=== PATIENT | female | born 1940 | race Caucasian/White ===

== ENCOUNTER 2017-09-20 13:31 | Emergency (ER) | payer MEDICAID, MEDICARE, OTHER ==
--- NOTE | 2017-09-20 13:51 | ED Physician Chart ---
ED Chief Complaint/HPI - Patient Information Date Seen:: 09/20/17 Time Seen:: 13:45 Chief Complaint:: Increased dyspnea for at least 2 weeks. History of Present Illness:: Brought in by private auto because of increasing dyspnea for at least 2 weeks. Pt is Mohawk speaking. Interpretation is provided by her grandson Atif and my nurse Mr. Jun Hatch. Pt has h/o COPD. Pt has had constant L upper chest pain since last evening, that is characterized as constant, localized and sharp, aggravated with exertion. Chest pain is associated with occasional palpitation. No diaphoresis. Pt has GREGORIO, orthopnea, PND and ankle edema. ? occasional dry cough. No fever. Pt had HHN treatment at home without significant improvement with her respiratory condition. Allergies:: NKA Vitals:: see Nurse Note. Historian:: Patient Family MD/PCP:: Dr. Borrego LMP:: Postmenopausal Review:: Nurse's Note Reviewed ED Review of Systems - Review of Systems General/Constitutional: No fever, No weight loss, No weakness, Edema (in ankles) Skin: No rash, No bruising Head: No headache, No light-headedness Eyes: No loss of vision, No pain, No diplopia ENT: No earache, No nasal drainage, No sore throat Neck: No neck pain, No swelling, No thyromegaly, No stiffness, No mass noted Cardio Vascular: Chest pain, Palpitations, PND, orthopnea, No edema Pulmonary: SOB, Cough (occasional dry), No wheezing GI: No nausea, No vomiting, No pain G/U: No dysuria, No frequency, No hematuria Endocrine: No polyuria, No polydipsia Psychiatric: No prior psych history Hematopoietic: No bruising, No lymphadenopathy Neurological: No syncope, No focal symptoms, No weakness, No paresthesia, No headache, No confusion ED Past Medical History - Past Medical History Past Medical History: HTN, DM, Asthma/COPD, Dyslipidemia, Other (Chronic anemia. ) Social History: Non Smoker, No Alcohol, No Drug Use, , Other (lives with her son) Employment:: Retired. Surgical History: Cholecystectomy (about 8 y/a.), (x 3, with last one about 38 y/a) Psychiatricy History: None Medication: Reviewed Family Medical History - Family Member Mother History Unknown: Yes Living Status: ED Physical Exam - Physical Examination General/Constitutional: Awake, Well-developed, well-nourished, Alert, Non-toxic appearing Other Gen/Cons comments:: Speaks clearly and interacts normally. Pt has mild respiratory distress. Head: Atraumatic Eyes: Lids, conjuctiva normal, PERRL, EOMI Skin: No rash, No ecchymosis, Well hydrated, No lymphadenopathy ENMT: External ears, nose nl, Nasal exam nl, Oropharynx nl Neck: Nontender, No nuchal rigidity, No mass, No stridor Other Neck comments:: Neck exam is limited due to obesity. ?JVD Respiratory: Nl effort/Exclusion Other Respiratory comments:: Few scattered crackles and bibailar rales noticed. No wheeze. Cardio Vascular: RRR, No murmur, gallop, rubs GI: No tenderness/rebounding/guarding, No organomegaly, No hernia, Normal BS's, Nondistended, No mass/bruits Other GI comments:: obese but soft. Other Extremities comments:: Mild bilateral ankle edema noticed. Neuro/Psych: Alert/oriented (x3 ), Judgement/insight normal, Mood normal, Normal gait, No focal deficits ED Labs/Radiology/EKG Results - Lab Results Results: Laboratory Tests 09/20/17 09/20/17 09/20/17 14:25 14:25 14:25 PT 10.9 INR 1.05 PTT (Actin FS) 23.7 L Sodium 133 L Potassium 4.8 Chloride 99 Carbon Dioxide 27.5 Anion Gap 11.3 BUN 22 Creatinine 0.8 Est GFR ( Amer) TNP Est GFR (Non-Af Amer) TNP BUN/Creatinine Ratio 27.5 Glucose 271 H POC Glucose Calcium 8.6 Total Bilirubin 0.3 AST 13 ALT 6 L Alkaline Phosphatase 80 Creatine Kinase 42 Troponin I 0.12 H* B-Natriuretic Peptide Total Protein 7.2 Albumin 3.5 L Globulin 3.7 Albumin/Globulin Ratio 1.0 09/20/17 09/20/17 14:25 14:37 PT INR PTT (Actin FS) Sodium Potassium Chloride Carbon Dioxide Anion Gap BUN Creatinine Est GFR ( Amer) Est GFR (Non-Af Amer) BUN/Creatinine Ratio Glucose POC Glucose 252 H Calcium Total Bilirubin AST ALT Alkaline Phosphatase Creatine Kinase Troponin I B-Natriuretic Peptide 340.0 H Total Protein Albumin Globulin Albumin/Globulin Ratio Laboratory Last Values WBC 12.8 Th/cmm (4.8-10.8) H 09/20/17 14:25 RBC 3.10 Mil/cmm (3.80-5.20) L 09/20/17 14:25 Hgb 6.9 gm/dL (12-16) L* 09/20/17 14:25 Hct 22.1 % (41.0-60) L 09/20/17 14:25 MCV 71.4 fl (81-100) L 09/20/17 14:25 MCH 22.3 pg (27.0-31.0) L 09/20/17 14:25 MCHC Differential 31.2 pg (28.0-36.0) 09/20/17 14:25 RDW 16.4 % (11.5-20.0) 09/20/17 14:25 Plt Count 512 Th/cmm (150-400) H 09/20/17 14:25 MPV 7.3 fl 09/20/17 14:25 Neutrophils % 71.4 % (40.0-80.0) 09/20/17 14:25 Lymphocytes % 18.1 % (20.0-50.0) L 09/20/17 14:25 Monocytes % 7.3 % (2.0-10.0) 09/20/17 14:25 Eosinophils % 2.7 % (0.0-5.0) 09/20/17 14:25 Basophils % 0.5 % (0.0-2.0) 09/20/17 14:25 PT 10.9 SECONDS (9.5-11.5) 09/20/17 14:25 INR 1.05 (0.5-1.4) 09/20/17 14:25 PTT (Actin FS) 23.7 SECONDS (26.0-38.0) L 09/20/17 14:25 Sodium 133 mEq/L (136-145) L 09/20/17 14:25 Potassium 4.8 mEq/L (3.5-5.1) 09/20/17 14:25 Chloride 99 mEq/L (98-107) 09/20/17 14:25 Carbon Dioxide 27.5 mEq/L (21.0-31.0) 09/20/17 14:25 Anion Gap 11.3 (7.0-16.0) 09/20/17 14:25 BUN 22 mg/dL (7-25) 09/20/17 14:25 Creatinine 0.8 mg/dL (0.6-1.2) 09/20/17 14:25 Est GFR ( Amer) TNP 09/20/17 14:25 Est GFR (Non-Af Amer) TNP 09/20/17 14:25 BUN/Creatinine Ratio 27.5 09/20/17 14:25 Glucose 271 mg/dL (70-105) H 09/20/17 14:25 POC Glucose 252 MG/DL (70 - 105) H 09/20/17 14:37 Calcium 8.6 mg/dL (8.6-10.3) 09/20/17 14:25 Total Bilirubin 0.3 mg/dL (0.3-1.0) 09/20/17 14:25 AST 13 U/L (13-39) 09/20/17 14:25 ALT 6 U/L (7-52) L 09/20/17 14:25 Alkaline Phosphatase 80 U/L (34-104) 09/20/17 14:25 Creatine Kinase 42 U/L (30-223) 09/20/17 14:25 Troponin I 0.12 ng/mL (0.01-0.05) H* 09/20/17 14:25 B-Natriuretic Peptide 340.0 pg/mL (5.0-100.0) H 09/20/17 14:25 Total Protein 7.2 gm/dL (6.0-8.3) 09/20/17 14:25 Albumin 3.5 gm/dL (3.7-5.3) L 09/20/17 14:25 Globulin 3.7 gm/dL 09/20/17 14:25 Albumin/Globulin Ratio 1.0 (1.0-1.8) 09/20/17 14:25 Laboratory Last Values WBC 15.1 Th/cmm (4.8-10.8) H 09/20/17 19:45 RBC 3.21 Mil/cmm (3.80-5.20) L 09/20/17 19:45 Hgb 7.1 gm/dL (12-16) L* 09/20/17 19:45 Hct 23.0 % (41.0-60) L 09/20/17 19:45 MCV 71.6 fl (81-100) L 09/20/17 19:45 MCH 22.0 pg (27.0-31.0) L 09/20/17 19:45 MCHC Differential 30.7 pg (28.0-36.0) 09/20/17 19:45 RDW 16.4 % (11.5-20.0) 09/20/17 19:45 Plt Count 547 Th/cmm (150-400) H 09/20/17 19:45 MPV 7.1 fl 09/20/17 19:45 Neutrophils % 65.6 % (40.0-80.0) 09/20/17 19:45 Lymphocytes % 22.3 % (20.0-50.0) 09/20/17 19:45 Monocytes % 9.0 % (2.0-10.0) 09/20/17 19:45 Eosinophils % 2.7 % (0.0-5.0) 09/20/17 19:45 Basophils % 0.4 % (0.0-2.0) 09/20/17 19:45 PT 10.9 SECONDS (9.5-11.5) 09/20/17 14:25 INR 1.05 (0.5-1.4) 09/20/17 14:25 PTT (Actin FS) 23.7 SECONDS (26.0-38.0) L 09/20/17 14:25 Sodium 133 mEq/L (136-145) L 09/20/17 14:25 Potassium 4.8 mEq/L (3.5-5.1) 09/20/17 14:25 Chloride 99 mEq/L (98-107) 09/20/17 14:25 Carbon Dioxide 27.5 mEq/L (21.0-31.0) 09/20/17 14:25 Anion Gap 11.3 (7.0-16.0) 09/20/17 14:25 BUN 22 mg/dL (7-25) 09/20/17 14:25 Creatinine 0.8 mg/dL (0.6-1.2) 09/20/17 14:25 Est GFR ( Amer) TNP 09/20/17 14:25 Est GFR (Non-Af Amer) TNP 09/20/17 14:25 BUN/Creatinine Ratio 27.5 09/20/17 14:25 Glucose 271 mg/dL (70-105) H 09/20/17 14:25 POC Glucose 61 MG/DL (70 - 105) L 09/20/17 20:47 Whole Bld Lactic Acid 1.56 mmol/L (0.60-1.99) 09/20/17 17:01 Calcium 8.6 mg/dL (8.6-10.3) 09/20/17 14:25 Total Bilirubin 0.3 mg/dL (0.3-1.0) 09/20/17 14:25 AST 13 U/L (13-39) 09/20/17 14:25 ALT 6 U/L (7-52) L 09/20/17 14:25 Alkaline Phosphatase 80 U/L (34-104) 09/20/17 14:25 Creatine Kinase 42 U/L (30-223) 09/20/17 14:25 Troponin I 0.13 ng/mL (0.01-0.05) H* 09/20/17 18:59 B-Natriuretic Peptide 340.0 pg/mL (5.0-100.0) H 09/20/17 14:25 Total Protein 7.2 gm/dL (6.0-8.3) 09/20/17 14:25 Albumin 3.5 gm/dL (3.7-5.3) L 09/20/17 14:25 Globulin 3.7 gm/dL 09/20/17 14:25 Albumin/Globulin Ratio 1.0 (1.0-1.8) 09/20/17 14:25 Blood Type O POSITIVE 09/20/17 17:01 Antibody Screen NEGATIVE 09/20/17 17:01 Laboratory Last Values WBC 15.1 Th/cmm (4.8-10.8) H 09/20/17 19:45 RBC 3.21 Mil/cmm (3.80-5.20) L 09/20/17 19:45 Hgb 7.1 gm/dL (12-16) L* 09/20/17 19:45 Hct 23.0 % (41.0-60) L 09/20/17 19:45 MCV 71.6 fl (81-100) L 09/20/17 19:45 MCH 22.0 pg (27.0-31.0) L 09/20/17 19:45 MCHC Differential 30.7 pg (28.0-36.0) 09/20/17 19:45 RDW 16.4 % (11.5-20.0) 09/20/17 19:45 Plt Count 547 Th/cmm (150-400) H 09/20/17 19:45 MPV 7.1 fl 09/20/17 19:45 Neutrophils % 65.6 % (40.0-80.0) 09/20/17 19:45 Lymphocytes % 22.3 % (20.0-50.0) 09/20/17 19:45 Monocytes % 9.0 % (2.0-10.0) 09/20/17 19:45 Eosinophils % 2.7 % (0.0-5.0) 09/20/17 19:45 Basophils % 0.4 % (0.0-2.0) 09/20/17 19:45 PT 10.9 SECONDS (9.5-11.5) 09/20/17 14:25 INR 1.05 (0.5-1.4) 09/20/17 14:25 PTT (Actin FS) 23.7 SECONDS (26.0-38.0) L 09/20/17 14:25 Sodium 133 mEq/L (136-145) L 09/20/17 14:25 Potassium 4.8 mEq/L (3.5-5.1) 09/20/17 14:25 Chloride 99 mEq/L (98-107) 09/20/17 14:25 Carbon Dioxide 27.5 mEq/L (21.0-31.0) 09/20/17 14:25 Anion Gap 11.3 (7.0-16.0) 09/20/17 14:25 BUN 22 mg/dL (7-25) 09/20/17 14:25 Creatinine 0.8 mg/dL (0.6-1.2) 09/20/17 14:25 Est GFR ( Amer) TNP 09/20/17 14:25 Est GFR (Non-Af Amer) TNP 09/20/17 14:25 BUN/Creatinine Ratio 27.5 09/20/17 14:25 Glucose 271 mg/dL (70-105) H 09/20/17 14:25 POC Glucose 61 MG/DL (70 - 105) L 09/20/17 20:47 Whole Bld Lactic Acid 1.56 mmol/L (0.60-1.99) 09/20/17 17:01 Calcium 8.6 mg/dL (8.6-10.3) 09/20/17 14:25 Total Bilirubin 0.3 mg/dL (0.3-1.0) 09/20/17 14:25 AST 13 U/L (13-39) 09/20/17 14:25 ALT 6 U/L (7-52) L 09/20/17 14:25 Alkaline Phosphatase 80 U/L (34-104) 09/20/17 14:25 Creatine Kinase 42 U/L (30-223) 09/20/17 14:25 Troponin I 0.13 ng/mL (0.01-0.05) H* 09/20/17 18:59 B-Natriuretic Peptide 340.0 pg/mL (5.0-100.0) H 09/20/17 14:25 Total Protein 7.2 gm/dL (6.0-8.3) 09/20/17 14:25 Albumin 3.5 gm/dL (3.7-5.3) L 09/20/17 14:25 Globulin 3.7 gm/dL 09/20/17 14:25 Albumin/Globulin Ratio 1.0 (1.0-1.8) 09/20/17 14:25 Blood Type O POSITIVE 09/20/17 17:01 Antibody Screen NEGATIVE 09/20/17 17:01 - Radiology Results Results: PCXR: Based on my interpretation: Cardiiomegaly with bilateral pleural effusion and cephalization c/w CHF. Official report is pending. - EKG Interpretations EKG Time:: 13:56 Rate & Rhythm: NSR with VR 82 Comments:: Mild ST depression in lead V5-6. Consider lateral ischemia. lunchroom monitor: NSR with VR 80. No ectopy. Repeat EKG at 1835: NSR with VR 72. No definite acute ischemic changes at lateral leads. ED Septic Shock - . Is Septic Shock (SBP<90, OR Lactate>4 mmol\L) present?: No ED Reassessment (Disposition) - Reassessment Reassessment:: 1420 Pt feels better. Chest pain resolved after one sublingual nitroglycerin. Pt is hemodynamically stable. 1540 Pt breathes comfortably and does not feel that she needs HHN treatment. Remaining lab results are still pending. 1625 Pt remains stable. Remaining lab results just became available. EKG, CXR, and lab findings have been reviewed with pt. Management plan has been discussed. Admitting physician is to be contacted. 1705 Case was discussed with DR. Mccracken (? sp) ([facility]ly [facility]) at about 1705. She authorized pt to be admitted in this hospital. 1750 Pt remains chest pain free and overall stable. Case was discussed with Dr. Son. He recommended pt to be transferred to a hospital where there is cardiac catheterization capacity. 1845 Pt has had urine output about 350 ml after IV Lasix was given. Pt now breathes comfortably and essentially back to her baseline respiratory status. Reexam: COR RRR Lungs mild basilar rales. No wheeze. 0 Pt remains stable and chest pain free. Pt breathes comfortably. Remaining lab results have been reviewed. Awaiting transfer to [facility]. 2205 Dr. Menard at [facility] initially accepted pt for transfer. I spoke with Dr. Grace (?sp) at about 2200, who will be the hospitalist there to provide care for this patient this evening upon her arrival at [facility]. He was updated about pt's clinical status, as well as pertinent H & P, CXR, EKG, lab findings, including repeat EKG , CBC, and lactic acid level. He confirmed acceptance of pt's transfer. Management plan has been discussed with pt also. Pt remains comfortable and stable. No chest pain, dyspnea, or lightheadedness. Reassessment Condition:: Improved - Diagnosis Diagnosis:: Chest pain c/w ischemic heart disease (mild elevated troponin I level) with CHF. Stable and currently asymptomatic. h/o COPD. Stable. Diabetes mellitus. Stable HTN. Stable. Anemia. Stable. Hb is expected to improve after diuresis. Leukocytosis. - Patient Disposition Discharge/Transfer:: Acute Care (other hosp) ([facility] ( with cardiac catheterization capacity), higher level of care. Accepting physician Dr. Grace.) Transport Method:: ACLS Time:: 22:10 Condition at Disposition:: Stable, Improved ED Discharge Plan - Patient Disposition Admit/Discharge/Transfer: TRANSFER TO ACUTE HOSP Condition at Disposition: Stable
[2017-09-20] MEDS ORDERED: NITROGLYCERIN OINT 2% 1 INCH PACKET TP STA (14:23)
[2017-09-20] MEDS ORDERED: NITROGLYCERIN OINT 2% 1 INCH PACKET TP ONE (14:27)
[2017-09-20 14:48] LABS: INR 1.05 (0.5-1.4); PROTHROMBIN TIME (TEST) 10.9 SECONDS (9.5-11.5)
[2017-09-20 14:55] LABS: ALBUMIN 3.5 gm/dL (3.7-5.3); ALKALINE PHOSPHATASE 80 U/L (34-104); ANION GAP 11.3 (7.0-16.0); BILIRUBIN,TOTAL 0.3 mg/dL (0.3-1.0); BUN - UREA NITROGEN 22 mg/dL (7-25); CALCIUM SERUM 8.6 mg/dL (8.6-10.3); CARBON DIOXIDE 27.5 mEq/L (21.0-31.0); CHLORIDE 99 mEq/L (98-107); CREATININE - SERUM 0.8 mg/dL (0.6-1.2); CREATININE KINASE 42 U/L (30-223); GLUCOSE 271 mg/dL (70-105); POTASSIUM SERUM 4.8 mEq/L (3.5-5.1); SGOT 13 U/L (13-39); SGPT/ALT 6 U/L (7-52); SODIUM SERUM 133 mEq/L (136-145); TOTAL PROTEIN,SERUM 7.2 gm/dL (6.0-8.3)
[2017-09-20 15:18] LABS: % MONOCYTES 7.3 % (2.0-10.0); EOSINOPHILE ABSOLUTE 0.3 Th/cmm (0.1-0.4); LYMPHOCYTE ABSOLUTE 2.3 Th/cmm (1.5-3.0); MEAN PLATELET VOLUME 7.3 fl; MONOCYTE ABSOLUTE 0.9 Th/cmm (0.3-1.0)
[2017-09-20 15:31] LABS: % BASOPHILS 0.5 % (0.0-2.0); % EOSINOPHILS 2.7 % (0.0-5.0); % LYMPHOCYTES 18.1 % (20.0-50.0); % NEUTROPHILS 71.4 % (40.0-80.0); BASOPHILE ABSOLUTE 0.1 Th/cumm (0-0.2); HEMATOCRIT 22.1 % (41.0-60); MEAN CELL VOLUME 71.4 fl (81-100); MEAN CORPUSCULAR HEMOGLOBIN 22.3 pg (27.0-31.0); MEAN CORPUSCULAR HGB CONC 31.2 pg (28.0-36.0); NEUTROPHILE ABSOLUTE 9.2 Th/cmm (1.8-8.0); PLATELET COUNT 512 Th/cmm (150-400); RED CELL DISTRIBUTION WIDTH 16.4 % (11.5-20.0)
[2017-09-20 15:53] LABS: HEMOGLOBIN 6.9 gm/dL (12-16); WHITE BLOOD COUNT 12.8 Th/cmm (4.8-10.8)
[2017-09-20] MEDS ORDERED: cefTRIAXone 1 GM in Sodium Chloride 0.9% 50 ML IV ONE (16:50)
[2017-09-20 20:19] LABS: % BASOPHILS 0.4 % (0.0-2.0); % EOSINOPHILS 2.7 % (0.0-5.0); % LYMPHOCYTES 22.3 % (20.0-50.0); % NEUTROPHILS 65.6 % (40.0-80.0); BASOPHILE ABSOLUTE 0.1 Th/cumm (0-0.2); EOSINOPHILE ABSOLUTE 0.4 Th/cmm (0.1-0.4); LYMPHOCYTE ABSOLUTE 3.4 Th/cmm (1.5-3.0); MEAN CELL VOLUME 71.6 fl (81-100); MEAN CORPUSCULAR HGB CONC 30.7 pg (28.0-36.0); MEAN PLATELET VOLUME 7.1 fl; MONOCYTE ABSOLUTE 1.4 Th/cmm (0.3-1.0); NEUTROPHILE ABSOLUTE 9.8 Th/cmm (1.8-8.0); PLATELET COUNT 547 Th/cmm (150-400); RED BLOOD COUNT 3.21 Mil/cmm (3.80-5.20); RED CELL DISTRIBUTION WIDTH 16.4 % (11.5-20.0)
[2017-09-20 20:48] LABS: WHITE BLOOD COUNT 15.1 Th/cmm (4.8-10.8)
[2017-09-20 20:49] LABS: HEMOGLOBIN 7.1 gm/dL (12-16)
--- NOTE | 2017-09-21 08:58 | Diagnostic Imaging Report ---
Exam: Chest x-ray portable Diagnosis: Dyspnea. Findings: Portable upright examination of chest at 1436 hours reviewed no prior studies available comparison. The study demonstrates cardiomegaly superimposed congestive heart failure changes. There is evidence of basilar infiltrates with superimposed bilateral effusions. The visualized bony thorax remarkable for degenerative osteopenia. The aortic arch calcified. IMPRESSION: 1. Cardiomegaly congestive heart failure 2. Bilateral pneumonia superimposed effusions. Follow-up examination is recommended.
[2017-09-21 13:28] LABS: A1C % 8.2 % (4.0-6.0)
== END 2017-09-20 22:20 | disposition short-term general hospital (02) ==
LOC: ER 13:31
DX: I11.0 Hypertensive heart disease with heart failure (principal); I50.9 Heart failure, unspecified; I25.9 Chronic ischemic heart disease, unspecified; E11.9 Type 2 diabetes mellitus without complications; D64.9 Anemia, unspecified; D72.829 Elevated white blood cell count, unspecified; E78.5 Hyperlipidemia, unspecified; Z90.49 Acquired absence of other specified parts of digestive tract
CPT/HCPCS: 99285; 96365; 96375; 93005 ×2; 71010; 84484 ×2; 83880; 86900; 86850; 36415; 36416 ×3; 86901; 82948 ×3; 83605 ×2; 85025 ×2; 85610; 82550; 83036; 80053; 87040; J2060; J0696; J1940; Z7610

== ENCOUNTER 2018-06-05 22:50 | Inpatient (IN) | payer OTHER ==
[2018-06-05] MEDS ORDERED: Albuterol/Ipratropium Neb 3 ML AERS HHN ONE ×2 (22:54→22:58)
--- NOTE | 2018-06-05 23:40 | ED Physician Chart ---
ED Chief Complaint/HPI - Patient Information Date Seen:: 06/05/18 Time Seen:: 22:55 Chief Complaint:: shortness of breath History of Present Illness:: this is an 78 yr old female who has been short of breath for a month but got more short of breath this eveing. she is diabetic and hypertensive but denies fever and sore throat. Allergies:: Allergies Allergy/AdvReac Type Severity Reaction Status Date / Time No Known Allergies Allergy Verified 09/20/17 14:06 Vitals:: Vital Signs - 8 hr 06/05/18 06/05/18 22:50 23:02 Temp 98.4 F HR 90 84 RR 22 20 BP 131/48 O2 Sat % 96 99 Historian:: Patient Review:: Nurse's Note Reviewed ED Review of Systems - Review of Systems General/Constitutional: No fever, No chills, No weight loss, No weakness, No diaphoresis, Edema, No loss of appetite Skin: No skin lesions, No rash, No bruising Head: No headache, No light-headedness Eyes: No loss of vision, No pain, No diplopia ENT: No earache, No nasal drainage, No sore throat, No tinnitus Neck: No neck pain, No swelling, No thyromegaly, No stiffness, No mass noted Cardio Vascular: No chest pain, No palpitations, PND, orthopnea, No edema Pulmonary: SOB, No cough, No sputum, Wheezing GI: No nausea, No vomiting, No diarrhea, No pain, No melena, No hematochezia, No constipation, No hematemesis G/U: No dysuria, No frequency, No hematuria Musculoskeletal: No bone or joint pain, No back pain, No muscle pain Endocrine: No polyuria, No polydipsia Psychiatric: No prior psych history, No depression, No anxiety, No suicidal ideation Hematopoietic: No bruising, No lymphadenopathy Allergic/Immuno: No urticaria, No angioedema Neurological: No syncope, No focal symptoms, No weakness, No paresthesia, No headache, No seizure, No dizziness, No confusion, No vertigo ED Past Medical History - Past Medical History Obtainable: Yes Past Medical History: HTN, DM, Asthma/COPD, Arthritis Family History: None Social History: Non Smoker, No Alcohol, No Drug Use Surgical History: Cholecystectomy, Hysterectomy, Psychiatricy History: None Medication: Reviewed Family Medical History - Family Member Mother History Unknown: Yes Living Status: ED Physical Exam - Physical Examination General/Constitutional: Awake, Well-developed, well-nourished, Alert, No distress, GCS 15, Non-toxic appearing, Ambulatory Other Gen/Cons comments:: obese Head: Atraumatic Eyes: Lids, conjuctiva normal, PERRL, EOMI Skin: Nl inspection, No rash, No skin lesions, No ecchymosis, Well hydrated, No lymphadenopathy ENMT: External ears, nose nl, Nasal exam nl, Lips, teeth, gums nl Neck: Nontender, Full ROM w/o pain, No JVD, No nuchal rigidity, No bruit, No mass, No stridor Respiratory: Clear to Auscultation, No Wheeze/Rhonchi/Rales Other Respiratory comments:: she has rhonchi and wheezes of both lungs. Cardio Vascular: RRR, No murmur, gallop, rubs, NL S1 S2 GI: No tenderness/rebounding/guarding, No organomegaly, No hernia, Normal BS's, Nondistended, No mass/bruits, No McBurney tenderness : No CVA tenderness Extremities: No tenderness or effusion, Full ROM, normal strength in all extremities, No edema (there is bilateral edema with 4+ on the right lower leg and 2+ on the left lower leg.), Normal digits & nails Neuro/Psych: Alert/oriented, DTR's symmetric, Normal sensory exam, Normal motor strength, Judgement/insight normal, Mood normal, Normal gait, No focal deficits Misc: Normal back, No paraspinal tenderness ED Labs/Radiology/EKG Results - Lab Results Results: Abnormal Lab Results 06/05/18 06/05/18 06/05/18 23:10 23:10 23:10 WBC 13.3 H RBC 3.38 L Hgb 8.0 L Hct 25.2 L MCV 74.5 L MCH 23.6 L MCHC Differential 31.6 RDW 16.1 Plt Count 447 H MPV 7.1 Neutrophils % 56.2 Lymphocytes % 28.2 Monocytes % 10.1 H Eosinophils % 5.0 Basophils % 0.5 PT 9.9 INR 0.95 PTT (Actin FS) 22.0 L Sodium 132 L Potassium 4.4 Chloride 97 L Carbon Dioxide 27.4 Anion Gap 12.0 BUN 23 Creatinine 0.9 Est GFR ( Amer) TNP Est GFR (Non-Af Amer) TNP BUN/Creatinine Ratio 25.6 Glucose 157 H Calcium 9.3 Total Bilirubin 0.4 AST 19 ALT 7 Alkaline Phosphatase 74 Troponin I B-Natriuretic Peptide Total Protein 7.5 Albumin 3.7 Globulin 3.8 Albumin/Globulin Ratio 1.0 TSH 06/05/18 06/05/18 06/06/18 23:10 23:10 00:00 WBC RBC Hgb Hct MCV MCH MCHC Differential RDW Plt Count MPV Neutrophils % Lymphocytes % Monocytes % Eosinophils % Basophils % PT INR PTT (Actin FS) Sodium Potassium Chloride Carbon Dioxide Anion Gap BUN Creatinine Est GFR ( Amer) Est GFR (Non-Af Amer) BUN/Creatinine Ratio Glucose Calcium Total Bilirubin AST ALT Alkaline Phosphatase Troponin I 0.02 B-Natriuretic Peptide 238.0 H Total Protein Albumin Globulin Albumin/Globulin Ratio TSH 3.06 - Radiology Results Results: chest x-ray = cardiomegaly - EKG Interpretations EKG Time:: 22:57 Rate & Rhythm: 85, sinus [place]: right axis ED Assessment - Assessment General Assessment: bronchitis congestive heart failure diabetes mellitus anemia ED Septic Shock - . Is Septic Shock (SBP<90, OR Lactate>4 mmol\L) present?: No - <6hrs of presentation: Vital Signs: Vital Signs - 8 hr 06/05/18 06/05/18 22:50 23:02 Temp 98.4 F HR 90 84 RR 22 20 BP 131/48 O2 Sat % 96 99 ED Reassessment (Disposition) - Reassessment Reassessment Condition:: Improved - Diagnosis Diagnosis:: bronchitis anemia congestive heart failure diabetes mellitus - Patient Disposition Discharge/Transfer:: Acute Care w/in this hosp Admitted to:: Telemetry Admitting Medical Physician:: Byron Jennings Condition at Disposition:: Improved
[2018-06-06 00:10] LABS: % BASOPHILS 0.5 % (0.0-2.0); % LYMPHOCYTES 28.2 % (20.0-50.0); % MONOCYTES 10.1 % (2.0-10.0); % NEUTROPHILS 56.2 % (40.0-80.0); BASOPHILE ABSOLUTE 0.1 Th/cumm (0-0.2); EOSINOPHILE ABSOLUTE 0.7 Th/cmm (0.1-0.4); HEMATOCRIT 25.2 % (41.0-60); LYMPHOCYTE ABSOLUTE 3.8 Th/cmm (1.5-3.0); MEAN CELL VOLUME 74.5 fl (81-100); MEAN CORPUSCULAR HEMOGLOBIN 23.6 pg (27.0-31.0); MEAN CORPUSCULAR HGB CONC 31.6 pg (28.0-36.0); MEAN PLATELET VOLUME 7.1 fl; MONOCYTE ABSOLUTE 1.3 Th/cmm (0.3-1.0); NEUTROPHILE ABSOLUTE 7.4 Th/cmm (1.8-8.0); PLATELET COUNT 447 Th/cmm (150-400); RED BLOOD COUNT 3.38 Mil/cmm (3.80-5.20); RED CELL DISTRIBUTION WIDTH 16.1 % (11.5-20.0); WHITE BLOOD COUNT 13.3 Th/cmm (4.8-10.8)
[2018-06-06 00:19] LABS: INR 0.95 (0.5-1.4); PROTHROMBIN TIME (TEST) 9.9 SECONDS (9.5-11.5)
[2018-06-06 00:21] LABS: ALBUMIN 3.7 gm/dL (3.7-5.3); ALKALINE PHOSPHATASE 74 U/L (34-104); BILIRUBIN,TOTAL 0.4 mg/dL (0.3-1.0); BUN - UREA NITROGEN 23 mg/dL (7-25); CALCIUM SERUM 9.3 mg/dL (8.6-10.3); CARBON DIOXIDE 27.4 mEq/L (21.0-31.0); CHLORIDE 97 mEq/L (98-107); CREATININE - SERUM 0.9 mg/dL (0.6-1.2); GLUCOSE 157 mg/dL (70-105); POTASSIUM SERUM 4.4 mEq/L (3.5-5.1); SGOT 19 U/L (13-39); SGPT/ALT 7 U/L (7-52); SODIUM SERUM 132 mEq/L (136-145); TOTAL PROTEIN,SERUM 7.5 gm/dL (6.0-8.3)
[2018-06-06] MEDS: Albuterol/Ipratropium Neb 3 ML AERS HHN PRN ×2 (04:08→14:45)
[2018-06-06 04:16] LABS: URINE SOURCE RANDOM
[2018-06-06 04:36] LABS: URINE BILIRUBIN NEGATIVE (NEGATIVE); URINE BLOOD NEGATIVE (NEGATIVE); URINE GLUCOSE (UA) NEGATIVE (NEGATIVE); URINE KETONE NEGATIVE (NEGATIVE); URINE LEUKOCYTE ESTERASE NEGATIVE (NEGATIVE); URINE MICROSCOPIC INDICATED? YES; URINE NITRATE POSITIVE (NEGATIVE); URINE PROTEIN NEGATIVE (NEGATIVE); URINE UROBILINOGEN 0.2 E.U./dL (0.2 - 1.0)
[2018-06-06 04:37] LABS: URINE CLARITY HAZY (CLEAR); URINE COLOR YELLOW
[2018-06-06 04:38] LABS: URINE BACTERIA MODERATE /hpf (NONE SEEN); URINE EPITHELIAL CELLS FEW /lpf (FEW); URINE RBC 0-2 /hpf (0-5); URINE WBC 0-2 /hpf (0-5)
[2018-06-06] MEDS ORDERED: Non-Formulary Item 1 EA (Albuterol Sulfate [Proair Hfa] 2 PUFF) IH PRN (07:05)
[2018-06-06] MEDS ORDERED: INSULIN REGULAR SQ SCH (07:30)
[2018-06-06] MEDS ORDERED: [UNRECOGNIZED DRUG - OTHER] SQ SCH (07:30)
[2018-06-06] MEDS ORDERED: INSULIN NPH SQ SCH (07:30)
[2018-06-06] MEDS ORDERED: Albuterol/Ipratropium Neb 3 ML AERS HHN ONE (07:32)
[2018-06-06] MEDS ORDERED: Piperacillin Sodium/Tazobact 3.375 gm Vial IV ONE ×2 (07:39→08:55)
[2018-06-06] MEDS ORDERED: Albuterol/Ipratropium Neb 3 ML AERS HHN PRN (07:45)
--- NOTE | 2018-06-06 08:22 | History and Physical ---
History of Present Illness - HPI Chief Complaint: SOB HPI: 78 y/o female who presents to [facility] ER for SOB for the past month and has been steadily getting worse. Patient has a history of diabetes and hypertension and sorethroat. Pt has a history of HTN, DM, Asthma/ COPD and arthritis. Patient had initial labwork which revealed the following CBC 13.3 H/H 8.0/25.2 platelets 447K Na 132 K 4.4 BUN/Cr 23/0.9 glu 157 BNP 238 Patient was subsequently admitted for further evaluation and treatment. Vital Signs: Last Vital Signs Temp 97.5 F 06/06/18 03:42 Pulse 85 06/06/18 07:34 Resp 17 06/06/18 07:34 BP 131/59 06/06/18 07:34 Pulse Ox 99 06/06/18 07:34 Past Medical History Cardiovascular: Report: CHF, HTN Pulmonary: Report: Asthma, Bronchitis [employer]: Report: No Pertinent Hx GI: Report: No Pertinent Hx Psych: Report: No Pertinent Hx Musculoskeletal: Report: No Pertinent Hx Infectious Disease: Report: No Pertinent Hx Renal/: Report: No Pertinent Hx Endocrine: Report: Diabetes Dermatology: Report: No Pertinent Hx - Past Surgical History Past Surgical History: No pertinent Hx Family Medical History - Family Member Mother History Unknown: Yes Living Status: Social History Smoke: No Alcohol: None Drugs: None Lives: Alone - Medications Home Medications: Home Medication Medication Instructions Recorded Type Aspirin 81 mg PO DAILY 09/20/17 History Insulin NPH Hum/Reg Insulin Hm 40 unit SQ QDAC 09/20/17 History [Humulin 70/30 Kwikpen] Lisinopril [Zestril] 40 mg PO DAILY 09/20/17 History Metformin HCl [Glucophage] 1,000 mg PO BID 09/20/17 History Metoprolol Tartrate 25 mg PO 06/06/18 History Pravastatin Sodium 40 mg PO 06/06/18 History - Allergies Allergies/Adverse Reactions: Allergies Allergy/AdvReac Type Severity Reaction Status Date / Time No Known Allergies Allergy Verified 09/20/17 14:06 Review of Systems - Review of Systems Constitutional: Report: No Significant Eyes: Report: No Significant ENT: Report: No Significant Respiratory: Report: Shortness of Breath Cardiovascular: Report: No Significant Gastrointestinal: Report: No Significant Genitourinary: Report: No Significant Musculoskeletal: Report: No Significant Skin: Report: No Significant Neurological: Report: No Significant Physical Exam - Physical Exam HEENT: Report: Ears Nose Throat within normal limits, Pharnyx within normal limits Neck: Report: Within normal limits Cardiovascular Systems: Report: +s1/s2 noted, Regular, Rate and Rhythm Respiratory: Report: Breath Sounds are within normal limits, Clear to Auscultation of lung paulson Abdomen: Report: Non-tender to palpation Back: Report: Inspection of back is within normal limits. Extremities: Report: Non-tender to palpation. Neuro/Psych: Report: Mood affect is within normal limits - Lab Results All Lab Results last 24 hours: Laboratory Results - last 24 hr 06/05/18 06/05/18 06/05/18 23:10 23:10 23:10 WBC 13.3 H RBC 3.38 L Hgb 8.0 L Hct 25.2 L MCV 74.5 L MCH 23.6 L MCHC Differential 31.6 RDW 16.1 Plt Count 447 H MPV 7.1 Neutrophils % 56.2 Lymphocytes % 28.2 Monocytes % 10.1 H Eosinophils % 5.0 Basophils % 0.5 PT 9.9 INR 0.95 PTT (Actin FS) 22.0 L Sodium 132 L Potassium 4.4 Chloride 97 L Carbon Dioxide 27.4 Anion Gap 12.0 BUN 23 Creatinine 0.9 Est GFR ( Amer) TNP Est GFR (Non-Af Amer) TNP BUN/Creatinine Ratio 25.6 Glucose 157 H Calcium 9.3 Total Bilirubin 0.4 AST 19 ALT 7 Alkaline Phosphatase 74 Troponin I B-Natriuretic Peptide Total Protein 7.5 Albumin 3.7 Globulin 3.8 Albumin/Globulin Ratio 1.0 TSH Urine Source Urine Color Urine Clarity Urine pH Ur Specific Erhard Urine Protein Urine Glucose (UA) Urine Ketones Urine Blood Urine Nitrate Urine Bilirubin Urine Urobilinogen Ur Leukocyte Esterase Urine RBC Urine WBC Ur Epithelial Cells Urine Bacteria 06/05/18 06/05/18 06/06/18 23:10 23:10 00:00 WBC RBC Hgb Hct MCV MCH MCHC Differential RDW Plt Count MPV Neutrophils % Lymphocytes % Monocytes % Eosinophils % Basophils % PT INR PTT (Actin FS) Sodium Potassium Chloride Carbon Dioxide Anion Gap BUN Creatinine Est GFR ( Amer) Est GFR (Non-Af Amer) BUN/Creatinine Ratio Glucose Calcium Total Bilirubin AST ALT Alkaline Phosphatase Troponin I 0.02 B-Natriuretic Peptide 238.0 H Total Protein Albumin Globulin Albumin/Globulin Ratio TSH 3.06 Urine Source Urine Color Urine Clarity Urine pH Ur Specific Erhard Urine Protein Urine Glucose (UA) Urine Ketones Urine Blood Urine Nitrate Urine Bilirubin Urine Urobilinogen Ur Leukocyte Esterase Urine RBC Urine WBC Ur Epithelial Cells Urine Bacteria 06/06/18 03:45 WBC RBC Hgb Hct MCV MCH MCHC Differential RDW Plt Count MPV Neutrophils % Lymphocytes % Monocytes % Eosinophils % Basophils % PT INR PTT (Actin FS) Sodium Potassium Chloride Carbon Dioxide Anion Gap BUN Creatinine Est GFR ( Amer) Est GFR (Non-Af Amer) BUN/Creatinine Ratio Glucose Calcium Total Bilirubin AST ALT Alkaline Phosphatase Troponin I B-Natriuretic Peptide Total Protein Albumin Globulin Albumin/Globulin Ratio TSH Urine Source RANDOM Urine Color YELLOW Urine Clarity HAZY Urine pH 6.0 Ur Specific Erhard 1.010 Urine Protein NEGATIVE Urine Glucose (UA) NEGATIVE Urine Ketones NEGATIVE Urine Blood NEGATIVE Urine Nitrate POSITIVE H Urine Bilirubin NEGATIVE Urine Urobilinogen 0.2 Ur Leukocyte Esterase NEGATIVE Urine RBC 0-2 Urine WBC 0-2 Ur Epithelial Cells FEW Urine Bacteria MODERATE H - Assessment Assessment: Acute Bronchitis Anemia CHF Diabetes mellitus Leukocytosis Hyponatremia Elevated BNP UTI - Plan Plan: will restart home meds GI consult for possible GIB occult x 2 cardiology consult accucheck ac hs low dose sliding scale cbc,cmp tomorrow am rocephin 1gm IV daily protonix 40mg IV daily
[2018-06-06 08:54] LABS: HEMATOCRIT 26.3 % (41.0-60); HEMOGLOBIN 8.3 gm/dL (12-16); LYMPHOCYTE ABSOLUTE 0.9 Th/cmm (1.5-3.0); MEAN CORPUSCULAR HEMOGLOBIN 23.2 pg (27.0-31.0); MEAN CORPUSCULAR HGB CONC 31.4 pg (28.0-36.0); MEAN PLATELET VOLUME 7.3 fl; MONOCYTE ABSOLUTE 0.1 Th/cmm (0.3-1.0); NEUTROPHILE ABSOLUTE 10.8 Th/cmm (1.8-8.0); PLATELET COUNT 449 Th/cmm (150-400); RED BLOOD COUNT 3.56 Mil/cmm (3.80-5.20); RED CELL DISTRIBUTION WIDTH 16.1 % (11.5-20.0); WHITE BLOOD COUNT 11.8 Th/cmm (4.8-10.8)
[2018-06-06 09:07] LABS: CHOLESTEROL 155 mg/dL (<200); HDL -HIGH DENSITY LIPOPROTEIN 58 mg/dL (23-92); TRIGLYCERIDES 66 mg/dL (<150)
[2018-06-06 09:17] LABS: LYMPHOCYTE 7 % (20-50); MONOCYTE 1 % (2-10); NEUTROPHILS 92 % (40-80); PLATELET ESTIMATE INCREASED PLATELETS (NORMAL)
--- NOTE | 2018-06-06 09:39 | Diagnostic Imaging Report ---
Portable chest x-ray HISTORY: Shortness of breath The heart is enlarged. Atherosclerotic calcination seen in the aorta. There is a degree of pulmonary vascular redistribution. Marginal congestive heart failure without svetlana pulmonary edema cannot be excluded. No other focal pulmonary processes. IMPRESSION: 1. Cardiomegaly with atherosclerotic vascular changes and findings suggesting a marginal degree of congestive heart failure without svetlana pulmonary edema. Clinical correlation is needed.
[2018-06-06 09:46] LABS: ANION GAP 16.7 (7.0-16.0); BUN - UREA NITROGEN 27 mg/dL (7-25); CALCIUM SERUM 9.6 mg/dL (8.6-10.3); CARBON DIOXIDE 22.8 mEq/L (21.0-31.0); CHLORIDE 94 mEq/L (98-107); CREATININE - SERUM 1.1 mg/dL (0.6-1.2); POTASSIUM SERUM 4.5 mEq/L (3.5-5.1); SODIUM SERUM 129 mEq/L (136-145)
[2018-06-06 09:58] LABS: GLUCOSE 484 mg/dL (70-105)
[2018-06-06] MEDS ORDERED: cefTRIAXone 1 GM in Sodium Chloride 0.9% 50 ML IV SCH (10:00)
[2018-06-06] MEDS: Aspirin 81mg Chewable Tab PO SCH (11:00)
[2018-06-06] MEDS: INSULIN 70/30 100 UNITS/ML SUBQ SCH (11:01)
[2018-06-06] MEDS: INSULIN ASPART SLIDING SCALE 100 UNITS/ML UNIT SUBQ SCH ×3 (11:02→17:06)
[2018-06-06] MEDS ORDERED: Pneumococcal Vaccine 0.5 mL Vial IM ONE (11:43)
[2018-06-06 11:44] VITALS: BP 118/80
[2018-06-06 13:48] LABS: pH 7.39 (7.35-7.45)
[2018-06-06 13:49] LABS: ALLEN TEST PASS
--- NOTE | 2018-06-06 14:25 | Consultation ---
DATE OF CONSULTATION: 06/06/2018 GASTROINTESTINAL CONSULTATION ATTENDING PHYSICIAN: Dr. Jennings. CONSULTING PHYSICIAN: Shad Berrios MD REASON FOR CONSULTATION: Hypochromic microcytic anemia. HISTORY OF PRESENT ILLNESS: This is an 78-year-old female, who is seen through the courtesy of Dr. Jennings. This patient was admitted via the Emergency Room as this patient has been having some shortness of breath. The patient has a history of COPD and history of diabetes mellitus, history of hypertension and the patient was found to have hemoglobin 8 and hypochromic microcytic indices. The patient denies having any endoscopy or colonoscopy in last 10 years. The patient denies having any GI procedures she knows off and denies also any rectal bleeding. Some time, the patient will have diarrhea, otherwise no constipation and no difficulty in swallowing. PAST MEDICAL HISTORY AND SOCIAL HISTORY: The patient does not smoke, does not drink. Past medical history is remarkable for history of diabetes mellitus, history of hypertension, history of anemia, shortness of breath and history of COPD. PAST SURGICAL HISTORY: No significant surgeries. REVIEW OF SYSTEMS: Remarkable for generalized weakness. FAMILY HISTORY: Unremarkable. ALLERGIES: The patient is not allergic to any medication. PHYSICAL EXAMINATION: GENERAL: The patient is slightly obese female, who is in no acute distress. VITAL SIGNS: Temperature is 98, respiratory rate is 18, blood pressure is 140/80 and pulse is 82. HEENT: Head is normocephalic. Pupils are reactive to light. Conjunctivae are pink. No scleral icterus. Throat is clear. NECK: Supple. No JV distention, no mass. ABDOMEN: Soft, no organomegaly, no tenderness. Intestinal sounds are present. RECTAL: Not performed. EXTREMITIES: No peripheral edema, cyanosis or jaundice. LABORATORY DATA: Hemoglobin is 8, hypochromic microcytic indices. IMPRESSION: 1. Anemia with hypochromic microcytic indices, most likely iron deficiency anemia, rule out slow gastrointestinal bleeding, rule out gastrointestinal tumors. 2. Shortness of breath, could be due to chronic obstructive pulmonary disease or acute bronchitis. 3. Diabetes mellitus. 4. Hypertension. RECOMMENDATION: Once the patient is stabilized from respiratory point of view, then the patient will need EGD and colonoscopy and we will follow the H and H and further recommendation pending the result of endoscopies. Thank you for the consult Dr. Jennings. We will follow this patient with you. PSYCHIATRIC# [id number]
[2018-06-06] MEDS ORDERED: methylPREDNISolone SS 40 mg Vial IV ONE (17:00)
[2018-06-06] MEDS ORDERED: Pantoprazole 40 mg/Packet PO SCH (17:00)
[2018-06-06] MEDS: Albuterol/Ipratropium Neb 3 ML AERS HHN SCH (19:11)
[2018-06-06] MEDS: Budesonide 0.5 Mg/2 mL Ud HHN SCH (19:22)
--- NOTE | 2018-06-06 20:47 | Consultation ---
DATE OF CONSULTATION: 06/06/2018 PULMONARY AND CRITICAL CARE CONSULTATION REASON FOR CONSULTATION: Help the patient with shortness of breath. CONSULT NOTE: This is an 78-year-old female who has had history of shortness of breath on and off for last 1 month, has some more swelling over the legs, vague chest pain, occasional palpitation, no sputum production, has some dyspeptic symptoms, no ____ sinus dribbling, has gained some weight, but could not quantify it, does not recall of any fever or chills, any headache, etc. cannot lay down back because of shortness of breath and also significant palpitations at the time of going to sleep. Weight has increased, but not able to quantify. PAST MEDICAL HISTORY: The patient also has questionable bronchial asthma, hypertension, diabetes mellitus, history of previous cholecystectomy 11 years ago. SMOKING HISTORY: Nil. ALLERGIC HISTORY: The patient is not allergic to any medications. PAST SURGICAL HISTORY: many years back. PHYSICAL FINDINGS: GENERAL: This is an elderly looking female, awake, alert, not in acute distress. VITAL SIGNS: Temperature is 97.4, blood pressure 120/50, saturation 100% on 2 L per minute. HEENT: Examination of the head is essentially unremarkable. Pupils appear to be equal and reacting to light. Conjunctivae are pink. Oral cavity shows small oropharyngeal opening. No nodes in the neck could be palpated. CHEST: Shows occasional rhonchi and wheezing high-pitched with diminished air entry. HEART: Regular, distant. ABDOMEN: Protuberant. EXTREMITIES: Shows 2+ peripheral edema. LABORATORY DATA: The patient's pertinent laboratory studies; white count is 11,000, hemoglobin 8.3. ABG - pO2 is 118, pCO2 of 41 and the patient's sodium is 129, BUN is 27, the patient's sugar is 467. The patient's chest x-ray; poor quality, some haziness at the bases, borderline cardiomegaly. IMPRESSION: The patient with: 1. Shortness of breath, multifactorial. 2. Possibly mild acute exacerbation of bronchial asthma. 3. Strongly suspect sleep apnea syndrome. 4. Possibly right-sided failure. 5. History of hypertension, diabetic mellitus as well as dyslipoproteinemia and also contributory cause of his morbid obesity with obesity hypoventilation with poorly-controlled hyperglycemia. PLANS AND SUGGESTIONS: 1. We will go ahead and get an aggressive inhalation treatment with DuoNeb and Pulmicort to current treatment. 2. We will empirically get a BiPAP at nighttime. 3. We will give low dose of Lasix, etc. 4. We will try to get a high-resolution CT of the chest and see what it shows and go from there. JOB# [id number]
[2018-06-06] MEDS ORDERED: cefTRIAXone 1 GM in 0.9% NS 50 ML IV SCH (22:00)
[2018-06-07] MEDS: INSULIN ASPART SLIDING SCALE 100 UNITS/ML UNIT SUBQ SCH ×4 (00:09→18:12)
--- NOTE | 2018-06-07 03:18 | Consultation ---
DATE OF CONSULTATION: 06/06/[address] Byron Jennings. HISTORY OF PRESENT ILLNESS: This is an 78-year-old female patient who had been complaining of shortness of breath. Following this, the patient was transferred to [facility]. The patient has been found to have anemia, congestive heart failure and hence can consult is requested plus diabetes mellitus type 2, uncontrolled. PAST MEDICAL HISTORY: Diabetes mellitus type 2, hypertension, COPD, osteoporosis, chronic congestive heart failure, iron-deficiency anemia, and hyponatremia. FAMILY HISTORY: Unremarkable. SOCIAL HISTORY: No history of smoking, alcohol abuse. ALLERGIES: No known allergies. PHYSICAL EXAMINATION: VITAL SIGNS: Blood pressure 115/70, pulse 70, and respirations 20. HEAD: Normocephalic. No lumps or bumps. EYES: Pupils equal, reactive to light. Fundi show AV nicking, sclerae white, conjunctivae pink. NECK: Carotid 2+. Normal upstroke. JVD 10 cm above sternal angle. Thyroid not palpable. Lymph nodes not palpable. CHEST: Shows increased AP diameter. No kyphosis, scoliosis. LUNGS: Bilateral rales. Decreased breath sounds both the bases. HEART: PMI fifth intercostal space with lateral to midclavicular line. S1, S2, S3, S4, soft systolic murmur. ABDOMEN: Soft. Liver, spleen not palpable. No organomegaly. Bowel sounds active. NEUROLOGIC: No focal neurological deficit. EXTREMITIES: Peripheral pulses 2+. No pedal edema. CLINICAL IMPRESSION: Congestive heart failure, diastolic dysfunction, chronic uncontrolled diabetes mellitus, severe anemia, hypertension, chronic obstructive pulmonary disease, osteoporosis, iron-deficiency anemia, and hyponatremia. PLAN: The patient to get echocardiogram. Lasix. GI evaluation for anemia. Monitor the patient to continue on insulin to control diabetes. JOB# [id number]
[2018-06-07 05:51] LABS: HEMOGLOBIN 8.2 gm/dL (12-16); MEAN PLATELET VOLUME 7.2 fl
[2018-06-07 05:54] LABS: HEMATOCRIT 25.1 % (41.0-60); MEAN CELL VOLUME 73.3 fl (81-100); MEAN CORPUSCULAR HEMOGLOBIN 24.1 pg (27.0-31.0); MEAN CORPUSCULAR HGB CONC 32.8 pg (28.0-36.0); PLATELET COUNT 429 Th/cmm (150-400); RED BLOOD COUNT 3.42 Mil/cmm (3.80-5.20); RED CELL DISTRIBUTION WIDTH 16.4 % (11.5-20.0)
[2018-06-07 06:02] LABS: WHITE BLOOD COUNT 26.4 Th/cmm (4.8-10.8)
[2018-06-07 06:06] LABS: ALB/GLOB RATIO 0.9 (1.0-1.8); ALBUMIN 3.7 gm/dL (3.7-5.3); ALKALINE PHOSPHATASE 59 U/L (34-104); ANION GAP 13.8 (7.0-16.0); BILIRUBIN,DIRECT 0.13 mg/dL (0.0-0.2); BILIRUBIN,TOTAL 0.3 mg/dL (0.3-1.0); BUN - UREA NITROGEN 42 mg/dL (7-25); CALCIUM SERUM 9.3 mg/dL (8.6-10.3); CARBON DIOXIDE 26.8 mEq/L (21.0-31.0); CHLORIDE 95 mEq/L (98-107); CREATININE - SERUM 1.4 mg/dL (0.6-1.2); POTASSIUM SERUM 5.6 mEq/L (3.5-5.1); SGOT 11 U/L (13-39); SGPT/ALT 6 U/L (7-52); SODIUM SERUM 130 mEq/L (136-145); TOTAL PROTEIN,SERUM 7.8 gm/dL (6.0-8.3)
[2018-06-07 06:12] LABS: GLUCOSE 265 mg/dL (70-105)
[2018-06-07] MEDS: Budesonide 0.5 Mg/2 mL Ud HHN SCH ×2 (06:42→19:15)
[2018-06-07] MEDS: Albuterol/Ipratropium Neb 3 ML AERS HHN SCH ×4 (06:45→19:15)
[2018-06-07 06:58] LABS: BAND NEUTROPHILE 2 % (0-10); BASOPHIL 0 % (0-3); EOSINOPHIL 0 % (0-5); LYMPHOCYTE 7 % (20-50); MONOCYTE 3 % (2-10); NEUTROPHILS 88 % (40-80)
[2018-06-07 06:59] LABS: HYPOCHROMIA 1+; PLATELET ESTIMATE INCREASED PLATELETS (NORMAL)
--- NOTE | 2018-06-07 08:18 | Diagnostic Imaging Report ---
Portable chest x-ray HISTORY: Shortness of breath Compared with the prior exam of June 05, 2018, the heart remains enlarged. There is increasing hazy bilateral lower lobe infiltrates. Findings may be associated with edema and a degree of congestive heart failure. Underlying pneumonia cannot be excluded. IMPRESSION: 1. Persistent cardiomegaly with increasing bilateral lower lobe infiltrates. Changes may be related to congestive heart failure and degree of pulmonary edema. Underlying pneumonia cannot be excluded. Clinical correlation is needed.
--- NOTE | 2018-06-07 08:56 | General Progress Note ---
Subjective - Review of Systems Service Date: 06/07/18 Subjective: Patient was seen and examined. Patient is awake, alert, no acute distress. WBC' s noted to be 26K today. Objective - Results Result Diagrams: 06/07/18 05:10 06/07/18 05:10 Recent Labs: Laboratory Last Values WBC 26.4 Th/cmm (4.8-10.8) H* D 06/07/18 05:10 RBC 3.42 Mil/cmm (3.80-5.20) L 06/07/18 05:10 Hgb 8.2 gm/dL (12-16) L 06/07/18 05:10 Hct 25.1 % (41.0-60) L 06/07/18 05:10 MCV 73.3 fl (81-100) L 06/07/18 05:10 MCH 24.1 pg (27.0-31.0) L 06/07/18 05:10 MCHC Differential 32.8 pg (28.0-36.0) 06/07/18 05:10 RDW 16.4 % (11.5-20.0) 06/07/18 05:10 Plt Count 429 Th/cmm (150-400) H 06/07/18 05:10 MPV 7.2 fl 06/07/18 05:10 Add Manual Diff YES 06/07/18 05:10 Neutrophils % 56.2 % (40.0-80.0) 06/05/18 23:10 Band Neutrophils % 2 % (0-10) 06/07/18 05:10 Lymphocytes % 28.2 % (20.0-50.0) 06/05/18 23:10 Monocytes % 10.1 % (2.0-10.0) H 06/05/18 23:10 Eosinophils % 5.0 % (0.0-5.0) 06/05/18 23:10 Basophils % 0.5 % (0.0-2.0) 06/05/18 23:10 Neutrophils (Manual) 88 % (40-80) H 06/07/18 05:10 Lymphocytes 7 % (20-50) L 06/07/18 05:10 Monocytes 3 % (2-10) 06/07/18 05:10 Eosinophils 0 % (0-5) 06/07/18 05:10 Basophils 0 % (0-3) 06/07/18 05:10 Hypochromia 1+ 06/07/18 05:10 Platelet Estimate INCREASED PLATELETS (NORMAL) 06/07/18 05:10 Microcytosis 3+ 06/07/18 05:10 PT 9.9 SECONDS (9.5-11.5) 06/05/18 23:10 INR 0.95 (0.5-1.4) 06/05/18 23:10 PTT (Actin FS) 22.0 SECONDS (26.0-38.0) L 06/05/18 23:10 Specimen Source Arterial 06/06/18 13:31 Sample Site Right Radial 06/06/18 13:31 pH 7.39 (7.35-7.45) 06/06/18 13:31 pCO2 41.0 mmHg (35.0-45.0) 06/06/18 13:31 pO2 118.0 mmHg (80.0-100.0) H 06/06/18 13:31 HCO3 24.8 mEq/L (20.0-26.0) 06/06/18 13:31 Base Excess -0.2 mEq/L (-3.0-3.0) 06/06/18 13:31 O2 Saturation 99.0 % (92.0-100.0) 06/06/18 13:31 Ermias Test PASS 06/06/18 13:31 Vent Rate NA 06/06/18 13:31 Inspired O2 32 06/06/18 13:31 Tidal Volume NA 06/06/18 13:31 PEEP NA 06/06/18 13:31 Pressure (ins/psv/peep) NA 06/06/18 13:31 Critical Value SH 06/06/18 13:31 Sodium 130 mEq/L (136-145) L 06/07/18 05:10 Potassium 5.6 mEq/L (3.5-5.1) H 06/07/18 05:10 Chloride 95 mEq/L (98-107) L 06/07/18 05:10 Carbon Dioxide 26.8 mEq/L (21.0-31.0) 06/07/18 05:10 Anion Gap 13.8 (7.0-16.0) 06/07/18 05:10 BUN 42 mg/dL (7-25) H 06/07/18 05:10 Creatinine 1.4 mg/dL (0.6-1.2) H 06/07/18 05:10 Est GFR ( Amer) TNP 06/07/18 05:10 Est GFR (Non-Af Amer) TNP 06/07/18 05:10 BUN/Creatinine Ratio 30.0 06/07/18 05:10 Glucose 265 mg/dL (70-105) H D 06/07/18 05:10 POC Glucose 262 MG/DL (70 - 105) H 06/07/18 06:15 Calcium 9.3 mg/dL (8.6-10.3) 06/07/18 05:10 Total Bilirubin 0.3 mg/dL (0.3-1.0) 06/07/18 05:10 Direct Bilirubin 0.13 mg/dL (0.0-0.2) 06/07/18 05:10 AST 11 U/L (13-39) L 06/07/18 05:10 ALT 6 U/L (7-52) L 06/07/18 05:10 Alkaline Phosphatase 59 U/L (34-104) 06/07/18 05:10 Ammonia 54 umol/L (16-53) H 06/07/18 05:10 Troponin I 0.02 ng/mL (0.01-0.05) 06/05/18 23:10 B-Natriuretic Peptide 569.0 pg/mL (5.0-100.0) H 06/07/18 05:10 Total Protein 7.8 gm/dL (6.0-8.3) 06/07/18 05:10 Albumin 3.7 gm/dL (3.7-5.3) 06/07/18 05:10 Globulin 4.1 gm/dL 06/07/18 05:10 Albumin/Globulin Ratio 0.9 (1.0-1.8) L 06/07/18 05:10 Triglycerides 66 mg/dL (<150) 06/06/18 08:20 Cholesterol 155 mg/dL (<200) 06/06/18 08:20 LDL Cholesterol Direct 91 mg/dL (75-193) 06/06/18 08:20 HDL Cholesterol 58 mg/dL (23-92) 06/06/18 08:20 TSH 3.06 uIU/ml (0.34-5.60) 06/05/18 23:10 Urine Source RANDOM 06/06/18 03:45 Urine Color YELLOW 06/06/18 03:45 Urine Clarity HAZY (CLEAR) 06/06/18 03:45 Urine pH 6.0 (4.6 - 8.0) 06/06/18 03:45 Ur Specific Geraldine 1.010 (1.005-1.030) 06/06/18 03:45 Urine Protein NEGATIVE mg/dL (NEGATIVE) 06/06/18 03:45 Urine Glucose (UA) NEGATIVE mg/dL (NEGATIVE) 06/06/18 03:45 Urine Ketones NEGATIVE mg/dL (NEGATIVE) 06/06/18 03:45 Urine Blood NEGATIVE (NEGATIVE) 06/06/18 03:45 Urine Nitrate POSITIVE (NEGATIVE) H 06/06/18 03:45 Urine Bilirubin NEGATIVE (NEGATIVE) 06/06/18 03:45 Urine Urobilinogen 0.2 E.U./dL (0.2 - 1.0) 06/06/18 03:45 Ur Leukocyte Esterase NEGATIVE (NEGATIVE) 06/06/18 03:45 Urine RBC 0-2 /hpf (0-5) 06/06/18 03:45 Urine WBC 0-2 /hpf (0-5) 06/06/18 03:45 Ur Epithelial Cells FEW /lpf (FEW) 06/06/18 03:45 Urine Bacteria MODERATE /hpf (NONE SEEN) H 06/06/18 03:45 - Physical Exam Vitals and I&O: Vital Signs Temp 97.0 F 06/07/18 08:01 Pulse 74 06/07/18 08:01 Resp 18 06/07/18 08:01 BP 105/44 06/07/18 08:01 Pulse Ox 99 06/07/18 08:01 Intake & Output 06/06/18 06/07/18 06/07/18 18:59 06:59 18:59 Intake Total 850 240 Output Total 500 Balance 350 240 Weight (lbs) 90.038 kg 89.358 kg Intake: Oral 850 240 Output: Urine 500 Other: # Voids 3 2 # Bowel Movements 0 0 Weight Source Bedscale Bedscale Active Medications: Current Medications Albuterol/Ipratropium (Duoneb Neb) 3 ml HHN Q4HRT PRN PRN Reason: Shortness of Breath Stop: 08/05/18 02:47 Last Admin: 06/06/18 10:50 Dose: 3 ml Albuterol/Ipratropium (Duoneb Neb) 3 ml HHN [id number] [facility] Stop: 08/05/18 18:59 Last Admin: 06/07/18 06:45 Dose: 3 ml Amlodipine Besylate (Norvasc) 5 mg PO DAILY RAVINDER Stop: 08/05/18 08:59 Last Admin: 06/06/18 10:59 Dose: 5 mg Aspirin (Aspirin Chewable) 81 mg PO DAILY RAVINDER Stop: 08/05/18 08:59 Last Admin: 06/06/18 11:00 Dose: 81 mg Budesonide (Pulmicort) 0.5 mg HHN BIDRT [facility] Stop: 08/05/18 18:59 Last Admin: 06/07/18 06:42 Dose: 0.5 mg Furosemide (Lasix) 40 mg IVP DAILY [facility] Stop: 08/06/18 08:59 Ceftriaxone Sodium 1 gm/ (Sodium Chloride) 50 mls @ 100 mls/hr IV Q24HR RAVINDER Stop: 08/05/18 21:59 Last Admin: 06/06/18 21:20 Dose: 100 mls/hr Sodium Chloride (Nacl 0.9%) 1,000 mls @ 50 mls/hr IV .Q20H [facility] Stop: 08/06/18 08:59 Ibuprofen (Motrin) 600 mg PO BID PRN PRN Reason: Pain (Mild) Stop: 08/05/18 16:01 Last Admin: 06/07/18 03:49 Dose: 600 mg Insulin Aspart (Novolog Insulin Sliding Scale) 0 units SUBQ Q6HR [facility]; Protocol Stop: 08/05/18 17:59 Last Admin: 06/07/18 06:16 Dose: 6 units Insulin Human Isoph/Insulin Regular (Novolin 70/30) 40 units SUBQ QDAC [facility] Stop: 08/05/18 07:29 Last Admin: 06/06/18 11:01 Dose: 40 units Lisinopril (Zestril) 40 mg PO DAILY [facility] Stop: 08/05/18 08:59 Last Admin: 06/06/18 11:00 Dose: 40 mg Metformin HCl (Glucophage) 1,000 mg PO BIDWM RAVINDER Stop: 08/05/18 07:59 Last Admin: 06/06/18 17:05 Dose: 1,000 mg Metoprolol Tartrate (Lopressor) 25 mg PO BID RAVINDER Stop: 08/05/18 08:59 Last Admin: 06/06/18 16:23 Dose: 25 mg Miscellaneous (Zosyn Iv Per Pharmacy) 1 ea MC PRN PRN PRN Reason: PROTOCOL Stop: 08/06/18 07:01 Pantoprazole Sodium (Protonix) 40 mg PO DAILY RAVINDER Stop: 08/06/18 08:59 Simvastatin (Zocor) 20 mg PO HS RAVINDER Stop: 08/05/18 20:59 Last Admin: 06/06/18 20:39 Dose: 20 mg General: Alert, Oriented x3, No acute distress HEENT: Atraumatic, PERRLA, EOMI Neck: Supple Cardiovascular: Regular rate, Normal S1, Normal S2 Lungs: Clear to auscultation Abdomen: Bowel sounds, Soft Extremities: no Clubbing, no Cyanosis, no Edema - Procedures Procedures: Procedures Procedure Code Date ELECTROCARDIOGRAM 89.52 01/30/00 ELECTROCARDIOGRAM COMPLETE 09776 01/30/00 LAPAROSCOPIC CHOLECYSTECTOMY 51.23 07/02/03 LAPAROSCOPIC CHOLECYSTECTOMY 84133 07/02/03 Assessment/Plan - Assessment Assessment: Acute Bronchitis Anemia CHF Diabetes mellitus Leukocytosis 26K Hyponatremia Na 130 Elevated BNP hyperkalemia ... K 5.6 UTI - Plan Plan: will restart home meds GI consult for possible GIB occult x 2 cardiology consult accucheck hs low dose sliding scale cbc,cmp tomorrow am rocephin 1gm IV daily protonix 40mg IV daily start Zosyn IV today
[2018-06-07] MEDS: Pantoprazole 40 mg/Packet PO SCH (08:57)
[2018-06-07] MEDS: Aspirin 81mg Chewable Tab PO SCH (08:57)
[2018-06-07] MEDS ORDERED: Sodium Chloride 0.9% 1,000 ML IV SCH (09:00)
[2018-06-07] MEDS: INSULIN 70/30 100 UNITS/ML SUBQ SCH (09:01)
--- NOTE | 2018-06-07 13:43 | Consultation ---
Consult Note - Consult Note Service Date: 06/07/18 Referring Physician: Byron Jennings Consult Note: PHYSICIAN Consultation Note: Date of Admission: 06/06/18 Purpose of Consultation: Chief Complaint: Patient JOSE SOL was admitted to [facility] Telemetry with SOB. History of Present Illness: 78-year-old female with a past medical history of hypertension, diabetes mellitus type 2, asthma, COPD, arthritis, brought in from nursing facility for shortness of breath for almost 1 month. Her shortness of breath got worse day before yesterday, so she was brought to the ER for further evaluation and management. On initial evaluation her temperature was 98.4F and WBC count was 13,300. Chest x-ray showed cardiomegaly with atherosclerotic vascular changes suspicious for CHF. There was no flank pulmonary edema. Antibiotic-stroud, she was started on Rocephin and Solu-Medrol. Her WBC count went up to 26,400 so ID consult was called for further antibiotic management. Meanwhile Rocephin was changed to Zosyn today. Solu-Medrol was discontinued. Repeat chest x-ray reported persistent cardiomegaly with increasing bilateral pleural infiltrates changes may be related to CHF and degree of pulmonary edema. Underlying pneumonia cannot be excluded. Past Medical History: hypertension, diabetes mellitus type 2, asthma, COPD, arthritis Allergies Allergy/AdvReac Type Severity Reaction Status Date / Time No Known Allergies Allergy Verified 09/20/17 14:06 Vital Signs Temp 98.1 F 06/07/18 11:41 Pulse 70 06/07/18 11:41 Resp 18 06/07/18 11:41 BP 112/56 06/07/18 11:41 Pulse Ox 99 06/07/18 11:41 Intake & Output 06/06/18 06/07/18 06/07/18 18:59 06:59 18:59 Intake Total 850 240 Output Total 500 Balance 350 240 Weight (lbs) 90.038 kg 89.358 kg Intake: Oral 850 240 Output: Urine 500 Other: # Voids 3 2 # Bowel Movements 0 0 Weight Source Bedscale Bedscale Laboratory Results - last 24 hr 06/06/18 06/06/18 06/07/18 13:31 16:33 00:08 WBC RBC Hgb Hct MCV MCH MCHC Differential RDW Plt Count MPV Add Manual Diff Band Neutrophils % Neutrophils (Manual) Lymphocytes Monocytes Eosinophils Basophils Hypochromia Platelet Estimate Microcytosis Specimen Source Arterial Sample Site Right Radial pH 7.39 pCO2 41.0 pO2 118.0 H HCO3 24.8 Base Excess -0.2 O2 Saturation 99.0 Ermias Test PASS Vent Rate NA Inspired O2 32 Tidal Volume NA PEEP NA Pressure (ins/psv/peep) NA Critical Value SH Sodium Potassium Chloride Carbon Dioxide Anion Gap BUN Creatinine Est GFR ( Amer) Est GFR (Non-Af Amer) BUN/Creatinine Ratio Glucose POC Glucose 372 H 304 H Calcium Total Bilirubin Direct Bilirubin AST ALT Alkaline Phosphatase Ammonia B-Natriuretic Peptide Total Protein Albumin Globulin Albumin/Globulin Ratio 06/07/18 06/07/18 06/07/18 03:55 05:10 05:10 WBC 26.4 H* D RBC 3.42 L Hgb 8.2 L Hct 25.1 L MCV 73.3 L MCH 24.1 L MCHC Differential 32.8 RDW 16.4 Plt Count 429 H MPV 7.2 Add Manual Diff YES Band Neutrophils % 2 Neutrophils (Manual) 88 H Lymphocytes 7 L Monocytes 3 Eosinophils 0 Basophils 0 Hypochromia 1+ Platelet Estimate INCREASED PLATELETS Microcytosis 3+ Specimen Source Sample Site pH pCO2 pO2 HCO3 Base Excess O2 Saturation Ermias Test Vent Rate Inspired O2 Tidal Volume PEEP Pressure (ins/psv/peep) Critical Value Sodium 130 L Potassium 5.6 H Chloride 95 L Carbon Dioxide 26.8 Anion Gap 13.8 BUN 42 H Creatinine 1.4 H Est GFR ( Amer) TNP Est GFR (Non-Af Amer) TNP BUN/Creatinine Ratio 30.0 Glucose 265 H D POC Glucose 269 H Calcium 9.3 Total Bilirubin 0.3 Direct Bilirubin 0.13 AST 11 L ALT 6 L Alkaline Phosphatase 59 Ammonia B-Natriuretic Peptide Total Protein 7.8 Albumin 3.7 Globulin 4.1 Albumin/Globulin Ratio 0.9 L 06/07/18 06/07/18 06/07/18 05:10 05:10 06:15 WBC RBC Hgb Hct MCV MCH MCHC Differential RDW Plt Count MPV Add Manual Diff Band Neutrophils % Neutrophils (Manual) Lymphocytes Monocytes Eosinophils Basophils Hypochromia Platelet Estimate Microcytosis Specimen Source Sample Site pH pCO2 pO2 HCO3 Base Excess O2 Saturation Ermias Test Vent Rate Inspired O2 Tidal Volume PEEP Pressure (ins/psv/peep) Critical Value Sodium Potassium Chloride Carbon Dioxide Anion Gap BUN Creatinine Est GFR ( Amer) Est GFR (Non-Af Amer) BUN/Creatinine Ratio Glucose POC Glucose 262 H Calcium Total Bilirubin Direct Bilirubin AST ALT Alkaline Phosphatase Ammonia 54 H B-Natriuretic Peptide 569.0 H Total Protein Albumin Globulin Albumin/Globulin Ratio 06/07/18 12:15 WBC RBC Hgb Hct MCV MCH MCHC Differential RDW Plt Count MPV Add Manual Diff Band Neutrophils % Neutrophils (Manual) Lymphocytes Monocytes Eosinophils Basophils Hypochromia Platelet Estimate Microcytosis Specimen Source Sample Site pH pCO2 pO2 HCO3 Base Excess O2 Saturation Ermias Test Vent Rate Inspired O2 Tidal Volume PEEP Pressure (ins/psv/peep) Critical Value Sodium Potassium Chloride Carbon Dioxide Anion Gap BUN Creatinine Est GFR ( Amer) Est GFR (Non-Af Amer) BUN/Creatinine Ratio Glucose POC Glucose 228 H Calcium Total Bilirubin Direct Bilirubin AST ALT Alkaline Phosphatase Ammonia B-Natriuretic Peptide Total Protein Albumin Globulin Albumin/Globulin Ratio Home Medication Medication Instructions Recorded Type Aspirin 81 mg PO DAILY 09/20/17 History Insulin NPH Hum/Reg Insulin Hm 40 unit SQ QDAC 09/20/17 History [Humulin 70/30 Kwikpen] Lisinopril [Zestril] 40 mg PO DAILY 09/20/17 History Metformin HCl [Glucophage] 1,000 mg PO BID 09/20/17 History Metoprolol Tartrate 25 mg PO DAILY 06/06/18 History Pravastatin Sodium 40 mg PO HS 06/06/18 History Current Medications Generic Name Dose Route Start Last Admin Trade Name Freq PRN Reason Stop Dose Admin Albuterol/Ipratropium 3 ml 06/06/18 07:45 06/06/18 10:50 Duoneb Neb [facility] 08/05/18 02:47 3 ml Q4HRT PRN Administration Shortness of Breath Albuterol/Ipratropium 3 ml 06/06/18 19:00 06/07/18 10:36 Duoneb Neb N 08/05/18 18:59 3 ml [id number] RAVINDER Administration Amlodipine Besylate 5 mg 06/06/18 09:00 06/07/18 08:58 Norvasc PO 08/05/18 08:59 Not Given DAILY RAVINDER Aspirin 81 mg 06/06/18 09:00 06/07/18 08:57 Aspirin Chewable PO 08/05/18 08:59 81 mg DAILY RAVINDER Administration Budesonide 0.5 mg 06/06/18 19:00 06/07/18 06:42 Pulmicort HHN 08/05/18 18:59 0.5 mg BIDRT RAVINDER Administration Furosemide 40 mg 06/07/18 09:00 06/07/18 10:53 Lasix IVP 08/06/18 08:59 40 mg DAILY RAVINDER Administration Sodium Chloride 1,000 mls @ 50 mls/hr 06/07/18 09:00 Nacl 0.9% IV 08/06/18 08:59 .Q20H RAVINDER Piperacillin Sod/Tazobactam 50 mls @ 100 mls/hr 06/07/18 15:00 Sod 3.375 gm/ Sodium Chloride IV 08/06/18 14:59 Q8H RAVINDER Ibuprofen 600 mg 06/06/18 16:02 06/07/18 03:49 Motrin PO 08/05/18 16:01 600 mg BID PRN Administration Pain (Mild) Insulin Aspart 0 units 06/06/18 18:00 06/07/18 06:16 Novolog Insulin Sliding Scale SUBQ 08/05/18 17:59 6 units Q6HR RAVINDER Administration Protocol Insulin Human Isoph/Insulin Regular 40 units 06/06/18 07:30 06/07/18 09:01 Novolin 70/30 SUBQ 08/05/18 07:29 40 units QDAC RAVINDER Administration Lisinopril 40 mg 06/06/18 09:00 06/07/18 08:58 Zestril PO 08/05/18 08:59 Not Given DAILY RAVINDER Metformin HCl 1,000 mg 06/06/18 08:00 06/07/18 08:57 Glucophage PO 08/05/18 07:59 1,000 mg BIDWM RAVINDER Administration Metoprolol Tartrate 25 mg 06/06/18 09:00 06/07/18 08:58 Lopressor PO 08/05/18 08:59 Not Given BID RAVINDER Miscellaneous 1 ea 06/07/18 07:02 Zosyn Iv Per Pharmacy 08/06/18 07:01 PRN PRN PROTOCOL Pantoprazole Sodium 40 mg 06/07/18 09:00 06/07/18 08:57 Protonix PO 08/06/18 08:59 40 mg DAILY RAVINDER Administration Simvastatin 20 mg 06/06/18 21:00 06/06/18 20:39 Zocor PO 08/05/18 20:59 20 mg HS RAVINDER Administration Review of Systems: A 12 point ROS was reviewed with the pertinent positive and negatives noted in the HPI. General/Constitutional: No fever, No chills, No weight loss, No weakness, No diaphoresis, Edema, No loss of appetite Skin: No skin lesions, No rash, No bruising Head: No headache, No light-headedness Eyes: No loss of vision, No pain, No diplopia ENT: No earache, No nasal drainage, No sore throat, No tinnitus Neck: No neck pain, No swelling, No thyromegaly, No stiffness, No mass noted Cardio Vascular: No chest pain, No palpitations, PND, orthopnea, No edema Pulmonary: SOB, No cough, No sputum, Wheezing GI: No nausea, No vomiting, No diarrhea, No pain, No melena, No hematochezia, No constipation, No hematemesis G/U: No dysuria, No frequency, No hematuria Musculoskeletal: No bone or joint pain, No back pain, No muscle pain Endocrine: No polyuria, No polydipsia Psychiatric: No prior psych history, No depression, No anxiety, No suicidal ideation Hematopoietic: No bruising, No lymphadenopathy Allergic/Immuno: No urticaria, No angioedema Neurological: No syncope, No focal symptoms, No weakness, No paresthesia, No headache, No seizure, No dizziness, No confusion, No vertigo. Social History Smoking Status Lives Family Medical History Noncontributory. Physical Exam: General: Comfortable, was not in acute distress. HEENT: Head: NC NT. Oral cavity: Moist, pink tongue. Eyes: No pallor, no icterus. Pupil PERRLA. EOMI. Neck: Supple, no JVD. No use of X his neck muscles. Cardio: S1 and S2 within normal metabolism. Respiratory: Vesicular breath sound crackles Present in lower lung [place]. Abdominal: Soft, nontender globular bowel sounds present Genital/Urinary: Deferred. Extremities: No cyanosis, no clubbing, no edema. Neurological: Alert, awake, oriented 3. Assessment: 1. Leukocytosis most likely reactive versus steroid-induced. Cannot rule out pneumonia. 2. Pneumonia. 3. CHF. 4. COPD. 5. Diabetes mellitus type 2. 6. Obesity. BMI 38.5 patient may have sleep apnea. 7. Hypertension. Plan: Continue Zosyn at this time and check the CBC in the morning. Thank you, Dr. Jennings for involving me in taking care of this patient Signed, Souleymane Mock M.D. [id number]
--- NOTE | 2018-06-07 14:50 | Progress Notes ---
DATE: 06/07/2018 PULMONARY PROGRESS NOTE PROBLEM LIST: 1. Acute asthmatic bronchitis. 2. Possibly right-sided failure. 3. Obstructive sleep apnea syndrome. 4. Diabetic mellitus with morbid obesity. SYMPTOMS: May be feeling a little better, no respiratory distress, slight better, question is to use BiPAP or not. PHYSICAL EXAMINATION: VITAL SIGNS: Temperature is 98.1, blood pressure 112/86, saturation is 99. NECK: Veins not visualized. CHEST: Shows diminished air entry without occasional rhonchi. HEART: Regular. ABDOMEN: Soft, nontender. LABORATORY DATA: White count is 26,000. ABG, electrolytes shows potassium 5.6, creatinine 1.4. IMPRESSION: The patient clinically and slightly better, elevated white count, exact reason is not clearcut. PLANS AND SUGGESTIONS: We will repeat CBC, lab, etc. Start ambulating, etc. and go from there. JOB# [id number]
--- NOTE | 2018-06-07 17:04 | Cardiology ---
06/06/[address] Byron Jennings. M-MODE ECHOCARDIOGRAM: Mitral valve, anterior leaflet of mitral valve shows normal excursion, EF velocity. Posterior leaflet of the mitral valve shows normal excursion. Left ventricular posterior wall shows increased thickness, normal excursion. Interventricular septum shows increased thickness, normal excursion, hypertrophy of the left ventricle, ejection fraction 71%. Left atrium normal. Aortic root shows normal dimension, normal excursion of aortic leaflets. CONCLUSION: Hypertrophy of the left ventricle, ejection fraction 71%. 2D ECHO: Long axis view showed normal sized left ventricle with hypertrophy of the left ventricle. Left atrium normal. Aortic root shows normal dimension, normal excursion of aortic leaflets. Mitral valve normal. Short axis view of aortic valve normal. Apical four chamber view showed normal sized left ventricle with hypertrophy of the left ventricle. Left atrium normal. Right ventricular cavity, right atrium normal, no pericardial effusion. CONCLUSION: Hypertrophy of the left ventricle, ejection fraction 71%. Doppler study shows moderate mitral regurgitation, moderate aortic regurgitation, moderate tricuspid regurgitation, right ventricular systolic pressure 63 mmHg with severe pulmonary hypertension. JOB# [id number]
--- NOTE | 2018-06-07 21:43 | GI Progress Note ---
Subjective - Review of Systems Service Date: 06/07/18 Events since last encounter: No events, refusing endoscopy Objective - Results Result Diagrams: 06/07/18 05:10 06/07/18 05:10 Recent Labs: Laboratory Last Values WBC 26.4 Th/cmm (4.8-10.8) H* D 06/07/18 05:10 RBC 3.42 Mil/cmm (3.80-5.20) L 06/07/18 05:10 Hgb 8.2 gm/dL (12-16) L 06/07/18 05:10 Hct 25.1 % (41.0-60) L 06/07/18 05:10 MCV 73.3 fl (81-100) L 06/07/18 05:10 MCH 24.1 pg (27.0-31.0) L 06/07/18 05:10 MCHC Differential 32.8 pg (28.0-36.0) 06/07/18 05:10 RDW 16.4 % (11.5-20.0) 06/07/18 05:10 Plt Count 429 Th/cmm (150-400) H 06/07/18 05:10 MPV 7.2 fl 06/07/18 05:10 Add Manual Diff YES 06/07/18 05:10 Neutrophils % 56.2 % (40.0-80.0) 06/05/18 23:10 Band Neutrophils % 2 % (0-10) 06/07/18 05:10 Lymphocytes % 28.2 % (20.0-50.0) 06/05/18 23:10 Monocytes % 10.1 % (2.0-10.0) H 06/05/18 23:10 Eosinophils % 5.0 % (0.0-5.0) 06/05/18 23:10 Basophils % 0.5 % (0.0-2.0) 06/05/18 23:10 Neutrophils (Manual) 88 % (40-80) H 06/07/18 05:10 Lymphocytes 7 % (20-50) L 06/07/18 05:10 Monocytes 3 % (2-10) 06/07/18 05:10 Eosinophils 0 % (0-5) 06/07/18 05:10 Basophils 0 % (0-3) 06/07/18 05:10 Hypochromia 1+ 06/07/18 05:10 Platelet Estimate INCREASED PLATELETS (NORMAL) 06/07/18 05:10 Microcytosis 3+ 06/07/18 05:10 PT 9.9 SECONDS (9.5-11.5) 06/05/18 23:10 INR 0.95 (0.5-1.4) 06/05/18 23:10 PTT (Actin FS) 22.0 SECONDS (26.0-38.0) L 06/05/18 23:10 Specimen Source Arterial 06/06/18 13:31 Sample Site Right Radial 06/06/18 13:31 pH 7.39 (7.35-7.45) 06/06/18 13:31 pCO2 41.0 mmHg (35.0-45.0) 06/06/18 13:31 pO2 118.0 mmHg (80.0-100.0) H 06/06/18 13:31 HCO3 24.8 mEq/L (20.0-26.0) 06/06/18 13:31 Base Excess -0.2 mEq/L (-3.0-3.0) 06/06/18 13:31 O2 Saturation 99.0 % (92.0-100.0) 06/06/18 13:31 Ermias Test PASS 06/06/18 13:31 Vent Rate NA 06/06/18 13:31 Inspired O2 32 06/06/18 13:31 Tidal Volume NA 06/06/18 13:31 PEEP NA 06/06/18 13:31 Pressure (ins/psv/peep) NA 06/06/18 13:31 Critical Value SH 06/06/18 13:31 Sodium 130 mEq/L (136-145) L 06/07/18 05:10 Potassium 5.6 mEq/L (3.5-5.1) H 06/07/18 05:10 Chloride 95 mEq/L (98-107) L 06/07/18 05:10 Carbon Dioxide 26.8 mEq/L (21.0-31.0) 06/07/18 05:10 Anion Gap 13.8 (7.0-16.0) 06/07/18 05:10 BUN 42 mg/dL (7-25) H 06/07/18 05:10 Creatinine 1.4 mg/dL (0.6-1.2) H 06/07/18 05:10 Est GFR ( Amer) TNP 06/07/18 05:10 Est GFR (Non-Af Amer) TNP 06/07/18 05:10 BUN/Creatinine Ratio 30.0 06/07/18 05:10 Glucose 265 mg/dL (70-105) H D 06/07/18 05:10 POC Glucose 211 MG/DL (70 - 105) H 06/07/18 17:43 Calcium 9.3 mg/dL (8.6-10.3) 06/07/18 05:10 Total Bilirubin 0.3 mg/dL (0.3-1.0) 06/07/18 05:10 Direct Bilirubin 0.13 mg/dL (0.0-0.2) 06/07/18 05:10 AST 11 U/L (13-39) L 06/07/18 05:10 ALT 6 U/L (7-52) L 06/07/18 05:10 Alkaline Phosphatase 59 U/L (34-104) 06/07/18 05:10 Ammonia 54 umol/L (16-53) H 06/07/18 05:10 Troponin I 0.02 ng/mL (0.01-0.05) 06/05/18 23:10 B-Natriuretic Peptide 569.0 pg/mL (5.0-100.0) H 06/07/18 05:10 Total Protein 7.8 gm/dL (6.0-8.3) 06/07/18 05:10 Albumin 3.7 gm/dL (3.7-5.3) 06/07/18 05:10 Globulin 4.1 gm/dL 06/07/18 05:10 Albumin/Globulin Ratio 0.9 (1.0-1.8) L 06/07/18 05:10 Triglycerides 66 mg/dL (<150) 06/06/18 08:20 Cholesterol 155 mg/dL (<200) 06/06/18 08:20 LDL Cholesterol Direct 91 mg/dL (75-193) 06/06/18 08:20 HDL Cholesterol 58 mg/dL (23-92) 06/06/18 08:20 TSH 3.06 uIU/ml (0.34-5.60) 06/05/18 23:10 Urine Source RANDOM 06/06/18 03:45 Urine Color YELLOW 06/06/18 03:45 Urine Clarity HAZY (CLEAR) 06/06/18 03:45 Urine pH 6.0 (4.6 - 8.0) 06/06/18 03:45 Ur Specific [place] 1.010 (1.005-1.030) 06/06/18 03:45 Urine Protein NEGATIVE mg/dL (NEGATIVE) 06/06/18 03:45 Urine Glucose (UA) NEGATIVE mg/dL (NEGATIVE) 06/06/18 03:45 Urine Ketones NEGATIVE mg/dL (NEGATIVE) 06/06/18 03:45 Urine Blood NEGATIVE (NEGATIVE) 06/06/18 03:45 Urine Nitrate POSITIVE (NEGATIVE) H 06/06/18 03:45 Urine Bilirubin NEGATIVE (NEGATIVE) 06/06/18 03:45 Urine Urobilinogen 0.2 E.U./dL (0.2 - 1.0) 06/06/18 03:45 Ur Leukocyte Esterase NEGATIVE (NEGATIVE) 06/06/18 03:45 Urine RBC 0-2 /hpf (0-5) 06/06/18 03:45 Urine WBC 0-2 /hpf (0-5) 06/06/18 03:45 Ur Epithelial Cells FEW /lpf (FEW) 06/06/18 03:45 Urine Bacteria MODERATE /hpf (NONE SEEN) H 06/06/18 03:45 - Physical Exam Vitals and I&O: Vital Signs Temp 97.6 F 06/07/18 20:00 Pulse 82 06/07/18 20:00 Resp 18 06/07/18 20:00 BP 102/55 06/07/18 20:00 Pulse Ox 99 06/07/18 20:00 Intake & Output 06/07/18 06/07/18 06/08/18 06:59 18:59 06:59 Intake Total 240 650 Balance 240 650 Weight (lbs) 89.358 kg 89.358 kg Intake: Intake, IV Amount 50 Piperacillin Sodium/ 50 Tazobact 3.375 gm In Sodium Chloride 0.9% 50 ml @ 100 mls/hr IV Q8H RAVINDER Rx#:[id number] Oral 240 600 Other: # Voids 2 3 # Bowel Movements 0 2 Weight Source Bedscale Bedscale Active Medications: Current Medications Albuterol/Ipratropium (Duoneb Neb) 3 ml HHN Q4HRT PRN PRN Reason: Shortness of Breath Stop: 08/05/18 02:47 Last Admin: 06/06/18 10:50 Dose: 3 ml Albuterol/Ipratropium (Duoneb Neb) 3 ml HHN [id number] [facility] Stop: 08/05/18 18:59 Last Admin: 06/07/18 19:15 Dose: 3 ml Amlodipine Besylate (Norvasc) 5 mg PO DAILY RAVINDER Stop: 08/05/18 08:59 Last Admin: 06/07/18 08:58 Dose: Not Given Aspirin (Aspirin Chewable) 81 mg PO DAILY RAVINDER Stop: 08/05/18 08:59 Last Admin: 06/07/18 08:57 Dose: 81 mg Budesonide (Pulmicort) 0.5 mg HHN BIDRT [facility] Stop: 08/05/18 18:59 Last Admin: 06/07/18 19:15 Dose: 0.5 mg Furosemide (Lasix) 40 mg IVP DAILY [facility] Stop: 08/06/18 08:59 Last Admin: 06/07/18 10:53 Dose: 40 mg Sodium Chloride (Nacl 0.9%) 1,000 mls @ 50 mls/hr IV .Q20H RAVINDER Stop: 08/06/18 08:59 Last Admin: 06/07/18 15:34 Dose: 50 mls/hr Piperacillin Sod/Tazobactam (Sod 3.375 gm/ Sodium Chloride) 50 mls @ 100 mls/ hr IV Q8H [facility] Stop: 08/06/18 14:59 Last Infusion: 06/07/18 17:46 Dose: Infused Ibuprofen (Motrin) 600 mg PO BID PRN PRN Reason: Pain (Mild) Stop: 08/05/18 16:01 Last Admin: 06/07/18 15:33 Dose: 600 mg Insulin Aspart (Novolog Insulin Sliding Scale) 0 units SUBQ Q6HR [facility]; Protocol Stop: 08/05/18 17:59 Last Admin: 06/07/18 18:12 Dose: 4 units Insulin Human Isoph/Insulin Regular (Novolin 70/30) 40 units SUBQ QDAC [facility] Stop: 08/05/18 07:29 Last Admin: 06/07/18 09:01 Dose: 40 units Lisinopril (Zestril) 40 mg PO DAILY [facility] Stop: 08/05/18 08:59 Last Admin: 06/07/18 08:58 Dose: Not Given Metformin HCl (Glucophage) 1,000 mg PO BIDWM [facility]INDER Stop: 08/05/18 07:59 Last Admin: 06/07/18 17:44 Dose: 1,000 mg Metoprolol Tartrate (Lopressor) 25 mg PO BID [facility]INDER Stop: 08/05/18 08:59 Last Admin: 06/07/18 17:45 Dose: Not Given Miscellaneous (Zosyn Iv Per Pharmacy) 1 ea PRN PRN PRN Reason: PROTOCOL Stop: 08/06/18 07:01 Pantoprazole Sodium (Protonix) 40 mg PO DAILY RAVINDER Stop: 08/06/18 08:59 Last Admin: 06/07/18 08:57 Dose: 40 mg Simvastatin (Zocor) 20 mg PO HS RAVINDER Stop: 08/05/18 20:59 Last Admin: 06/07/18 21:26 Dose: 20 mg General: Alert, Oriented x3, No acute distress HEENT: Atraumatic, PERRLA, EOMI Neck: Supple Cardiovascular: Regular rate, Normal S1, Normal S2 Lungs: Clear to auscultation Abdomen: Bowel sounds, Soft Extremities: no Clubbing, no Cyanosis, no Edema - Procedures Procedures: Procedures Procedure Code Date ELECTROCARDIOGRAM 89.52 01/30/00 ELECTROCARDIOGRAM COMPLETE 57929 01/30/00 LAPAROSCOPIC CHOLECYSTECTOMY 51.23 07/02/03 LAPAROSCOPIC CHOLECYSTECTOMY 16543 07/02/03 Assessment/Plan - Assessment Assessment: 78 yo F with SOB and hypochromic anemia -Suggesting EGD/Colonoscopy -today patient refused to sign consent for these procedures -She is clinically improving with supportive care -Will follow peripherally and be available for assistance
[2018-06-08] MEDS: INSULIN ASPART SLIDING SCALE 100 UNITS/ML UNIT SUBQ SCH ×4 (00:23→19:01)
[2018-06-08 05:11] LABS: HEMATOCRIT 25.2 % (41.0-60); HEMOGLOBIN 8.1 gm/dL (12-16); MEAN CELL VOLUME 73.2 fl (81-100); MEAN CORPUSCULAR HEMOGLOBIN 23.5 pg (27.0-31.0); MEAN CORPUSCULAR HGB CONC 32.1 pg (28.0-36.0); MEAN PLATELET VOLUME 7.1 fl; PLATELET COUNT 471 Th/cmm (150-400); RED BLOOD COUNT 3.45 Mil/cmm (3.80-5.20); RED CELL DISTRIBUTION WIDTH 16.2 % (11.5-20.0)
[2018-06-08 05:33] LABS: WHITE BLOOD COUNT 19.8 Th/cmm (4.8-10.8)
[2018-06-08 07:23] LABS: ALBUMIN 3.7 gm/dL (3.7-5.3); ALKALINE PHOSPHATASE 58 U/L (34-104); ANION GAP 12.3 (7.0-16.0); BILIRUBIN,TOTAL 0.3 mg/dL (0.3-1.0); BUN - UREA NITROGEN 60 mg/dL (7-25); CALCIUM SERUM 9.2 mg/dL (8.6-10.3); CARBON DIOXIDE 29.3 mEq/L (21.0-31.0); CHLORIDE 97 mEq/L (98-107); CREATININE - SERUM 1.4 mg/dL (0.6-1.2); POTASSIUM SERUM 4.6 mEq/L (3.5-5.1); SGOT 11 U/L (13-39); SGPT/ALT 6 U/L (7-52); SODIUM SERUM 134 mEq/L (136-145); TOTAL PROTEIN,SERUM 7.6 gm/dL (6.0-8.3)
[2018-06-08 07:33] LABS: GLUCOSE 145 mg/dL (70-105)
[2018-06-08] MEDS: INSULIN 70/30 100 UNITS/ML SUBQ SCH (08:07)
[2018-06-08] MEDS: Budesonide 0.5 Mg/2 mL Ud HHN SCH ×2 (08:10→19:50)
[2018-06-08] MEDS: Albuterol/Ipratropium Neb 3 ML AERS HHN SCH ×3 (08:10→19:36)
[2018-06-08] MEDS: Aspirin 81mg Chewable Tab PO SCH (08:10)
[2018-06-08] MEDS: Pantoprazole 40 mg/Packet PO SCH (08:12)
[2018-06-08 08:21] LABS: BAND NEUTROPHILE 1 % (0-10); BASOPHIL 0 % (0-3); EOSINOPHIL 2 % (0-5); LYMPHOCYTE 15 % (20-50); MONOCYTE 7 % (2-10); NEUTROPHILS 75 % (40-80)
--- NOTE | 2018-06-08 08:43 | GI Progress Note ---
Subjective - Review of Systems Service Date: 06/08/18 Subjective: Pt still refusing any endoscopy, no overnight events Objective - Results Result Diagrams: 06/08/18 05:00 06/08/18 05:00 Recent Labs: Laboratory Last Values WBC 19.8 Th/cmm (4.8-10.8) H D 06/08/18 05:00 RBC 3.45 Mil/cmm (3.80-5.20) L 06/08/18 05:00 Hgb 8.1 gm/dL (12-16) L 06/08/18 05:00 Hct 25.2 % (41.0-60) L 06/08/18 05:00 MCV 73.2 fl (81-100) L 06/08/18 05:00 MCH 23.5 pg (27.0-31.0) L 06/08/18 05:00 MCHC Differential 32.1 pg (28.0-36.0) 06/08/18 05:00 RDW 16.2 % (11.5-20.0) 06/08/18 05:00 Plt Count 471 Th/cmm (150-400) H 06/08/18 05:00 MPV 7.1 fl 06/08/18 05:00 Add Manual Diff YES 06/08/18 05:00 Neutrophils % [employer] 06/08/18 05:00 Band Neutrophils % 1 % (0-10) 06/08/18 05:00 Lymphocytes % [employer] 06/08/18 05:00 Monocytes % [employer] 06/08/18 05:00 Eosinophils % [employer] 06/08/18 05:00 Basophils % [employer] 06/08/18 05:00 Neutrophils (Manual) 75 % (40-80) 06/08/18 05:00 Lymphocytes 15 % (20-50) L 06/08/18 05:00 Monocytes 7 % (2-10) 06/08/18 05:00 Eosinophils 2 % (0-5) 06/08/18 05:00 Basophils 0 % (0-3) 06/08/18 05:00 Hypochromia 1+ 06/07/18 05:10 Platelet Estimate INCREASED PLATELETS (NORMAL) 06/07/18 05:10 Microcytosis 3+ 06/07/18 05:10 PT 9.9 SECONDS (9.5-11.5) 06/05/18 23:10 INR 0.95 (0.5-1.4) 06/05/18 23:10 PTT (Actin FS) 22.0 SECONDS (26.0-38.0) L 06/05/18 23:10 Specimen Source Arterial 06/06/18 13:31 Sample Site Right Radial 06/06/18 13:31 pH 7.39 (7.35-7.45) 06/06/18 13:31 pCO2 41.0 mmHg (35.0-45.0) 06/06/18 13:31 pO2 118.0 mmHg (80.0-100.0) H 06/06/18 13:31 HCO3 24.8 mEq/L (20.0-26.0) 06/06/18 13:31 Base Excess -0.2 mEq/L (-3.0-3.0) 06/06/18 13:31 O2 Saturation 99.0 % (92.0-100.0) 06/06/18 13:31 Ermias Test PASS 06/06/18 13:31 Vent Rate NA 06/06/18 13:31 Inspired O2 32 06/06/18 13:31 Tidal Volume NA 06/06/18 13:31 PEEP NA 06/06/18 13:31 Pressure (ins/psv/peep) NA 06/06/18 13:31 Critical Value SH 06/06/18 13:31 Sodium 134 mEq/L (136-145) L 06/08/18 05:00 Potassium 4.6 mEq/L (3.5-5.1) 06/08/18 05:00 Chloride 97 mEq/L (98-107) L 06/08/18 05:00 Carbon Dioxide 29.3 mEq/L (21.0-31.0) 06/08/18 05:00 Anion Gap 12.3 (7.0-16.0) 06/08/18 05:00 BUN 60 mg/dL (7-25) H 06/08/18 05:00 Creatinine 1.4 mg/dL (0.6-1.2) H 06/08/18 05:00 Est GFR ( Amer) TNP 06/08/18 05:00 Est GFR (Non-Af Amer) TNP 06/08/18 05:00 BUN/Creatinine Ratio 42.9 06/08/18 05:00 Glucose 145 mg/dL (70-105) H D 06/08/18 05:00 POC Glucose 143 MG/DL (70 - 105) H 06/08/18 05:57 Calcium 9.2 mg/dL (8.6-10.3) 06/08/18 05:00 Ferritin 16 ng/mL (15-150) 06/06/18 08:20 Total Bilirubin 0.3 mg/dL (0.3-1.0) 06/08/18 05:00 Direct Bilirubin 0.13 mg/dL (0.0-0.2) 06/07/18 05:10 AST 11 U/L (13-39) L 06/08/18 05:00 ALT 6 U/L (7-52) L 06/08/18 05:00 Alkaline Phosphatase 58 U/L (34-104) 06/08/18 05:00 Ammonia 54 umol/L (16-53) H 06/07/18 05:10 Troponin I 0.02 ng/mL (0.01-0.05) 06/05/18 23:10 B-Natriuretic Peptide 569.0 pg/mL (5.0-100.0) H 06/07/18 05:10 Total Protein 7.6 gm/dL (6.0-8.3) 06/08/18 05:00 Albumin 3.7 gm/dL (3.7-5.3) 06/08/18 05:00 Globulin 3.9 gm/dL 06/08/18 05:00 Albumin/Globulin Ratio 1.0 (1.0-1.8) 06/08/18 05:00 Triglycerides 66 mg/dL (<150) 06/06/18 08:20 Cholesterol 155 mg/dL (<200) 06/06/18 08:20 LDL Cholesterol Direct 91 mg/dL (75-193) 06/06/18 08:20 HDL Cholesterol 58 mg/dL (23-92) 06/06/18 08:20 TSH 3.06 uIU/ml (0.34-5.60) 06/05/18 23:10 Urine Source RANDOM 06/06/18 03:45 Urine Color YELLOW 06/06/18 03:45 Urine Clarity HAZY (CLEAR) 06/06/18 03:45 Urine pH 6.0 (4.6 - 8.0) 06/06/18 03:45 Ur Specific [place] 1.010 (1.005-1.030) 06/06/18 03:45 Urine Protein NEGATIVE mg/dL (NEGATIVE) 06/06/18 03:45 Urine Glucose (UA) NEGATIVE mg/dL (NEGATIVE) 06/06/18 03:45 Urine Ketones NEGATIVE mg/dL (NEGATIVE) 06/06/18 03:45 Urine Blood NEGATIVE (NEGATIVE) 06/06/18 03:45 Urine Nitrate POSITIVE (NEGATIVE) H 06/06/18 03:45 Urine Bilirubin NEGATIVE (NEGATIVE) 06/06/18 03:45 Urine Urobilinogen 0.2 E.U./dL (0.2 - 1.0) 06/06/18 03:45 Ur Leukocyte Esterase NEGATIVE (NEGATIVE) 06/06/18 03:45 Urine RBC 0-2 /hpf (0-5) 06/06/18 03:45 Urine WBC 0-2 /hpf (0-5) 06/06/18 03:45 Ur Epithelial Cells FEW /lpf (FEW) 06/06/18 03:45 Urine Bacteria MODERATE /hpf (NONE SEEN) H 06/06/18 03:45 - Physical Exam Vitals and I&O: Vital Signs Temp 97.1 F 06/08/18 07:58 Pulse 79 06/08/18 08:11 Resp 18 06/08/18 07:58 BP 115/52 06/08/18 08:11 Pulse Ox 100 06/08/18 07:58 Intake & Output 06/07/18 06/08/18 06/08/18 18:59 06:59 18:59 Intake Total 650 50 Balance 650 50 Weight (lbs) 89.358 kg 77.111 kg Intake: Intake, IV Amount 50 50 Piperacillin Sodium/ 50 50 Tazobact 3.375 gm In Sodium Chloride 0.9% 50 ml @ 100 mls/hr IV Q8H [facility] Rx#:[id number] Oral 600 Other: # Voids 3 3 # Bowel Movements 2 Weight Source Bedscale Estimated Active Medications: Current Medications Albuterol/Ipratropium (Duoneb Neb) 3 ml HHN Q4HRT PRN PRN Reason: Shortness of Breath Stop: 08/05/18 02:47 Last Admin: 06/06/18 10:50 Dose: 3 ml Albuterol/Ipratropium (Duoneb Neb) 3 ml HHN [id number] [facility] Stop: 08/05/18 18:59 Last Admin: 06/08/18 08:10 Dose: 3 ml Amlodipine Besylate (Norvasc) 5 mg PO DAILY [facility] Stop: 08/05/18 08:59 Last Admin: 06/08/18 08:09 Dose: 5 mg Aspirin (Aspirin Chewable) 81 mg PO DAILY [facility] Stop: 08/05/18 08:59 Last Admin: 06/08/18 08:10 Dose: 81 mg Budesonide (Pulmicort) 0.5 mg HHN BIDRT [facility] Stop: 08/05/18 18:59 Last Admin: 06/08/18 08:10 Dose: 0.5 mg Furosemide (Lasix) 40 mg IVP DAILY [facility] Stop: 08/06/18 08:59 Last Admin: 06/08/18 08:08 Dose: 40 mg Sodium Chloride (Nacl 0.9%) 1,000 mls @ 50 mls/hr IV .Q20H [facility] Stop: 08/06/18 08:59 Last Admin: 06/07/18 15:34 Dose: 50 mls/hr Piperacillin Sod/Tazobactam (Sod 3.375 gm/ Sodium Chloride) 50 mls @ 100 mls/ hr IV Q8H [facility] Stop: 08/06/18 14:59 Last Admin: 06/08/18 06:03 Dose: 100 mls/hr Ibuprofen (Motrin) 600 mg PO BID PRN PRN Reason: Pain (Mild) Stop: 08/05/18 16:01 Last Admin: 06/07/18 15:33 Dose: 600 mg Insulin Aspart (Novolog Insulin Sliding Scale) 0 units SUBQ Q6HR [facility]; Protocol Stop: 08/05/18 17:59 Last Admin: 06/08/18 06:06 Dose: Not Given Insulin Human Isoph/Insulin Regular (Novolin 70/30) 40 units SUBQ QDAC [facility] Stop: 08/05/18 07:29 Last Admin: 06/08/18 08:07 Dose: 40 units Lisinopril (Zestril) 40 mg PO DAILY [facility] Stop: 08/05/18 08:59 Last Admin: 06/08/18 08:11 Dose: Not Given Metformin HCl (Glucophage) 1,000 mg PO BIDWM [facility] Stop: 08/05/18 07:59 Last Admin: 06/08/18 08:10 Dose: 1,000 mg Metoprolol Tartrate (Lopressor) 25 mg PO BID [facility] Stop: 08/05/18 08:59 Last Admin: 06/08/18 08:11 Dose: Not Given Miscellaneous (Zosyn Iv Per Pharmacy) 1 ea MC PRN PRN PRN Reason: PROTOCOL Stop: 08/06/18 07:01 Pantoprazole Sodium (Protonix) 40 mg PO DAILY [facility] Stop: 08/06/18 08:59 Last Admin: 06/08/18 08:12 Dose: 40 mg Simvastatin (Zocor) 20 mg PO HS [facility] Stop: 08/05/18 20:59 Last Admin: 06/07/18 21:26 Dose: 20 mg General: Alert, Oriented x3, No acute distress HEENT: Atraumatic, PERRLA, EOMI Neck: Supple Cardiovascular: Regular rate Abdomen: Bowel sounds, Soft, no Tender, no Hepatomegaly, no Rebound, no Mass Extremities: no Clubbing, no Cyanosis, no Edema - Procedures Procedures: Procedures Procedure Code Date ELECTROCARDIOGRAM 89.52 01/30/00 ELECTROCARDIOGRAM COMPLETE 50492 01/30/00 LAPAROSCOPIC CHOLECYSTECTOMY 51.23 07/02/03 LAPAROSCOPIC CHOLECYSTECTOMY 48466 07/02/03 Assessment/Plan - Assessment Assessment: 78 yo F with SOB and hypochromic anemia -Suggesting EGD/Colonoscopy -Pt refusing any endoscopic workup at this time, as well as barium enema -She is clinically improving with supportive care -Will follow peripherally and be available for assistance. Pt can also consider outpt workup if she changes her stance on this. She understands the risk of missing potential pathology and any available treatments by foregoing endoscopy Please call with any questions
--- NOTE | 2018-06-08 09:38 | General Progress Note ---
Subjective - Review of Systems Service Date: 06/08/18 Subjective: Patient was seen and examined. Patient is awake, alert, no acute distress. WBC' s noted to be 26K today. Objective - Results Result Diagrams: 06/08/18 05:00 06/08/18 05:00 Recent Labs: Laboratory Last Values WBC 19.8 Th/cmm (4.8-10.8) H D 06/08/18 05:00 RBC 3.45 Mil/cmm (3.80-5.20) L 06/08/18 05:00 Hgb 8.1 gm/dL (12-16) L 06/08/18 05:00 Hct 25.2 % (41.0-60) L 06/08/18 05:00 MCV 73.2 fl (81-100) L 06/08/18 05:00 MCH 23.5 pg (27.0-31.0) L 06/08/18 05:00 MCHC Differential 32.1 pg (28.0-36.0) 06/08/18 05:00 RDW 16.2 % (11.5-20.0) 06/08/18 05:00 Plt Count 471 Th/cmm (150-400) H 06/08/18 05:00 MPV 7.1 fl 06/08/18 05:00 Add Manual Diff YES 06/08/18 05:00 Neutrophils % [employer] 06/08/18 05:00 Band Neutrophils % 1 % (0-10) 06/08/18 05:00 Lymphocytes % [employer] 06/08/18 05:00 Monocytes % [employer] 06/08/18 05:00 Eosinophils % [employer] 06/08/18 05:00 Basophils % [employer] 06/08/18 05:00 Neutrophils (Manual) 75 % (40-80) 06/08/18 05:00 Lymphocytes 15 % (20-50) L 06/08/18 05:00 Monocytes 7 % (2-10) 06/08/18 05:00 Eosinophils 2 % (0-5) 06/08/18 05:00 Basophils 0 % (0-3) 06/08/18 05:00 Hypochromia 1+ 06/07/18 05:10 Platelet Estimate INCREASED PLATELETS (NORMAL) 06/07/18 05:10 Microcytosis 3+ 06/07/18 05:10 PT 9.9 SECONDS (9.5-11.5) 06/05/18 23:10 INR 0.95 (0.5-1.4) 06/05/18 23:10 PTT (Actin FS) 22.0 SECONDS (26.0-38.0) L 06/05/18 23:10 Specimen Source Arterial 06/06/18 13:31 Sample Site Right Radial 06/06/18 13:31 pH 7.39 (7.35-7.45) 06/06/18 13:31 pCO2 41.0 mmHg (35.0-45.0) 06/06/18 13:31 pO2 118.0 mmHg (80.0-100.0) H 06/06/18 13:31 HCO3 24.8 mEq/L (20.0-26.0) 06/06/18 13:31 Base Excess -0.2 mEq/L (-3.0-3.0) 06/06/18 13:31 O2 Saturation 99.0 % (92.0-100.0) 06/06/18 13:31 Ermias Test PASS 06/06/18 13:31 Vent Rate NA 06/06/18 13:31 Inspired O2 32 06/06/18 13:31 Tidal Volume NA 06/06/18 13:31 PEEP NA 06/06/18 13:31 Pressure (ins/psv/peep) NA 06/06/18 13:31 Critical Value SH 06/06/18 13:31 Sodium 134 mEq/L (136-145) L 06/08/18 05:00 Potassium 4.6 mEq/L (3.5-5.1) 06/08/18 05:00 Chloride 97 mEq/L (98-107) L 06/08/18 05:00 Carbon Dioxide 29.3 mEq/L (21.0-31.0) 06/08/18 05:00 Anion Gap 12.3 (7.0-16.0) 06/08/18 05:00 BUN 60 mg/dL (7-25) H 06/08/18 05:00 Creatinine 1.4 mg/dL (0.6-1.2) H 06/08/18 05:00 Est GFR ( Amer) TNP 06/08/18 05:00 Est GFR (Non-Af Amer) TNP 06/08/18 05:00 BUN/Creatinine Ratio 42.9 06/08/18 05:00 Glucose 145 mg/dL (70-105) H D 06/08/18 05:00 POC Glucose 143 MG/DL (70 - 105) H 06/08/18 05:57 Calcium 9.2 mg/dL (8.6-10.3) 06/08/18 05:00 Ferritin 16 ng/mL (15-150) 06/06/18 08:20 Total Bilirubin 0.3 mg/dL (0.3-1.0) 06/08/18 05:00 Direct Bilirubin 0.13 mg/dL (0.0-0.2) 06/07/18 05:10 AST 11 U/L (13-39) L 06/08/18 05:00 ALT 6 U/L (7-52) L 06/08/18 05:00 Alkaline Phosphatase 58 U/L (34-104) 06/08/18 05:00 Ammonia 54 umol/L (16-53) H 06/07/18 05:10 Troponin I 0.02 ng/mL (0.01-0.05) 06/05/18 23:10 B-Natriuretic Peptide 569.0 pg/mL (5.0-100.0) H 06/07/18 05:10 Total Protein 7.6 gm/dL (6.0-8.3) 06/08/18 05:00 Albumin 3.7 gm/dL (3.7-5.3) 06/08/18 05:00 Globulin 3.9 gm/dL 06/08/18 05:00 Albumin/Globulin Ratio 1.0 (1.0-1.8) 06/08/18 05:00 Triglycerides 66 mg/dL (<150) 06/06/18 08:20 Cholesterol 155 mg/dL (<200) 06/06/18 08:20 LDL Cholesterol Direct 91 mg/dL (75-193) 06/06/18 08:20 HDL Cholesterol 58 mg/dL (23-92) 06/06/18 08:20 TSH 3.06 uIU/ml (0.34-5.60) 06/05/18 23:10 Urine Source RANDOM 06/06/18 03:45 Urine Color YELLOW 06/06/18 03:45 Urine Clarity HAZY (CLEAR) 06/06/18 03:45 Urine pH 6.0 (4.6 - 8.0) 06/06/18 03:45 Ur Specific [place] 1.010 (1.005-1.030) 06/06/18 03:45 Urine Protein NEGATIVE mg/dL (NEGATIVE) 06/06/18 03:45 Urine Glucose (UA) NEGATIVE mg/dL (NEGATIVE) 06/06/18 03:45 Urine Ketones NEGATIVE mg/dL (NEGATIVE) 06/06/18 03:45 Urine Blood NEGATIVE (NEGATIVE) 06/06/18 03:45 Urine Nitrate POSITIVE (NEGATIVE) H 06/06/18 03:45 Urine Bilirubin NEGATIVE (NEGATIVE) 06/06/18 03:45 Urine Urobilinogen 0.2 E.U./dL (0.2 - 1.0) 06/06/18 03:45 Ur Leukocyte Esterase NEGATIVE (NEGATIVE) 06/06/18 03:45 Urine RBC 0-2 /hpf (0-5) 06/06/18 03:45 Urine WBC 0-2 /hpf (0-5) 06/06/18 03:45 Ur Epithelial Cells FEW /lpf (FEW) 06/06/18 03:45 Urine Bacteria MODERATE /hpf (NONE SEEN) H 06/06/18 03:45 - Physical Exam Vitals and I&O: Vital Signs Temp 97.1 F 06/08/18 07:58 Pulse 79 06/08/18 08:11 Resp 18 06/08/18 07:58 BP 115/52 06/08/18 08:11 Pulse Ox 100 06/08/18 07:58 Intake & Output 06/07/18 06/08/18 06/08/18 18:59 06:59 18:59 Intake Total 650 50 Balance 650 50 Weight (lbs) 89.358 kg 77.111 kg Intake: Intake, IV Amount 50 50 Piperacillin Sodium/ 50 50 Tazobact 3.375 gm In Sodium Chloride 0.9% 50 ml @ 100 mls/hr IV Q8H [facility] Rx#:[id number] Oral 600 Other: # Voids 3 3 # Bowel Movements 2 Weight Source Bedscale Estimated Active Medications: Current Medications Albuterol/Ipratropium (Duoneb Neb) 3 ml HHN Q4HRT PRN PRN Reason: Shortness of Breath Stop: 08/05/18 02:47 Last Admin: 06/06/18 10:50 Dose: 3 ml Albuterol/Ipratropium (Duoneb Neb) 3 ml HHN [id number] [facility] Stop: 08/05/18 18:59 Last Admin: 06/08/18 08:10 Dose: 3 ml Amlodipine Besylate (Norvasc) 5 mg PO DAILY [facility] Stop: 08/05/18 08:59 Last Admin: 06/08/18 08:09 Dose: 5 mg Aspirin (Aspirin Chewable) 81 mg PO DAILY [facility] Stop: 08/05/18 08:59 Last Admin: 06/08/18 08:10 Dose: 81 mg Budesonide (Pulmicort) 0.5 mg HHN BIDRT [facility] Stop: 08/05/18 18:59 Last Admin: 06/08/18 08:10 Dose: 0.5 mg Furosemide (Lasix) 40 mg IVP DAILY [facility] Stop: 08/06/18 08:59 Last Admin: 06/08/18 08:08 Dose: 40 mg Sodium Chloride (Nacl 0.9%) 1,000 mls @ 50 mls/hr IV .Q20H [facility] Stop: 08/06/18 08:59 Last Admin: 06/07/18 15:34 Dose: 50 mls/hr Piperacillin Sod/Tazobactam (Sod 3.375 gm/ Sodium Chloride) 50 mls @ 100 mls/ hr IV Q8H [facility] Stop: 08/06/18 14:59 Last Admin: 06/08/18 06:03 Dose: 100 mls/hr Ibuprofen (Motrin) 600 mg PO BID PRN PRN Reason: Pain (Mild) Stop: 08/05/18 16:01 Last Admin: 06/07/18 15:33 Dose: 600 mg Insulin Aspart (Novolog Insulin Sliding Scale) 0 units SUBQ Q6HR [facility]; Protocol Stop: 08/05/18 17:59 Last Admin: 06/08/18 06:06 Dose: Not Given Insulin Human Isoph/Insulin Regular (Novolin 70/30) 40 units SUBQ QDAC [facility] Stop: 08/05/18 07:29 Last Admin: 06/08/18 08:07 Dose: 40 units Lisinopril (Zestril) 40 mg PO DAILY [facility] Stop: 08/05/18 08:59 Last Admin: 09/18/18 08:11 Dose: Not Given Metformin HCl (Glucophage) 1,000 mg PO BIDWM [facility] Stop: 08/05/18 07:59 Last Admin: 06/08/18 08:10 Dose: 1,000 mg Metoprolol Tartrate (Lopressor) 25 mg PO BID [facility] Stop: 08/05/18 08:59 Last Admin: 06/08/18 08:11 Dose: Not Given Miscellaneous (Zosyn Iv Per Pharmacy) 1 ea MC PRN PRN PRN Reason: PROTOCOL Stop: 08/06/18 07:01 Pantoprazole Sodium (Protonix) 40 mg PO DAILY [facility] Stop: 08/06/18 08:59 Last Admin: 06/08/18 08:12 Dose: 40 mg Simvastatin (Zocor) 20 mg PO HS [facility] Stop: 08/05/18 20:59 Last Admin: 06/07/18 21:26 Dose: 20 mg General: Alert, Oriented x3, No acute distress HEENT: Atraumatic, PERRLA, EOMI Neck: Supple Cardiovascular: Regular rate, Normal S1, Normal S2 Lungs: Clear to auscultation Abdomen: Bowel sounds, Soft Extremities: no Clubbing, no Cyanosis, no Edema - Procedures Procedures: Procedures Procedure Code Date ELECTROCARDIOGRAM 89.52 01/30/00 ELECTROCARDIOGRAM COMPLETE 34393 01/30/00 LAPAROSCOPIC CHOLECYSTECTOMY 51.23 07/02/03 LAPAROSCOPIC CHOLECYSTECTOMY 32952 07/02/03 Assessment/Plan - Assessment Assessment: Acute Bronchitis/COPD/PNA ... continue Zosyn IV Anemia stable .... patient refused endoscopy at this time. may consider outpatient procedure CHF ... stable Diabetes mellitus type 2 ... improved. Leukocytosis 26K most likely reactive versus steroid induced. Hyponatremia Na 130 improved Elevated BNP ... ECHO pending.. hyperkalemia ... K 5.6 better now 4.6 UTI ... continue Zosyn IV - Plan Plan: will restart home meds GI consult for possible GIB occult x 2 cardiology consult accucheck ac hs low dose sliding scale cbc,cmp tomorrow am rocephin 1gm IV daily protonix 40mg IV daily start Zosyn IV today Nutritional Asmnt/Malnutr-PDOC - Dietary Evaluation Malnutrition Findings (Please click <Entered> for more info): Nutritional Asmnt/Malnutrition Start: 06/07/18 18: 26 Text: Status: Complete Freq: Protocol: Document 06/07/18 18:30 LCHENG (Rec: 06/07/18 18:46 [email or web address] [id number]) Nutritional Asmnt/Malnutrition Patient General Information Nutritional Screening High Risk Pertinent Medical Hx/Surgical Hx HTN, DM, asthma/COPD, arthritis, cholecystectomy, hysterectomy, Subjective Information consult received for blood sugar 484. per nurse note, pt refused EGD for tommorrow, on Bipap PRN. Per EMR, Pt consumed 100% of breakfast today. Current Diet Order/ Nutrition Support cardiac Pertinent Medications lasix, novolog, novolin, glucophage, protonix, piperacillin, nacl 0.9% Pertinent Labs 06/07 Na 130, K 5.6, cl 95, BUN 42, Cr 1.4, glucose 265, POC 211-262 Nutritional Hx/Data Height 1.52 m Height (Calculated Centimeters) 152.4 Current Weight (lbs) 89.358 kg Weight (Calculated Kilograms) 89.4 Weight (Calculated Grams) 78944.7 [place] Body Weight 100 Body Mass Index (BMI) 38.5 Weight Status Obese GI Symptoms GI Symptoms None Last BM 06/07 Difficult in: None Skin Integrity/Comment: intact Current %PO Good (75-100%) Estimated Nutritional Goals BEE in Kcals: Adj wt of IBW Calories/Kcals/Kg 25-30 Kcals Calculated 3267-3212 Protein: Adj wt of IBW Protein g/k-1.2 Protein Calculated 56-67 Fluid: ml 1400-1680ml (1ml/kcal) Nutritional Problem 1. Problem Problem altered nutrition related labs Etiology electrolytes imbalance, hyperglycemia, possible renal dysfunction Signs/Symptoms: Na 130, K 5.6, cl 95, BUN 42, Cr 1.4, glucose 265, POC 211- 262 Malnutrition Alert Is there a minimum of two criteria No selected? Query Text:Check all the applicable criteria. A minimum of two criteria are recommended for diagnosis of either severe or non-severe malnutrition. Malnutrition Related to Morbid Obesity Malnutrition related to morbid obesity No Intervention/Recommendation Comments 1. Recommend adding CCHO 60gm diet d/t elevated blood sugar and hx of DM. 2. Monitor PO intake, wt, labs and skin integrity 3. F/U as high risk in 2-3 days, 06/09-06/10 Expected Outcomes/Goals Expected Outcomes/Goals 1. PO intake to meet at least 75% of nutritional needs. 2. Wt stability, skin to remain intact, labs to approach WNL.
[2018-06-08 13:58] LABS: ALLEN TEST Positive; pH 7.45 (7.35-7.45)
--- NOTE | 2018-06-08 14:08 | Progress Notes ---
DATE: 06/08/2018 PULMONARY PROGRESS NOTE PROBLEM LIST: 1. Acute exacerbation of bronchial asthma. 2. Suspect obstructive sleep apnea syndrome, morbid obesity with elevated white count, exact etiology is not clear. SYMPTOMS: The patient is feeling good. Breathing is much better. Denies any specific new symptoms, possibly endoscopic exam tomorrow. PHYSICAL EXAMINATION: VITAL SIGNS: Temperature is 97.8, blood pressure is 96/42, saturation 100% on 1 liter per minute. NECK: Veins not visualized. CHEST: Shows diminished air entry with occasional rhonchi. HEART: Regular. ABDOMEN: Soft, nontender. EXTREMITIES: Shows slight trace of peripheral edema. LABORATORY DATA: White count is 19.8, hemoglobin 8.1. BUN is 60, creatinine is 1.4. RECOMMENDATIONS: The patient clinically seemingly better, improving. PLANS AND SUGGESTIONS: We will go ahead and continue current treatment. We will repeat the patient's chest x-ray again, so how it is and go from there. JOB# [id number]
[2018-06-08] MEDS: Sodium Ferric Gluconate 125 MG in Sodium Chloride 0.9% 100 ML IV SCH (16:42)
--- NOTE | 2018-06-08 17:50 | History & Physical ---
ADMIT DATE: 06/08/2018 HEMATOLOGY ONCOLOGY CONSULTATION REFERRED BY: Dr. Jennings. REASON FOR CONSULTATION: Anemia. HISTORY OF PRESENT ILLNESS: The patient is an 78-year-old female, who was admitted because of progressive weakness and she was found to have severe anemia and multiple electrolyte abnormalities, uncontrolled diabetes, and congestive heart failure. I was asked to evaluate because of the worsening anemia. The patient had hemoglobin of 8 grams from admission and remains at that low level. She had a hemoglobin as low as 6.9 grams from the old records in 08/2017. The patient denied any history of bleeding. She is followed by the diamond wheel molder during the hospital stay and she also has stool occult blood that is still pending. Her white count has been elevated since admission as well, which is mostly neutrophils 75% and 15% lymphocytes. PAST MEDICAL HISTORY: Diabetes, hypertension, obesity, chronic anemia, COPD. PAST SURGICAL HISTORY: sections. MEDICATIONS: Reviewed. FAMILY HISTORY: Irrelevant. PHYSICAL EXAMINATION: GENERAL: The patient is awake, not in respiratory distress, and nasal cannula oxygen. VITAL SIGNS: Stable. HEENT: Atraumatic, pale complexion. NECK: Supple. CHEST: Basilar rales. ABDOMEN: Obese, soft, scar in lower abdomen from previous section. LABORATORY DATA: White count 19.8, hemoglobin 8.1, MCV 73, platelets 471. Coagulation: INR and PTT are normal. Creatinine 1.4. Ferritin 16. Bilirubin normal. Albumin 3.7. TSH 3. Blood gas: CO2 of 43, pO2 of 76 with saturation of 96%. ASSESSMENT: Microcytic anemia with low ferritin most suggestive of iron deficiency anemia. I will start the patient on IV iron supplementation and folate supplementation because of iron deficiency, diabetes mellitus, and chronic kidney disease. I will follow the stool occult blood and obtain total iron binding capacity, B12 and folate level to complement the anemia workup. Thank you, Dr. Jennings for the opportunity to participate in the care of this interesting case. JOB# [id number]
[2018-06-09] MEDS: INSULIN ASPART SLIDING SCALE 100 UNITS/ML UNIT SUBQ SCH ×4 (00:19→17:14)
[2018-06-09] MEDS: Albuterol/Ipratropium Neb 3 ML AERS HHN SCH ×4 (05:59→18:43)
[2018-06-09] MEDS: Budesonide 0.5 Mg/2 mL Ud HHN SCH ×2 (06:44→18:43)
[2018-06-09 06:49] LABS: HEMATOCRIT 23.8 % (41.0-60); MEAN CELL VOLUME 73.3 fl (81-100); MEAN CORPUSCULAR HEMOGLOBIN 23.8 pg (27.0-31.0); MEAN CORPUSCULAR HGB CONC 32.4 pg (28.0-36.0); MEAN PLATELET VOLUME 7.1 fl; PLATELET COUNT 408 Th/cmm (150-400); RED BLOOD COUNT 3.25 Mil/cmm (3.80-5.20); RED CELL DISTRIBUTION WIDTH 16.3 % (11.5-20.0); WHITE BLOOD COUNT 12.4 Th/cmm (4.8-10.8)
[2018-06-09 07:01] LABS: ALBUMIN 3.4 gm/dL (3.7-5.3); ALKALINE PHOSPHATASE 51 U/L (34-104); ANION GAP 9.9 (7.0-16.0); BILIRUBIN,TOTAL 0.3 mg/dL (0.3-1.0); BUN - UREA NITROGEN 48 mg/dL (7-25); CALCIUM SERUM 8.7 mg/dL (8.6-10.3); CARBON DIOXIDE 30.4 mEq/L (21.0-31.0); CHLORIDE 100 mEq/L (98-107); CREATININE - SERUM 1.1 mg/dL (0.6-1.2); GLUCOSE 128 mg/dL (70-105); POTASSIUM SERUM 4.3 mEq/L (3.5-5.1); SGOT 12 U/L (13-39); SGPT/ALT 6 U/L (7-52); SODIUM SERUM 136 mEq/L (136-145); TOTAL PROTEIN,SERUM 6.9 gm/dL (6.0-8.3)
[2018-06-09 07:11] LABS: IRON LC 20 ug/dL (27-139); TIBC (LC) 373 ug/dL (250-450); UIBC 353 ug/dL (118-369)
[2018-06-09 07:17] LABS: HEMOGLOBIN 7.7 gm/dL (12-16)
[2018-06-09 07:45] LABS: BAND NEUTROPHILE 0 % (0-10); BASOPHIL 0 % (0-3); EOSINOPHIL 2 % (0-5); LYMPHOCYTE 25 % (20-50); MONOCYTE 10 % (2-10); NEUTROPHILS 63 % (40-80); PLATELET ESTIMATE INCREASED PLATELETS (NORMAL)
[2018-06-09] MEDS: INSULIN 70/30 100 UNITS/ML SUBQ SCH (08:05)
[2018-06-09] MEDS: Pantoprazole 40 mg/Packet PO SCH (08:07)
[2018-06-09] MEDS: Aspirin 81mg Chewable Tab PO SCH (08:07)
--- NOTE | 2018-06-09 08:17 | General Progress Note ---
Subjective - Review of Systems Service Date: 06/09/18 Subjective: Patient was seen and examined. Patient is awake, alert, no acute distress. Patient to be scheduled for EGD today. Patient was seen by hematology for anemia. no evidence of acute bleeding. vitals stable. Objective - Results Result Diagrams: 06/09/18 06:10 06/09/18 06:10 Recent Labs: Laboratory Last Values WBC 12.4 Th/cmm (4.8-10.8) H 06/09/18 06:10 RBC 3.25 Mil/cmm (3.80-5.20) L 06/09/18 06:10 Hgb 7.7 gm/dL (12-16) L* 06/09/18 06:10 Hct 23.8 % (41.0-60) L 06/09/18 06:10 MCV 73.3 fl (81-100) L 06/09/18 06:10 MCH 23.8 pg (27.0-31.0) L 06/09/18 06:10 MCHC Differential 32.4 pg (28.0-36.0) 06/09/18 06:10 RDW 16.3 % (11.5-20.0) 06/09/18 06:10 Plt Count 408 Th/cmm (150-400) H 06/09/18 06:10 MPV 7.1 fl 06/09/18 06:10 Add Manual Diff YES 06/09/18 06:10 Neutrophils % [employer] 06/08/18 05:00 Band Neutrophils % 0 % (0-10) 06/09/18 06:10 Lymphocytes % [employer] 06/08/18 05:00 Monocytes % [employer] 06/08/18 05:00 Eosinophils % [employer] 06/08/18 05:00 Basophils % [employer] 06/08/18 05:00 Neutrophils (Manual) 63 % (40-80) 06/09/18 06:10 Lymphocytes 25 % (20-50) 06/09/18 06:10 Monocytes 10 % (2-10) 06/09/18 06:10 Eosinophils 2 % (0-5) 06/09/18 06:10 Basophils 0 % (0-3) 06/09/18 06:10 Hypochromia 1+ 06/07/18 05:10 Platelet Estimate INCREASED PLATELETS (NORMAL) 06/09/18 06:10 Microcytosis 3+ 06/09/18 06:10 PT 9.9 SECONDS (9.5-11.5) 06/05/18 23:10 INR 0.95 (0.5-1.4) 06/05/18 23:10 PTT (Actin FS) 22.0 SECONDS (26.0-38.0) L 06/05/18 23:10 Specimen Source Arterial 06/08/18 13:45 Sample Site Left Radial 06/08/18 13:45 pH 7.45 (7.35-7.45) 06/08/18 13:45 pCO2 43.0 mmHg (35.0-45.0) 06/08/18 13:45 pO2 76.0 mmHg (80.0-100.0) L 06/08/18 13:45 HCO3 29.0 mEq/L (20.0-26.0) H 06/08/18 13:45 Base Excess 5.3 mEq/L (-3.0-3.0) H 06/08/18 13:45 O2 Saturation 96.0 % (92.0-100.0) 06/08/18 13:45 Ermias Test Positive 06/08/18 13:45 Vent Rate NA 06/08/18 13:45 Inspired O2 21 06/08/18 13:45 Tidal Volume NA 06/08/18 13:45 PEEP NA 06/08/18 13:45 Pressure (ins/psv/peep) NA 06/08/18 13:45 Critical Value LZHANG 06/08/18 13:45 Sodium 136 mEq/L (136-145) 06/09/18 06:10 Potassium 4.3 mEq/L (3.5-5.1) 06/09/18 06:10 Chloride 100 mEq/L (98-107) 06/09/18 06:10 Carbon Dioxide 30.4 mEq/L (21.0-31.0) 06/09/18 06:10 Anion Gap 9.9 (7.0-16.0) 06/09/18 06:10 BUN 48 mg/dL (7-25) H 06/09/18 06:10 Creatinine 1.1 mg/dL (0.6-1.2) 06/09/18 06:10 Est GFR ( Amer) TNP 06/09/18 06:10 Est GFR (Non-Af Amer) TNP 06/09/18 06:10 BUN/Creatinine Ratio 43.6 06/09/18 06:10 Glucose 128 mg/dL (70-105) H 06/09/18 06:10 POC Glucose 125 MG/DL (70 - 105) H 06/09/18 05:57 Calcium 8.7 mg/dL (8.6-10.3) 06/09/18 06:10 Iron 20 ug/dL (27-139) L 06/08/18 05:00 TIBC 373 ug/dL (250-450) 06/08/18 05:00 Iron Saturation 5 % (15-55) L 06/08/18 05:00 Unsaturated IBC 353 ug/dL (118-369) 06/08/18 05:00 Ferritin 16 ng/mL (15-150) 06/06/18 08:20 Total Bilirubin 0.3 mg/dL (0.3-1.0) 06/09/18 06:10 Direct Bilirubin 0.13 mg/dL (0.0-0.2) 06/07/18 05:10 AST 12 U/L (13-39) L 06/09/18 06:10 ALT 6 U/L (7-52) L 06/09/18 06:10 Alkaline Phosphatase 51 U/L (34-104) 06/09/18 06:10 Ammonia 54 umol/L (16-53) H 06/07/18 05:10 Troponin I 0.02 ng/mL (0.01-0.05) 06/05/18 23:10 B-Natriuretic Peptide 569.0 pg/mL (5.0-100.0) H 06/07/18 05:10 Total Protein 6.9 gm/dL (6.0-8.3) 06/09/18 06:10 Albumin 3.4 gm/dL (3.7-5.3) L 06/09/18 06:10 Globulin 3.5 gm/dL 06/09/18 06:10 Albumin/Globulin Ratio 1.0 (1.0-1.8) 06/09/18 06:10 Triglycerides 66 mg/dL (<150) 06/06/18 08:20 Cholesterol 155 mg/dL (<200) 06/06/18 08:20 LDL Cholesterol Direct 91 mg/dL (75-193) 06/06/18 08:20 HDL Cholesterol 58 mg/dL (23-92) 06/06/18 08:20 TSH 3.06 uIU/ml (0.34-5.60) 06/05/18 23:10 Urine Source RANDOM 06/06/18 03:45 Urine Color YELLOW 06/06/18 03:45 Urine Clarity HAZY (CLEAR) 06/06/18 03:45 Urine pH 6.0 (4.6 - 8.0) 06/06/18 03:45 Ur Specific [place] 1.010 (1.005-1.030) 06/06/18 03:45 Urine Protein NEGATIVE mg/dL (NEGATIVE) 06/06/18 03:45 Urine Glucose (UA) NEGATIVE mg/dL (NEGATIVE) 06/06/18 03:45 Urine Ketones NEGATIVE mg/dL (NEGATIVE) 06/06/18 03:45 Urine Blood NEGATIVE (NEGATIVE) 06/06/18 03:45 Urine Nitrate POSITIVE (NEGATIVE) H 06/06/18 03:45 Urine Bilirubin NEGATIVE (NEGATIVE) 06/06/18 03:45 Urine Urobilinogen 0.2 E.U./dL (0.2 - 1.0) 06/06/18 03:45 Ur Leukocyte Esterase NEGATIVE (NEGATIVE) 06/06/18 03:45 Urine RBC 0-2 /hpf (0-5) 06/06/18 03:45 Urine WBC 0-2 /hpf (0-5) 06/06/18 03:45 Ur Epithelial Cells FEW /lpf (FEW) 06/06/18 03:45 Urine Bacteria MODERATE /hpf (NONE SEEN) H 06/06/18 03:45 Stool Occult Blood NEGATIVE (NEGATIVE) 06/08/18 19:00 - Physical Exam Vitals and I&O: Vital Signs Temp 98.8 F 06/09/18 07:56 Pulse 87 06/09/18 07:56 Resp 18 06/09/18 07:56 BP 134/57 06/09/18 07:56 Pulse Ox 100 06/09/18 07:56 Intake & Output 06/08/18 06/09/18 06/09/18 18:59 06:59 18:59 Intake Total 650 3450 Balance 650 3450 Weight (lbs) 77.111 kg 94.801 kg Intake: Intake, IV Amount 50 50 Piperacillin Sodium/ 50 50 Tazobact 3.375 gm In Sodium Chloride 0.9% 50 ml @ 100 mls/hr IV Q8H [facility] Rx#:[id number] Oral 600 3400 Other: # Voids 3 7 # Bowel Movements 1 7 Stool Characteristics Liquid Brown Weight Source Estimated Bedscale Active Medications: Current Medications Albuterol/Ipratropium (Duoneb Neb) 3 ml HHN Q4HRT PRN PRN Reason: Shortness of Breath Stop: 08/05/18 02:47 Last Admin: 06/06/18 10:50 Dose: 3 ml Albuterol/Ipratropium (Duoneb Neb) 3 ml HHN [id number] [facility] Stop: 08/05/18 18:59 Last Admin: 06/09/18 05:59 Dose: 3 ml Amlodipine Besylate (Norvasc) 5 mg PO DAILY [facility] Stop: 08/05/18 08:59 Last Admin: 06/09/18 08:07 Dose: Not Given Aspirin (Aspirin Chewable) 81 mg PO DAILY [facility] Stop: 08/05/18 08:59 Last Admin: 06/09/18 08:07 Dose: Not Given Budesonide (Pulmicort) 0.5 mg HHN BIDRT [facility] Stop: 08/05/18 18:59 Last Admin: 06/09/18 06:44 Dose: 0.5 mg Folic Acid (Folate) 1 mg PO DAILY [facility] Stop: 08/08/18 08:59 Last Admin: 06/09/18 08:07 Dose: Not Given Furosemide (Lasix) 40 mg IVP DAILY [facility] Stop: 08/06/18 08:59 Last Admin: 06/08/18 08:08 Dose: 40 mg Sodium Chloride (Nacl 0.9%) 1,000 mls @ 50 mls/hr IV .Q20H [facility] Stop: 08/06/18 08:59 Last Admin: 06/07/18 15:34 Dose: 50 mls/hr Piperacillin Sod/Tazobactam (Sod 3.375 gm/ Sodium Chloride) 50 mls @ 100 mls/ hr IV Q8H [facility] Stop: 08/06/18 14:59 Last Admin: 06/09/18 06:42 Dose: 100 mls/hr Ferric Sodium Gluconate Complex 125 mg/ Sodium Chloride 110 mls @ 100 mls/hr IV Q24HR [facility] Stop: 06/16/18 15:59 Last Admin: 06/08/18 16:42 Dose: 100 mls/hr Ibuprofen (Motrin) 600 mg PO BID PRN PRN Reason: Pain (Mild) Stop: 08/05/18 16:01 Last Admin: 06/07/18 15:33 Dose: 600 mg Insulin Aspart (Novolog Insulin Sliding Scale) 0 units SUBQ Q6HR [facility]; Protocol Stop: 08/05/18 17:59 Last Admin: 06/09/18 06:40 Dose: Not Given Insulin Human Isoph/Insulin Regular (Novolin 70/30) 40 units SUBQ QDAC [facility] Stop: 08/05/18 07:29 Last Admin: 06/09/18 08:05 Dose: Not Given Lisinopril (Zestril) 40 mg PO DAILY [facility] Stop: 08/05/18 08:59 Last Admin: 06/09/18 08:07 Dose: Not Given Metformin HCl (Glucophage) 1,000 mg PO BIDWM [facility] Stop: 08/05/18 07:59 Last Admin: 06/09/18 08:06 Dose: Not Given Metoprolol Tartrate (Lopressor) 25 mg PO BID [facility] Stop: 08/05/18 08:59 Last Admin: 06/09/18 08:07 Dose: Not Given Miscellaneous (Zosyn Iv Per Pharmacy) 1 ea MC PRN PRN PRN Reason: PROTOCOL Stop: 08/06/18 07:01 Pantoprazole Sodium (Protonix) 40 mg PO DAILY [facility] Stop: 08/06/18 08:59 Last Admin: 06/09/18 08:07 Dose: Not Given Simvastatin (Zocor) 20 mg PO HS [facility] Stop: 08/05/18 20:59 Last Admin: 06/08/18 21:27 Dose: 20 mg General: Alert, Oriented x3, No acute distress HEENT: Atraumatic, PERRLA, EOMI Neck: Supple Cardiovascular: Regular rate, Normal S1, Normal S2 Lungs: Clear to auscultation Abdomen: Bowel sounds, Soft Extremities: no Clubbing, no Cyanosis, no Edema - Procedures Procedures: Procedures Procedure Code Date ELECTROCARDIOGRAM 89.52 01/30/00 ELECTROCARDIOGRAM COMPLETE 05745 01/30/00 LAPAROSCOPIC CHOLECYSTECTOMY 51.23 07/02/03 LAPAROSCOPIC CHOLECYSTECTOMY 72195 07/02/03 Assessment/Plan - Assessment Assessment: Acute Bronchitis/COPD/PNA ... continue Zosyn IV, on oral steroids Anemia stable .... patient consented for endoscopy. to be scheduled today. hem/ onc consult. started on IV ferrous sulfate CHF ... stable Diabetes mellitus type 2 ... improved. Leukocytosis 26K most likely reactive versus steroid induced. Now 12K Hyponatremia Na 130 improved Elevated BNP ... ECHO pending.. hyperkalemia ... K 5.6 better now 4.6 UTI ... continue Zosyn IV - Plan Plan: will restart home meds GI consult for possible GIB occult x 2 cardiology consult accucheck ac hs low dose sliding scale cbc,cmp tomorrow am rocephin 1gm IV daily protonix 40mg IV daily start Zosyn IV today Nutritional Asmnt/Malnutr-PDOC - Dietary Evaluation Malnutrition Findings (Please click <Entered> for more info): Nutritional Asmnt/Malnutrition Start: 06/07/18 18: 26 Text: Status: Complete Freq: Protocol: Document 06/07/18 18:30 LCHENG (Rec: 06/07/18 18:46 [email or web address]) Nutritional Asmnt/Malnutrition Patient General Information Nutritional Screening High Risk Pertinent Medical Hx/Surgical Hx HTN, DM, asthma/COPD, arthritis, cholecystectomy, hysterectomy, Subjective Information consult received for blood sugar 484. per nurse note, pt refused EGD for tommorrow, on Bipap PRN. Per EMR, Pt consumed 100% of breakfast today. Current Diet Order/ Nutrition Support cardiac Pertinent Medications lasix, novolog, novolin, glucophage, protonix, piperacillin, nacl 0.9% Pertinent Labs 06/07 Na 130, K 5.6, cl 95, BUN 42, Cr 1.4, glucose 265, POC 211-262 Nutritional Hx/Data Height 1.52 m Height (Calculated Centimeters) 152.4 Current Weight (lbs) 89.358 kg Weight (Calculated Kilograms) 89.4 Weight (Calculated Grams) 36890.7 [place] Body Weight 100 Body Mass Index (BMI) 38.5 Weight Status Obese GI Symptoms GI Symptoms None Last BM 06/07 Difficult in: None Skin Integrity/Comment: intact Current %PO Good (75-100%) Estimated Nutritional Goals BEE in Kcals: Adj wt of IBW Calories/Kcals/Kg 25-30 Kcals Calculated 5675-7056 Protein: Adj wt of IBW Protein g/k-1.2 Protein Calculated 56-67 Fluid: ml 1400-1680ml (1ml/kcal) Nutritional Problem 1. Problem Problem altered nutrition related labs Etiology electrolytes imbalance, hyperglycemia, possible renal dysfunction Signs/Symptoms: Na 130, K 5.6, cl 95, BUN 42, Cr 1.4, glucose 265, POC 211- 262 Malnutrition Alert Is there a minimum of two criteria No selected? Query Text:Check all the applicable criteria. A minimum of two criteria are recommended for diagnosis of either severe or non-severe malnutrition. Malnutrition Related to Morbid Obesity Malnutrition related to morbid obesity No Intervention/Recommendation Comments 1. Recommend adding CCHO 60gm diet d/t elevated blood sugar and hx of DM. 2. Monitor PO intake, wt, labs and skin integrity 3. F/U as high risk in 2-3 days, 06/09-06/10 Expected Outcomes/Goals Expected Outcomes/Goals 1. PO intake to meet at least 75% of nutritional needs. 2. Wt stability, skin to remain intact, labs to approach WNL.
[2018-06-09] MEDS ORDERED: Lidocaine 2% Gel 5 mL TP ONE (08:45)
[2018-06-09] MEDS ORDERED: Propofol 10 mg/mL 20mL Vial **SURGERY USE ONLY IV ONE (08:45)
--- NOTE | 2018-06-09 10:31 | General Progress Note ---
Subjective - Review of Systems Service Date: 06/09/18 Objective - Results Result Diagrams: 06/09/18 06:10 06/09/18 06:10 Recent Labs: Laboratory Last Values WBC 12.4 Th/cmm (4.8-10.8) H 06/09/18 06:10 RBC 3.25 Mil/cmm (3.80-5.20) L 06/09/18 06:10 Hgb 7.7 gm/dL (12-16) L* 06/09/18 06:10 Hct 23.8 % (41.0-60) L 06/09/18 06:10 MCV 73.3 fl (81-100) L 06/09/18 06:10 MCH 23.8 pg (27.0-31.0) L 06/09/18 06:10 MCHC Differential 32.4 pg (28.0-36.0) 06/09/18 06:10 RDW 16.3 % (11.5-20.0) 06/09/18 06:10 Plt Count 408 Th/cmm (150-400) H 06/09/18 06:10 MPV 7.1 fl 06/09/18 06:10 Add Manual Diff YES 06/09/18 06:10 Neutrophils % SCREED PERSON 06/08/18 05:00 Band Neutrophils % 0 % (0-10) 06/09/18 06:10 Lymphocytes % SCREED PERSON 06/08/18 05:00 Monocytes % SCREED PERSON 06/08/18 05:00 Eosinophils % SCREED PERSON 06/08/18 05:00 Basophils % SCREED PERSON 06/08/18 05:00 Neutrophils (Manual) 63 % (40-80) 06/09/18 06:10 Lymphocytes 25 % (20-50) 06/09/18 06:10 Monocytes 10 % (2-10) 06/09/18 06:10 Eosinophils 2 % (0-5) 06/09/18 06:10 Basophils 0 % (0-3) 06/09/18 06:10 Hypochromia 1+ 06/07/18 05:10 Platelet Estimate INCREASED PLATELETS (NORMAL) 06/09/18 06:10 Microcytosis 3+ 06/09/18 06:10 PT 9.9 SECONDS (9.5-11.5) 06/05/18 23:10 INR 0.95 (0.5-1.4) 06/05/18 23:10 PTT (Actin FS) 22.0 SECONDS (26.0-38.0) L 06/05/18 23:10 Specimen Source Arterial 06/08/18 13:45 Sample Site Left Radial 06/08/18 13:45 pH 7.45 (7.35-7.45) 06/08/18 13:45 pCO2 43.0 mmHg (35.0-45.0) 06/08/18 13:45 pO2 76.0 mmHg (80.0-100.0) L 06/08/18 13:45 HCO3 29.0 mEq/L (20.0-26.0) H 06/08/18 13:45 Base Excess 5.3 mEq/L (-3.0-3.0) H 06/08/18 13:45 O2 Saturation 96.0 % (92.0-100.0) 06/08/18 13:45 Ermias Test Positive 06/08/18 13:45 Vent Rate NA 06/08/18 13:45 Inspired O2 21 06/08/18 13:45 Tidal Volume NA 06/08/18 13:45 PEEP NA 06/08/18 13:45 Pressure (ins/psv/peep) NA 06/08/18 13:45 Critical Value LZHANG 06/08/18 13:45 Sodium 136 mEq/L (136-145) 06/09/18 06:10 Potassium 4.3 mEq/L (3.5-5.1) 06/09/18 06:10 Chloride 100 mEq/L (98-107) 06/09/18 06:10 Carbon Dioxide 30.4 mEq/L (21.0-31.0) 06/09/18 06:10 Anion Gap 9.9 (7.0-16.0) 06/09/18 06:10 BUN 48 mg/dL (7-25) H 06/09/18 06:10 Creatinine 1.1 mg/dL (0.6-1.2) 06/09/18 06:10 Est GFR ( Amer) TNP 06/09/18 06:10 Est GFR (Non-Af Amer) TNP 06/09/18 06:10 BUN/Creatinine Ratio 43.6 06/09/18 06:10 Glucose 128 mg/dL (70-105) H 06/09/18 06:10 POC Glucose 125 MG/DL (70 - 105) H 06/09/18 05:57 Calcium 8.7 mg/dL (8.6-10.3) 06/09/18 06:10 Iron 20 ug/dL (27-139) L 06/08/18 05:00 TIBC 373 ug/dL (250-450) 06/08/18 05:00 Iron Saturation 5 % (15-55) L 06/08/18 05:00 Unsaturated IBC 353 ug/dL (118-369) 06/08/18 05:00 Ferritin 16 ng/mL (15-150) 06/06/18 08:20 Total Bilirubin 0.3 mg/dL (0.3-1.0) 06/09/18 06:10 Direct Bilirubin 0.13 mg/dL (0.0-0.2) 06/07/18 05:10 AST 12 U/L (13-39) L 06/09/18 06:10 ALT 6 U/L (7-52) L 06/09/18 06:10 Alkaline Phosphatase 51 U/L (34-104) 06/09/18 06:10 Ammonia 54 umol/L (16-53) H 06/07/18 05:10 Troponin I 0.02 ng/mL (0.01-0.05) 06/05/18 23:10 B-Natriuretic Peptide 569.0 pg/mL (5.0-100.0) H 06/07/18 05:10 Total Protein 6.9 gm/dL (6.0-8.3) 06/09/18 06:10 Albumin 3.4 gm/dL (3.7-5.3) L 06/09/18 06:10 Globulin 3.5 gm/dL 06/09/18 06:10 Albumin/Globulin Ratio 1.0 (1.0-1.8) 06/09/18 06:10 Triglycerides 66 mg/dL (<150) 06/06/18 08:20 Cholesterol 155 mg/dL (<200) 06/06/18 08:20 LDL Cholesterol Direct 91 mg/dL (75-193) 06/06/18 08:20 HDL Cholesterol 58 mg/dL (23-92) 06/06/18 08:20 TSH 3.06 uIU/ml (0.34-5.60) 06/05/18 23:10 Urine Source RANDOM 06/06/18 03:45 Urine Color YELLOW 06/06/18 03:45 Urine Clarity HAZY (CLEAR) 06/06/18 03:45 Urine pH 6.0 (4.6 - 8.0) 06/06/18 03:45 Ur Specific [place] 1.010 (1.005-1.030) 06/06/18 03:45 Urine Protein NEGATIVE mg/dL (NEGATIVE) 06/06/18 03:45 Urine Glucose (UA) NEGATIVE mg/dL (NEGATIVE) 06/06/18 03:45 Urine Ketones NEGATIVE mg/dL (NEGATIVE) 06/06/18 03:45 Urine Blood NEGATIVE (NEGATIVE) 06/06/18 03:45 Urine Nitrate POSITIVE (NEGATIVE) H 06/06/18 03:45 Urine Bilirubin NEGATIVE (NEGATIVE) 06/06/18 03:45 Urine Urobilinogen 0.2 E.U./dL (0.2 - 1.0) 06/06/18 03:45 Ur Leukocyte Esterase NEGATIVE (NEGATIVE) 06/06/18 03:45 Urine RBC 0-2 /hpf (0-5) 06/06/18 03:45 Urine WBC 0-2 /hpf (0-5) 06/06/18 03:45 Ur Epithelial Cells FEW /lpf (FEW) 06/06/18 03:45 Urine Bacteria MODERATE /hpf (NONE SEEN) H 06/06/18 03:45 Stool Occult Blood NEGATIVE (NEGATIVE) 06/08/18 19:00 - Physical Exam Vitals and I&O: Vital Signs Temp 98.8 F 06/09/18 07:56 Pulse 87 06/09/18 07:56 Resp 18 06/09/18 07:56 BP 134/57 06/09/18 07:56 Pulse Ox 100 06/09/18 07:56 Intake & Output 06/08/18 06/09/18 06/09/18 18:59 06:59 18:59 Intake Total 650 3450 Balance 650 3450 Weight (lbs) 77.111 kg 94.801 kg Intake: Intake, IV Amount 50 50 Piperacillin Sodium/ 50 50 Tazobact 3.375 gm In Sodium Chloride 0.9% 50 ml @ 100 mls/hr IV Q8H [facility] Rx#:[id number] Oral 600 3400 Other: # Voids 3 7 # Bowel Movements 1 7 Stool Characteristics Liquid Brown Weight Source Estimated Bedscale Active Medications: Current Medications Albuterol/Ipratropium (Duoneb Neb) 3 ml HHN Q4HRT PRN PRN Reason: Shortness of Breath Stop: 08/05/18 02:47 Last Admin: 06/06/18 10:50 Dose: 3 ml Albuterol/Ipratropium (Duoneb Neb) 3 ml HHN [id number] REPLACED BY [facility] Stop: 08/05/18 18:59 Last Admin: 06/09/18 05:59 Dose: 3 ml Amlodipine Besylate (Norvasc) 5 mg PO DAILY [facility] Stop: 08/05/18 08:59 Last Admin: 06/09/18 08:07 Dose: Not Given Aspirin (Aspirin Chewable) 81 mg PO DAILY [facility] Stop: 08/05/18 08:59 Last Admin: 06/09/18 08:07 Dose: Not Given Budesonide (Pulmicort) 0.5 mg HHN BIDRT [facility]PL[facility] BY [facility] Stop: 08/05/18 18:59 Last Admin: 06/09/18 06:44 Dose: 0.5 mg Folic Acid (Folate) 1 mg PO DAILY [facility] Stop: 08/08/18 08:59 Last Admin: 06/09/18 08:07 Dose: Not Given Furosemide (Lasix) 40 mg IVP DAILY [facility] Stop: 08/06/18 08:59 Last Admin: 06/08/18 08:08 Dose: 40 mg Sodium Chloride (Nacl 0.9%) 1,000 mls @ 50 mls/hr IV .Q20H [facility] Stop: 08/06/18 08:59 Last Admin: 06/07/18 15:34 Dose: 50 mls/hr Piperacillin Sod/Tazobactam (Sod 3.375 gm/ Sodium Chloride) 50 mls @ 100 mls/ hr IV Q8H [facility] Stop: 08/06/18 14:59 Last Admin: 06/09/18 06:42 Dose: 100 mls/hr Ferric Sodium Gluconate Complex 125 mg/ Sodium Chloride 110 mls @ 100 mls/hr IV Q24HR [facility] Stop: 06/16/18 15:59 Last Admin: 06/08/18 16:42 Dose: 100 mls/hr Insulin Aspart (Novolog Insulin Sliding Scale) 0 units SUBQ Q6HR [facility]; Protocol Stop: 08/05/18 17:59 Last Admin: 06/09/18 06:40 Dose: Not Given Insulin Human Isoph/Insulin Regular (Novolin 70/30) 40 units SUBQ QDAC [facility]PL[facility] Stop: 08/05/18 07:29 Last Admin: 06/09/18 08:05 Dose: Not Given Lisinopril (Zestril) 40 mg PO DAILY [facility] Stop: 08/05/18 08:59 Last Admin: 06/09/18 08:07 Dose: Not Given Metformin HCl (Glucophage) 1,000 mg PO BIDWM REPLACED BY [facility] Stop: 08/05/18 07:59 Last Admin: 06/09/18 08:06 Dose: Not Given Metoprolol Tartrate (Lopressor) 25 mg PO BID [facility] Stop: 08/05/18 08:59 Last Admin: 06/09/18 08:07 Dose: Not Given Miscellaneous (Zosyn Iv Per Pharmacy) 1 ea [facility] PRN PRN PRN Reason: PROTOCOL Stop: 08/06/18 07:01 Pantoprazole Sodium (Protonix) 40 mg PO DAILY [facility] Stop: 08/06/18 08:59 Last Admin: 06/09/18 08:07 Dose: Not Given Simvastatin (Zocor) 20 mg PO HS [facility] Stop: 08/05/18 20:59 Last Admin: 06/08/18 21:27 Dose: 20 mg General: Alert, Oriented x3, No acute distress HEENT: Atraumatic, PERRLA, EOMI Neck: Supple Cardiovascular: Regular rate, Normal S1, Normal S2 Lungs: Clear to auscultation Abdomen: Bowel sounds, Soft Extremities: no Clubbing, no Cyanosis, no Edema - Procedures Procedures: Procedures Procedure Code Date ELECTROCARDIOGRAM 89.52 01/30/00 ELECTROCARDIOGRAM COMPLETE 12915 01/30/00 LAPAROSCOPIC CHOLECYSTECTOMY 51.23 07/02/03 LAPAROSCOPIC CHOLECYSTECTOMY 69620 07/02/03 Assessment/Plan - Assessment Assessment: * Iron deficiency anemia * Gastric ulcer, gastritis, hemorrhoids * DM, CKD Continue iv iron, d/c ibuprofen, transfuse PRBC for likely bleeding from ulcer Nutritional Asmnt/Malnutr-PDOC - Dietary Evaluation Malnutrition Findings (Please click <Entered> for more info): Nutritional Asmnt/Malnutrition Start: 06/07/18 18: 26 Text: Status: Complete Freq: Protocol: Document 06/07/18 18:30 LCHENG (Rec: 06/07/18 18:46 [email or web address]) Nutritional Asmnt/Malnutrition Patient General Information Nutritional Screening High Risk Pertinent Medical Hx/Surgical Hx HTN, DM, asthma/COPD, arthritis, cholecystectomy, hysterectomy, Subjective Information consult received for blood sugar 484. per nurse note, pt refused EGD for tommorrow, on Bipap PRN. Per EMR, Pt consumed 100% of breakfast today. Current Diet Order/ Nutrition Support cardiac Pertinent Medications lasix, novolog, novolin, glucophage, protonix, piperacillin, nacl 0.9% Pertinent Labs 06/07 Na 130, K 5.6, cl 95, BUN 42, Cr 1.4, glucose 265, POC 211-262 Nutritional Hx/Data Height 1.52 m Height (Calculated Centimeters) 152.4 Current Weight (lbs) 89.358 kg Weight (Calculated Kilograms) 89.4 Weight (Calculated Grams) 01731.7 [place] Body Weight 100 Body Mass Index (BMI) 38.5 Weight Status Obese GI Symptoms GI Symptoms None Last BM 06/07 Difficult in: None Skin Integrity/Comment: intact Current %PO Good (75-100%) Estimated Nutritional Goals BEE in Kcals: Adj wt of IBW Calories/Kcals/Kg 25-30 Kcals Calculated 3765-3348 Protein: Adj wt of IBW Protein g/k-1.2 Protein Calculated 56-67 Fluid: ml 1400-1680ml (1ml/kcal) Nutritional Problem 1. Problem Problem altered nutrition related labs Etiology electrolytes imbalance, hyperglycemia, possible renal dysfunction Signs/Symptoms: Na 130, K 5.6, cl 95, BUN 42, Cr 1.4, glucose 265, POC 211- 262 Malnutrition Alert Is there a minimum of two criteria No selected? Query Text:Check all the applicable criteria. A minimum of two criteria are recommended for diagnosis of either severe or non-severe malnutrition. Malnutrition Related to Morbid Obesity Malnutrition related to morbid obesity No Intervention/Recommendation Comments 1. Recommend adding CCHO 60gm diet d/t elevated blood sugar and hx of DM. 2. Monitor PO intake, wt, labs and skin integrity 3. F/U as high risk in 2-3 days, 06/09-06/10 Expected Outcomes/Goals Expected Outcomes/Goals 1. PO intake to meet at least 75% of nutritional needs. 2. Wt stability, skin to remain intact, labs to approach WNL.
[2018-06-09 11:10] LABS: FOLIC ACID 9.7 ng/mL (>3.0)
--- NOTE | 2018-06-09 12:42 | Operative Report ---
DATE OF SURGERY: 06/09/2018 INPATIENT EGD AND COLONOSCOPY REPORT PROCEDURE PERFORMED: EGD with biopsy and colonoscopy. ENDOSCOPIST: Jaiden Miller MD PREOPERATIVE DIAGNOSIS: Anemia. POSTOPERATIVE DIAGNOSES: Gastritis, healing gastric ulcers and poor bowel preparation and internal and external hemorrhoids. INDICATION: The patient is an 78-year-old female who was admitted to the hospital with weakness, shortness of breath, found to be anemic. She has never before had endoscopic examination and thus an EGD and colonoscopy was planned to further evaluate her anemia. CONSENT: Informed consent was obtained from this patient. The risks and benefits of the procedure were discussed include but not limited to infection, bleeding, perforation, need for surgery, cardiopulmonary complications, missed pathology and . The patient indicated her understanding of these risks and wished to go forward with the procedure and signed the consent form. ANESTHESIA: The procedure was performed in the operating room under the care of an anesthesiologist using propofol and a facemask. PROCEDURE IN DETAIL: The patient was hooked up to the appropriate monitoring devices and general anesthesia was administered using a propofol under the care of anesthesiologist. At this point, the patient was then kept in the supine position. Mouthpiece inserted and secured. Gastroscope was introduced into the mouth and guided under direct visualization into the esophagus, stomach and then duodenum. The scope was then slowly and carefully withdrawn making sure to examine the entire mucosa in a careful and systematic fashion. Retroflexion was performed in the stomach prior to scope straightening and withdrawal from the body. There was no obvious sign of complication at the end of procedure. Next, the patient was repositioned into the colonoscopy position. Rectal exam performed. Next, the scope was introduced into the anus and guided under direct visualization to the level of the cecum, which was confirmed by the presence of the appendiceal orifice and IC valve, which were photographed. The scope was then slowly and carefully withdrawn making sure to examine the entire mucosa in a careful and systematic fashion. There was no evidence of any complication during the procedure. Retroflexion was performed in the rectum prior to scope straightening and withdrawal from the body. FINDINGS: EGD PORTION: Esophagus: GE junction was located at 35 cm from the incisors. There was no esophagitis, esophageal lesion or evidence of Moses esophagus. Stomach portion: The cardia and gastric body and gastric fundus all appeared endoscopically normal. Within the antrum, there was gastritis as well as a few areas that looked to be consistent with a healing gastric ulcers, although there was no visible vessel and no active bleeding at this time. Several biopsies were taken from the antrum as the CLOtest was also performed. There was no discrete mass lesion. Duodenum: The duodenal bulb and second portion appeared endoscopically normal and a biopsy was taken from the second portion. COLONOSCOPY PORTION: The [place] bowel prep score was 1 in the right colon, 1 in the mid colon, and 2 in the left colon. The quality of this bowel preparation was rather poor. This was especially salient in the areas of the cecum, which was only about 60% visualized as well as the hepatic flexure and certain areas of the transverse colon where there was solid stool that could not be suctioned through the scope. In the examined portions of the colon, there was no big or obvious mass lesion and there were no obvious polyps; however, this preparation made the cecal polyps less than 2 cm in size in these areas. In the rectum on retroflexed view, there were large internal hemorrhoids as well as external hemorrhoids on the rectal exam. There was no diverticulosis seen. IMPRESSION: 1. Gastritis. 2. Healing gastric ulcer in the antrum, status post biopsies. 3. Poor bowel preparation. 4. Internal and external hemorrhoids. RECOMMENDATIONS: 1. We will follow up the biopsies from the stomach as well as the duodenum. If there is H. pylori present, the patient will need treatment for this with antibiotic therapy. 2. I recommend that the patient maintain daily PPI therapy given the presence of healing gastric ulcer. 3. Avoid NSAIDs. 4. I recommend the patient have a repeat colonoscopy within 1 year with a 2-day bowel preparation to ensure that there are no polyps that were missed under the areas of stool that could not be suctioned through the scope today. 5. The patient can restart her diet and be advanced as tolerated. 6. Continue to trend her hemoglobin level. Thank you for allowing me to participate in her care. Please call with any further questions. JOB# [id number] SANDRO
--- NOTE | 2018-06-09 14:21 | Infectious Disease Prog Note ---
Infectious Disease Subjective - Review of Systems Service Date: 06/09/18 Events since last encounter: panendoscopy was performed and decompression of colon was also performed. Subjective: No new change, no fever,. Infectious Disease Objective - Results Result Diagrams: 06/09/18 06:10 06/09/18 06:10 Recent Labs: Laboratory Last Values WBC 12.4 Th/cmm (4.8-10.8) H 06/09/18 06:10 RBC 3.25 Mil/cmm (3.80-5.20) L 06/09/18 06:10 Hgb 7.7 gm/dL (12-16) L* 06/09/18 06:10 Hct 23.8 % (41.0-60) L 06/09/18 06:10 MCV 73.3 fl (81-100) L 06/09/18 06:10 MCH 23.8 pg (27.0-31.0) L 06/09/18 06:10 MCHC Differential 32.4 pg (28.0-36.0) 06/09/18 06:10 RDW 16.3 % (11.5-20.0) 06/09/18 06:10 Plt Count 408 Th/cmm (150-400) H 06/09/18 06:10 MPV 7.1 fl 06/09/18 06:10 Add Manual Diff YES 06/09/18 06:10 Neutrophils % MICROSCOPIST 06/08/18 05:00 Band Neutrophils % 0 % (0-10) 06/09/18 06:10 Lymphocytes % MICROSCOPIST 06/08/18 05:00 Monocytes % MICROSCOPIST 06/08/18 05:00 Eosinophils % MICROSCOPIST 06/08/18 05:00 Basophils % MICROSCOPIST 06/08/18 05:00 Neutrophils (Manual) 63 % (40-80) 06/09/18 06:10 Lymphocytes 25 % (20-50) 06/09/18 06:10 Monocytes 10 % (2-10) 06/09/18 06:10 Eosinophils 2 % (0-5) 06/09/18 06:10 Basophils 0 % (0-3) 06/09/18 06:10 Hypochromia 1+ 06/07/18 05:10 Platelet Estimate INCREASED PLATELETS (NORMAL) 06/09/18 06:10 Microcytosis 3+ 06/09/18 06:10 PT 9.9 SECONDS (9.5-11.5) 06/05/18 23:10 INR 0.95 (0.5-1.4) 06/05/18 23:10 PTT (Actin FS) 22.0 SECONDS (26.0-38.0) L 06/05/18 23:10 Specimen Source Arterial 06/08/18 13:45 Sample Site Left Radial 06/08/18 13:45 pH 7.45 (7.35-7.45) 06/08/18 13:45 pCO2 43.0 mmHg (35.0-45.0) 06/08/18 13:45 pO2 76.0 mmHg (80.0-100.0) L 06/08/18 13:45 HCO3 29.0 mEq/L (20.0-26.0) H 06/08/18 13:45 Base Excess 5.3 mEq/L (-3.0-3.0) H 06/08/18 13:45 O2 Saturation 96.0 % (92.0-100.0) 06/08/18 13:45 Ermias Test Positive 06/08/18 13:45 Vent Rate NA 06/08/18 13:45 Inspired O2 21 06/08/18 13:45 Tidal Volume NA 06/08/18 13:45 PEEP NA 06/08/18 13:45 Pressure (ins/psv/peep) NA 06/08/18 13:45 Critical Value LZHANG 06/08/18 13:45 Sodium 136 mEq/L (136-145) 06/09/18 06:10 Potassium 4.3 mEq/L (3.5-5.1) 06/09/18 06:10 Chloride 100 mEq/L (98-107) 06/09/18 06:10 Carbon Dioxide 30.4 mEq/L (21.0-31.0) 06/09/18 06:10 Anion Gap 9.9 (7.0-16.0) 06/09/18 06:10 BUN 48 mg/dL (7-25) H 06/09/18 06:10 Creatinine 1.1 mg/dL (0.6-1.2) 06/09/18 06:10 Est GFR ( Amer) TNP 06/09/18 06:10 Est GFR (Non-Af Amer) TNP 06/09/18 06:10 BUN/Creatinine Ratio 43.6 06/09/18 06:10 Glucose 128 mg/dL (70-105) H 06/09/18 06:10 POC Glucose 122 MG/DL (70 - 105) H 06/09/18 11:17 Calcium 8.7 mg/dL (8.6-10.3) 06/09/18 06:10 Iron 20 ug/dL (27-139) L 06/08/18 05:00 TIBC 373 ug/dL (250-450) 06/08/18 05:00 Iron Saturation 5 % (15-55) L 06/08/18 05:00 Unsaturated IBC 353 ug/dL (118-369) 06/08/18 05:00 Ferritin 16 ng/mL (15-150) 06/06/18 08:20 Total Bilirubin 0.3 mg/dL (0.3-1.0) 06/09/18 06:10 Direct Bilirubin 0.13 mg/dL (0.0-0.2) 06/07/18 05:10 AST 12 U/L (13-39) L 06/09/18 06:10 ALT 6 U/L (7-52) L 06/09/18 06:10 Alkaline Phosphatase 51 U/L (34-104) 06/09/18 06:10 Ammonia 54 umol/L (16-53) H 06/07/18 05:10 Troponin I 0.02 ng/mL (0.01-0.05) 06/05/18 23:10 B-Natriuretic Peptide 569.0 pg/mL (5.0-100.0) H 06/07/18 05:10 Total Protein 6.9 gm/dL (6.0-8.3) 06/09/18 06:10 Albumin 3.4 gm/dL (3.7-5.3) L 06/09/18 06:10 Globulin 3.5 gm/dL 06/09/18 06:10 Albumin/Globulin Ratio 1.0 (1.0-1.8) 06/09/18 06:10 Triglycerides 66 mg/dL (<150) 06/06/18 08:20 Cholesterol 155 mg/dL (<200) 06/06/18 08:20 LDL Cholesterol Direct 91 mg/dL (75-193) 06/06/18 08:20 HDL Cholesterol 58 mg/dL (23-92) 06/06/18 08:20 Vitamin B12 372 pg/mL (232-1245) 06/08/18 05:00 Folic Acid 9.7 ng/mL (>3.0) 06/08/18 05:00 TSH 3.06 uIU/ml (0.34-5.60) 06/05/18 23:10 Urine Source RANDOM 06/06/18 03:45 Urine Color YELLOW 06/06/18 03:45 Urine Clarity HAZY (CLEAR) 06/06/18 03:45 Urine pH 6.0 (4.6 - 8.0) 06/06/18 03:45 Ur Specific [place] 1.010 (1.005-1.030) 06/06/18 03:45 Urine Protein NEGATIVE mg/dL (NEGATIVE) 06/06/18 03:45 Urine Glucose (UA) NEGATIVE mg/dL (NEGATIVE) 06/06/18 03:45 Urine Ketones NEGATIVE mg/dL (NEGATIVE) 06/06/18 03:45 Urine Blood NEGATIVE (NEGATIVE) 06/06/18 03:45 Urine Nitrate POSITIVE (NEGATIVE) H 06/06/18 03:45 Urine Bilirubin NEGATIVE (NEGATIVE) 06/06/18 03:45 Urine Urobilinogen 0.2 E.U./dL (0.2 - 1.0) 06/06/18 03:45 Ur Leukocyte Esterase NEGATIVE (NEGATIVE) 06/06/18 03:45 Urine RBC 0-2 /hpf (0-5) 06/06/18 03:45 Urine WBC 0-2 /hpf (0-5) 06/06/18 03:45 Ur Epithelial Cells FEW /lpf (FEW) 06/06/18 03:45 Urine Bacteria MODERATE /hpf (NONE SEEN) H 06/06/18 03:45 Stool Occult Blood NEGATIVE (NEGATIVE) 06/08/18 19:00 Blood Type O POSITIVE 06/09/18 11:04 Antibody Screen NEGATIVE 06/09/18 11:04 Crossmatch See Detail 06/09/18 11:04 - Physical Exam Vitals and I&O: Vital Signs Temp 98.7 F 06/09/18 11:52 Pulse 80 06/09/18 14:04 Resp 20 06/09/18 14:04 BP 116/74 06/09/18 11:52 Pulse Ox 98 06/09/18 14:04 Intake & Output 06/08/18 06/09/18 06/09/18 18:59 06:59 18:59 Intake Total 650 3450 Balance 650 3450 Weight (lbs) 77.111 kg 94.801 kg Intake: Intake, IV Amount 50 50 Piperacillin Sodium/ 50 50 Tazobact 3.375 gm In Sodium Chloride 0.9% 50 ml @ 100 mls/hr IV Q8H [facility] Rx#:[id number] Oral 600 3400 Other: # Voids 3 7 # Bowel Movements 1 7 Stool Characteristics Liquid Liquid Brown Brown Weight Source Estimated Bedscale Active Medications: Current Medications Albuterol/Ipratropium (Duoneb Neb) 3 ml HHN Q4HRT PRN PRN Reason: Shortness of Breath Stop: 08/05/18 02:47 Last Admin: 06/06/18 10:50 Dose: 3 ml Albuterol/Ipratropium (Duoneb Neb) 3 ml HHN [id number] RAVINDER Stop: 08/05/18 18:59 Last Admin: 06/09/18 14:04 Dose: 3 ml Amlodipine Besylate (Norvasc) 5 mg PO DAILY RAVINDER Stop: 08/05/18 08:59 Last Admin: 06/09/18 08:07 Dose: Not Given Aspirin (Aspirin Chewable) 81 mg PO DAILY RAVINDER Stop: 08/05/18 08:59 Last Admin: 06/09/18 08:07 Dose: Not Given Budesonide (Pulmicort) 0.5 mg HHN BIDRT RAVINDER Stop: 08/05/18 18:59 Last Admin: 06/09/18 06:44 Dose: 0.5 mg Folic Acid (Folate) 1 mg PO DAILY RAVINDER Stop: 08/08/18 08:59 Last Admin: 06/09/18 08:07 Dose: Not Given Furosemide (Lasix) 40 mg IVP DAILY RAVINDER Stop: 08/06/18 08:59 Last Admin: 06/09/18 11:11 Dose: 40 mg Sodium Chloride (Nacl 0.9%) 1,000 mls @ 50 mls/hr IV .Q20H RAVINDER Stop: 08/06/18 08:59 Last Admin: 06/07/18 15:34 Dose: 50 mls/hr Piperacillin Sod/Tazobactam (Sod 3.375 gm/ Sodium Chloride) 50 mls @ 100 mls/ hr IV Q8H [facility] Stop: 08/06/18 14:59 Last Admin: 06/09/18 06:42 Dose: 100 mls/hr Ferric Sodium Gluconate Complex 125 mg/ Sodium Chloride 110 mls @ 100 mls/hr IV Q24HR RAVINDER Stop: 06/16/18 15:59 Last Admin: 06/08/18 16:42 Dose: 100 mls/hr Insulin Aspart (Novolog Insulin Sliding Scale) 0 units SUBQ Q6HR [facility]; Protocol Stop: 08/05/18 17:59 Last Admin: 06/09/18 11:20 Dose: Not Given Insulin Human Isoph/Insulin Regular (Novolin 70/30) 40 units SUBQ QDAC [facility] Stop: 08/05/18 07:29 Last Admin: 06/09/18 08:05 Dose: Not Given Lisinopril (Zestril) 40 mg PO DAILY RAVINDER Stop: 08/05/18 08:59 Last Admin: 06/09/18 08:07 Dose: Not Given Metformin HCl (Glucophage) 1,000 mg PO BIDWM RAVINDER Stop: 08/05/18 07:59 Last Admin: 06/09/18 08:06 Dose: Not Given Metoprolol Tartrate (Lopressor) 25 mg PO BID [facility] Stop: 08/05/18 08:59 Last Admin: 06/09/18 08:07 Dose: Not Given Miscellaneous (Zosyn Iv Per Pharmacy) 1 ea MC PRN PRN PRN Reason: PROTOCOL Stop: 08/06/18 07:01 Pantoprazole Sodium (Protonix) 40 mg PO DAILY RAVINDER Stop: 08/06/18 08:59 Last Admin: 06/09/18 08:07 Dose: Not Given Simvastatin (Zocor) 20 mg PO HS [facility] Stop: 08/05/18 20:59 Last Admin: 06/08/18 21:27 Dose: 20 mg General: no acute distress, well developed, well nourished HEENT: atraumatic, normocephalic, PERRLA, EOMI, moist mucous membrane Neck: supple, no thyromegaly, no lymphadenopathy Cardiovascular: S1S2, regular Lungs: clear to auscultation bilaterally, clear to percussion Abdomen: soft, no tender, no distended, no mass Extremities: edema, no cyanosis, no clubbing Neurological: awake, alert, oriented Skin: intact - Procedures Procedures: Procedures Procedure Code Date ELECTROCARDIOGRAM 89.52 01/30/00 ELECTROCARDIOGRAM COMPLETE 66690 01/30/00 LAPAROSCOPIC CHOLECYSTECTOMY 51.23 07/02/03 LAPAROSCOPIC CHOLECYSTECTOMY 97932 07/02/03 Infectious Disease Assmt/Plan - Assessment Assessment: 1. Leukocytosis most likely reactive versus steroid-induced. Cannot rule out pneumonia. 2. Pneumonia. 3. CHF. 4. COPD. 5. Diabetes mellitus type 2. 6. Obesity. BMI 38.5 patient may have sleep apnea. 7. Hypertension. - Plan Plan: Continue zosyn. D3/10. Nutritional Asmnt/Malnutr-PDOC - Dietary Evaluation Malnutrition Findings (Please click <Entered> for more info): Nutritional Asmnt/Malnutrition Start: 06/07/18 18: 26 Text: Status: Complete Freq: Protocol: Document 06/07/18 18:30 LCHENG (Rec: 06/07/18 18:46 [email or web address]) Nutritional Asmnt/Malnutrition Patient General Information Nutritional Screening High Risk Pertinent Medical Hx/Surgical Hx HTN, DM, asthma/COPD, arthritis, cholecystectomy, hysterectomy, Subjective Information consult received for blood sugar 484. per nurse note, pt refused EGD for tommorrow, on Bipap PRN. Per EMR, Pt consumed 100% of breakfast today. Current Diet Order/ Nutrition Support cardiac Pertinent Medications lasix, novolog, novolin, glucophage, protonix, piperacillin, nacl 0.9% Pertinent Labs 06/07 Na 130, K 5.6, cl 95, BUN 42, Cr 1.4, glucose 265, POC 211-262 Nutritional Hx/Data Height 1.52 m Height (Calculated Centimeters) 152.4 Current Weight (lbs) 89.358 kg Weight (Calculated Kilograms) 89.4 Weight (Calculated Grams) 86648.7 [place] Body Weight 100 Body Mass Index (BMI) 38.5 Weight Status Obese GI Symptoms GI Symptoms None Last BM 06/07 Difficult in: None Skin Integrity/Comment: intact Current %PO Good (75-100%) Estimated Nutritional Goals BEE in Kcals: Adj wt of IBW Calories/Kcals/Kg 25-30 Kcals Calculated 1993-7445 Protein: Adj wt of IBW Protein g/k-1.2 Protein Calculated 56-67 Fluid: ml 1400-1680ml (1ml/kcal) Nutritional Problem 1. Problem Problem altered nutrition related labs Etiology electrolytes imbalance, hyperglycemia, possible renal dysfunction Signs/Symptoms: Na 130, K 5.6, cl 95, BUN 42, Cr 1.4, glucose 265, POC 211- 262 Malnutrition Alert Is there a minimum of two criteria No selected? Query Text:Check all the applicable criteria. A minimum of two criteria are recommended for diagnosis of either severe or non-severe malnutrition. Malnutrition Related to Morbid Obesity Malnutrition related to morbid obesity No Intervention/Recommendation Comments 1. Recommend adding CCHO 60gm diet d/t elevated blood sugar and hx of DM. 2. Monitor PO intake, wt, labs and skin integrity 3. F/U as high risk in 2-3 days, 06/09-06/10 Expected Outcomes/Goals Expected Outcomes/Goals 1. PO intake to meet at least 75% of nutritional needs. 2. Wt stability, skin to remain intact, labs to approach WNL.
[2018-06-09] MEDS: Sodium Ferric Gluconate 125 MG in Sodium Chloride 0.9% 100 ML IV SCH (16:29)
[2018-06-10] MEDS: INSULIN ASPART SLIDING SCALE 100 UNITS/ML UNIT SUBQ SCH ×5 (02:28→20:24)
[2018-06-10 05:27] LABS: % BASOPHILS 0.7 % (0.0-2.0); % EOSINOPHILS 6.5 % (0.0-5.0); % LYMPHOCYTES 26.3 % (20.0-50.0); % MONOCYTES 12.1 % (2.0-10.0); % NEUTROPHILS 54.4 % (40.0-80.0); BASOPHILE ABSOLUTE 0.1 Th/cumm (0-0.2); EOSINOPHILE ABSOLUTE 0.8 Th/cmm (0.1-0.4); HEMATOCRIT 26.7 % (41.0-60); HEMOGLOBIN 8.7 gm/dL (12-16); LYMPHOCYTE ABSOLUTE 3.1 Th/cmm (1.5-3.0); MEAN CELL VOLUME 75.5 fl (81-100); MEAN CORPUSCULAR HEMOGLOBIN 24.6 pg (27.0-31.0); MEAN CORPUSCULAR HGB CONC 32.5 pg (28.0-36.0); MONOCYTE ABSOLUTE 1.4 Th/cmm (0.3-1.0); NEUTROPHILE ABSOLUTE 6.4 Th/cmm (1.8-8.0); PLATELET COUNT 381 Th/cmm (150-400); RED BLOOD COUNT 3.54 Mil/cmm (3.80-5.20); RED CELL DISTRIBUTION WIDTH 16.4 % (11.5-20.0); WHITE BLOOD COUNT 11.8 Th/cmm (4.8-10.8)
[2018-06-10] MEDS: Albuterol/Ipratropium Neb 3 ML AERS HHN SCH ×4 (07:13→19:27)
[2018-06-10] MEDS: Budesonide 0.5 Mg/2 mL Ud HHN SCH ×2 (07:15→19:27)
[2018-06-10] MEDS: INSULIN 70/30 100 UNITS/ML SUBQ SCH (07:48)
--- NOTE | 2018-06-10 08:42 | General Progress Note ---
Subjective - Review of Systems Service Date: 06/10/18 Subjective: Patient was seen and examined. Patient is awake, alert, no acute distress. Patient had endoscopy yesterday, please see attached consult. hemoglobin improved. Objective - Results Result Diagrams: 06/10/18 05:05 06/09/18 06:10 Recent Labs: Laboratory Last Values WBC 11.8 Th/cmm (4.8-10.8) H 06/10/18 05:05 RBC 3.54 Mil/cmm (3.80-5.20) L 06/10/18 05:05 Hgb 8.7 gm/dL (12-16) L 06/10/18 05:05 Hct 26.7 % (41.0-60) L 06/10/18 05:05 MCV 75.5 fl (81-100) L 06/10/18 05:05 MCH 24.6 pg (27.0-31.0) L 06/10/18 05:05 MCHC Differential 32.5 pg (28.0-36.0) 06/10/18 05:05 RDW 16.4 % (11.5-20.0) 06/10/18 05:05 Plt Count 381 Th/cmm (150-400) 06/10/18 05:05 MPV 7.0 fl 06/10/18 05:05 Add Manual Diff YES 06/09/18 06:10 Neutrophils % 54.4 % (40.0-80.0) 06/10/18 05:05 Band Neutrophils % 0 % (0-10) 06/09/18 06:10 Lymphocytes % 26.3 % (20.0-50.0) 06/10/18 05:05 Monocytes % 12.1 % (2.0-10.0) H 06/10/18 05:05 Eosinophils % 6.5 % (0.0-5.0) H 06/10/18 05:05 Basophils % 0.7 % (0.0-2.0) 06/10/18 05:05 Neutrophils (Manual) 63 % (40-80) 06/09/18 06:10 Lymphocytes 25 % (20-50) 06/09/18 06:10 Monocytes 10 % (2-10) 06/09/18 06:10 Eosinophils 2 % (0-5) 06/09/18 06:10 Basophils 0 % (0-3) 06/09/18 06:10 Hypochromia 1+ 06/07/18 05:10 Platelet Estimate INCREASED PLATELETS (NORMAL) 06/09/18 06:10 Microcytosis 3+ 06/09/18 06:10 PT 9.9 SECONDS (9.5-11.5) 06/05/18 23:10 INR 0.95 (0.5-1.4) 06/05/18 23:10 PTT (Actin FS) 22.0 SECONDS (26.0-38.0) L 06/05/18 23:10 Specimen Source Arterial 06/08/18 13:45 Sample Site Left Radial 06/08/18 13:45 pH 7.45 (7.35-7.45) 06/08/18 13:45 pCO2 43.0 mmHg (35.0-45.0) 06/08/18 13:45 pO2 76.0 mmHg (80.0-100.0) L 06/08/18 13:45 HCO3 29.0 mEq/L (20.0-26.0) H 06/08/18 13:45 Base Excess 5.3 mEq/L (-3.0-3.0) H 06/08/18 13:45 O2 Saturation 96.0 % (92.0-100.0) 06/08/18 13:45 Ermias Test Positive 06/08/18 13:45 Vent Rate NA 06/08/18 13:45 Inspired O2 21 06/08/18 13:45 Tidal Volume NA 06/08/18 13:45 PEEP NA 06/08/18 13:45 Pressure (ins/psv/peep) NA 06/08/18 13:45 Critical Value LZHANG 06/08/18 13:45 Sodium 136 mEq/L (136-145) 06/09/18 06:10 Potassium 4.3 mEq/L (3.5-5.1) 06/09/18 06:10 Chloride 100 mEq/L (98-107) 06/09/18 06:10 Carbon Dioxide 30.4 mEq/L (21.0-31.0) 06/09/18 06:10 Anion Gap 9.9 (7.0-16.0) 06/09/18 06:10 BUN 48 mg/dL (7-25) H 06/09/18 06:10 Creatinine 1.1 mg/dL (0.6-1.2) 06/09/18 06:10 Est GFR ( Amer) TNP 06/09/18 06:10 Est GFR (Non-Af Amer) TNP 06/09/18 06:10 BUN/Creatinine Ratio 43.6 06/09/18 06:10 Glucose 128 mg/dL (70-105) H 06/09/18 06:10 POC Glucose 218 MG/DL (70 - 105) H 06/10/18 05:25 Calcium 8.7 mg/dL (8.6-10.3) 06/09/18 06:10 Iron 20 ug/dL (27-139) L 06/08/18 05:00 TIBC 373 ug/dL (250-450) 06/08/18 05:00 Iron Saturation 5 % (15-55) L 06/08/18 05:00 Unsaturated IBC 353 ug/dL (118-369) 06/08/18 05:00 Ferritin 16 ng/mL (15-150) 06/06/18 08:20 Total Bilirubin 0.3 mg/dL (0.3-1.0) 06/09/18 06:10 Direct Bilirubin 0.13 mg/dL (0.0-0.2) 06/07/18 05:10 AST 12 U/L (13-39) L 06/09/18 06:10 ALT 6 U/L (7-52) L 06/09/18 06:10 Alkaline Phosphatase 51 U/L (34-104) 06/09/18 06:10 Ammonia 54 umol/L (16-53) H 06/07/18 05:10 Troponin I 0.02 ng/mL (0.01-0.05) 06/05/18 23:10 B-Natriuretic Peptide 569.0 pg/mL (5.0-100.0) H 06/07/18 05:10 Total Protein 6.9 gm/dL (6.0-8.3) 06/09/18 06:10 Albumin 3.4 gm/dL (3.7-5.3) L 06/09/18 06:10 Globulin 3.5 gm/dL 06/09/18 06:10 Albumin/Globulin Ratio 1.0 (1.0-1.8) 06/09/18 06:10 Triglycerides 66 mg/dL (<150) 06/06/18 08:20 Cholesterol 155 mg/dL (<200) 06/06/18 08:20 LDL Cholesterol Direct 91 mg/dL (75-193) 06/06/18 08:20 HDL Cholesterol 58 mg/dL (23-92) 06/06/18 08:20 Vitamin B12 372 pg/mL (232-1245) 06/08/18 05:00 Folic Acid 9.7 ng/mL (>3.0) 06/08/18 05:00 TSH 3.06 uIU/ml (0.34-5.60) 06/05/18 23:10 Urine Source RANDOM 06/06/18 03:45 Urine Color YELLOW 06/06/18 03:45 Urine Clarity HAZY (CLEAR) 06/06/18 03:45 Urine pH 6.0 (4.6 - 8.0) 06/06/18 03:45 Ur Specific [place] 1.010 (1.005-1.030) 06/06/18 03:45 Urine Protein NEGATIVE mg/dL (NEGATIVE) 06/06/18 03:45 Urine Glucose (UA) NEGATIVE mg/dL (NEGATIVE) 06/06/18 03:45 Urine Ketones NEGATIVE mg/dL (NEGATIVE) 06/06/18 03:45 Urine Blood NEGATIVE (NEGATIVE) 06/06/18 03:45 Urine Nitrate POSITIVE (NEGATIVE) H 06/06/18 03:45 Urine Bilirubin NEGATIVE (NEGATIVE) 06/06/18 03:45 Urine Urobilinogen 0.2 E.U./dL (0.2 - 1.0) 06/06/18 03:45 Ur Leukocyte Esterase NEGATIVE (NEGATIVE) 06/06/18 03:45 Urine RBC 0-2 /hpf (0-5) 06/06/18 03:45 Urine WBC 0-2 /hpf (0-5) 06/06/18 03:45 Ur Epithelial Cells FEW /lpf (FEW) 06/06/18 03:45 Urine Bacteria MODERATE /hpf (NONE SEEN) H 06/06/18 03:45 Stool Occult Blood NEGATIVE (NEGATIVE) 06/08/18 19:00 Blood Type O POSITIVE 06/09/18 11:04 Antibody Screen NEGATIVE 06/09/18 11:04 Crossmatch See Detail 06/09/18 11:04 - Physical Exam Vitals and I&O: Vital Signs Temp 98.1 F 06/10/18 07:58 Pulse 73 06/10/18 07:58 Resp 18 06/10/18 07:58 BP 108/45 06/10/18 07:58 Pulse Ox 99 06/10/18 07:58 Intake & Output 06/09/18 06/10/18 06/10/18 18:59 06:59 18:59 Intake Total 50 1750 Balance 50 1750 Weight (lbs) 92.079 kg Intake: Intake, IV Amount 50 100 Piperacillin Sodium/ 50 100 Tazobact 3.375 gm In Sodium Chloride 0.9% 50 ml @ 100 mls/hr IV Q8H [facility] Rx#:[id number] Oral 1400 Blood Product 250 Other: # Voids 1 # Bowel Movements 0 Stool Characteristics Liquid Brown Weight Source Bedscale Active Medications: Current Medications Albuterol/Ipratropium (Duoneb Neb) 3 ml HHN Q4HRT PRN PRN Reason: Shortness of Breath Stop: 08/05/18 02:47 Last Admin: 06/06/18 10:50 Dose: 3 ml Albuterol/Ipratropium (Duoneb Neb) 3 ml HHN [id number] [facility] Stop: 08/05/18 18:59 Last Admin: 06/10/18 07:13 Dose: 3 ml Amlodipine Besylate (Norvasc) 5 mg PO DAILY [facility] Stop: 08/05/18 08:59 Last Admin: 06/09/18 08:07 Dose: Not Given Aspirin (Aspirin Chewable) 81 mg PO DAILY [facility] Stop: 08/05/18 08:59 Last Admin: 06/09/18 08:07 Dose: Not Given Budesonide (Pulmicort) 0.5 mg HHN BIDRT [facility] Stop: 08/05/18 18:59 Last Admin: 06/10/18 07:15 Dose: 0.5 mg Folic Acid (Folate) 1 mg PO DAILY [facility] Stop: 08/08/18 08:59 Last Admin: 06/09/18 08:07 Dose: Not Given Furosemide (Lasix) 40 mg IVP DAILY [facility] Stop: 08/06/18 08:59 Last Admin: 06/09/18 11:11 Dose: 40 mg Piperacillin Sod/Tazobactam (Sod 3.375 gm/ Sodium Chloride) 50 mls @ 100 mls/ hr IV Q8H [facility] Stop: 08/06/18 14:59 Last Admin: 06/10/18 07:50 Dose: 100 mls/hr Ferric Sodium Gluconate Complex 125 mg/ Sodium Chloride 110 mls @ 100 mls/hr IV Q24HR [facility] Stop: 06/16/18 15:59 Last Admin: 06/09/18 16:29 Dose: 100 mls/hr Insulin Aspart (Novolog Insulin Sliding Scale) 0 units SUBQ ACHS [facility]; Protocol Stop: 08/09/18 07:29 Last Admin: 06/10/18 07:49 Dose: 4 units Insulin Human Isoph/Insulin Regular (Novolin 70/30) 40 units SUBQ QDAC [facility] Stop: 08/05/18 07:29 Last Admin: 06/10/18 07:48 Dose: 40 units Lisinopril (Zestril) 40 mg PO DAILY [facility] Stop: 08/05/18 08:59 Last Admin: 06/09/18 08:07 Dose: Not Given Metformin HCl (Glucophage) 1,000 mg PO BIDWM [facility] Stop: 08/05/18 07:59 Last Admin: 06/10/18 07:50 Dose: 1,000 mg Metoprolol Tartrate (Lopressor) 25 mg PO BID [facility] Stop: 08/05/18 08:59 Last Admin: 06/09/18 16:28 Dose: 25 mg Miscellaneous (Zosyn Iv Per Pharmacy) 1 ea MC PRN PRN PRN Reason: PROTOCOL Stop: 08/06/18 07:01 Pantoprazole Sodium (Protonix) 40 mg PO DAILY [facility] Stop: 08/06/18 08:59 Last Admin: 06/09/18 08:07 Dose: Not Given Simvastatin (Zocor) 20 mg PO HS [facility] Stop: 08/05/18 20:59 Last Admin: 06/09/18 22:00 Dose: 20 mg General: Alert, Oriented x3, No acute distress HEENT: Atraumatic, PERRLA, EOMI Neck: Supple Cardiovascular: Regular rate, Normal S1, Normal S2 Lungs: Clear to auscultation Abdomen: Bowel sounds, Soft Extremities: no Clubbing, no Cyanosis, no Edema - Procedures Procedures: Procedures Procedure Code Date ELECTROCARDIOGRAM 89.52 01/30/00 ELECTROCARDIOGRAM COMPLETE 47675 01/30/00 LAPAROSCOPIC CHOLECYSTECTOMY 51.23 07/02/03 LAPAROSCOPIC CHOLECYSTECTOMY 35493 07/02/03 Assessment/Plan - Assessment Assessment: Acute Bronchitis/COPD/PNA ... will dc Zosyn, and start Amoxicillin, on oral steroids Anemia stable .... now 8.7 Leukocytosis 26K most likely reactive versus steroid induced. Now 12--> 11K Hyponatremia Na 130 improved Elevated BNP ... ECHO pending.. hyperkalemia ... K 5.6 better now 4.6 UTI ... on Amoxicillin - Plan Plan: patient to be dc today. follow up with PMD in 3-5 days Nutritional Asmnt/Malnutr-PDOC - Dietary Evaluation Malnutrition Findings (Please click <Entered> for more info): Nutritional Asmnt/Malnutrition Start: 06/07/18 18: 26 Text: Status: Complete Freq: Protocol: Document 06/07/18 18:30 LCHENG (Rec: 06/07/18 18:46 [email or web address] [email or web address]) Nutritional Asmnt/Malnutrition Patient General Information Nutritional Screening High Risk Pertinent Medical Hx/Surgical Hx HTN, DM, asthma/COPD, arthritis, cholecystectomy, hysterectomy, Subjective Information consult received for blood sugar 484. per nurse note, pt refused EGD for tommorrow, on Bipap PRN. Per EMR, Pt consumed 100% of breakfast today. Current Diet Order/ Nutrition Support cardiac Pertinent Medications lasix, novolog, novolin, glucophage, protonix, piperacillin, nacl 0.9% Pertinent Labs 06/07 Na 130, K 5.6, cl 95, BUN 42, Cr 1.4, glucose 265, POC 211-262 Nutritional Hx/Data Height 1.52 m Height (Calculated Centimeters) 152.4 Current Weight (lbs) 89.358 kg Weight (Calculated Kilograms) 89.4 Weight (Calculated Grams) 99873.7 [place] Body Weight 100 Body Mass Index (BMI) 38.5 Weight Status Obese GI Symptoms GI Symptoms None Last BM 06/07 Difficult in: None Skin Integrity/Comment: intact Current %PO Good (75-100%) Estimated Nutritional Goals BEE in Kcals: Adj wt of IBW Calories/Kcals/Kg 25-30 Kcals Calculated 3686-2207 Protein: Adj wt of IBW Protein g/k-1.2 Protein Calculated 56-67 Fluid: ml 1400-1680ml (1ml/kcal) Nutritional Problem 1. Problem Problem altered nutrition related labs Etiology electrolytes imbalance, hyperglycemia, possible renal dysfunction Signs/Symptoms: Na 130, K 5.6, cl 95, BUN 42, Cr 1.4, glucose 265, POC 211- 262 Malnutrition Alert Is there a minimum of two criteria No selected? Query Text:Check all the applicable criteria. A minimum of two criteria are recommended for diagnosis of either severe or non-severe malnutrition. Malnutrition Related to Morbid Obesity Malnutrition related to morbid obesity No Intervention/Recommendation Comments 1. Recommend adding CCHO 60gm diet d/t elevated blood sugar and hx of DM. 2. Monitor PO intake, wt, labs and skin integrity 3. F/U as high risk in 2-3 days, 06/09-06/10 Expected Outcomes/Goals Expected Outcomes/Goals 1. PO intake to meet at least 75% of nutritional needs. 2. Wt stability, skin to remain intact, labs to approach WNL.
[2018-06-10] MEDS: Pantoprazole 40 mg/Packet PO SCH (09:07)
[2018-06-10] MEDS: Aspirin 81mg Chewable Tab PO SCH (09:09)
--- NOTE | 2018-06-10 11:23 | General Progress Note ---
Subjective - Review of Systems Service Date: 06/10/18 Subjective: no abd pain feels less short of breath Objective - Results Result Diagrams: 06/10/18 05:05 06/09/18 06:10 Recent Labs: Laboratory Last Values WBC 11.8 Th/cmm (4.8-10.8) H 06/10/18 05:05 RBC 3.54 Mil/cmm (3.80-5.20) L 06/10/18 05:05 Hgb 8.7 gm/dL (12-16) L 06/10/18 05:05 Hct 26.7 % (41.0-60) L 06/10/18 05:05 MCV 75.5 fl (81-100) L 06/10/18 05:05 MCH 24.6 pg (27.0-31.0) L 06/10/18 05:05 MCHC Differential 32.5 pg (28.0-36.0) 06/10/18 05:05 RDW 16.4 % (11.5-20.0) 06/10/18 05:05 Plt Count 381 Th/cmm (150-400) 06/10/18 05:05 MPV 7.0 fl 06/10/18 05:05 Add Manual Diff YES 06/09/18 06:10 Neutrophils % 54.4 % (40.0-80.0) 06/10/18 05:05 Band Neutrophils % 0 % (0-10) 06/09/18 06:10 Lymphocytes % 26.3 % (20.0-50.0) 06/10/18 05:05 Monocytes % 12.1 % (2.0-10.0) H 06/10/18 05:05 Eosinophils % 6.5 % (0.0-5.0) H 06/10/18 05:05 Basophils % 0.7 % (0.0-2.0) 06/10/18 05:05 Neutrophils (Manual) 63 % (40-80) 06/09/18 06:10 Lymphocytes 25 % (20-50) 06/09/18 06:10 Monocytes 10 % (2-10) 06/09/18 06:10 Eosinophils 2 % (0-5) 06/09/18 06:10 Basophils 0 % (0-3) 06/09/18 06:10 Hypochromia 1+ 06/07/18 05:10 Platelet Estimate INCREASED PLATELETS (NORMAL) 06/09/18 06:10 Microcytosis 3+ 06/09/18 06:10 PT 9.9 SECONDS (9.5-11.5) 06/05/18 23:10 INR 0.95 (0.5-1.4) 06/05/18 23:10 PTT (Actin FS) 22.0 SECONDS (26.0-38.0) L 06/05/18 23:10 Specimen Source Arterial 06/08/18 13:45 Sample Site Left Radial 06/08/18 13:45 pH 7.45 (7.35-7.45) 06/08/18 13:45 pCO2 43.0 mmHg (35.0-45.0) 06/08/18 13:45 pO2 76.0 mmHg (80.0-100.0) L 06/08/18 13:45 HCO3 29.0 mEq/L (20.0-26.0) H 06/08/18 13:45 Base Excess 5.3 mEq/L (-3.0-3.0) H 06/08/18 13:45 O2 Saturation 96.0 % (92.0-100.0) 06/08/18 13:45 Ermias Test Positive 06/08/18 13:45 Vent Rate NA 06/08/18 13:45 Inspired O2 21 06/08/18 13:45 Tidal Volume NA 06/08/18 13:45 PEEP NA 06/08/18 13:45 Pressure (ins/psv/peep) NA 06/08/18 13:45 Critical Value LZHANG 06/08/18 13:45 Sodium 136 mEq/L (136-145) 06/09/18 06:10 Potassium 4.3 mEq/L (3.5-5.1) 06/09/18 06:10 Chloride 100 mEq/L (98-107) 06/09/18 06:10 Carbon Dioxide 30.4 mEq/L (21.0-31.0) 06/09/18 06:10 Anion Gap 9.9 (7.0-16.0) 06/09/18 06:10 BUN 48 mg/dL (7-25) H 06/09/18 06:10 Creatinine 1.1 mg/dL (0.6-1.2) 06/09/18 06:10 Est GFR ( Amer) TNP 06/09/18 06:10 Est GFR (Non-Af Amer) TNP 06/09/18 06:10 BUN/Creatinine Ratio 43.6 06/09/18 06:10 Glucose 128 mg/dL (70-105) H 06/09/18 06:10 POC Glucose 218 MG/DL (70 - 105) H 06/10/18 05:25 Calcium 8.7 mg/dL (8.6-10.3) 06/09/18 06:10 Iron 20 ug/dL (27-139) L 06/08/18 05:00 TIBC 373 ug/dL (250-450) 06/08/18 05:00 Iron Saturation 5 % (15-55) L 06/08/18 05:00 Unsaturated IBC 353 ug/dL (118-369) 06/08/18 05:00 Ferritin 16 ng/mL (15-150) 06/06/18 08:20 Total Bilirubin 0.3 mg/dL (0.3-1.0) 06/09/18 06:10 Direct Bilirubin 0.13 mg/dL (0.0-0.2) 06/07/18 05:10 AST 12 U/L (13-39) L 06/09/18 06:10 ALT 6 U/L (7-52) L 06/09/18 06:10 Alkaline Phosphatase 51 U/L (34-104) 06/09/18 06:10 Ammonia 54 umol/L (16-53) H 06/07/18 05:10 Troponin I 0.02 ng/mL (0.01-0.05) 06/05/18 23:10 B-Natriuretic Peptide 569.0 pg/mL (5.0-100.0) H 06/07/18 05:10 Total Protein 6.9 gm/dL (6.0-8.3) 06/09/18 06:10 Albumin 3.4 gm/dL (3.7-5.3) L 06/09/18 06:10 Globulin 3.5 gm/dL 06/09/18 06:10 Albumin/Globulin Ratio 1.0 (1.0-1.8) 06/09/18 06:10 Triglycerides 66 mg/dL (<150) 06/06/18 08:20 Cholesterol 155 mg/dL (<200) 06/06/18 08:20 LDL Cholesterol Direct 91 mg/dL (75-193) 06/06/18 08:20 HDL Cholesterol 58 mg/dL (23-92) 06/06/18 08:20 Vitamin B12 372 pg/mL (232-1245) 06/08/18 05:00 Folic Acid 9.7 ng/mL (>3.0) 06/08/18 05:00 TSH 3.06 uIU/ml (0.34-5.60) 06/05/18 23:10 Urine Source RANDOM 06/06/18 03:45 Urine Color YELLOW 06/06/18 03:45 Urine Clarity HAZY (CLEAR) 06/06/18 03:45 Urine pH 6.0 (4.6 - 8.0) 06/06/18 03:45 Ur Specific [place] 1.010 (1.005-1.030) 06/06/18 03:45 Urine Protein NEGATIVE mg/dL (NEGATIVE) 06/06/18 03:45 Urine Glucose (UA) NEGATIVE mg/dL (NEGATIVE) 06/06/18 03:45 Urine Ketones NEGATIVE mg/dL (NEGATIVE) 06/06/18 03:45 Urine Blood NEGATIVE (NEGATIVE) 06/06/18 03:45 Urine Nitrate POSITIVE (NEGATIVE) H 06/06/18 03:45 Urine Bilirubin NEGATIVE (NEGATIVE) 06/06/18 03:45 Urine Urobilinogen 0.2 E.U./dL (0.2 - 1.0) 06/06/18 03:45 Ur Leukocyte Esterase NEGATIVE (NEGATIVE) 06/06/18 03:45 Urine RBC 0-2 /hpf (0-5) 06/06/18 03:45 Urine WBC 0-2 /hpf (0-5) 06/06/18 03:45 Ur Epithelial Cells FEW /lpf (FEW) 06/06/18 03:45 Urine Bacteria MODERATE /hpf (NONE SEEN) H 06/06/18 03:45 Stool Occult Blood NEGATIVE (NEGATIVE) 06/08/18 19:00 Helicobacter pylori Ab NEGATIVE (NEGATIVE) 06/09/18 09:18 Blood Type O POSITIVE 06/09/18 11:04 Antibody Screen NEGATIVE 06/09/18 11:04 Crossmatch See Detail 06/09/18 11:04 - Physical Exam Vitals and I&O: Vital Signs Temp 98.1 F 06/10/18 07:58 Pulse 75 06/10/18 10:36 Resp 20 06/10/18 10:36 BP 118/53 06/10/18 09:08 Pulse Ox 99 06/10/18 10:36 Intake & Output 06/09/18 06/10/18 06/10/18 18:59 06:59 18:59 Intake Total 50 1750 Balance 50 1750 Weight (lbs) 92.079 kg 92.034 kg Intake: Intake, IV Amount 50 100 Piperacillin Sodium/ 50 100 Tazobact 3.375 gm In Sodium Chloride 0.9% 50 ml @ 100 mls/hr IV Q8H [facility] Rx#:[id number] Oral 1400 Blood Product 250 Other: # Voids 1 1 # Bowel Movements 0 0 Stool Characteristics Liquid Brown Weight Source Bedscale Bedscale Active Medications: Current Medications Albuterol/Ipratropium (Duoneb Neb) 3 ml HHN Q4HRT PRN PRN Reason: Shortness of Breath Stop: 08/05/18 02:47 Last Admin: 06/06/18 10:50 Dose: 3 ml Albuterol/Ipratropium (Duoneb Neb) 3 ml HHN [id number] [facility] Stop: 08/05/18 18:59 Last Admin: 06/10/18 10:33 Dose: 3 ml Amlodipine Besylate (Norvasc) 5 mg PO DAILY [facility] Stop: 08/05/18 08:59 Last Admin: 06/10/18 09:08 Dose: 5 mg Aspirin (Aspirin Chewable) 81 mg PO DAILY [facility] Stop: 08/05/18 08:59 Last Admin: 06/10/18 09:09 Dose: 81 mg Budesonide (Pulmicort) 0.5 mg HHN BIDRT [facility] Stop: 08/05/18 18:59 Last Admin: 06/10/18 07:15 Dose: 0.5 mg Folic Acid (Folate) 1 mg PO DAILY [facility] Stop: 08/08/18 08:59 Last Admin: 06/10/18 09:06 Dose: 1 mg Furosemide (Lasix) 40 mg IVP DAILY [facility] Stop: 08/06/18 08:59 Last Admin: 06/10/18 09:05 Dose: 40 mg Piperacillin Sod/Tazobactam (Sod 3.375 gm/ Sodium Chloride) 50 mls @ 100 mls/ hr IV Q8H [facility] Stop: 08/06/18 14:59 Last Admin: 06/10/18 07:50 Dose: 100 mls/hr Ferric Sodium Gluconate Complex 125 mg/ Sodium Chloride 110 mls @ 100 mls/hr IV Q24HR [facility] Stop: 06/16/18 15:59 Last Admin: 06/09/18 16:29 Dose: 100 mls/hr Insulin Aspart (Novolog Insulin Sliding Scale) 0 units SUBQ ACHS [facility]; Protocol Stop: 08/09/18 07:29 Last Admin: 06/10/18 07:49 Dose: 4 units Insulin Human Isoph/Insulin Regular (Novolin 70/30) 40 units SUBQ QDAC [facility] Stop: 08/05/18 07:29 Last Admin: 06/10/18 07:48 Dose: 40 units Lisinopril (Zestril) 40 mg PO DAILY [facility] Stop: 08/05/18 08:59 Last Admin: 06/10/18 09:06 Dose: 40 mg Metformin HCl (Glucophage) 1,000 mg PO BIDWM [facility] Stop: 08/05/18 07:59 Last Admin: 06/10/18 07:50 Dose: 1,000 mg Metoprolol Tartrate (Lopressor) 25 mg PO BID [facility] Stop: 08/05/18 08:59 Last Admin: 06/10/18 09:05 Dose: 25 mg Miscellaneous (Zosyn Iv Per Pharmacy) 1 ea [facility] PRN PRN PRN Reason: PROTOCOL Stop: 08/06/18 07:01 Pantoprazole Sodium (Protonix) 40 mg PO DAILY [facility] Stop: 08/06/18 08:59 Last Admin: 06/10/18 09:07 Dose: 40 mg Simvastatin (Zocor) 20 mg PO HS [facility] Stop: 08/05/18 20:59 Last Admin: 06/09/18 22:00 Dose: 20 mg General: Alert, Oriented x3, No acute distress HEENT: Atraumatic, PERRLA, EOMI Neck: Supple Cardiovascular: Regular rate Lungs: Clear to auscultation Abdomen: Bowel sounds, Soft Extremities: no Clubbing, no Cyanosis, no Edema - Procedures Procedures: Procedures Procedure Code Date ELECTROCARDIOGRAM 89.52 01/30/00 ELECTROCARDIOGRAM COMPLETE 60708 01/30/00 LAPAROSCOPIC CHOLECYSTECTOMY 51.23 10/12/03 LAPAROSCOPIC CHOLECYSTECTOMY 82060 07/02/03 Assessment/Plan - Assessment Assessment: Microcytic anemia with low ferritin most suggestive of iron deficiency anemia. I will start the patient on IV iron supplementation and folate supplementation because of iron deficiency, diabetes mellitus, and chronic kidney disease. I will follow the stool occult blood and obtain total iron binding capacity, B12 and folate level to complement the anemia workup. * Iron deficiency anemia * Gastric ulcer, gastritis, hemorrhoids * DM, CKD Continue iv iron, d/c ibuprofen, transfuse PRBC for likely bleeding from ulcer 06/10/19: lab noted. hgb better post transfusion. Nutritional Asmnt/Malnutr-PDOC - Dietary Evaluation Malnutrition Findings (Please click <Entered> for more info): Nutritional Asmnt/Malnutrition Start: 06/07/18 18: 26 Text: Status: Complete Freq: Protocol: Document 06/07/18 18:30 LCHENG (Rec: 06/07/18 18:46 LCHENG [email or web address]) Nutritional Asmnt/Malnutrition Patient General Information Nutritional Screening High Risk Pertinent Medical Hx/Surgical Hx HTN, DM, asthma/COPD, arthritis, cholecystectomy, hysterectomy, Subjective Information consult received for blood sugar 484. per nurse note, pt refused EGD for tommorrow, on Bipap PRN. Per EMR, Pt consumed 100% of breakfast today. Current Diet Order/ Nutrition Support cardiac Pertinent Medications lasix, novolog, novolin, glucophage, protonix, piperacillin, nacl 0.9% Pertinent Labs 06/07 Na 130, K 5.6, cl 95, BUN 42, Cr 1.4, glucose 265, POC 211-262 Nutritional Hx/Data Height 1.52 m Height (Calculated Centimeters) 152.4 Current Weight (lbs) 89.358 kg Weight (Calculated Kilograms) 89.4 Weight (Calculated Grams) 81306.7 [place] Body Weight 100 Body Mass Index (BMI) 38.5 Weight Status Obese GI Symptoms GI Symptoms None Last BM 06/07 Difficult in: None Skin Integrity/Comment: intact Current %PO Good (75-100%) Estimated Nutritional Goals BEE in Kcals: Adj wt of IBW Calories/Kcals/Kg 25-30 Kcals Calculated 6093-7540 Protein: Adj wt of IBW Protein g/k-1.2 Protein Calculated 56-67 Fluid: ml 1400-1680ml (1ml/kcal) Nutritional Problem 1. Problem Problem altered nutrition related labs Etiology electrolytes imbalance, hyperglycemia, possible renal dysfunction Signs/Symptoms: Na 130, K 5.6, cl 95, BUN 42, Cr 1.4, glucose 265, POC 211- 262 Malnutrition Alert Is there a minimum of two criteria No selected? Query Text:Check all the applicable criteria. A minimum of two criteria are recommended for diagnosis of either severe or non-severe malnutrition. Malnutrition Related to Morbid Obesity Malnutrition related to morbid obesity No Intervention/Recommendation Comments 1. Recommend adding CCHO 60gm diet d/t elevated blood sugar and hx of DM. 2. Monitor PO intake, wt, labs and skin integrity 3. F/U as high risk in 2-3 days, 06/09-06/10 Expected Outcomes/Goals Expected Outcomes/Goals 1. PO intake to meet at least 75% of nutritional needs. 2. Wt stability, skin to remain intact, labs to approach WNL.
[2018-06-10 12:17] LABS: ALLEN TEST YES
--- NOTE | 2018-06-10 14:14 | Pathology Report ---
[id number] Collection date: 06/09/2018 Surgeon: Dr. Solitario Enriquez Specimen Description: 1. Duodenum biopsy 2. Antrum biopsy Gross Description: Part I: Received in formalin are two ewbster soft tissue fragments each measuring 0.1 cm in greatest dimension. Totally submitted in one cassette labeled A. Gross Description: Part II: Received in formalin are two webster soft tissue fragments ranging from 0.1 to 0.2 cm in greatest dimension. Totally submitted in one cassette labeled B. Microscopic Description: Part I: The histologic sections show duodenal mucosa with intact intestinal villi, showing no evidence for villous abnormality. Diagnosis: Part I: No evidence for celiac disease/sprue (duodenal biopsy). Microscopic Description: Part II: The histologic sections show gastric mucosa with chronic inflammation present consisting of lymphocytes and plasma cells, with a focal area of acute inflammation also appreciated showing small numbers of neutrophils. An small area of granulation tissue reaction are also appreciated. The Giemsa stain shows no evidence for Helicobacter pylori. Diagnosis: Part II: 1. Chronic gastritis with a focal area of acute inflammation, antrum biopsy. 2. There is also focal granulation tissue reaction consistent with healing ulcer. 3. The Giemsa stain is negative for Helicobacter pylori. [facility]# [id number] [facility]
[2018-06-10] MEDS: Sodium Ferric Gluconate 125 MG in Sodium Chloride 0.9% 100 ML IV SCH (16:23)
[2018-06-10] MEDS: Theophylline 100 mg ER Tab PO SCH (16:35)
--- NOTE | 2018-06-10 23:43 | Infectious Disease Prog Note ---
Infectious Disease Subjective - Review of Systems Service Date: 06/10/18 Subjective: No new change, no fever,. Infectious Disease Objective - Results Result Diagrams: 06/11/18 06:00 06/09/18 06:10 Recent Labs: Laboratory Last Values WBC 11.8 Th/cmm (4.8-10.8) H 06/10/18 05:05 RBC 3.54 Mil/cmm (3.80-5.20) L 06/10/18 05:05 Hgb 8.7 gm/dL (12-16) L 06/10/18 05:05 Hct 26.7 % (41.0-60) L 06/10/18 05:05 MCV 75.5 fl (81-100) L 06/10/18 05:05 MCH 24.6 pg (27.0-31.0) L 06/10/18 05:05 MCHC Differential 32.5 pg (28.0-36.0) 06/10/18 05:05 RDW 16.4 % (11.5-20.0) 06/10/18 05:05 Plt Count 381 Th/cmm (150-400) 06/10/18 05:05 MPV 7.0 fl 06/10/18 05:05 Add Manual Diff YES 06/09/18 06:10 Neutrophils % 54.4 % (40.0-80.0) 06/10/18 05:05 Band Neutrophils % 0 % (0-10) 06/09/18 06:10 Lymphocytes % 26.3 % (20.0-50.0) 06/10/18 05:05 Monocytes % 12.1 % (2.0-10.0) H 06/10/18 05:05 Eosinophils % 6.5 % (0.0-5.0) H 06/10/18 05:05 Basophils % 0.7 % (0.0-2.0) 06/10/18 05:05 Neutrophils (Manual) 63 % (40-80) 06/09/18 06:10 Lymphocytes 25 % (20-50) 06/09/18 06:10 Monocytes 10 % (2-10) 06/09/18 06:10 Eosinophils 2 % (0-5) 06/09/18 06:10 Basophils 0 % (0-3) 06/09/18 06:10 Hypochromia 1+ 09/17/18 05:10 Platelet Estimate INCREASED PLATELETS (NORMAL) 06/09/18 06:10 Microcytosis 3+ 06/09/18 06:10 PT 9.9 SECONDS (9.5-11.5) 06/05/18 23:10 INR 0.95 (0.5-1.4) 06/05/18 23:10 PTT (Actin FS) 22.0 SECONDS (26.0-38.0) L 06/05/18 23:10 Specimen Source Arterial 06/10/18 12:08 Sample Site Left Radial 06/10/18 12:08 pH 7.50 (7.35-7.45) H 06/10/18 12:08 pCO2 43.0 mmHg (35.0-45.0) 06/10/18 12:08 pO2 78.0 mmHg (80.0-100.0) L 06/10/18 12:08 HCO3 32.2 mEq/L (20.0-26.0) H 06/10/18 12:08 Base Excess 9.3 mEq/L (-3.0-3.0) H 06/10/18 12:08 O2 Saturation 96.0 % (92.0-100.0) 06/10/18 12:08 Ermias Test YES 06/10/18 12:08 Vent Rate NA 06/10/18 12:08 Inspired O2 21 06/10/18 12:08 Tidal Volume NA 06/10/18 12:08 PEEP NA 06/10/18 12:08 Pressure (ins/psv/peep) NA 06/10/18 12:08 Critical Value E.GALLOWAY 06/10/18 12:08 Sodium 136 mEq/L (136-145) 06/09/18 06:10 Potassium 4.3 mEq/L (3.5-5.1) 06/09/18 06:10 Chloride 100 mEq/L (98-107) 06/09/18 06:10 Carbon Dioxide 30.4 mEq/L (21.0-31.0) 06/09/18 06:10 Anion Gap 9.9 (7.0-16.0) 06/09/18 06:10 BUN 48 mg/dL (7-25) H 06/09/18 06:10 Creatinine 1.1 mg/dL (0.6-1.2) 06/09/18 06:10 Est GFR ( Amer) TNP 06/09/18 06:10 Est GFR (Non-Af Amer) TNP 06/09/18 06:10 BUN/Creatinine Ratio 43.6 06/09/18 06:10 Glucose 128 mg/dL (70-105) H 06/09/18 06:10 POC Glucose 142 MG/DL (70 - 105) H 06/10/18 20:21 Calcium 8.7 mg/dL (8.6-10.3) 06/09/18 06:10 Iron 20 ug/dL (27-139) L 06/08/18 05:00 TIBC 373 ug/dL (250-450) 06/08/18 05:00 Iron Saturation 5 % (15-55) L 06/08/18 05:00 Unsaturated IBC 353 ug/dL (118-369) 06/08/18 05:00 Ferritin 16 ng/mL (15-150) 06/06/18 08:20 Total Bilirubin 0.3 mg/dL (0.3-1.0) 06/09/18 06:10 Direct Bilirubin 0.13 mg/dL (0.0-0.2) 06/07/18 05:10 AST 12 U/L (13-39) L 06/09/18 06:10 ALT 6 U/L (7-52) L 06/09/18 06:10 Alkaline Phosphatase 51 U/L (34-104) 06/09/18 06:10 Ammonia 54 umol/L (16-53) H 06/07/18 05:10 Troponin I 0.02 ng/mL (0.01-0.05) 06/05/18 23:10 B-Natriuretic Peptide 569.0 pg/mL (5.0-100.0) H 06/07/18 05:10 Total Protein 6.9 gm/dL (6.0-8.3) 06/09/18 06:10 Albumin 3.4 gm/dL (3.7-5.3) L 06/09/18 06:10 Globulin 3.5 gm/dL 06/09/18 06:10 Albumin/Globulin Ratio 1.0 (1.0-1.8) 06/09/18 06:10 Triglycerides 66 mg/dL (<150) 06/06/18 08:20 Cholesterol 155 mg/dL (<200) 06/06/18 08:20 LDL Cholesterol Direct 91 mg/dL (75-193) 06/06/18 08:20 HDL Cholesterol 58 mg/dL (23-92) 06/06/18 08:20 Vitamin B12 372 pg/mL (232-1245) 06/08/18 05:00 Folic Acid 9.7 ng/mL (>3.0) 06/08/18 05:00 TSH 3.06 uIU/ml (0.34-5.60) 06/05/18 23:10 Urine Source RANDOM 06/06/18 03:45 Urine Color YELLOW 06/06/18 03:45 Urine Clarity HAZY (CLEAR) 06/06/18 03:45 Urine pH 6.0 (4.6 - 8.0) 06/06/18 03:45 Ur Specific [place] 1.010 (1.005-1.030) 06/06/18 03:45 Urine Protein NEGATIVE mg/dL (NEGATIVE) 06/06/18 03:45 Urine Glucose (UA) NEGATIVE mg/dL (NEGATIVE) 06/06/18 03:45 Urine Ketones NEGATIVE mg/dL (NEGATIVE) 06/06/18 03:45 Urine Blood NEGATIVE (NEGATIVE) 06/06/18 03:45 Urine Nitrate POSITIVE (NEGATIVE) H 06/06/18 03:45 Urine Bilirubin NEGATIVE (NEGATIVE) 06/06/18 03:45 Urine Urobilinogen 0.2 E.U./dL (0.2 - 1.0) 06/06/18 03:45 Ur Leukocyte Esterase NEGATIVE (NEGATIVE) 06/06/18 03:45 Urine RBC 0-2 /hpf (0-5) 06/06/18 03:45 Urine WBC 0-2 /hpf (0-5) 06/06/18 03:45 Ur Epithelial Cells FEW /lpf (FEW) 06/06/18 03:45 Urine Bacteria MODERATE /hpf (NONE SEEN) H 06/06/18 03:45 Stool Occult Blood NEGATIVE (NEGATIVE) 06/08/18 19:00 Helicobacter pylori Ab NEGATIVE (NEGATIVE) 06/09/18 09:18 Blood Type O POSITIVE 06/09/18 11:04 Antibody Screen NEGATIVE 06/09/18 11:04 Crossmatch See Detail 06/09/18 11:04 - Physical Exam Vitals and I&O: Vital Signs Temp 97.5 F 06/10/18 15:26 Pulse 72 06/10/18 19:27 Resp 18 06/10/18 22:00 BP 99/52 06/10/18 15:26 Pulse Ox 99 06/10/18 19:27 Intake & Output 06/10/18 06/10/18 06/11/18 06:59 18:59 06:59 Intake Total 1750 50 Balance 1750 50 Weight (lbs) 92.079 kg 92.034 kg Intake: Intake, IV Amount 100 50 Piperacillin Sodium/ 100 50 Tazobact 3.375 gm In Sodium Chloride 0.9% 50 ml @ 100 mls/hr IV Q8H [facility] Rx#:[id number] Oral 1400 Blood Product 250 Other: # Voids 1 1 # Bowel Movements 0 0 Weight Source Bedscale Bedscale Active Medications: Current Medications Albuterol/Ipratropium (Duoneb Neb) 3 ml HHN Q4HRT PRN PRN Reason: Shortness of Breath Stop: 08/05/18 02:47 Last Admin: 06/06/18 10:50 Dose: 3 ml Albuterol/Ipratropium (Duoneb Neb) 3 ml HHN [id number] [facility] Stop: 08/05/18 18:59 Last Admin: 06/10/18 19:27 Dose: 3 ml Amlodipine Besylate (Norvasc) 5 mg PO DAILY [facility] Stop: 08/05/18 08:59 Last Admin: 06/10/18 09:08 Dose: 5 mg Aspirin (Aspirin Chewable) 81 mg PO DAILY [facility] Stop: 08/05/18 08:59 Last Admin: 06/10/18 09:09 Dose: 81 mg Budesonide (Pulmicort) 0.5 mg HHN BIDRT [facility] Stop: 08/05/18 18:59 Last Admin: 06/10/18 19:27 Dose: 0.5 mg Folic Acid (Folate) 1 mg PO DAILY [facility] Stop: 08/08/18 08:59 Last Admin: 06/10/18 09:06 Dose: 1 mg Furosemide (Lasix) 40 mg IVP DAILY [facility] Stop: 08/06/18 08:59 Last Admin: 06/10/18 09:05 Dose: 40 mg Piperacillin Sod/Tazobactam (Sod 3.375 gm/ Sodium Chloride) 50 mls @ 100 mls/ hr IV Q8H [facility] Stop: 08/06/18 14:59 Last Admin: 06/10/18 14:46 Dose: 100 mls/hr Ferric Sodium Gluconate Complex 125 mg/ Sodium Chloride 110 mls @ 100 mls/hr IV Q24HR [facility] Stop: 06/16/18 15:59 Last Admin: 06/10/18 16:23 Dose: 100 mls/hr Insulin Aspart (Novolog Insulin Sliding Scale) 0 units SUBQ ACHS [facility]; Protocol Stop: 08/09/18 07:29 Last Admin: 06/10/18 20:24 Dose: Not Given Insulin Human Isoph/Insulin Regular (Novolin 70/30) 40 units SUBQ QDAC [facility] Stop: 08/05/18 07:29 Last Admin: 06/10/18 07:48 Dose: 40 units Levothyroxine Sodium (Synthroid) 0.2 mg PO QDAC [facility] Stop: 08/10/18 07:29 Lisinopril (Zestril) 40 mg PO DAILY [facility] Stop: 08/05/18 08:59 Last Admin: 06/10/18 09:06 Dose: 40 mg Metformin HCl (Glucophage) 1,000 mg PO BIDWM [facility] Stop: 08/05/18 07:59 Last Admin: 06/10/18 17:27 Dose: 1,000 mg Miscellaneous (Zosyn Iv Per Pharmacy) 1 MC PRN PRN PRN Reason: PROTOCOL Stop: 08/06/18 07:01 Pantoprazole Sodium (Protonix) 40 mg PO DAILY [facility] Stop: 08/06/18 08:59 Last Admin: 06/10/18 09:07 Dose: 40 mg Simvastatin (Zocor) 20 mg PO HS [facility] Stop: 08/05/18 20:59 Last Admin: 06/10/18 20:19 Dose: 20 mg Theophylline (Marc-Dur) 200 mg PO BID [facility] Stop: 08/09/18 16:59 Last Admin: 06/10/18 16:35 Dose: 200 mg General: no acute distress, well developed, well nourished HEENT: atraumatic, normocephalic, PERRLA Neck: supple, no thyromegaly, no lymphadenopathy Cardiovascular: S1S2, regular Lungs: clear to auscultation bilaterally, clear to percussion Abdomen: soft, no tender, no distended Extremities: no cyanosis, no clubbing, no edema Neurological: awake, alert, oriented Skin: intact - Procedures Procedures: Procedures Procedure Code Date ELECTROCARDIOGRAM 89.52 01/30/00 ELECTROCARDIOGRAM COMPLETE 75583 01/30/00 EXCISION OF STOMACH, ENDO, DIAGN [id number] 06/06/18 INSPECTION OF LOWER INTESTINAL TRACT, ENDO [id number] 06/06/18 LAPAROSCOPIC CHOLECYSTECTOMY 51.23 07/02/03 LAPAROSCOPIC CHOLECYSTECTOMY 94472 07/02/03 Infectious Disease Assmt/Plan - Assessment Assessment: 1. Leukocytosis most likely reactive versus steroid-induced. Cannot rule out pneumonia. 2. Pneumonia. 3. CHF. 4. COPD. 5. Diabetes mellitus type 2. 6. Obesity. BMI 38.5 patient may have sleep apnea. 7. Hypertension. - Plan Plan: Continue zosyn. D5/10. Nutritional Asmnt/Malnutr-PDOC - Dietary Evaluation Malnutrition Findings (Please click <Entered> for more info): Nutritional Asmnt/Malnutrition Start: 06/07/18 18: 26 Text: Status: Complete Freq: Protocol: Document 06/07/18 18:30 LCHENG (Rec: 06/07/18 18:46 [email or web address] [email or web address]) Nutritional Asmnt/Malnutrition Patient General Information Nutritional Screening High Risk Pertinent Medical Hx/Surgical Hx HTN, DM, asthma/COPD, arthritis, cholecystectomy, hysterectomy, Subjective Information consult received for blood sugar 484. per nurse note, pt refused EGD for tommorrow, on Bipap PRN. Per EMR, Pt consumed 100% of breakfast today. Current Diet Order/ Nutrition Support cardiac Pertinent Medications lasix, novolog, novolin, glucophage, protonix, piperacillin, nacl 0.9% Pertinent Labs 06/07 Na 130, K 5.6, cl 95, BUN 42, Cr 1.4, glucose 265, POC 211-262 Nutritional Hx/Data Height 1.52 m Height (Calculated Centimeters) 152.4 Current Weight (lbs) 89.358 kg Weight (Calculated Kilograms) 89.4 Weight (Calculated Grams) 89671.7 [place] Body Weight 100 Body Mass Index (BMI) 38.5 Weight Status Obese GI Symptoms GI Symptoms None Last BM 06/07 Difficult in: None Skin Integrity/Comment: intact Current %PO Good (75-100%) Estimated Nutritional Goals BEE in Kcals: Adj wt of IBW Calories/Kcals/Kg 25-30 Kcals Calculated 3686-1877 Protein: Adj wt of IBW Protein g/k-1.2 Protein Calculated 56-67 Fluid: ml 1400-1680ml (1ml/kcal) Nutritional Problem 1. Problem Problem altered nutrition related labs Etiology electrolytes imbalance, hyperglycemia, possible renal dysfunction Signs/Symptoms: Na 130, K 5.6, cl 95, BUN 42, Cr 1.4, glucose 265, POC 211- 262 Malnutrition Alert Is there a minimum of two criteria No selected? Query Text:Check all the applicable criteria. A minimum of two criteria are recommended for diagnosis of either severe or non-severe malnutrition. Malnutrition Related to Morbid Obesity Malnutrition related to morbid obesity No Intervention/Recommendation Comments 1. Recommend adding CCHO 60gm diet d/t elevated blood sugar and hx of DM. 2. Monitor PO intake, wt, labs and skin integrity 3. F/U as high risk in 2-3 days, 06/09-06/10 Expected Outcomes/Goals Expected Outcomes/Goals 1. PO intake to meet at least 75% of nutritional needs. 2. Wt stability, skin to remain intact, labs to approach WNL.
--- NOTE | 2018-06-11 05:23 | General Progress Note ---
Subjective - Review of Systems Service Date: 06/11/18 Subjective: Patient resting comfortable in bed. Patient needs home 02 and home health to follow. Patient is awake, alert, no acute distress. Patient had upper and lower endoscopy few days ago. hemoglobin stable. s/p blood transfusion. Objective - Results Result Diagrams: 06/10/18 05:05 06/09/18 06:10 Recent Labs: Laboratory Last Values WBC 11.8 Th/cmm (4.8-10.8) H 06/10/18 05:05 RBC 3.54 Mil/cmm (3.80-5.20) L 06/10/18 05:05 Hgb 8.7 gm/dL (12-16) L 06/10/18 05:05 Hct 26.7 % (41.0-60) L 06/10/18 05:05 MCV 75.5 fl (81-100) L 06/10/18 05:05 MCH 24.6 pg (27.0-31.0) L 06/10/18 05:05 MCHC Differential 32.5 pg (28.0-36.0) 06/10/18 05:05 RDW 16.4 % (11.5-20.0) 06/10/18 05:05 Plt Count 381 Th/cmm (150-400) 06/10/18 05:05 MPV 7.0 fl 06/10/18 05:05 Add Manual Diff YES 06/09/18 06:10 Neutrophils % 54.4 % (40.0-80.0) 06/10/18 05:05 Band Neutrophils % 0 % (0-10) 06/09/18 06:10 Lymphocytes % 26.3 % (20.0-50.0) 06/10/18 05:05 Monocytes % 12.1 % (2.0-10.0) H 06/10/18 05:05 Eosinophils % 6.5 % (0.0-5.0) H 06/10/18 05:05 Basophils % 0.7 % (0.0-2.0) 06/10/18 05:05 Neutrophils (Manual) 63 % (40-80) 06/09/18 06:10 Lymphocytes 25 % (20-50) 06/09/18 06:10 Monocytes 10 % (2-10) 06/09/18 06:10 Eosinophils 2 % (0-5) 06/09/18 06:10 Basophils 0 % (0-3) 06/09/18 06:10 Hypochromia 1+ 06/07/18 05:10 Platelet Estimate INCREASED PLATELETS (NORMAL) 06/09/18 06:10 Microcytosis 3+ 06/09/18 06:10 PT 9.9 SECONDS (9.5-11.5) 06/05/18 23:10 INR 0.95 (0.5-1.4) 06/05/18 23:10 PTT (Actin FS) 22.0 SECONDS (26.0-38.0) L 06/05/18 23:10 Specimen Source Arterial 06/10/18 12:08 Sample Site Left Radial 06/10/18 12:08 pH 7.50 (7.35-7.45) H 06/10/18 12:08 pCO2 43.0 mmHg (35.0-45.0) 06/10/18 12:08 pO2 78.0 mmHg (80.0-100.0) L 06/10/18 12:08 HCO3 32.2 mEq/L (20.0-26.0) H 06/10/18 12:08 Base Excess 9.3 mEq/L (-3.0-3.0) H 06/10/18 12:08 O2 Saturation 96.0 % (92.0-100.0) 06/10/18 12:08 Ermias Test YES 06/10/18 12:08 Vent Rate NA 06/10/18 12:08 Inspired O2 21 06/10/18 12:08 Tidal Volume NA 06/10/18 12:08 PEEP NA 06/10/18 12:08 Pressure (ins/psv/peep) NA 06/10/18 12:08 Critical Value E.GALLOWAY 06/10/18 12:08 Sodium 136 mEq/L (136-145) 06/09/18 06:10 Potassium 4.3 mEq/L (3.5-5.1) 06/09/18 06:10 Chloride 100 mEq/L (98-107) 06/09/18 06:10 Carbon Dioxide 30.4 mEq/L (21.0-31.0) 06/09/18 06:10 Anion Gap 9.9 (7.0-16.0) 06/09/18 06:10 BUN 48 mg/dL (7-25) H 06/09/18 06:10 Creatinine 1.1 mg/dL (0.6-1.2) 06/09/18 06:10 Est GFR ( Amer) TNP 06/09/18 06:10 Est GFR (Non-Af Amer) TNP 06/09/18 06:10 BUN/Creatinine Ratio 43.6 06/09/18 06:10 Glucose 128 mg/dL (70-105) H 06/09/18 06:10 POC Glucose 142 MG/DL (70 - 105) H 06/10/18 20:21 Calcium 8.7 mg/dL (8.6-10.3) 06/09/18 06:10 Iron 20 ug/dL (27-139) L 06/08/18 05:00 TIBC 373 ug/dL (250-450) 06/08/18 05:00 Iron Saturation 5 % (15-55) L 06/08/18 05:00 Unsaturated IBC 353 ug/dL (118-369) 06/08/18 05:00 Ferritin 16 ng/mL (15-150) 06/06/18 08:20 Total Bilirubin 0.3 mg/dL (0.3-1.0) 06/09/18 06:10 Direct Bilirubin 0.13 mg/dL (0.0-0.2) 06/07/18 05:10 AST 12 U/L (13-39) L 06/09/18 06:10 ALT 6 U/L (7-52) L 06/09/18 06:10 Alkaline Phosphatase 51 U/L (34-104) 06/09/18 06:10 Ammonia 54 umol/L (16-53) H 06/07/18 05:10 Troponin I 0.02 ng/mL (0.01-0.05) 06/05/18 23:10 B-Natriuretic Peptide 569.0 pg/mL (5.0-100.0) H 06/07/18 05:10 Total Protein 6.9 gm/dL (6.0-8.3) 06/09/18 06:10 Albumin 3.4 gm/dL (3.7-5.3) L 06/09/18 06:10 Globulin 3.5 gm/dL 06/09/18 06:10 Albumin/Globulin Ratio 1.0 (1.0-1.8) 06/09/18 06:10 Triglycerides 66 mg/dL (<150) 06/06/18 08:20 Cholesterol 155 mg/dL (<200) 06/06/18 08:20 LDL Cholesterol Direct 91 mg/dL (75-193) 06/06/18 08:20 HDL Cholesterol 58 mg/dL (23-92) 06/06/18 08:20 Vitamin B12 372 pg/mL (232-1245) 06/08/18 05:00 Folic Acid 9.7 ng/mL (>3.0) 06/08/18 05:00 TSH 3.06 uIU/ml (0.34-5.60) 06/05/18 23:10 Urine Source RANDOM 06/06/18 03:45 Urine Color YELLOW 06/06/18 03:45 Urine Clarity HAZY (CLEAR) 06/06/18 03:45 Urine pH 6.0 (4.6 - 8.0) 06/06/18 03:45 Ur Specific [place] 1.010 (1.005-1.030) 06/06/18 03:45 Urine Protein NEGATIVE mg/dL (NEGATIVE) 06/06/18 03:45 Urine Glucose (UA) NEGATIVE mg/dL (NEGATIVE) 06/06/18 03:45 Urine Ketones NEGATIVE mg/dL (NEGATIVE) 06/06/18 03:45 Urine Blood NEGATIVE (NEGATIVE) 06/06/18 03:45 Urine Nitrate POSITIVE (NEGATIVE) H 06/06/18 03:45 Urine Bilirubin NEGATIVE (NEGATIVE) 06/06/18 03:45 Urine Urobilinogen 0.2 E.U./dL (0.2 - 1.0) 06/06/18 03:45 Ur Leukocyte Esterase NEGATIVE (NEGATIVE) 06/06/18 03:45 Urine RBC 0-2 /hpf (0-5) 06/06/18 03:45 Urine WBC 0-2 /hpf (0-5) 06/06/18 03:45 Ur Epithelial Cells FEW /lpf (FEW) 06/06/18 03:45 Urine Bacteria MODERATE /hpf (NONE SEEN) H 06/06/18 03:45 Stool Occult Blood NEGATIVE (NEGATIVE) 06/08/18 19:00 Helicobacter pylori Ab NEGATIVE (NEGATIVE) 06/09/18 09:18 Blood Type O POSITIVE 06/09/18 11:04 Antibody Screen NEGATIVE 06/09/18 11:04 Crossmatch See Detail 06/09/18 11:04 - Physical Exam Vitals and I&O: Vital Signs Temp 97.5 F 06/10/18 15:26 Pulse 74 06/10/18 19:37 Resp 18 06/11/18 02:00 BP 99/52 06/10/18 15:26 Pulse Ox 99 06/10/18 19:37 Intake & Output 06/10/18 06/10/18 06/11/18 06:59 18:59 06:59 Intake Total 1750 100 Balance 1750 100 Weight (lbs) 92.079 kg 92.034 kg Intake: Intake, IV Amount 100 100 Piperacillin Sodium/ 100 100 Tazobact 3.375 gm In Sodium Chloride 0.9% 50 ml @ 100 mls/hr IV Q8H [facility] Rx#:[id number] Oral 1400 Blood Product 250 Other: # Voids 1 1 # Bowel Movements 0 0 Weight Source Bedscale Bedscale Active Medications: Current Medications Albuterol/Ipratropium (Duoneb Neb) 3 ml HHN Q4HRT PRN PRN Reason: Shortness of Breath Stop: 08/05/18 02:47 Last Admin: 06/06/18 10:50 Dose: 3 ml Albuterol/Ipratropium (Duoneb Neb) 3 ml HHN [id number] [facility] Stop: 08/05/18 18:59 Last Admin: 06/10/18 19:27 Dose: 3 ml Amlodipine Besylate (Norvasc) 5 mg PO DAILY [facility] Stop: 08/05/18 08:59 Last Admin: 06/10/18 09:08 Dose: 5 mg Aspirin (Aspirin Chewable) 81 mg PO DAILY [facility] Stop: 08/05/18 08:59 Last Admin: 06/10/18 09:09 Dose: 81 mg Budesonide (Pulmicort) 0.5 mg HHN BIDRT [facility] Stop: 08/05/18 18:59 Last Admin: 06/10/18 19:27 Dose: 0.5 mg Folic Acid (Folate) 1 mg PO DAILY [facility] Stop: 08/08/18 08:59 Last Admin: 06/10/18 09:06 Dose: 1 mg Furosemide (Lasix) 40 mg IVP DAILY [facility] Stop: 08/06/18 08:59 Last Admin: 06/10/18 09:05 Dose: 40 mg Piperacillin Sod/Tazobactam (Sod 3.375 gm/ Sodium Chloride) 50 mls @ 100 mls/ hr IV Q8H [facility] Stop: 08/06/18 14:59 Last Admin: 06/10/18 23:55 Dose: 100 mls/hr Ferric Sodium Gluconate Complex 125 mg/ Sodium Chloride 110 mls @ 100 mls/hr IV Q24HR [facility] Stop: 06/16/18 15:59 Last Admin: 06/10/18 16:23 Dose: 100 mls/hr Insulin Aspart (Novolog Insulin Sliding Scale) 0 units SUBQ ACHS [facility]; Protocol Stop: 08/09/18 07:29 Last Admin: 06/10/18 20:24 Dose: Not Given Insulin Human Isoph/Insulin Regular (Novolin 70/30) 40 units SUBQ QDAC [facility] Stop: 08/05/18 07:29 Last Admin: 06/10/18 07:48 Dose: 40 units Levothyroxine Sodium (Synthroid) 0.2 mg PO QDAC [facility] Stop: 08/10/18 07:29 Lisinopril (Zestril) 40 mg PO DAILY [facility] Stop: 08/05/18 08:59 Last Admin: 06/10/18 09:06 Dose: 40 mg Metformin HCl (Glucophage) 1,000 mg PO BIDWM [facility] Stop: 08/05/18 07:59 Last Admin: 06/10/18 17:27 Dose: 1,000 mg Miscellaneous (Zosyn Iv Per Pharmacy) 1 ea [facility] PRN PRN PRN Reason: PROTOCOL Stop: 08/06/18 07:01 Pantoprazole Sodium (Protonix) 40 mg PO DAILY [facility] Stop: 08/06/18 08:59 Last Admin: 06/10/18 09:07 Dose: 40 mg Simvastatin (Zocor) 20 mg PO HS [facility] Stop: 08/05/18 20:59 Last Admin: 06/10/18 20:19 Dose: 20 mg Theophylline (Marc-Dur) 200 mg PO BID [facility] Stop: 08/09/18 16:59 Last Admin: 06/10/18 16:35 Dose: 200 mg General: Alert, Oriented x3, No acute distress HEENT: Atraumatic, PERRLA, EOMI Neck: Supple Cardiovascular: Regular rate Lungs: Clear to auscultation Abdomen: Bowel sounds, Soft Extremities: no Clubbing, no Cyanosis, no Edema - Procedures Procedures: Procedures Procedure Code Date ELECTROCARDIOGRAM 89.52 01/30/00 ELECTROCARDIOGRAM COMPLETE 97979 01/30/00 EXCISION OF STOMACH, ENDO, DIAGN [id number] 06/06/18 INSPECTION OF LOWER INTESTINAL TRACT, ENDO [id number] 06/06/18 LAPAROSCOPIC CHOLECYSTECTOMY 51.23 07/02/03 LAPAROSCOPIC CHOLECYSTECTOMY 01507 07/02/03 Assessment/Plan - Assessment Assessment: Acute Bronchitis/COPD ... will dc Zosyn, and start Amoxicillin, on oral steroids s/p blood transfusion HTN DM type II Iron deficiency anemia stable .... now 8.7. on IV ferrlecit GERD w/ ulcers hemorrhoids Leukocytosis 26K most likely reactive versus steroid induced. Now 12--> 11K Hyponatremia Na 130 improved CHF with diastolic dysfunction hyperkalemia ... K 5.6 better now 4.6 UTI ... on Amoxicillin - Plan Plan: arrange for home health home o2 maybe discharge home follow up with PMD in 3-5 days Nutritional Asmnt/Malnutr-PDOC - Dietary Evaluation Malnutrition Findings (Please click <Entered> for more info): Nutritional Asmnt/Malnutrition Start: 06/07/18 18: 26 Text: Status: Complete Freq: Protocol: Document 06/07/18 18:30 LCHENG (Rec: 06/07/18 18:46 [email or web address] [email or web address]) Nutritional Asmnt/Malnutrition Patient General Information Nutritional Screening High Risk Pertinent Medical Hx/Surgical Hx HTN, DM, asthma/COPD, arthritis, cholecystectomy, hysterectomy, Subjective Information consult received for blood sugar 484. per nurse note, pt refused EGD for tommorrow, on Bipap PRN. Per EMR, Pt consumed 100% of breakfast today. Current Diet Order/ Nutrition Support cardiac Pertinent Medications lasix, novolog, novolin, glucophage, protonix, piperacillin, nacl 0.9% Pertinent Labs 06/07 Na 130, K 5.6, cl 95, BUN 42, Cr 1.4, glucose 265, POC 211-262 Nutritional Hx/Data Height 1.52 m Height (Calculated Centimeters) 152.4 Current Weight (lbs) 89.358 kg Weight (Calculated Kilograms) 89.4 Weight (Calculated Grams) 24438.7 [place] Body Weight 100 Body Mass Index (BMI) 38.5 Weight Status Obese GI Symptoms GI Symptoms None Last BM 06/07 Difficult in: None Skin Integrity/Comment: intact Current %PO Good (75-100%) Estimated Nutritional Goals BEE in Kcals: Adj wt of IBW Calories/Kcals/Kg 25-30 Kcals Calculated 3683-5618 Protein: Adj wt of IBW Protein g/k-1.2 Protein Calculated 56-67 Fluid: ml 1400-1680ml (1ml/kcal) Nutritional Problem 1. Problem Problem altered nutrition related labs Etiology electrolytes imbalance, hyperglycemia, possible renal dysfunction Signs/Symptoms: Na 130, K 5.6, cl 95, BUN 42, Cr 1.4, glucose 265, POC 211- 262 Malnutrition Alert Is there a minimum of two criteria No selected? Query Text:Check all the applicable criteria. A minimum of two criteria are recommended for diagnosis of either severe or non-severe malnutrition. Malnutrition Related to Morbid Obesity Malnutrition related to morbid obesity No Intervention/Recommendation Comments 1. Recommend adding CCHO 60gm diet d/t elevated blood sugar and hx of DM. 2. Monitor PO intake, wt, labs and skin integrity 3. F/U as high risk in 2-3 days, 06/09-06/10 Expected Outcomes/Goals Expected Outcomes/Goals 1. PO intake to meet at least 75% of nutritional needs. 2. Wt stability, skin to remain intact, labs to approach WNL.
[2018-06-11 06:10] LABS: % BASOPHILS 0.8 % (0.0-2.0); % EOSINOPHILS 6.5 % (0.0-5.0); % LYMPHOCYTES 20.6 % (20.0-50.0); % MONOCYTES 7.6 % (2.0-10.0); % NEUTROPHILS 64.5 % (40.0-80.0); BASOPHILE ABSOLUTE 0.1 Th/cumm (0-0.2); EOSINOPHILE ABSOLUTE 0.9 Th/cmm (0.1-0.4); HEMOGLOBIN 9.3 gm/dL (12-16); MEAN CORPUSCULAR HEMOGLOBIN 24.5 pg (27.0-31.0); MEAN CORPUSCULAR HGB CONC 32.2 pg (28.0-36.0); MEAN PLATELET VOLUME 7.1 fl; MONOCYTE ABSOLUTE 1.1 Th/cmm (0.3-1.0); NEUTROPHILE ABSOLUTE 9.3 Th/cmm (1.8-8.0); PLATELET COUNT 388 Th/cmm (150-400); RED BLOOD COUNT 3.81 Mil/cmm (3.80-5.20); RED CELL DISTRIBUTION WIDTH 16.7 % (11.5-20.0); WHITE BLOOD COUNT 14.4 Th/cmm (4.8-10.8)
[2018-06-11] MEDS: Budesonide 0.5 Mg/2 mL Ud HHN SCH (07:10)
[2018-06-11] MEDS: Albuterol/Ipratropium Neb 3 ML AERS HHN SCH ×3 (07:10→14:00)
[2018-06-11] MEDS ORDERED: Levothyroxine 0.1 Mg Tab PO SCH (07:30)
[2018-06-11] MEDS: INSULIN ASPART SLIDING SCALE 100 UNITS/ML UNIT SUBQ SCH ×2 (07:48→12:14)
[2018-06-11] MEDS: Theophylline 100 mg ER Tab PO SCH (08:13)
[2018-06-11] MEDS: Pantoprazole 40 mg/Packet PO SCH (08:13)
[2018-06-11] MEDS: Aspirin 81mg Chewable Tab PO SCH (08:14)
[2018-06-11] MEDS: INSULIN 70/30 100 UNITS/ML SUBQ SCH (08:15)
--- NOTE | 2018-06-11 09:29 | GI Progress Note ---
Subjective - Review of Systems Service Date: 06/11/18 Subjective: No overnight events Objective - Results Result Diagrams: 06/11/18 06:00 06/09/18 06:10 Recent Labs: Laboratory Last Values WBC 14.4 Th/cmm (4.8-10.8) H 06/11/18 06:00 RBC 3.81 Mil/cmm (3.80-5.20) 06/11/18 06:00 Hgb 9.3 gm/dL (12-16) L 06/11/18 06:00 Hct 29.0 % (41.0-60) L 06/11/18 06:00 MCV 76.0 fl (81-100) L 06/11/18 06:00 MCH 24.5 pg (27.0-31.0) L 06/11/18 06:00 MCHC Differential 32.2 pg (28.0-36.0) 06/11/18 06:00 RDW 16.7 % (11.5-20.0) 06/11/18 06:00 Plt Count 388 Th/cmm (150-400) 06/11/18 06:00 MPV 7.1 fl 06/11/18 06:00 Add Manual Diff YES 06/09/18 06:10 Neutrophils % 64.5 % (40.0-80.0) 06/11/18 06:00 Band Neutrophils % 0 % (0-10) 06/09/18 06:10 Lymphocytes % 20.6 % (20.0-50.0) 06/11/18 06:00 Monocytes % 7.6 % (2.0-10.0) 06/11/18 06:00 Eosinophils % 6.5 % (0.0-5.0) H 06/11/18 06:00 Basophils % 0.8 % (0.0-2.0) 06/11/18 06:00 Neutrophils (Manual) 63 % (40-80) 06/09/18 06:10 Lymphocytes 25 % (20-50) 06/09/18 06:10 Monocytes 10 % (2-10) 06/09/18 06:10 Eosinophils 2 % (0-5) 06/09/18 06:10 Basophils 0 % (0-3) 06/09/18 06:10 Hypochromia 1+ 06/07/18 05:10 Platelet Estimate INCREASED PLATELETS (NORMAL) 06/09/18 06:10 Microcytosis 3+ 06/09/18 06:10 PT 9.9 SECONDS (9.5-11.5) 06/05/18 23:10 INR 0.95 (0.5-1.4) 06/05/18 23:10 PTT (Actin FS) 22.0 SECONDS (26.0-38.0) L 06/05/18 23:10 Specimen Source Arterial 06/10/18 12:08 Sample Site Left Radial 06/10/18 12:08 pH 7.50 (7.35-7.45) H 06/10/18 12:08 pCO2 43.0 mmHg (35.0-45.0) 06/10/18 12:08 pO2 78.0 mmHg (80.0-100.0) L 06/10/18 12:08 HCO3 32.2 mEq/L (20.0-26.0) H 06/10/18 12:08 Base Excess 9.3 mEq/L (-3.0-3.0) H 06/10/18 12:08 O2 Saturation 96.0 % (92.0-100.0) 06/10/18 12:08 Erimas Test YES 06/10/18 12:08 Vent Rate NA 06/10/18 12:08 Inspired O2 21 06/10/18 12:08 Tidal Volume NA 06/10/18 12:08 PEEP NA 06/10/18 12:08 Pressure (ins/psv/peep) NA 06/10/18 12:08 Critical Value E.GALLOWAY 06/10/18 12:08 Sodium 136 mEq/L (136-145) 06/09/18 06:10 Potassium 4.3 mEq/L (3.5-5.1) 06/09/18 06:10 Chloride 100 mEq/L (98-107) 06/09/18 06:10 Carbon Dioxide 30.4 mEq/L (21.0-31.0) 06/09/18 06:10 Anion Gap 9.9 (7.0-16.0) 06/09/18 06:10 BUN 48 mg/dL (7-25) H 06/09/18 06:10 Creatinine 1.1 mg/dL (0.6-1.2) 06/09/18 06:10 Est GFR ( Amer) TNP 06/09/18 06:10 Est GFR (Non-Af Amer) TNP 06/09/18 06:10 BUN/Creatinine Ratio 43.6 06/09/18 06:10 Glucose 128 mg/dL (70-105) H 06/09/18 06:10 POC Glucose 146 MG/DL (70 - 105) H 06/11/18 07:46 Calcium 8.7 mg/dL (8.6-10.3) 06/09/18 06:10 Iron 20 ug/dL (27-139) L 06/08/18 05:00 TIBC 373 ug/dL (250-450) 06/08/18 05:00 Iron Saturation 5 % (15-55) L 06/08/18 05:00 Unsaturated IBC 353 ug/dL (118-369) 06/08/18 05:00 Ferritin 16 ng/mL (15-150) 06/06/18 08:20 Total Bilirubin 0.3 mg/dL (0.3-1.0) 06/09/18 06:10 Direct Bilirubin 0.13 mg/dL (0.0-0.2) 06/07/18 05:10 AST 12 U/L (13-39) L 06/09/18 06:10 ALT 6 U/L (7-52) L 06/09/18 06:10 Alkaline Phosphatase 51 U/L (34-104) 06/09/18 06:10 Ammonia 54 umol/L (16-53) H 06/07/18 05:10 Troponin I 0.02 ng/mL (0.01-0.05) 06/05/18 23:10 B-Natriuretic Peptide 569.0 pg/mL (5.0-100.0) H 06/07/18 05:10 Total Protein 6.9 gm/dL (6.0-8.3) 06/09/18 06:10 Albumin 3.4 gm/dL (3.7-5.3) L 06/09/18 06:10 Globulin 3.5 gm/dL 06/09/18 06:10 Albumin/Globulin Ratio 1.0 (1.0-1.8) 06/09/18 06:10 Triglycerides 66 mg/dL (<150) 06/06/18 08:20 Cholesterol 155 mg/dL (<200) 06/06/18 08:20 LDL Cholesterol Direct 91 mg/dL (75-193) 06/06/18 08:20 HDL Cholesterol 58 mg/dL (23-92) 06/06/18 08:20 Vitamin B12 372 pg/mL (232-1245) 06/08/18 05:00 Folic Acid 9.7 ng/mL (>3.0) 06/08/18 05:00 TSH 3.06 uIU/ml (0.34-5.60) 06/05/18 23:10 Urine Source RANDOM 06/06/18 03:45 Urine Color YELLOW 06/06/18 03:45 Urine Clarity HAZY (CLEAR) 06/06/18 03:45 Urine pH 6.0 (4.6 - 8.0) 06/06/18 03:45 Ur Specific [place] 1.010 (1.005-1.030) 06/06/18 03:45 Urine Protein NEGATIVE mg/dL (NEGATIVE) 06/06/18 03:45 Urine Glucose (UA) NEGATIVE mg/dL (NEGATIVE) 06/06/18 03:45 Urine Ketones NEGATIVE mg/dL (NEGATIVE) 06/06/18 03:45 Urine Blood NEGATIVE (NEGATIVE) 06/06/18 03:45 Urine Nitrate POSITIVE (NEGATIVE) H 06/06/18 03:45 Urine Bilirubin NEGATIVE (NEGATIVE) 06/06/18 03:45 Urine Urobilinogen 0.2 E.U./dL (0.2 - 1.0) 06/06/18 03:45 Ur Leukocyte Esterase NEGATIVE (NEGATIVE) 06/06/18 03:45 Urine RBC 0-2 /hpf (0-5) 06/06/18 03:45 Urine WBC 0-2 /hpf (0-5) 06/06/18 03:45 Ur Epithelial Cells FEW /lpf (FEW) 06/06/18 03:45 Urine Bacteria MODERATE /hpf (NONE SEEN) H 06/06/18 03:45 Stool Occult Blood NEGATIVE (NEGATIVE) 06/08/18 19:00 Helicobacter pylori Ab NEGATIVE (NEGATIVE) 06/09/18 09:18 Blood Type O POSITIVE 06/09/18 11:04 Antibody Screen NEGATIVE 06/09/18 11:04 Crossmatch See Detail 06/09/18 11:04 - Physical Exam Vitals and I&O: Vital Signs Temp 97.3 F 06/11/18 04:00 Pulse 75 06/11/18 08:14 Resp 18 06/11/18 07:10 BP 125/59 06/11/18 08:14 Pulse Ox 99 06/11/18 07:10 Intake & Output 06/10/18 06/11/18 06/11/18 18:59 06:59 18:59 Intake Total 100 50 Balance 100 50 Weight (lbs) 92.034 kg 91.626 kg Intake: Intake, IV Amount 100 50 Piperacillin Sodium/ 100 50 Tazobact 3.375 gm In Sodium Chloride 0.9% 50 ml @ 100 mls/hr IV Q8H [facility] Rx#:[id number] Other: # Voids 1 2 # Bowel Movements 0 1 Weight Source Bedscale Bedscale Active Medications: Current Medications Albuterol/Ipratropium (Duoneb Neb) 3 ml HHN Q4HRT PRN PRN Reason: Shortness of Breath Stop: 08/05/18 02:47 Last Admin: 06/06/18 10:50 Dose: 3 ml Albuterol/Ipratropium (Duoneb Neb) 3 ml HHN [id number] [facility] Stop: 08/05/18 18:59 Last Admin: 06/11/18 07:10 Dose: Not Given Amlodipine Besylate (Norvasc) 5 mg PO DAILY [facility] Stop: 08/05/18 08:59 Last Admin: 06/11/18 08:14 Dose: 5 mg Aspirin (Aspirin Chewable) 81 mg PO DAILY [facility] Stop: 08/05/18 08:59 Last Admin: 06/11/18 08:14 Dose: 81 mg Budesonide (Pulmicort) 0.5 mg HHN BIDRT [facility] Stop: 08/05/18 18:59 Last Admin: 06/11/18 07:10 Dose: Not Given Folic Acid (Folate) 1 mg PO DAILY [facility] Stop: 08/08/18 08:59 Last Admin: 06/11/18 08:14 Dose: 1 mg Furosemide (Lasix) 40 mg IVP DAILY [facility] Stop: 08/06/18 08:59 Last Admin: 06/11/18 08:14 Dose: 40 mg Piperacillin Sod/Tazobactam (Sod 3.375 gm/ Sodium Chloride) 50 mls @ 100 mls/ hr IV Q8H [facility] Stop: 08/06/18 14:59 Last Admin: 06/11/18 06:46 Dose: 100 mls/hr Ferric Sodium Gluconate Complex 125 mg/ Sodium Chloride 110 mls @ 100 mls/hr IV Q24HR [facility] Stop: 06/16/18 15:59 Last Admin: 06/10/18 16:23 Dose: 100 mls/hr Insulin Aspart (Novolog Insulin Sliding Scale) 0 units SUBQ ACHS [facility]; Protocol Stop: 08/09/18 07:29 Last Admin: 06/11/18 07:48 Dose: Not Given Insulin Human Isoph/Insulin Regular (Novolin 70/30) 40 units SUBQ QDAC [facility] Stop: 08/05/18 07:29 Last Admin: 06/11/18 08:15 Dose: 40 units Levothyroxine Sodium (Synthroid) 0.2 mg PO QDAC [facility] Stop: 08/10/18 07:29 Last Admin: 06/11/18 08:15 Dose: 0.2 mg Lisinopril (Zestril) 40 mg PO DAILY [facility] Stop: 08/05/18 08:59 Last Admin: 06/11/18 08:14 Dose: 40 mg Metformin HCl (Glucophage) 1,000 mg PO BIDWM [facility] Stop: 08/05/18 07:59 Last Admin: 06/11/18 08:14 Dose: 1,000 mg Miscellaneous (Zosyn Iv Per Pharmacy) 1 [facility] PRN PRN PRN Reason: PROTOCOL Stop: 08/06/18 07:01 Pantoprazole Sodium (Protonix) 40 mg PO DAILY [facility] Stop: 08/06/18 08:59 Last Admin: 06/11/18 08:13 Dose: 40 mg Simvastatin (Zocor) 20 mg PO HS [facility] Stop: 08/05/18 20:59 Last Admin: 06/10/18 20:19 Dose: 20 mg Theophylline (Marc-Dur) 200 mg PO BID [facility] Stop: 08/09/18 16:59 Last Admin: 06/11/18 08:13 Dose: 200 mg General: Alert, Oriented x3, No acute distress HEENT: Atraumatic, PERRLA, EOMI Neck: Supple Cardiovascular: Regular rate Lungs: Clear to auscultation Abdomen: Bowel sounds, Soft Extremities: no Clubbing, no Cyanosis, no Edema - Procedures Procedures: Procedures Procedure Code Date ELECTROCARDIOGRAM 89.52 01/30/00 ELECTROCARDIOGRAM COMPLETE 79361 01/30/00 EXCISION OF STOMACH, ENDO, DIAGN [id number] 06/06/18 INSPECTION OF LOWER INTESTINAL TRACT, ENDO [id number] 06/06/18 LAPAROSCOPIC CHOLECYSTECTOMY 51.23 07/02/03 LAPAROSCOPIC CHOLECYSTECTOMY 84965 07/02/03 Assessment/Plan - Assessment Assessment: 78 yo F with SOB and hypochromic anemia EGD/colo 06/09 showed gastritis, healing ulcer, hemorrhoids, and poor bowel prep. Plan: - treat H pylori if this is found on pathology. pending still - recommend repeat colo within 1 year with a 2 day bowel prep to fully examine the colon (polyps less than 1cm may have been missed with poor prep) GI to see as needed, Please call with any questions
--- NOTE | 2018-06-11 14:36 | General Progress Note ---
Subjective - Review of Systems Service Date: 06/11/18 Subjective: no abd pain feels less short of breath Objective - Results Result Diagrams: 06/11/18 06:00 06/09/18 06:10 Recent Labs: Laboratory Last Values WBC 14.4 Th/cmm (4.8-10.8) H 06/11/18 06:00 RBC 3.81 Mil/cmm (3.80-5.20) 06/11/18 06:00 Hgb 9.3 gm/dL (12-16) L 06/11/18 06:00 Hct 29.0 % (41.0-60) L 06/11/18 06:00 MCV 76.0 fl (81-100) L 06/11/18 06:00 MCH 24.5 pg (27.0-31.0) L 06/11/18 06:00 MCHC Differential 32.2 pg (28.0-36.0) 06/11/18 06:00 RDW 16.7 % (11.5-20.0) 06/11/18 06:00 Plt Count 388 Th/cmm (150-400) 06/11/18 06:00 MPV 7.1 fl 06/11/18 06:00 Add Manual Diff YES 06/09/18 06:10 Neutrophils % 64.5 % (40.0-80.0) 06/11/18 06:00 Band Neutrophils % 0 % (0-10) 06/09/18 06:10 Lymphocytes % 20.6 % (20.0-50.0) 06/11/18 06:00 Monocytes % 7.6 % (2.0-10.0) 06/11/18 06:00 Eosinophils % 6.5 % (0.0-5.0) H 06/11/18 06:00 Basophils % 0.8 % (0.0-2.0) 06/11/18 06:00 Neutrophils (Manual) 63 % (40-80) 06/09/18 06:10 Lymphocytes 25 % (20-50) 06/09/18 06:10 Monocytes 10 % (2-10) 06/09/18 06:10 Eosinophils 2 % (0-5) 06/09/18 06:10 Basophils 0 % (0-3) 06/09/18 06:10 Hypochromia 1+ 06/07/18 05:10 Platelet Estimate INCREASED PLATELETS (NORMAL) 06/09/18 06:10 Microcytosis 3+ 06/09/18 06:10 PT 9.9 SECONDS (9.5-11.5) 06/05/18 23:10 INR 0.95 (0.5-1.4) 06/05/18 23:10 PTT (Actin FS) 22.0 SECONDS (26.0-38.0) L 06/05/18 23:10 Specimen Source Arterial 06/10/18 12:08 Sample Site Left Radial 06/10/18 12:08 pH 7.50 (7.35-7.45) H 06/10/18 12:08 pCO2 43.0 mmHg (35.0-45.0) 06/10/18 12:08 pO2 78.0 mmHg (80.0-100.0) L 06/10/18 12:08 HCO3 32.2 mEq/L (20.0-26.0) H 06/10/18 12:08 Base Excess 9.3 mEq/L (-3.0-3.0) H 06/10/18 12:08 O2 Saturation 96.0 % (92.0-100.0) 06/10/18 12:08 Ermias Test YES 06/10/18 12:08 Vent Rate NA 06/10/18 12:08 Inspired O2 21 06/10/18 12:08 Tidal Volume NA 06/10/18 12:08 PEEP NA 06/10/18 12:08 Pressure (ins/psv/peep) NA 06/10/18 12:08 Critical Value E.GALLOWAY 06/10/18 12:08 Sodium 136 mEq/L (136-145) 06/09/18 06:10 Potassium 4.3 mEq/L (3.5-5.1) 06/09/18 06:10 Chloride 100 mEq/L (98-107) 06/09/18 06:10 Carbon Dioxide 30.4 mEq/L (21.0-31.0) 06/09/18 06:10 Anion Gap 9.9 (7.0-16.0) 06/09/18 06:10 BUN 48 mg/dL (7-25) H 06/09/18 06:10 Creatinine 1.1 mg/dL (0.6-1.2) 06/09/18 06:10 Est GFR ( Amer) TNP 06/09/18 06:10 Est GFR (Non-Af Amer) TNP 06/09/18 06:10 BUN/Creatinine Ratio 43.6 06/09/18 06:10 Glucose 128 mg/dL (70-105) H 06/09/18 06:10 POC Glucose 165 MG/DL (70 - 105) H 06/11/18 11:36 Calcium 8.7 mg/dL (8.6-10.3) 06/09/18 06:10 Iron 20 ug/dL (27-139) L 06/08/18 05:00 TIBC 373 ug/dL (250-450) 06/08/18 05:00 Iron Saturation 5 % (15-55) L 06/08/18 05:00 Unsaturated IBC 353 ug/dL (118-369) 06/08/18 05:00 Ferritin 16 ng/mL (15-150) 06/06/18 08:20 Total Bilirubin 0.3 mg/dL (0.3-1.0) 06/09/18 06:10 Direct Bilirubin 0.13 mg/dL (0.0-0.2) 06/07/18 05:10 AST 12 U/L (13-39) L 06/09/18 06:10 ALT 6 U/L (7-52) L 06/09/18 06:10 Alkaline Phosphatase 51 U/L (34-104) 06/09/18 06:10 Ammonia 54 umol/L (16-53) H 06/07/18 05:10 Troponin I 0.02 ng/mL (0.01-0.05) 06/05/18 23:10 B-Natriuretic Peptide 569.0 pg/mL (5.0-100.0) H 06/07/18 05:10 Total Protein 6.9 gm/dL (6.0-8.3) 06/09/18 06:10 Albumin 3.4 gm/dL (3.7-5.3) L 06/09/18 06:10 Globulin 3.5 gm/dL 06/09/18 06:10 Albumin/Globulin Ratio 1.0 (1.0-1.8) 06/09/18 06:10 Triglycerides 66 mg/dL (<150) 06/06/18 08:20 Cholesterol 155 mg/dL (<200) 06/06/18 08:20 LDL Cholesterol Direct 91 mg/dL (75-193) 06/06/18 08:20 HDL Cholesterol 58 mg/dL (23-92) 06/06/18 08:20 Vitamin B12 372 pg/mL (232-1245) 06/08/18 05:00 Folic Acid 9.7 ng/mL (>3.0) 06/08/18 05:00 TSH 3.06 uIU/ml (0.34-5.60) 06/05/18 23:10 Urine Source RANDOM 06/06/18 03:45 Urine Color YELLOW 06/06/18 03:45 Urine Clarity HAZY (CLEAR) 06/06/18 03:45 Urine pH 6.0 (4.6 - 8.0) 06/06/18 03:45 Ur Specific [place] 1.010 (1.005-1.030) 06/06/18 03:45 Urine Protein NEGATIVE mg/dL (NEGATIVE) 06/06/18 03:45 Urine Glucose (UA) NEGATIVE mg/dL (NEGATIVE) 06/06/18 03:45 Urine Ketones NEGATIVE mg/dL (NEGATIVE) 06/06/18 03:45 Urine Blood NEGATIVE (NEGATIVE) 06/06/18 03:45 Urine Nitrate POSITIVE (NEGATIVE) H 06/06/18 03:45 Urine Bilirubin NEGATIVE (NEGATIVE) 06/06/18 03:45 Urine Urobilinogen 0.2 E.U./dL (0.2 - 1.0) 06/06/18 03:45 Ur Leukocyte Esterase NEGATIVE (NEGATIVE) 06/06/18 03:45 Urine RBC 0-2 /hpf (0-5) 06/06/18 03:45 Urine WBC 0-2 /hpf (0-5) 06/06/18 03:45 Ur Epithelial Cells FEW /lpf (FEW) 06/06/18 03:45 Urine Bacteria MODERATE /hpf (NONE SEEN) H 06/06/18 03:45 Stool Occult Blood NEGATIVE (NEGATIVE) 06/08/18 19:00 Helicobacter pylori Ab NEGATIVE (NEGATIVE) 06/09/18 09:18 Blood Type O POSITIVE 06/09/18 11:04 Antibody Screen NEGATIVE 06/09/18 11:04 Crossmatch See Detail 06/09/18 11:04 - Physical Exam Vitals and I&O: Vital Signs Temp 97.8 F 06/11/18 12:00 Pulse 77 06/11/18 14:00 Resp 18 06/11/18 14:00 BP 122/59 06/11/18 12:00 Pulse Ox 98 06/11/18 14:00 Intake & Output 06/10/18 06/11/18 06/11/18 18:59 06:59 18:59 Intake Total 100 50 50 Balance 100 50 50 Weight (lbs) 92.034 kg 91.626 kg Intake: Intake, IV Amount 100 50 50 Piperacillin Sodium/ 50 Tazobact 3.375 gm In Sodium Chloride 0.9% 50 ml @ 100 mls/hr IV Q6H [facility] Rx#:[id number] Piperacillin Sodium/ 100 50 Tazobact 3.375 gm In Sodium Chloride 0.9% 50 ml @ 100 mls/hr IV Q8H [facility] Rx#:[id number] Other: # Voids 1 2 # Bowel Movements 0 1 Weight Source Bedscale Bedscale Active Medications: Current Medications Albuterol/Ipratropium (Duoneb Neb) 3 ml HHN Q4HRT PRN PRN Reason: Shortness of Breath Stop: 08/05/18 02:47 Last Admin: 06/06/18 10:50 Dose: 3 ml Albuterol/Ipratropium (Duoneb Neb) 3 ml HHN [id number] [facility] Stop: 08/05/18 18:59 Last Admin: 06/11/18 14:00 Dose: 3 ml Amlodipine Besylate (Norvasc) 5 mg PO DAILY [facility] Stop: 08/05/18 08:59 Last Admin: 06/11/18 08:14 Dose: 5 mg Aspirin (Aspirin Chewable) 81 mg PO DAILY [facility] Stop: 08/05/18 08:59 Last Admin: 06/11/18 08:14 Dose: 81 mg Budesonide (Pulmicort) 0.5 mg HHN BIDRT [facility] Stop: 08/05/18 18:59 Last Admin: 06/11/18 07:10 Dose: Not Given Folic Acid (Folate) 1 mg PO DAILY [facility] Stop: 08/08/18 08:59 Last Admin: 06/11/18 08:14 Dose: 1 mg Furosemide (Lasix) 40 mg IVP DAILY [facility] Stop: 08/06/18 08:59 Last Admin: 06/11/18 08:14 Dose: 40 mg Ferric Sodium Gluconate Complex 125 mg/ Sodium Chloride 110 mls @ 100 mls/hr IV Q24HR [facility] Stop: 06/16/18 15:59 Last Admin: 06/10/18 16:23 Dose: 100 mls/hr Piperacillin Sod/Tazobactam (Sod 3.375 gm/ Sodium Chloride) 50 mls @ 100 mls/ hr IV Q6H [facility] Stop: 08/06/18 14:59 Last Infusion: 06/11/18 12:45 Dose: Infused Insulin Aspart (Novolog Insulin Sliding Scale) 0 units SUBQ ACHS [facility]; Protocol Stop: 08/09/18 07:29 Last Admin: 06/11/18 12:14 Dose: 2 units Insulin Human Isoph/Insulin Regular (Novolin 70/30) 40 units SUBQ QDAC [facility] Stop: 08/05/18 07:29 Last Admin: 06/11/18 08:15 Dose: 40 units Levothyroxine Sodium (Synthroid) 0.2 mg PO QDAC [facility] Stop: 08/10/18 07:29 Last Admin: 06/11/18 08:15 Dose: 0.2 mg Lisinopril (Zestril) 40 mg PO DAILY [facility] Stop: 08/05/18 08:59 Last Admin: 06/11/18 08:14 Dose: 40 mg Metformin HCl (Glucophage) 1,000 mg PO BIDWM [facility] Stop: 08/05/18 07:59 Last Admin: 06/11/18 08:14 Dose: 1,000 mg Miscellaneous (Zosyn Iv Per Pharmacy) 1 [facility] PRN PRN PRN Reason: PROTOCOL Stop: 08/06/18 07:01 Pantoprazole Sodium (Protonix) 40 mg PO DAILY [facility] Stop: 08/06/18 08:59 Last Admin: 06/11/18 08:13 Dose: 40 mg Simvastatin (Zocor) 20 mg PO HS [facility] Stop: 08/05/18 20:59 Last Admin: 06/10/18 20:19 Dose: 20 mg Theophylline (Marc-Dur) 200 mg PO BID [facility] Stop: 08/09/18 16:59 Last Admin: 06/11/18 08:13 Dose: 200 mg General: Alert, Oriented x3, No acute distress HEENT: Atraumatic, PERRLA, EOMI Neck: Supple Cardiovascular: Regular rate Lungs: Clear to auscultation Abdomen: Bowel sounds, Soft Extremities: no Clubbing, no Cyanosis, no Edema - Procedures Procedures: Procedures Procedure Code Date ELECTROCARDIOGRAM 89.52 01/30/00 ELECTROCARDIOGRAM COMPLETE 56090 01/30/00 EXCISION OF STOMACH, ENDO, DIAGN [id number] 06/06/18 INSPECTION OF LOWER INTESTINAL TRACT, ENDO [id number] 06/06/18 LAPAROSCOPIC CHOLECYSTECTOMY 51.23 07/02/03 LAPAROSCOPIC CHOLECYSTECTOMY 48425 07/02/03 Assessment/Plan - Assessment Assessment: Microcytic anemia with low ferritin most suggestive of iron deficiency anemia. I will start the patient on IV iron supplementation and folate supplementation because of iron deficiency, diabetes mellitus, and chronic kidney disease. I will follow the stool occult blood and obtain total iron binding capacity, B12 and folate level to complement the anemia workup. * Iron deficiency anemia * Gastric ulcer, gastritis, hemorrhoids * DM, CKD Continue iv iron, d/c ibuprofen, transfuse PRBC for likely bleeding from ulcer 06/10/19: lab noted. hgb better post transfusion. 06/11: No new sxs. hgb stable. continue ferrlecit. follow cbc Nutritional Asmnt/Malnutr-PDOC - Dietary Evaluation Malnutrition Findings (Please click <Entered> for more info): Nutritional Asmnt/Malnutrition Start: 06/07/18 18: 26 Text: Status: Complete Freq: Protocol: Document 06/07/18 18:30 LCHENG (Rec: 06/07/18 18:46 [email or web address]) Nutritional Asmnt/Malnutrition Patient General Information Nutritional Screening High Risk Pertinent Medical Hx/Surgical Hx HTN, DM, asthma/COPD, arthritis, cholecystectomy, hysterectomy, Subjective Information consult received for blood sugar 484. per nurse note, pt refused EGD for tommorrow, on Bipap PRN. Per EMR, Pt consumed 100% of breakfast today. Current Diet Order/ Nutrition Support cardiac Pertinent Medications lasix, novolog, novolin, glucophage, protonix, piperacillin, nacl 0.9% Pertinent Labs 06/07 Na 130, K 5.6, cl 95, BUN 42, Cr 1.4, glucose 265, POC 211-262 Nutritional Hx/Data Height 1.52 m Height (Calculated Centimeters) 152.4 Current Weight (lbs) 89.358 kg Weight (Calculated Kilograms) 89.4 Weight (Calculated Grams) 76675.7 [place] Body Weight 100 Body Mass Index (BMI) 38.5 Weight Status Obese GI Symptoms GI Symptoms None Last BM 06/07 Difficult in: None Skin Integrity/Comment: intact Current %PO Good (75-100%) Estimated Nutritional Goals BEE in Kcals: Adj wt of IBW Calories/Kcals/Kg 25-30 Kcals Calculated 4906-8249 Protein: Adj wt of IBW Protein g/k-1.2 Protein Calculated 56-67 Fluid: ml 1400-1680ml (1ml/kcal) Nutritional Problem 1. Problem Problem altered nutrition related labs Etiology electrolytes imbalance, hyperglycemia, possible renal dysfunction Signs/Symptoms: Na 130, K 5.6, cl 95, BUN 42, Cr 1.4, glucose 265, POC 211- 262 Malnutrition Alert Is there a minimum of two criteria No selected? Query Text:Check all the applicable criteria. A minimum of two criteria are recommended for diagnosis of either severe or non-severe malnutrition. Malnutrition Related to Morbid Obesity Malnutrition related to morbid obesity No Intervention/Recommendation Comments 1. Recommend adding CCHO 60gm diet d/t elevated blood sugar and hx of DM. 2. Monitor PO intake, wt, labs and skin integrity 3. F/U as high risk in 2-3 days, 06/09-06/10 Expected Outcomes/Goals Expected Outcomes/Goals 1. PO intake to meet at least 75% of nutritional needs. 2. Wt stability, skin to remain intact, labs to approach WNL.
--- NOTE | 2018-06-13 06:48 | Discharge Summary ---
DATE OF DISCHARGE: 06/11/2018 PRELIMINARY DIAGNOSES: 1. Acute bronchitis. 2. Anemia. 3. Congestive heart failure. 4. Diabetes mellitus. 5. Leukocytosis. 6. Hyponatremia. 7. Elevated BNP. 8. Urinary tract infection. DISCHARGE DIAGNOSES: 1. Gastric ulcers. 2. Gastritis. 3. Internal hemorrhoids. 4. Diastolic dysfunction, congestive heart failure. 5. Asthma. 6. Chronic obstructive pulmonary disease. 7. Acute bronchitis. 8. Chronic renal insufficiency. 9. Diabetes mellitus. BRIEF HISTORY OF PRESENT ILLNESS: This is an 78-year-old female who presents to [facility] ER, lives at home, was brought in by her family members after noting increased shortness of breath for the past few months, has been steadily getting worse. The patient has a history of diabetes, hypertension and also has a history of COPD, asthma and arthritis. While in the ER, she had some initial lab work that revealed white count of 13.3, hemoglobin noted to be low at 8.0, hematocrit 25.2 and platelets 447. PT/INR were normal at 9.90, 0.95. Sodium was noted to be low at 132, potassium 4.4, chloride 97, bicarbonate 27, BUN 23, creatinine 0.9, glucose 157. Liver enzymes were normal. Her BNP was noted to be elevated 238, thyroid TSH was normal at 3.0. Urine test was done, which revealed infection with positive nitrites, moderate bacteria, hazy in color and clarity. The patient was subsequently admitted to [facility] for further evaluation and treatment. HOSPITAL COURSE: The patient was seen and evaluated by GI for anemia and underwent upper and lower endoscopy, which revealed gastritis along with stomach ulcers and internal hemorrhoids. The patient during her hospital stay, her hemoglobin had dropped down to 7.7 and was given 1 unit of packed red blood cells, which brought her hemoglobin back up to 8.7 the following day and then 9.3 the day after. She has a history of chronic anemia, was seen by Hematology/Oncology, Dr. Badillo, who had ordered IV ferrous sulfate or parasite for her. The patient states that she was unable to tolerate the oral ferrous and was given IV instead. The patient was also seen by Cardiology for her history of congestive heart failure and then underwent an echocardiogram, which revealed diastolic dysfunction. She was also seen by Pulmonary and was diagnosed with asthmatic bronchitis, given IV Solu-Medrol. Her initial white count done in the ER was a little bit elevated at 3.3, but had increased to 26.4. Blood cultures were negative and leukocytosis was found to be due to steroid response. IV form Solu-Medrol was discontinued and the patient was transitioned to oral prednisone. Her white count then began to decrease to 19.8 the following day and then 12.4 and then 11.8 the day after. The patient was then subsequently discharged in stable condition, was to continue antibiotic treatment, was told to follow up with her regular primary care physician in 3-5 days. JOB# [id number]
== END 2018-06-11 16:30 | disposition home health service (06) | DRG 383 ==
LOC: ER 22:50 → TELE 06-06 03:01
PROVIDERS: ADMIT Family Medicine; ATTEND Family Medicine
PROC: 0DB68ZX Excision of Stomach, Via Natural or Artificial Opening Endoscopic, Diagnostic (ICD-10-PCS; principal; 2018-06-09)
PROC: 0DJD8ZZ Inspection of Lower Intestinal Tract, Via Natural or Artificial Opening Endoscopic (ICD-10-PCS; 2018-06-09)
PROC: 0DB98ZX Excision of Duodenum, Via Natural or Artificial Opening Endoscopic, Diagnostic (ICD-10-PCS; 2018-06-09)
PROC: 30233N1 Transfusion of Nonautologous Red Blood Cells into Peripheral Vein, Percutaneous Approach (ICD-10-PCS; 2018-06-09)
DX: K25.9 Gastric ulcer, unspecified as acute or chronic, without hemorrhage or perforation (principal); E11.00 Type 2 diabetes mellitus with hyperosmolarity without nonketotic hyperglycemic-hyperosmolar coma (NKHHC); N39.0 Urinary tract infection, site not specified; I50.32 Chronic diastolic (congestive) heart failure; E87.1 Hypo-osmolality and hyponatremia; E66.2 Morbid (severe) obesity with alveolar hypoventilation; J44.0 Chronic obstructive pulmonary disease with (acute) lower respiratory infection; I13.0 Hypertensive heart and chronic kidney disease with heart failure and stage 1 through stage 4 chronic kidney disease, or unspecified chronic kidney disease; E11.65 Type 2 diabetes mellitus with hyperglycemia; J20.9 Acute bronchitis, unspecified; M81.0 Age-related osteoporosis without current pathological fracture; K64.4 Residual hemorrhoidal skin tags; K64.8 Other hemorrhoids; M19.90 Unspecified osteoarthritis, unspecified site; D50.9 Iron deficiency anemia, unspecified; E87.5 Hyperkalemia; N18.9 Chronic kidney disease, unspecified; D12.0 Benign neoplasm of cecum; E11.22 Type 2 diabetes mellitus with diabetic chronic kidney disease; K29.70 Gastritis, unspecified, without bleeding; Z90.49 Acquired absence of other specified parts of digestive tract; Z90.710 Acquired absence of both cervix and uterus; Z68.39 Body mass index [BMI] 39.0-39.9, adult; Z79.4 Long term (current) use of insulin; Z79.82 Long term (current) use of aspirin
CPT/HCPCS: 36415-UA; 36600-90; 71045-TC; 71046-TC; 80048-TC; 80053-TC; 80061-TC; 81001-TC; 82140-TC; 82248-TC; 82270-TC; 82607-90; 82728-90; 82746-90; 82803-TC; 82948-90; 83036-90; 83540-90; 83550-90; 83880-TC; 84443-TC; 84484-TC; 85007-TC; 85025-TC; 85610-TC; 85730-TC; 86850-TC; 86900-TC; 86901-TC; 86922-TC; 87086-90; 87338-TC; 93005; 94640; 94760; 96374; 96375; C9113; J0696; J1815; J1940; J2543; J2704; J2916; J2920; J2930; P9016; Z7610

== ENCOUNTER 2018-06-20 11:47 | Inpatient (IN) | payer OTHER ==
[2018-06-20 12:21] LABS: % BASOPHILS 1.5 % (0.0-2.0); % EOSINOPHILS 2.3 % (0.0-5.0); % LYMPHOCYTES 14.3 % (20.0-50.0); % MONOCYTES 4.9 % (2.0-10.0); BASOPHILE ABSOLUTE 0.2 Th/cumm (0-0.2); EOSINOPHILE ABSOLUTE 0.4 Th/cmm (0.1-0.4); HEMATOCRIT 31.5 % (41.0-60); HEMOGLOBIN 9.9 gm/dL (12-16); LYMPHOCYTE ABSOLUTE 2.3 Th/cmm (1.5-3.0); MEAN CELL VOLUME 76.7 fl (81-100); MEAN CORPUSCULAR HEMOGLOBIN 24.2 pg (27.0-31.0); MEAN CORPUSCULAR HGB CONC 31.5 pg (28.0-36.0); MONOCYTE ABSOLUTE 0.8 Th/cmm (0.3-1.0); NEUTROPHILE ABSOLUTE 12.3 Th/cmm (1.8-8.0); PLATELET COUNT 456 Th/cmm (150-400); RED BLOOD COUNT 4.11 Mil/cmm (3.80-5.20); RED CELL DISTRIBUTION WIDTH 18.3 % (11.5-20.0)
[2018-06-20 12:22] LABS: INR 0.95 (0.5-1.4); PROTHROMBIN TIME (TEST) 9.9 SECONDS (9.5-11.5)
[2018-06-20 12:28] LABS: ALB/GLOB RATIO 1.1 (1.0-1.8); ALBUMIN 4.2 gm/dL (3.7-5.3); ALKALINE PHOSPHATASE 92 U/L (34-104); ANION GAP 15.2 (7.0-16.0); BILIRUBIN,TOTAL 0.4 mg/dL (0.3-1.0); BUN - UREA NITROGEN 14 mg/dL (7-25); CALCIUM SERUM 9.6 mg/dL (8.6-10.3); CARBON DIOXIDE 24.8 mEq/L (21.0-31.0); CHLORIDE 98 mEq/L (98-107); CREATININE - SERUM 0.8 mg/dL (0.6-1.2); GLUCOSE 273 mg/dL (70-105); SGOT 18 U/L (13-39); SGPT/ALT 11 U/L (7-52); SODIUM SERUM 134 mEq/L (136-145); TOTAL PROTEIN,SERUM 8.1 gm/dL (6.0-8.3)
[2018-06-20 12:28] LABS: PHOSPHOROUS 4.2 mg/dL (2.5-5.0)
[2018-06-20] MEDS ORDERED: cefTRIAXone 1 GM in Sodium Chloride 0.9% 50 ML IV ONE (12:30)
[2018-06-20] MEDS ORDERED: IOHEXOL 350mgI/mL 100mL Bottle IVP ONE (13:28)
[2018-06-20] MEDS ORDERED: Heparin 25,000 Units In D5W 25,000 UNITS/250 ML BAG IV ONE (14:43)
[2018-06-20 14:47] LABS: URINE SOURCE CLEAN C
[2018-06-20] MEDS ORDERED: Pantoprazole 80 MG in Sodium Chloride 0.9% 100 ML IV ONE (14:48)
[2018-06-20 14:49] LABS: URINE BILIRUBIN NEGATIVE (NEGATIVE); URINE BLOOD MODERATE (NEGATIVE); URINE GLUCOSE (UA) 500 mg/dL (NEGATIVE); URINE KETONE NEGATIVE (NEGATIVE); URINE LEUKOCYTE ESTERASE NEGATIVE (NEGATIVE); URINE MICROSCOPIC INDICATED? YES; URINE NITRATE NEGATIVE (NEGATIVE); URINE PROTEIN 100 mg/dL (NEGATIVE); URINE UROBILINOGEN 0.2 E.U./dL (0.2 - 1.0)
--- NOTE | 2018-06-20 15:00 | ED Physician Chart ---
ED Chief Complaint/HPI - Patient Information Date Seen:: 06/20/18 Time Seen:: 11:54 Chief Complaint:: sob History of Present Illness:: sob. has been more difficult to lie flat and breathe. recent admission and discharge on 06/11/2018 with bronchitis diagnosis. Had a BNP of 238 last admission. Was not discharged on Lasix. no fever. no sputum. Allergies:: Allergies Allergy/AdvReac Type Severity Reaction Status Date / Time No Known Allergies Allergy Verified 09/20/17 14:06 Vitals:: Vital Signs - 8 hr 06/20/18 06/20/18 06/20/18 11:54 12:04 12:05 Temp 97.9 F 97.9 F HR 113 113 100 RR 22 22 BP 171/68 171/68 168/82 O2 Sat % 98 06/20/18 06/20/18 06/20/18 12:20 12:23 13:12 Temp HR 97 91 RR 30 36 BP 128/68 128/68 137/70 O2 Sat % 98 99 06/20/18 06/20/18 13:39 14:31 Temp HR 87 88 RR 23 25 BP 126/67 141/85 O2 Sat % 98 Historian:: Patient, Family Member Review:: Nurse's Note Reviewed ED Review of Systems - Review of Systems General/Constitutional: No fever, No chills, No weight loss, No weakness, No diaphoresis, No edema, No loss of appetite Skin: No skin lesions, No rash, No bruising Head: No headache, No light-headedness Eyes: No loss of vision, No pain, No diplopia ENT: No earache, No nasal drainage, No sore throat, No tinnitus Neck: No neck pain, No swelling, No thyromegaly, No stiffness, No mass noted Cardio Vascular: Chest pain, No palpitations, No PND, No orthopnea, No edema Pulmonary: SOB GI: No nausea, No vomiting, No diarrhea, No pain, No melena, No hematochezia, No constipation, No hematemesis G/U: No dysuria, No frequency, No hematuria Musculoskeletal: No bone or joint pain, No back pain, No muscle pain Endocrine: No polyuria, No polydipsia Psychiatric: No prior psych history, No depression, No anxiety, No suicidal ideation Hematopoietic: No bruising, No lymphadenopathy Allergic/Immuno: No urticaria, No angioedema Neurological: No syncope, No focal symptoms, No weakness, No paresthesia, No headache, No seizure, No dizziness, No confusion, No vertigo ED Past Medical History - Past Medical History Past Medical History: HTN, Asthma/COPD, Other (gastritis and "healing ulcers" as well as internal and external hemorrhoids) Family Medical History - Family Member Mother History Unknown: Yes Living Status: ED Physical Exam - Physical Examination General/Constitutional: Awake, GCS 15 Other Gen/Cons comments:: in moderate to severe respiratory distress Head: Atraumatic Eyes: Lids, conjuctiva normal, PERRL Skin: Nl inspection ENMT: External ears, nose nl Neck: Nontender Respiratory: Nl effort/Exclusion Other Respiratory comments:: tachypnea. pursed lip breathing. decreased breath sounds at bases. not able to hear rales due to thick soft tissue at back. Cardio Vascular: RRR GI: No tenderness/rebounding/guarding, No organomegaly, No hernia, Normal BS's, Nondistended, No mass/bruits, No McBurney tenderness Other GI comments:: obese. : No CVA tenderness Extremities: Full ROM, normal strength in all extremities Other Extremities comments:: 4 + pitting edema. Neuro/Psych: Alert/oriented, Normal sensory exam, Normal motor strength Other Neuro/Psych comments:: complains of leg cramps during the end of ER stay. positive calf tenderness. Negative Rosalio's sign. Misc: Normal back, No paraspinal tenderness ED Labs/Radiology/EKG Results - Lab Results Results: Laboratory Tests 06/20/18 06/20/18 06/20/18 12:04 12:04 12:04 WBC 16.0 H RBC 4.11 Hgb 9.9 L Hct 31.5 L MCV 76.7 L MCH 24.2 L MCHC Differential 31.5 RDW 18.3 Plt Count 456 H MPV 7.0 Neutrophils % 77.0 Lymphocytes % 14.3 L Monocytes % 4.9 Eosinophils % 2.3 Basophils % 1.5 PT INR PTT (Actin FS) D-Dimer Sodium Potassium Chloride Carbon Dioxide Anion Gap BUN Creatinine Est GFR ( Amer) Est GFR (Non-Af Amer) BUN/Creatinine Ratio Glucose Whole Bld Lactic Acid Calcium Phosphorus Magnesium Total Bilirubin AST ALT Alkaline Phosphatase Troponin I 0.02 B-Natriuretic Peptide 431.0 H Total Protein Albumin Globulin Albumin/Globulin Ratio 06/20/18 06/20/18 06/20/18 12:04 12:04 12:04 WBC RBC Hgb Hct MCV MCH MCHC Differential RDW Plt Count MPV Neutrophils % Lymphocytes % Monocytes % Eosinophils % Basophils % PT 9.9 INR 0.95 PTT (Actin FS) 22.4 L D-Dimer 3540 H Sodium 134 L Potassium 4.0 Chloride 98 Carbon Dioxide 24.8 Anion Gap 15.2 BUN 14 Creatinine 0.8 Est GFR ( Amer) TNP Est GFR (Non-Af Amer) TNP BUN/Creatinine Ratio 17.5 Glucose 273 H Whole Bld Lactic Acid Calcium 9.6 Phosphorus Magnesium 2.0 Total Bilirubin 0.4 AST 18 ALT 11 Alkaline Phosphatase 92 Troponin I B-Natriuretic Peptide Total Protein 8.1 Albumin 4.2 Globulin 3.9 Albumin/Globulin Ratio 1.1 06/20/18 06/20/18 12:04 12:12 WBC RBC Hgb Hct MCV MCH MCHC Differential RDW Plt Count MPV Neutrophils % Lymphocytes % Monocytes % Eosinophils % Basophils % PT INR PTT (Actin FS) D-Dimer Sodium Potassium Chloride Carbon Dioxide Anion Gap BUN Creatinine Est GFR ( Amer) Est GFR (Non-Af Amer) BUN/Creatinine Ratio Glucose Whole Bld Lactic Acid 2.22 H* Calcium Phosphorus 4.2 Magnesium 2.0 Total Bilirubin AST ALT Alkaline Phosphatase Troponin I B-Natriuretic Peptide Total Protein Albumin Globulin Albumin/Globulin Ratio ED Assessment - Assessment General Assessment: EKG from 06/20/18 at 12:00:15 p.m. reveals normal sinus rhythm with flipped t wave in AVR and AVL. CXR per my reading: CHF, cardiomegaly, infiltrates Assessment/Comments:: called and presented case to Dr. Jiménez. Patient denied coughing up blood, passing blood in urine or stool. Recent EGD showed gastritis and healing gastric ulcers. Informed Dr. Jiménez. Will heparinize patient for PE and place her on a Protonix drip after a bolus. ED Septic Shock - . Is Septic Shock (SBP<90, OR Lactate>4 mmol\\L) present?: No - <6hrs of presentation: Vital Signs: Vital Signs - 8 hr 06/20/18 06/20/18 06/20/18 11:54 12:04 12:05 Temp 97.9 F 97.9 F HR 113 113 100 RR 22 22 BP 171/68 171/68 168/82 O2 Sat % 98 06/20/18 06/20/18 06/20/18 12:20 12:23 13:12 Temp HR 97 91 RR 30 36 BP 128/68 128/68 137/70 O2 Sat % 98 99 06/20/18 06/20/18 13:39 14:31 Temp HR 87 88 RR 23 25 BP 126/67 141/85 O2 Sat % 98 ED Reassessment (Disposition) - Reassessment Reassessment Condition:: Improved - Diagnosis Diagnosis:: Dyspnea Oxygen dependence Congestive Heart Failure Bilateral infiltrates Right upper lobe pulmonary embolus Obesity - Patient Disposition Discharge/Transfer:: Acute Care w/in this hosp Accepting Physician:: Dr. Jiménez Time Called:: 14:30 Time Responded:: 14:30 Discussion with Medical Provider:: doctor agrees with admitting this patient to the ICU. Admitted to:: ICU Condition at Disposition:: Stable, Improved
[2018-06-20 15:14] LABS: URINE COLOR YELLOW
[2018-06-20 15:17] LABS: URINE CLARITY HAZY (CLEAR)
[2018-06-20 15:23] LABS: URINE WBC 0-2 /hpf (0-5)
[2018-06-20 15:24] LABS: URINE BACTERIA 1+ /hpf (NONE SEEN); URINE EPITHELIAL CELLS FEW /lpf (FEW); URINE FINE GRANULAR CAST 0-2 /lpf (NONE SEEN)
[2018-06-20] MEDS: Pantoprazole 80 MG in Sodium Chloride 0.9% 100 ML IV SCH (16:00)
[2018-06-20] MEDS ORDERED: Sodium Chloride 0.9% 1,000 ML IV SCH (16:16)
[2018-06-20] MEDS ORDERED: HYDROmorphone 1 mg/mL 1mL Syr ONE (17:57)
[2018-06-20] MEDS: HYDROmorphone 1 mg/mL 1mL Syr IVP PRN (18:10)
[2018-06-20] MEDS: Heparin 25,000 Units In D5W 25,000 UNITS/250 ML BAG IV PRN (18:54)
[2018-06-20 21:24] VITALS: BP 132/49
[2018-06-21] MEDS: HYDROmorphone 1 mg/mL 1mL Syr IVP PRN ×3 (01:52→21:39)
[2018-06-21 03:37] LABS: % BASOPHILS 0.4 % (0.0-2.0); % EOSINOPHILS 2.8 % (0.0-5.0); % LYMPHOCYTES 16.5 % (20.0-50.0); % MONOCYTES 9.4 % (2.0-10.0); % NEUTROPHILS 70.9 % (40.0-80.0); BASOPHILE ABSOLUTE 0.1 Th/cumm (0-0.2); EOSINOPHILE ABSOLUTE 0.4 Th/cmm (0.1-0.4); HEMATOCRIT 28.9 % (41.0-60); HEMOGLOBIN 9.1 gm/dL (12-16); LYMPHOCYTE ABSOLUTE 2.6 Th/cmm (1.5-3.0); MEAN CELL VOLUME 78.8 fl (81-100); MEAN CORPUSCULAR HEMOGLOBIN 24.8 pg (27.0-31.0); MEAN CORPUSCULAR HGB CONC 31.5 pg (28.0-36.0); MEAN PLATELET VOLUME 6.8 fl; MONOCYTE ABSOLUTE 1.5 Th/cmm (0.3-1.0); NEUTROPHILE ABSOLUTE 10.9 Th/cmm (1.8-8.0); PLATELET COUNT 395 Th/cmm (150-400); RED BLOOD COUNT 3.66 Mil/cmm (3.80-5.20); RED CELL DISTRIBUTION WIDTH 19.3 % (11.5-20.0)
[2018-06-21] MEDS: Pantoprazole 80 MG in Sodium Chloride 0.9% 100 ML IV SCH ×3 (05:14→20:39)
[2018-06-21 05:15] LABS: WHITE BLOOD COUNT 15.5 Th/cmm (4.8-10.8)
[2018-06-21 05:38] LABS: ALB/GLOB RATIO 1.1 (1.0-1.8); ALBUMIN 3.8 gm/dL (3.7-5.3); ALKALINE PHOSPHATASE 78 U/L (34-104); ANION GAP 10.8 (7.0-16.0); BILIRUBIN,TOTAL 0.4 mg/dL (0.3-1.0); BUN - UREA NITROGEN 17 mg/dL (7-25); CALCIUM SERUM 9.5 mg/dL (8.6-10.3); CARBON DIOXIDE 33.3 mEq/L (21.0-31.0); CHLORIDE 98 mEq/L (98-107); CREATININE - SERUM 1.3 mg/dL (0.6-1.2); POTASSIUM SERUM 4.1 mEq/L (3.5-5.1); SGOT 21 U/L (13-39); SGPT/ALT 12 U/L (7-52); SODIUM SERUM 138 mEq/L (136-145); TOTAL PROTEIN,SERUM 7.4 gm/dL (6.0-8.3)
[2018-06-21 06:45] LABS: DDIMER QUANT 2610 ng/mL (100-400)
--- NOTE | 2018-06-21 07:56 | Diagnostic Imaging Report ---
CHEST X-RAY: AP view INDICATION: Shortness of breath COMPARISON: 06/07/2018 FINDINGS: Congestive changes are seen with small right effusion. Cardiomegaly is noted with atherosclerosis. Degenerative changes of the spine and shoulders are noted. IMPRESSION: Congestive changes and small right effusion. Interstitial infiltrates of the lung bases cannot be excluded Cardiomegaly and atherosclerotic vascular disease.
--- NOTE | 2018-06-21 07:56 | Diagnostic Imaging Report ---
Bilateral lower extremity DVT study HISTORY: Lower extremity swelling and positive PE study COMPARISON: None Technique: Longitudinal and transverse sonographic images of the bilateral lower extremity veins were obtained with doppler analysis. FINDINGS: Exam is nondiagnostic due to technical factors and body habitus. Repeat examination is recommended. IMPRESSION: Nondiagnostic exam for DVT. Repeat exam is recommended when clinically feasible.
[2018-06-21 08:08] LABS: GLUCOSE 65 mg/dL (70-105)
--- NOTE | 2018-06-21 08:32 | Diagnostic Imaging Report ---
CT Chest without IV contrast Indication: Shortness of breath Comparison: Chest x-ray the same day, Technique: Axial images were obtained from the base of the neck to the upper abdomen, following administration of IV contrast, PE protocol. Multiplanar reconstructions were made. total DLP: 414 , CTDI11.4 FINDINGS: No evidence of mediastinal lymphadenopathy. Diffuse atherosclerotic vascular disease is seen including mitral and aortic valve calcifications. Heart size is mildly prominent. No evidence of pericardial effusion. Assessment of the pulmonary arterial vasculature demonstrates focal nonocclusive pulmonary embolus involving the segmental branch supplying the right upper lobe (image 45 through 47, series 2). Evaluation of the lung paulson demonstrate hypoventilatory and atelectatic lung changes with minimal groundglass opacities noted. Small bilateral effusions are seen with bibasal minimal passive atelectatic and consolidative changes. Small bilateral pleural effusions are noted. The upper abdomen demonstrates evidence of prior cholecystectomy. Atherosclerosis of the origin of the celiac and superior mesenteric arteries are noted. Degenerative changes seen throughout the spine. IMPRESSION: Focal nonocclusive pulmonary embolus involving the subsegmental branch supplying the right upper lobe. Hypoventilatory and atelectatic changes with mild groundglass opacities and small bilateral effusions and bibasilar passive atelectatic and consolidative changes. A mildly degree of pulmonary vascular congestion should be considered. Note pneumonia of the lung bases cannot be excluded. Cardiomegaly with atherosclerotic vascular disease including aortic and mitral valve calcifications. Evidence of prior cholecystectomy.
--- NOTE | 2018-06-21 08:43 | History and Physical ---
History of Present Illness - HPI Chief Complaint: SOB HPI: Patient discharge recently, (06/11/18), and treated for Bronchitis, Now she return with increasing SOB. During ER eval was found Elevated WBC, D-dimers and BNP. 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 Pertinent Hx GI: Report: GI Bleed Psych: Report: No Pertinent Hx Musculoskeletal: Report: Weakness Rheumatologic: Report: No pertinent Hx Infectious Disease: Report: No Pertinent Hx Renal/: Report: No Pertinent Hx Endocrine: Report: Diabetes Dermatology: Report: No Pertinent Hx - Past Surgical History Past Surgical History: No pertinent Hx Family Medical History - Family Member Mother History Unknown: Yes Living Status: Social History Smoke: No Alcohol: None Drugs: None Lives: With Family Domestic Violence: Negative - Medications Home Medications: Home Medication Medication Instructions Recorded Type Aspirin 81 mg PO DAILY 09/20/17 History Insulin NPH Hum/Reg Insulin Hm 40 unit SQ QDAC 09/20/17 History [Humulin 70/30 Kwikpen] Lisinopril [Zestril] 40 mg PO DAILY 09/20/17 History Metformin HCl [Glucophage] 1,000 mg PO BID 09/20/17 History Metoprolol Tartrate 25 mg PO DAILY 06/06/18 History Pravastatin Sodium 40 mg PO HS 06/06/18 History Citalopram Hydrobromide 10 mg PO DAILY 06/21/18 History [Citalopram HBr] - Allergies Allergies/Adverse Reactions: Allergies Allergy/AdvReac Type Severity Reaction Status Date / Time No Known Allergies Allergy Verified 09/20/17 14:06 Review of Systems - Review of Systems Constitutional: Report: Weakness Eyes: Report: No Significant ENT: Report: No Significant Respiratory: Report: Shortness of Breath Cardiovascular: Report: Palpitations Genitourinary: Report: No Significant Musculoskeletal: Report: Leg Pain Skin: Report: No Significant Neurological: Report: Weakness Physical Exam - Physical Exam HEENT: Report: Ears Nose Throat within normal limits Neck: Report: Within normal limits Cardiovascular Systems: Report: Tachycardia Respiratory: Report: Rhonchi, Other (Bilateral decreased air entry) Abdomen: Report: Non-tender to palpation Back: Report: Inspection of back is within normal limits. Extremities: Report: Pedal edema was noted on inspection, Calf tenderness was noted. Skin: Report: Color of skin is within normal limits, Warm Neuro/Psych: Report: Mood affect is within normal limits - Lab Results All Lab Results last 24 hours: Laboratory Results - last 24 hr 06/20/18 06/20/18 06/20/18 12:04 12:04 12:04 WBC 16.0 H RBC 4.11 Hgb 9.9 L Hct 31.5 L MCV 76.7 L MCH 24.2 L MCHC Differential 31.5 RDW 18.3 Plt Count 456 H MPV 7.0 Neutrophils % 77.0 Lymphocytes % 14.3 L Monocytes % 4.9 Eosinophils % 2.3 Basophils % 1.5 PT INR PTT (Actin FS) D-Dimer Sodium Potassium Chloride Carbon Dioxide Anion Gap BUN Creatinine Est GFR ( Amer) Est GFR (Non-Af Amer) BUN/Creatinine Ratio Glucose POC Glucose Whole Bld Lactic Acid Calcium Phosphorus Magnesium Total Bilirubin AST ALT Alkaline Phosphatase Troponin I 0.02 B-Natriuretic Peptide 431.0 H Total Protein Albumin Globulin Albumin/Globulin Ratio TSH Urine Source Urine Color Urine Clarity Urine pH Ur Specific [place] Urine Protein Urine Glucose (UA) Urine Ketones Urine Blood Urine Nitrate Urine Bilirubin Urine Urobilinogen Ur Leukocyte Esterase Urine RBC Urine WBC Ur Epithelial Cells Urine Bacteria Fine Granular Casts 06/20/18 06/20/18 06/20/18 12:04 12:04 12:04 WBC RBC Hgb Hct MCV MCH MCHC Differential RDW Plt Count MPV Neutrophils % Lymphocytes % Monocytes % Eosinophils % Basophils % PT 9.9 INR 0.95 PTT (Actin FS) 22.4 L D-Dimer 3540 H Sodium 134 L Potassium 4.0 Chloride 98 Carbon Dioxide 24.8 Anion Gap 15.2 BUN 14 Creatinine 0.8 Est GFR ( Amer) TNP Est GFR (Non-Af Amer) TNP BUN/Creatinine Ratio 17.5 Glucose 273 H POC Glucose Whole Bld Lactic Acid Calcium 9.6 Phosphorus Magnesium 2.0 Total Bilirubin 0.4 AST 18 ALT 11 Alkaline Phosphatase 92 Troponin I B-Natriuretic Peptide Total Protein 8.1 Albumin 4.2 Globulin 3.9 Albumin/Globulin Ratio 1.1 TSH Urine Source Urine Color Urine Clarity Urine pH Ur Specific [place] Urine Protein Urine Glucose (UA) Urine Ketones Urine Blood Urine Nitrate Urine Bilirubin Urine Urobilinogen Ur Leukocyte Esterase Urine RBC Urine WBC Ur Epithelial Cells Urine Bacteria Fine Granular Casts 06/20/18 06/20/18 06/20/18 12:04 12:12 14:05 WBC RBC Hgb Hct MCV MCH MCHC Differential RDW Plt Count MPV Neutrophils % Lymphocytes % Monocytes % Eosinophils % Basophils % PT INR PTT (Actin FS) D-Dimer Sodium Potassium Chloride Carbon Dioxide Anion Gap BUN Creatinine Est GFR ( Amer) Est GFR (Non-Af Amer) BUN/Creatinine Ratio Glucose POC Glucose Whole Bld Lactic Acid 2.22 H* 1.44 Calcium Phosphorus 4.2 Magnesium 2.0 Total Bilirubin AST ALT Alkaline Phosphatase Troponin I B-Natriuretic Peptide Total Protein Albumin Globulin Albumin/Globulin Ratio TSH Urine Source Urine Color Urine Clarity Urine pH Ur Specific [place] Urine Protein Urine Glucose (UA) Urine Ketones Urine Blood Urine Nitrate Urine Bilirubin Urine Urobilinogen Ur Leukocyte Esterase Urine RBC Urine WBC Ur Epithelial Cells Urine Bacteria Fine Granular Casts 06/20/18 06/20/18 06/21/18 14:20 21:00 03:25 WBC RBC Hgb Hct MCV MCH MCHC Differential RDW Plt Count MPV Neutrophils % Lymphocytes % Monocytes % Eosinophils % Basophils % PT INR PTT (Actin FS) 61.7 H D-Dimer Sodium Potassium Chloride Carbon Dioxide Anion Gap BUN Creatinine Est GFR ( Amer) Est GFR (Non-Af Amer) BUN/Creatinine Ratio Glucose POC Glucose Whole Bld Lactic Acid 0.77 Calcium Phosphorus Magnesium Total Bilirubin AST ALT Alkaline Phosphatase Troponin I B-Natriuretic Peptide Total Protein Albumin Globulin Albumin/Globulin Ratio TSH Urine Source CLEAN C Urine Color YELLOW Urine Clarity HAZY Urine pH 6.0 Ur Specific [place] 1.025 Urine Protein 100 H Urine Glucose (UA) 500 H Urine Ketones NEGATIVE Urine Blood MODERATE H Urine Nitrate NEGATIVE Urine Bilirubin NEGATIVE Urine Urobilinogen 0.2 Ur Leukocyte Esterase NEGATIVE Urine RBC 5-10 H Urine WBC 0-2 Ur Epithelial Cells FEW Urine Bacteria 1+ H Fine Granular Casts 0-2 H 06/21/18 06/21/18 06/21/18 03:25 03:25 03:25 WBC 15.5 H RBC 3.66 L Hgb 9.1 L Hct 28.9 L MCV 78.8 L MCH 24.8 L MCHC Differential 31.5 RDW 19.3 Plt Count 395 MPV 6.8 Neutrophils % 70.9 Lymphocytes % 16.5 L Monocytes % 9.4 Eosinophils % 2.8 Basophils % 0.4 PT INR PTT (Actin FS) D-Dimer 2610 H Sodium 138 Potassium 4.1 Chloride 98 Carbon Dioxide 33.3 H Anion Gap 10.8 BUN 17 Creatinine 1.3 H Est GFR ( Amer) TNP Est GFR (Non-Af Amer) TNP BUN/Creatinine Ratio 13.1 Glucose 65 L D POC Glucose Whole Bld Lactic Acid Calcium 9.5 Phosphorus Magnesium Total Bilirubin 0.4 AST 21 ALT 12 Alkaline Phosphatase 78 Troponin I B-Natriuretic Peptide Total Protein 7.4 Albumin 3.8 Globulin 3.6 Albumin/Globulin Ratio 1.1 TSH 2.74 Urine Source Urine Color Urine Clarity Urine pH Ur Specific [place] Urine Protein Urine Glucose (UA) Urine Ketones Urine Blood Urine Nitrate Urine Bilirubin Urine Urobilinogen Ur Leukocyte Esterase Urine RBC Urine WBC Ur Epithelial Cells Urine Bacteria Fine Granular Casts 06/21/18 06/21/18 06/21/18 03:25 03:25 06:10 WBC RBC Hgb Hct MCV MCH MCHC Differential RDW Plt Count MPV Neutrophils % Lymphocytes % Monocytes % Eosinophils % Basophils % PT INR PTT (Actin FS) 53.7 H D-Dimer Sodium Potassium Chloride Carbon Dioxide Anion Gap BUN Creatinine Est GFR ( Amer) Est GFR (Non-Af Amer) BUN/Creatinine Ratio Glucose POC Glucose 80 Whole Bld Lactic Acid Calcium Phosphorus Magnesium Total Bilirubin AST ALT Alkaline Phosphatase Troponin I B-Natriuretic Peptide 576.0 H Total Protein Albumin Globulin Albumin/Globulin Ratio TSH Urine Source Urine Color Urine Clarity Urine pH Ur Specific [place] Urine Protein Urine Glucose (UA) Urine Ketones Urine Blood Urine Nitrate Urine Bilirubin Urine Urobilinogen Ur Leukocyte Esterase Urine RBC Urine WBC Ur Epithelial Cells Urine Bacteria Fine Granular Casts - Assessment Assessment: Patient is awake, alert, with SOB and nasal O2. Dx: Sepsis secondary to PNA, Non occlusive PE, CHF, Chronic anemia, DM, HTN, COPD, Gastric ulcers. - Plan Plan: Patient in Heparin, Ceftriaxone, Lasix, Insulin, and Pain management. Follow by Pulmonology and Cardio. Will continue to monitor.
[2018-06-21] MEDS: INSULIN ASPART SLIDING SCALE 100 UNITS/ML UNIT SUBQ SCH ×3 (09:11→18:26)
--- NOTE | 2018-06-21 16:23 | Consultation ---
DATE OF CONSULTATION: 06/21/[address] Jiménez. HISTORY OF PRESENT ILLNESS: This is an 78-year-old female patient recently discharged from [facility]. The patient came back complaining of shortness of breath with elevated D-dimer level. The patient had a CT angio, which was consistent with pulmonary emboli, hence the patient is admitted on a heparin drip. Cardiology consult was requested. PAST MEDICAL HISTORY: Acute respiratory failure, pulmonary emboli, severe pulmonary hypertension, COPD, congestive heart failure, diastolic dysfunction, hypertension, diabetes mellitus type 2 insulin-dependent, iron deficiency anemia. FAMILY HISTORY: Unremarkable. SOCIAL HISTORY: No history of smoking, alcohol abuse. ALLERGIES: No known allergies. PHYSICAL EXAMINATION: VITAL SIGNS: Blood pressure 110/70, pulse 88, and respirations 28. HEAD: Normocephalic. No lumps or bumps. EYES: Pupils equal, reactive to light. Fundi show AV nicking, sclerae white, conjunctivae pink. NECK: Carotid 2+. Normal upstroke. JVD flat. Thyroid not palpable. Lymph nodes not palpable. CHEST: Shows increased AP diameter. No kyphosis, scoliosis. LUNGS: Bilateral bronchovesicular breath sounds. Occasional wheeze. No rales. HEART: PMI fifth intercostal space with lateral to midclavicular line. S1, S2, S3, S4. ABDOMEN: Soft. Liver, spleen not palpable. No organomegaly. Bowel sounds active. NEUROLOGIC: Unremarkable. EXTREMITIES: Peripheral pulses 2+. No pedal edema. CLINICAL IMPRESSION: Acute respiratory failure, pulmonary emboli, congestive heart failure, diastolic dysfunction [id number], hypertension, chronic obstructive pulmonary disease, iron deficiency anemia, and insulin-dependent diabetes mellitus. The patient's echocardiogram showed ejection fraction 72%. Mitral valve shows moderate mitral regurgitation, moderate tricuspid regurgitation, moderate aortic regurgitation. Right ventricular systolic pressure 69 mmHg. Left ventricular hypertrophy. PLAN: At the present time, we will continue present care, heparin drip. Monitor the patient closely in view of pulmonary emboli and congestive heart failure . JOB# [id number]
[2018-06-21] MEDS: Heparin 25,000 Units In D5W 25,000 UNITS/250 ML BAG IV PRN (16:35)
[2018-06-21] MEDS: cefTRIAXone 1 GM in Sodium Chloride 0.9% 50 ML IV SCH (16:41)
[2018-06-22] MEDS: INSULIN ASPART SLIDING SCALE 100 UNITS/ML UNIT SUBQ SCH ×4 (00:36→18:08)
[2018-06-22 04:47] LABS: % BASOPHILS 0.6 % (0.0-2.0); % EOSINOPHILS 2.3 % (0.0-5.0); % MONOCYTES 11.4 % (2.0-10.0); % NEUTROPHILS 73.7 % (40.0-80.0); BASOPHILE ABSOLUTE 0.1 Th/cumm (0-0.2); EOSINOPHILE ABSOLUTE 0.4 Th/cmm (0.1-0.4); HEMATOCRIT 27.6 % (41.0-60); LYMPHOCYTE ABSOLUTE 1.9 Th/cmm (1.5-3.0); MEAN CELL VOLUME 77.7 fl (81-100); MEAN CORPUSCULAR HEMOGLOBIN 25.2 pg (27.0-31.0); MEAN CORPUSCULAR HGB CONC 32.5 pg (28.0-36.0); MEAN PLATELET VOLUME 6.9 fl; MONOCYTE ABSOLUTE 1.8 Th/cmm (0.3-1.0); PLATELET COUNT 387 Th/cmm (150-400); RED BLOOD COUNT 3.56 Mil/cmm (3.80-5.20); RED CELL DISTRIBUTION WIDTH 19.4 % (11.5-20.0)
[2018-06-22 04:53] LABS: WHITE BLOOD COUNT 16.2 Th/cmm (4.8-10.8)
[2018-06-22] MEDS: HYDROmorphone 1 mg/mL 1mL Syr IVP PRN ×2 (04:55→20:30)
[2018-06-22 05:29] LABS: ALBUMIN 3.6 gm/dL (3.7-5.3); ALKALINE PHOSPHATASE 78 U/L (34-104); ANION GAP 10.8 (7.0-16.0); BILIRUBIN,TOTAL 0.6 mg/dL (0.3-1.0); BUN - UREA NITROGEN 23 mg/dL (7-25); CALCIUM SERUM 9.2 mg/dL (8.6-10.3); CARBON DIOXIDE 30.6 mEq/L (21.0-31.0); CHLORIDE 96 mEq/L (98-107); CREATININE - SERUM 1.3 mg/dL (0.6-1.2); GLUCOSE 228 mg/dL (70-105); POTASSIUM SERUM 4.4 mEq/L (3.5-5.1); SGOT 18 U/L (13-39); SGPT/ALT 9 U/L (7-52); SODIUM SERUM 133 mEq/L (136-145); TOTAL PROTEIN,SERUM 7.2 gm/dL (6.0-8.3)
[2018-06-22] MEDS: Pantoprazole 80 MG in Sodium Chloride 0.9% 100 ML IV SCH ×2 (05:35→16:08)
[2018-06-22] MEDS: Heparin 25,000 Units In D5W 25,000 UNITS/250 ML BAG IV PRN ×2 (05:47→22:32)
[2018-06-22] MEDS: Albuterol/Ipratropium Neb 3 ML AERS HHN SCH ×3 (06:57→19:21)
--- NOTE | 2018-06-22 08:35 | Diagnostic Imaging Report ---
CHEST X-RAY: AP view INDICATION: Shortness of breath COMPARISON: 06/20/2018 FINDINGS: Persistent congestive changes are seen with small right effusion. Cardiomegaly is noted with atherosclerosis. IMPRESSION: Persisting congestive changes and small right effusion. Pneumonia of the lung bases cannot be excluded Cardiomegaly and atherosclerotic vascular disease.
--- NOTE | 2018-06-22 08:59 | General Progress Note ---
Subjective - Review of Systems Service Date: 06/22/18 Subjective: Patient in BPAP Objective - Results Result Diagrams: 06/22/18 04:20 06/22/18 04:20 Recent Labs: Laboratory Last Values WBC 16.2 Th/cmm (4.8-10.8) H 06/22/18 04:20 RBC 3.56 Mil/cmm (3.80-5.20) L 06/22/18 04:20 Hgb 9.0 gm/dL (12-16) L 06/22/18 04:20 Hct 27.6 % (41.0-60) L 06/22/18 04:20 MCV 77.7 fl (81-100) L 06/22/18 04:20 MCH 25.2 pg (27.0-31.0) L 06/22/18 04:20 MCHC Differential 32.5 pg (28.0-36.0) 06/22/18 04:20 RDW 19.4 % (11.5-20.0) 06/22/18 04:20 Plt Count 387 Th/cmm (150-400) 06/22/18 04:20 MPV 6.9 fl 06/22/18 04:20 Neutrophils % 73.7 % (40.0-80.0) 06/22/18 04:20 Lymphocytes % 12.0 % (20.0-50.0) L 06/22/18 04:20 Monocytes % 11.4 % (2.0-10.0) H 06/22/18 04:20 Eosinophils % 2.3 % (0.0-5.0) 06/22/18 04:20 Basophils % 0.6 % (0.0-2.0) 06/22/18 04:20 PT 9.9 SECONDS (9.5-11.5) 06/20/18 12:04 INR 0.95 (0.5-1.4) 06/20/18 12:04 PTT (Actin FS) 59.9 SECONDS (26.0-38.0) H 06/22/18 04:20 D-Dimer 2610 ng/mL (100-400) H 06/21/18 03:25 Sodium 133 mEq/L (136-145) L 06/22/18 04:20 Potassium 4.4 mEq/L (3.5-5.1) 06/22/18 04:20 Chloride 96 mEq/L (98-107) L 06/22/18 04:20 Carbon Dioxide 30.6 mEq/L (21.0-31.0) 06/22/18 04:20 Anion Gap 10.8 (7.0-16.0) 06/22/18 04:20 BUN 23 mg/dL (7-25) 06/22/18 04:20 Creatinine 1.3 mg/dL (0.6-1.2) H 06/22/18 04:20 Est GFR ( Amer) TNP 06/22/18 04:20 Est GFR (Non-Af Amer) TNP 06/22/18 04:20 BUN/Creatinine Ratio 17.7 06/22/18 04:20 Glucose 228 mg/dL (70-105) H 06/22/18 04:20 POC Glucose 241 MG/DL (70 - 105) H 06/22/18 05:34 Whole Bld Lactic Acid 0.71 mmol/L (0.60-1.99) 06/22/18 04:20 Calcium 9.2 mg/dL (8.6-10.3) 06/22/18 04:20 Phosphorus 4.2 mg/dL (2.5-5.0) 06/20/18 12:12 Magnesium 2.0 mg/dL (1.9-2.7) 06/20/18 12:12 Total Bilirubin 0.6 mg/dL (0.3-1.0) 06/22/18 04:20 AST 18 U/L (13-39) 06/22/18 04:20 ALT 9 U/L (7-52) 06/22/18 04:20 Alkaline Phosphatase 78 U/L (34-104) 06/22/18 04:20 Troponin I 0.02 ng/mL (0.01-0.05) 06/20/18 12:04 B-Natriuretic Peptide 425.0 pg/mL (5.0-100.0) H 06/21/18 10:25 Total Protein 7.2 gm/dL (6.0-8.3) 06/22/18 04:20 Albumin 3.6 gm/dL (3.7-5.3) L 06/22/18 04:20 Globulin 3.6 gm/dL 06/22/18 04:20 Albumin/Globulin Ratio 1.0 (1.0-1.8) 06/22/18 04:20 TSH 2.74 uIU/ml (0.34-5.60) 06/21/18 03:25 Urine Source CLEAN C 06/20/18 14:20 Urine Color YELLOW 06/20/18 14:20 Urine Clarity HAZY (CLEAR) 06/20/18 14:20 Urine pH 6.0 (4.6 - 8.0) 06/20/18 14:20 Ur Specific [place] 1.025 (1.005-1.030) 06/20/18 14:20 Urine Protein 100 mg/dL (NEGATIVE) H 06/20/18 14:20 Urine Glucose (UA) 500 mg/dL (NEGATIVE) H 06/20/18 14:20 Urine Ketones NEGATIVE mg/dL (NEGATIVE) 06/20/18 14:20 Urine Blood MODERATE (NEGATIVE) H 06/20/18 14:20 Urine Nitrate NEGATIVE (NEGATIVE) 06/20/18 14:20 Urine Bilirubin NEGATIVE (NEGATIVE) 06/20/18 14:20 Urine Urobilinogen 0.2 E.U./dL (0.2 - 1.0) 06/20/18 14:20 Ur Leukocyte Esterase NEGATIVE (NEGATIVE) 06/20/18 14:20 Urine RBC 5-10 /hpf (0-5) H 06/20/18 14:20 Urine WBC 0-2 /hpf (0-5) 06/20/18 14:20 Ur Epithelial Cells FEW /lpf (FEW) 06/20/18 14:20 Urine Bacteria 1+ /hpf (NONE SEEN) H 06/20/18 14:20 Fine Granular Casts 0-2 /lpf (NONE SEEN) H 06/20/18 14:20 - Physical Exam Vitals and I&O: Vital Signs Temp 99 F 06/22/18 04:00 Pulse 80 06/22/18 08:37 Resp 15 06/22/18 07:00 BP 111/49 06/22/18 08:37 Pulse Ox 97 06/22/18 07:00 Intake & Output 06/21/18 06/22/18 06/22/18 18:59 06:59 18:59 Intake Total 341.817 401.300 Output Total 300 Balance 341.817 101.300 Weight (lbs) 90.764 kg Intake: Intake, IV Amount 341.817 351.300 Heparin 25,000 Units In 224.150 175.467 D5W 25,000 units In 250 ml @ 0 UNITS/HR IV TITR PRN Rx#:[id number] Pantoprazole 80 mg In 67.667 175.833 Sodium Chloride 0.9% 100 ml @ 10 mls/hr IV Q10H RAVINDER Rx#:[id number] cefTRIAXone 1 gm In 50 Sodium Chloride 0.9% 50 ml @ 100 mls/hr IV Q24HR RAVINDER Rx#:[id number] Oral 50 Output: Urine 300 Other: Weight Source Bedscale Active Medications: Current Medications Albuterol/Ipratropium (Duoneb Neb) 3 ml HHN Q6HRT PENDING SALE TO [facility] Stop: 08/21/18 06:59 Last Admin: 06/22/18 06:57 Dose: 3 ml Furosemide (Lasix) 40 mg IVP DAILY PENDING SALE TO [facility] Stop: 08/20/18 08:59 Last Admin: 06/22/18 08:36 Dose: 40 mg Hydromorphone HCl (Dilaudid) 1 mg IVP Q6H PRN PRN Reason: Severe Pain Stop: 08/20/18 08:34 Last Admin: 06/22/18 04:55 Dose: 1 mg Pantoprazole Sodium 80 mg/ (Sodium Chloride) 100 mls @ 10 mls/hr IV Q10H PENDING SALE TO [facility] Stop: 08/19/18 18:59 Last Admin: 06/22/18 05:35 Dose: 10 mls/hr Ceftriaxone Sodium 1 gm/ (Sodium Chloride) 50 mls @ 100 mls/hr IV Q24HR PENDING SALE TO [facility] Stop: 08/20/18 16:59 Last Infusion: 06/21/18 17:10 Dose: Infused Heparin Sodium/Dextrose (Heparin Drip) 25,000 units in 250 mls @ 0 mls/hr IV TITR PRN; Protocol PRN Reason: PROTOCOL Stop: 08/19/18 18:59 Last Admin: 06/22/18 05:47 Dose: 1,400 units/hr, 14 mls/hr Insulin Aspart (Novolog Insulin Sliding Scale) 0 units SUBQ Q6HR RAVINDER; Protocol Stop: 08/20/18 08:59 Last Admin: 06/22/18 05:39 Dose: 4 units Lisinopril (Zestril) 40 mg PO DAILY PEND[facility] SALE TO [facility] Stop: 08/20/18 08:59 Last Admin: 06/22/18 08:37 Dose: Not Given Metoprolol Tartrate (Lopressor) 25 mg PO DAILY PENDING SALE TO [facility] Stop: 08/20/18 08:59 Last Admin: 06/22/18 08:37 Dose: Not Given Miscellaneous (Heparin Drip Per Pharmacy) 1 ea PRN PENDING SALE TO [facility]; Protocol Stop: 08/19/18 16:29 General: Mild distress HEENT: Atraumatic Neck: Supple Cardiovascular: Regular rate Lungs: Other (Rude respiration, on BPAP) Abdomen: Bowel sounds, Soft Extremities: Tender, Other (Pittin edema1+) Neurological: Other (Non ambulatory at this time.) Skin: Other (Warm and dry) Psych/Mental Status: Mental status NL - Procedures Procedures: Procedures Procedure Code Date ELECTROCARDIOGRAM 89.52 01/30/00 ELECTROCARDIOGRAM COMPLETE 74407 01/30/00 EXCISION OF DUODENUM, ENDO, DIAGN [id number] 06/06/18 EXCISION OF STOMACH, ENDO, DIAGN [id number] 06/06/18 INSPECTION OF LOWER INTESTINAL TRACT, ENDO [id number] 06/06/18 LAPAROSCOPIC CHOLECYSTECTOMY 51.23 07/02/03 LAPAROSCOPIC CHOLECYSTECTOMY 56101 07/02/03 TRANSFUSE NONAUT RED BLOOD CELLS IN PERIPH VEIN, PERC [id number] 06/06/18 Assessment/Plan - Assessment Assessment: Patient is awake, alert. Per nurse report last villafana patient had breathing problems reason why was put in BPAP. WBC continue high. Creatinin a little high. Dx: Sepsis secondary to PNA, Non occlusive PE, CHF, Chronic anemia, DM, HTN, COPD, Gastric ulcers. - Plan Plan: Patient in Heparin, Ceftriaxone, Lasix, Insulin, and Pain management. Follow by Pulmonology and Cardio. Consult with ID is requested. Will continue to monitor. Nutritional Asmnt/Malnutr-PDOC - Dietary Evaluation Malnutrition Findings (Please click <Entered> for more info): Nutritional Asmnt/Malnutrition Start: 06/21/18 14: 16 Text: Status: Complete Freq: Protocol: Document 06/21/18 14:16 LCHENG (Rec: 06/21/18 14:30 [email or web address]) Nutritional Asmnt/Malnutrition Patient General Information Nutritional Screening High Risk Consult Diagnosis CHF Pertinent Medical Hx/Surgical Hx HTN, asthma/COPD, gastritis, healing ulcers, hemorrhoids Subjective Information Pt seen sitting up in bed having lunch at time of visit, awake and alert. RN was assisting pt to cup food. Per RN, pt consumed 75% of breakfast today. Pt did not provide any food preference. Current Diet Order/ Nutrition Support [facility] Pertinent Medications lasix, novolog, pantoprazole Pertinent Labs 06/21 Cr 1.3, glucose 65, POC 80-121 06/20 Na 134, glucose 273 Nutritional Hx/Data Height 1.52 m Height (Calculated Centimeters) 152.4 Current Weight (lbs) 89.811 kg Weight (Calculated Kilograms) 89.8 Weight (Calculated Grams) 89018.3 [place] Body Weight 100 % [place] Body Weight 198 Body Mass Index (BMI) 38.7 Weight Status Obese GI Symptoms GI Symptoms None Last BM none Difficult in: None Skin Integrity/Comment: edema to bilateral cheryl extremities per nurse note skin intact Current %PO Good (75-100%) Estimated Nutritional Goals BEE in Kcals: Adj wt of IBW Calories/Kcals/Kg 25-30 Kcals Calculated 4493-4120 Protein: Adj wt of IBW Protein g/k Protein Calculated 67 Fluid: ml per MD d/t CHF Nutritional Problem 1. Problem Problem altered nutrition related labs Etiology hyperglycemia Signs/Symptoms: glucose 273 Malnutrition Alert Is there a minimum of two criteria No selected? Query Text:Check all the applicable criteria. A minimum of two criteria are recommended for diagnosis of either severe or non-severe malnutrition. Intervention/Recommendation Comments 1. Continue with [facility] low sodium diet as ordered. 2. Monitor PO intake, wt, labs and skin integrity 3. F/U as moderate risk in 3-5 days, 06/24-06/26, PO check 06/23 Expected Outcomes/Goals Expected Outcomes/Goals 1. PO intake to meet at least 75% of nutritional needs. 2. Wt stability, skin to remain intact, labs to approach WNL.
--- NOTE | 2018-06-22 09:41 | Consultation ---
Consult Note - Consult Note Service Date: 06/22/18 Referring Physician: Tc Jiménez Consult Note: PHYSICIAN Consultation Note: Date of Admission: 06/20/18 Purpose of Consultation: Leukocytosis. Chief Complaint: Patient JOSE SOL was admitted to location Intensive Care Unit with CHF. History of Present Illness: 78-year-old female with a past medical history of coronary artery disease, CHF, hypertension, bronchitis, COPD, presented to the ER with shortness of breath. On initial evaluation, her temperature 97.9F and WBC count was 16,000. Further workup revealed CHF and pulmonary embolism. Patient is receiving Lasix and heparin IV. Urinalysis suggestive Bacteriuria. As patient was suspected to have UTI so Rocephin IV was started. As patient's W Sickler remained around 16,000 for last 3 days. ID consult was called for further antibiotic management. So far, patient has no fever. On initial lab work, patient's lactic acid was 2.2 and it came to normal. Past Medical History: Coronary artery disease, CHF, hypertension, bronchitis, COPD, obesity. Diagnoses SEPSIS, UNSPECIFIED ORGANISM (06/20/18) ANEMIA, UNSPECIFIED (06/20/18) TYPE 2 DIABETES MELLITUS WITHOUT COMPLICATIONS (06/20/18) ESSENTIAL (PRIMARY) HYPERTENSION (06/20/18) ATHSCL HEART DISEASE OF [place] CORONARY ARTERY W/O ANG PCTRS (06/20/18) PNEUMONIA, UNSPECIFIED ORGANISM (06/20/18) CHRONIC OBSTRUCTIVE PULMONARY DISEASE, UNSPECIFIED (06/20/18) WEAKNESS (06/20/18) Allergies Allergy/AdvReac Type Severity Reaction Status Date / Time No Known Allergies Allergy Verified 09/20/17 14:06 Vital Signs Temp 98.8 F 06/22/18 08:00 Pulse 93 06/22/18 09:00 Resp 26 06/22/18 09:09 BP 104/60 06/22/18 09:00 Pulse Ox 98 06/22/18 09:09 Intake & Output 06/21/18 06/22/18 06/22/18 18:59 06:59 18:59 Intake Total 341.817 401.300 Output Total 300 Balance 341.817 101.300 Weight (lbs) 90.764 kg Intake: Intake, IV Amount 341.817 351.300 Heparin 25,000 Units In 224.150 175.467 D5W 25,000 units In 250 ml @ 0 UNITS/HR IV TITR PRN Rx#:[id number] Pantoprazole 80 mg In 67.667 175.833 Sodium Chloride 0.9% 100 ml @ 10 mls/hr IV Q10H RAVINDER Rx#:[id number] cefTRIAXone 1 gm In 50 Sodium Chloride 0.9% 50 ml @ 100 mls/hr IV Q24HR RAVINDER Rx#:[id number] Oral 50 Output: Urine 300 Other: Weight Source [facility] Laboratory Results - last 24 hr 06/21/18 06/21/18 06/21/18 10:25 11:06 15:45 WBC RBC Hgb Hct MCV MCH MCHC Differential RDW Plt Count MPV Neutrophils % Lymphocytes % Monocytes % Eosinophils % Basophils % PTT (Actin FS) 53.7 H Sodium Potassium Chloride Carbon Dioxide Anion Gap BUN Creatinine Est GFR ( Amer) Est GFR (Non-Af Amer) BUN/Creatinine Ratio Glucose POC Glucose 121 H Whole Bld Lactic Acid Calcium Total Bilirubin AST ALT Alkaline Phosphatase B-Natriuretic Peptide 425.0 H Total Protein Albumin Globulin Albumin/Globulin Ratio 06/21/18 06/21/18 06/22/18 18:21 20:25 04:20 WBC RBC Hgb Hct MCV MCH MCHC Differential RDW Plt Count MPV Neutrophils % Lymphocytes % Monocytes % Eosinophils % Basophils % PTT (Actin FS) 38.3 H Sodium Potassium Chloride Carbon Dioxide Anion Gap BUN Creatinine Est GFR ( Amer) Est GFR (Non-Af Amer) BUN/Creatinine Ratio Glucose POC Glucose 204 H Whole Bld Lactic Acid 0.71 Calcium Total Bilirubin AST ALT Alkaline Phosphatase B-Natriuretic Peptide Total Protein Albumin Globulin Albumin/Globulin Ratio 06/22/18 06/22/18 06/22/18 04:20 04:20 04:20 WBC 16.2 H RBC 3.56 L Hgb 9.0 L Hct 27.6 L MCV 77.7 L MCH 25.2 L MCHC Differential 32.5 RDW 19.4 Plt Count 387 MPV 6.9 Neutrophils % 73.7 Lymphocytes % 12.0 L Monocytes % 11.4 H Eosinophils % 2.3 Basophils % 0.6 PTT (Actin FS) 59.9 H Sodium 133 L Potassium 4.4 Chloride 96 L Carbon Dioxide 30.6 Anion Gap 10.8 BUN 23 Creatinine 1.3 H Est GFR ( Amer) TNP Est GFR (Non-Af Amer) TNP BUN/Creatinine Ratio 17.7 Glucose 228 H POC Glucose Whole Bld Lactic Acid Calcium 9.2 Total Bilirubin 0.6 AST 18 ALT 9 Alkaline Phosphatase 78 B-Natriuretic Peptide Total Protein 7.2 Albumin 3.6 L Globulin 3.6 Albumin/Globulin Ratio 1.0 06/22/18 05:34 WBC RBC Hgb Hct MCV MCH MCHC Differential RDW Plt Count MPV Neutrophils % Lymphocytes % Monocytes % Eosinophils % Basophils % PTT (Actin FS) Sodium Potassium Chloride Carbon Dioxide Anion Gap BUN Creatinine Est GFR ( Amer) Est GFR (Non-Af Amer) BUN/Creatinine Ratio Glucose POC Glucose 241 H Whole Bld Lactic Acid Calcium Total Bilirubin AST ALT Alkaline Phosphatase B-Natriuretic Peptide Total Protein Albumin Globulin Albumin/Globulin Ratio Home Medication Medication Instructions Recorded Type Aspirin 81 mg PO DAILY 09/20/17 History Insulin NPH Hum/Reg Insulin Hm 40 unit SQ QDAC 09/20/17 History [Humulin 70/30 Kwikpen] Lisinopril [Zestril] 40 mg PO DAILY 09/20/17 History Metformin HCl [Glucophage] 1,000 mg PO BID 09/20/17 History Metoprolol Tartrate 25 mg PO DAILY 06/06/18 History Pravastatin Sodium 40 mg PO HS 06/06/18 History Citalopram Hydrobromide 10 mg PO DAILY 06/21/18 History [Citalopram HBr] Current Medications Generic Name Dose Route Start Last Admin Trade Name Freq PRN Reason Stop Dose Admin Albuterol/Ipratropium 3 ml 06/22/18 07:00 06/22/18 06:57 Duoneb Neb HHN 08/21/18 06:59 3 ml Q6HRT RAVINDER Administration Furosemide 40 mg 06/21/18 09:00 06/22/18 08:36 Lasix IVP 08/20/18 08:59 40 mg DAILY RAVINDER Administration Hydromorphone HCl 1 mg 06/21/18 08:35 06/22/18 04:55 Dilaudid IVP 08/20/18 08:34 1 mg Q6H PRN Administration Severe Pain Pantoprazole Sodium 80 mg/ 100 mls @ 10 mls/hr 06/20/18 19:00 06/22/18 05:35 Sodium Chloride IV 08/19/18 18:59 10 mls/hr Q10H RAVINDER Administration Ceftriaxone Sodium 1 gm/ 50 mls @ 100 mls/hr 06/21/18 17:00 06/21/18 17:10 Sodium Chloride IV 08/20/18 16:59 Infused Q24HR RAVINDER Infusion Heparin Sodium/Dextrose 25,000 units in 250 mls @ 0 mls/hr 06/20/18 19:00 11/08 05:47 Heparin Drip IV 08/19/18 18:59 1,400 units/hr TITR PRN 14 mls/hr PROTOCOL Administration Protocol 0 UNITS/HR Insulin Aspart 0 units 06/21/18 09:00 06/22/18 05:39 Novolog Insulin Sliding Scale SUBQ 08/20/18 08:59 4 units Q6HR RAVINDER Administration Protocol Lisinopril 40 mg 06/21/18 09:00 06/22/18 08:37 Zestril PO 08/20/18 08:59 Not Given DAILY RAVINDER Metoprolol Tartrate 25 mg 06/21/18 09:00 06/22/18 08:37 Lopressor PO 08/20/18 08:59 Not Given DAILY RAVINDER Miscellaneous 1 ea 06/20/18 16:30 Heparin Drip Per Pharmacy 08/19/18 16:29 PRN RAVINDER Protocol Review of Systems: A 12 point ROS was reviewed with the pertinent positive and negatives noted in the HPI. Gen.: Denies any fevers, chills, diaphoresis. Patient is some generalized distress. HEENT: Denies diplopia, photophobia, sore throat or congestion. Denies any earache or ear discharge, patient denies any eye discharge. Respiratory system: Patient has shortness of breath. No wheezing. No cough. CVS: Patient denies any chest pain, palpitation or leg swelling. GI: Patient denies any nausea, vomiting, diarrhea, constipation,. Denies any abdominal pain. : No dysuria, no hematuria. [employer]: Patient denies any headache, dizziness, focal weakness. Skin: No ulcers. Social History Smoking Status Never smoker Family Medical History Family Medical History Start: 06/20/18 16: 16 Freq: ONCE Status: Active Protocol: Document 06/20/18 16:16 SLIU (Rec: 06/20/18 21:19 IU [id number]) Family Medical History Mother History Unknown Yes Physical Exam: General: Obese, not in acute distress. On oxygen via nasal cannula. HEENT: Head: Normocephalic, atraumatic. Oral cavity: Moist, pink tongue. Eyes : No pallor, no icterus. PERRLA. EOMI. Neck: Supple, no activity to cavity no use of accessory neck muscles. Cardio: Decreased S1 and S2 intensity. Diastolic and systolic murmur present. Regular rhythm Respiratory: Vesicular breath sound, no crackles no wheezing. Abdominal: Soft, nontender nondistended bowel sounds present Genital/Urinary: Deferred Extremities: No cyanosis, no clubbing, no edema Neurological: Alert, awake, oriented 3. No focal neurologic. Assessment: 1. Leukocytosis, most likely reactive. 2. UTI. 3. Pulmonary embolism. 4. COPD exacerbation. 5. Obesity 6. Coronary artery disease. 7. Hypertension. 8. CHF. Plan: Continue Rocephin and follow CBC. Thank you, Dr. Jiménez for involving me in taking care of this patient. Signed, Souleymane Mock M.D. [id number]
--- NOTE | 2018-06-22 16:01 | Consultation ---
DATE OF CONSULTATION: 06/21/2018 REFERRING PHYSICIAN: Dr. Jiménez. Thank you very much, Dr. Jiménez for this consultation. HISTORY OF PRESENT ILLNESS: This is an 78-year-old female presented with some congestion, shortness of breath, and chest pain, was found to have CHF. D-dimer is elevated. CT angio done and showed pulmonary embolism. The patient was started on heparin drip and admitted for treatment and management. She was given some Lasix as well. The patient states her breathing has improved significantly. No chest pain anymore. She is able to take a deeper breath. She denies history of lung problems in the past. She has history of CHF, otherwise. PAST MEDICAL HISTORY: Other past medical history is as above. SOCIAL HISTORY: Smoked for 20 years, less than half a pack a day, quit many years ago. REVIEW OF SYSTEMS: GENERAL: Some weakness and fatigue. CARDIOVASCULAR: No chest pain or palpitation. RESPIRATORY: Shortness of breath increasing. GASTROINTESTINAL: No nausea, vomiting. PHYSICAL EXAMINATION: GENERAL: Awake, alert, not in acute distress. VITAL SIGNS: Temperature 98.6, pulse 89, respirations 17, blood pressure 121/80, saturation is 98%. HEENT: Atraumatic, normocephalic. Pupils react to light and accommodation. Ears, nose and throat normal. NECK: Supple. No JVD. CHEST: There are good breath sounds, few rhonchi in bases. HEART: Regular rate and rhythm. ABDOMEN: Soft. No tenderness. EXTREMITIES: 1+ edema. LABORATORY DATA: WBC is 15.5, hemoglobin 9.1 and hematocrit 28.9, platelets is 395. Sodium 130, potassium 4.1, BUN 17, creatinine 1.3. BNP is 425. IMPRESSION: This is an 78-year-old female with congestive heart failure exacerbation with possible superimposed pneumonia, small PE in the right upper lobe branch. PLAN: 1. Continue nebulizer treatment. 2. Antibiotics. 3. Anticoagulation. 4. Follow up chest x-ray, diuresis and we will follow the patient with you. We will cross patient over to oral anticoagulation with Eliquis or Xarelto in another day or so. Discussed with family at bedside. Thank you very much for this consultation. JOB# [id number]
[2018-06-22] MEDS: cefTRIAXone 1 GM in Sodium Chloride 0.9% 50 ML IV SCH (16:08)
[2018-06-23] MEDS: INSULIN ASPART SLIDING SCALE 100 UNITS/ML UNIT SUBQ SCH ×4 (00:03→18:13)
[2018-06-23] MEDS: Pantoprazole 80 MG in Sodium Chloride 0.9% 100 ML IV SCH ×3 (00:34→17:01)
[2018-06-23] MEDS: Albuterol/Ipratropium Neb 3 ML AERS HHN SCH ×4 (01:23→19:26)
[2018-06-23 05:48] LABS: % BASOPHILS 0.7 % (0.0-2.0); % EOSINOPHILS 0.4 % (0.0-5.0); % LYMPHOCYTES 11.4 % (20.0-50.0); % MONOCYTES 8.2 % (2.0-10.0); % NEUTROPHILS 79.3 % (40.0-80.0); BASOPHILE ABSOLUTE 0.1 Th/cumm (0-0.2); EOSINOPHILE ABSOLUTE 0.1 Th/cmm (0.1-0.4); HEMATOCRIT 26.2 % (41.0-60); HEMOGLOBIN 8.5 gm/dL (12-16); LYMPHOCYTE ABSOLUTE 1.9 Th/cmm (1.5-3.0); MEAN CELL VOLUME 77.3 fl (81-100); MEAN CORPUSCULAR HGB CONC 32.3 pg (28.0-36.0); MEAN PLATELET VOLUME 6.7 fl; MONOCYTE ABSOLUTE 1.4 Th/cmm (0.3-1.0); PLATELET COUNT 333 Th/cmm (150-400); RED BLOOD COUNT 3.39 Mil/cmm (3.80-5.20); RED CELL DISTRIBUTION WIDTH 19.1 % (11.5-20.0)
[2018-06-23 05:52] LABS: WHITE BLOOD COUNT 16.5 Th/cmm (4.8-10.8)
[2018-06-23 06:13] LABS: ALB/GLOB RATIO 0.9 (1.0-1.8); ALBUMIN 3.3 gm/dL (3.7-5.3); ALKALINE PHOSPHATASE 70 U/L (34-104); ANION GAP 8.7 (7.0-16.0); BILIRUBIN,TOTAL 0.4 mg/dL (0.3-1.0); BUN - UREA NITROGEN 30 mg/dL (7-25); CALCIUM SERUM 9.2 mg/dL (8.6-10.3); CARBON DIOXIDE 31.1 mEq/L (21.0-31.0); CHLORIDE 95 mEq/L (98-107); CREATININE - SERUM 1.2 mg/dL (0.6-1.2); GLUCOSE 228 mg/dL (70-105); POTASSIUM SERUM 3.8 mEq/L (3.5-5.1); SGOT 12 U/L (13-39); SGPT/ALT 8 U/L (7-52); SODIUM SERUM 131 mEq/L (136-145); TOTAL PROTEIN,SERUM 6.8 gm/dL (6.0-8.3)
--- NOTE | 2018-06-23 08:25 | Diagnostic Imaging Report ---
Exam: Chest x-ray. HISTORY: Shortness of breath. Prior exam: 06/22/2018. Findings: Frontal examination of chest reviewed in comparison to prior study the early demonstrates a mild congestive heart failure changes. There is evidence for left basilar atelectasis. Right lower lobe infiltrate and small effusion present. Bony thorax is intact. IMPRESSION: Congestive heart failure Right basilar infiltrate superimposed effusion Left basilar atelectasis. Follow-up exam is recommended.
--- NOTE | 2018-06-23 09:06 | General Progress Note ---
Subjective - Review of Systems Service Date: 06/23/18 Subjective: Patient in awake, alert, calm, reporting body pain. Objective - Results Result Diagrams: 06/23/18 05:40 06/23/18 05:40 Recent Labs: Laboratory Last Values WBC 16.5 Th/cmm (4.8-10.8) H 06/23/18 05:40 RBC 3.39 Mil/cmm (3.80-5.20) L 06/23/18 05:40 Hgb 8.5 gm/dL (12-16) L 06/23/18 05:40 Hct 26.2 % (41.0-60) L 06/23/18 05:40 MCV 77.3 fl (81-100) L 06/23/18 05:40 MCH 25.0 pg (27.0-31.0) L 06/23/18 05:40 MCHC Differential 32.3 pg (28.0-36.0) 06/23/18 05:40 RDW 19.1 % (11.5-20.0) 06/23/18 05:40 Plt Count 333 Th/cmm (150-400) 06/23/18 05:40 MPV 6.7 fl 06/23/18 05:40 Neutrophils % 79.3 % (40.0-80.0) 06/23/18 05:40 Lymphocytes % 11.4 % (20.0-50.0) L 06/23/18 05:40 Monocytes % 8.2 % (2.0-10.0) 06/23/18 05:40 Eosinophils % 0.4 % (0.0-5.0) 06/23/18 05:40 Basophils % 0.7 % (0.0-2.0) 06/23/18 05:40 PT 9.9 SECONDS (9.5-11.5) 06/20/18 12:04 INR 0.95 (0.5-1.4) 06/20/18 12:04 PTT (Actin FS) 63.9 SECONDS (26.0-38.0) H 06/23/18 05:40 D-Dimer 2610 ng/mL (100-400) H 06/21/18 03:25 Sodium 131 mEq/L (136-145) L 06/23/18 05:40 Potassium 3.8 mEq/L (3.5-5.1) 06/23/18 05:40 Chloride 95 mEq/L (98-107) L 06/23/18 05:40 Carbon Dioxide 31.1 mEq/L (21.0-31.0) H 06/23/18 05:40 Anion Gap 8.7 (7.0-16.0) 06/23/18 05:40 BUN 30 mg/dL (7-25) H 06/23/18 05:40 Creatinine 1.2 mg/dL (0.6-1.2) 06/23/18 05:40 Est GFR ( Amer) TNP 06/23/18 05:40 Est GFR (Non-Af Amer) TNP 06/23/18 05:40 BUN/Creatinine Ratio 25.0 06/23/18 05:40 Glucose 228 mg/dL (70-105) H 06/23/18 05:40 POC Glucose 224 MG/DL (70 - 105) H 06/23/18 05:40 Whole Bld Lactic Acid 1.08 mmol/L (0.60-1.99) 06/23/18 05:40 Calcium 9.2 mg/dL (8.6-10.3) 06/23/18 05:40 Phosphorus 4.2 mg/dL (2.5-5.0) 06/20/18 12:12 Magnesium 2.0 mg/dL (1.9-2.7) 06/20/18 12:12 Total Bilirubin 0.4 mg/dL (0.3-1.0) 06/23/18 05:40 AST 12 U/L (13-39) L 06/23/18 05:40 ALT 8 U/L (7-52) 06/23/18 05:40 Alkaline Phosphatase 70 U/L (34-104) 06/23/18 05:40 Troponin I 0.02 ng/mL (0.01-0.05) 06/20/18 12:04 B-Natriuretic Peptide 425.0 pg/mL (5.0-100.0) H 06/21/18 10:25 Total Protein 6.8 gm/dL (6.0-8.3) 06/23/18 05:40 Albumin 3.3 gm/dL (3.7-5.3) L 06/23/18 05:40 Globulin 3.5 gm/dL 06/23/18 05:40 Albumin/Globulin Ratio 0.9 (1.0-1.8) L 06/23/18 05:40 TSH 2.74 uIU/ml (0.34-5.60) 06/21/18 03:25 Urine Source CLEAN C 06/20/18 14:20 Urine Color YELLOW 06/20/18 14:20 Urine Clarity HAZY (CLEAR) 06/20/18 14:20 Urine pH 6.0 (4.6 - 8.0) 06/20/18 14:20 Ur Specific [place] 1.025 (1.005-1.030) 06/20/18 14:20 Urine Protein 100 mg/dL (NEGATIVE) H 06/20/18 14:20 Urine Glucose (UA) 500 mg/dL (NEGATIVE) H 06/20/18 14:20 Urine Ketones NEGATIVE mg/dL (NEGATIVE) 06/20/18 14:20 Urine Blood MODERATE (NEGATIVE) H 06/20/18 14:20 Urine Nitrate NEGATIVE (NEGATIVE) 06/20/18 14:20 Urine Bilirubin NEGATIVE (NEGATIVE) 06/20/18 14:20 Urine Urobilinogen 0.2 E.U./dL (0.2 - 1.0) 06/20/18 14:20 Ur Leukocyte Esterase NEGATIVE (NEGATIVE) 06/20/18 14:20 Urine RBC 5-10 /hpf (0-5) H 06/20/18 14:20 Urine WBC 0-2 /hpf (0-5) 06/20/18 14:20 Ur Epithelial Cells FEW /lpf (FEW) 06/20/18 14:20 Urine Bacteria 1+ /hpf (NONE SEEN) H 06/20/18 14:20 Fine Granular Casts 0-2 /lpf (NONE SEEN) H 06/20/18 14:20 - Physical Exam Vitals and I&O: Vital Signs Temp 98.2 F 06/23/18 04:00 Pulse 86 06/23/18 08:54 Resp 18 06/23/18 06:58 BP 122/51 06/23/18 08:54 Pulse Ox 99 06/23/18 06:58 Intake & Output 06/22/18 06/23/18 06/23/18 18:59 06:59 18:59 Intake Total 479.333 358.816 Output Total 800 280 Balance -320.667 78.816 Weight (lbs) 90.718 kg 91.535 kg Intake: Intake, IV Amount 229.333 308.816 Heparin 25,000 Units In 79.333 169.650 D5W 25,000 units In 250 ml @ 0 UNITS/HR IV TITR PRN Rx#:[id number] Pantoprazole 80 mg In 100 139.166 Sodium Chloride 0.9% 100 ml @ 10 mls/hr IV Q10H [facility] Rx#:[id number] cefTRIAXone 1 gm In 50 Sodium Chloride 0.9% 50 ml @ 100 mls/hr IV Q24HR [facility] Rx#:[id number] Oral 250 50 Output: Urine 800 280 Other: Weight Source Bedscale Bedscale Active Medications: Current Medications Albuterol/Ipratropium (Duoneb Neb) 3 ml HHN Q6HRT [facility] Stop: 08/21/18 06:59 Last Admin: 06/23/18 06:58 Dose: 3 ml Furosemide (Lasix) 40 mg IVP DAILY [facility] Stop: 08/20/18 08:59 Last Admin: 06/23/18 08:54 Dose: 40 mg Hydromorphone HCl (Dilaudid) 1 mg IVP Q6H PRN PRN Reason: Severe Pain Stop: 08/20/18 08:34 Last Admin: 06/22/18 20:30 Dose: 1 mg Pantoprazole Sodium 80 mg/ (Sodium Chloride) 100 mls @ 10 mls/hr IV Q10H [facility] Stop: 08/19/18 18:59 Last Admin: 06/23/18 06:03 Dose: 10 mls/hr Ceftriaxone Sodium 1 gm/ (Sodium Chloride) 50 mls @ 100 mls/hr IV Q24HR [facility] Stop: 08/20/18 16:59 Last Infusion: 06/22/18 16:40 Dose: Infused Heparin Sodium/Dextrose (Heparin Drip) 25,000 units in 250 mls @ 0 mls/hr IV TITR PRN; Protocol PRN Reason: PROTOCOL Stop: 08/19/18 18:59 Last Titration: 06/23/18 00:30 Dose: 1,150 units/hr, 11.5 mls/hr Insulin Aspart (Novolog Insulin Sliding Scale) 0 units SUBQ Q6HR [facility]; Protocol Stop: 08/20/18 08:59 Last Admin: 06/23/18 05:44 Dose: 4 units Lisinopril (Zestril) 40 mg PO DAILY [facility] Stop: 08/20/18 08:59 Last Admin: 06/22/18 08:37 Dose: Not Given Metoprolol Tartrate (Lopressor) 25 mg PO DAILY [facility] Stop: 08/20/18 08:59 Last Admin: 06/23/18 08:54 Dose: 25 mg Miscellaneous (Heparin Drip Per Pharmacy) 1 [facility] PRN [facility]; Protocol Stop: 08/19/18 16:29 General: Alert, Cooperative HEENT: Atraumatic Neck: Supple Cardiovascular: Regular rate Lungs: Other (Rude respiration, on nasal O2.) Abdomen: Bowel sounds, Soft Extremities: Tender, Other (Pittin edema1+) Neurological: Other (Non ambulatory at this time.) Skin: Other (Warm and dry) Psych/Mental Status: Mental status NL - Procedures Procedures: Procedures Procedure Code Date ELECTROCARDIOGRAM 89.52 01/30/00 ELECTROCARDIOGRAM COMPLETE 52631 01/30/00 EXCISION OF DUODENUM, ENDO, DIAGN [id number] 06/06/18 EXCISION OF STOMACH, ENDO, DIAGN [id number] 06/06/18 INSPECTION OF LOWER INTESTINAL TRACT, ENDO [id number] 06/06/18 LAPAROSCOPIC CHOLECYSTECTOMY 51.23 07/02/03 LAPAROSCOPIC CHOLECYSTECTOMY 40225 07/02/03 TRANSFUSE NONAUT RED BLOOD CELLS IN PERIPH VEIN, PERC 89656L8 06/06/18 Assessment/Plan - Assessment Assessment: Patient is awake, alert, in no acute distress. WBC continue high. Creatinin a little high. PAtient already seen by ID and Dx was possible reactive leukocytosis. Dx: Sepsis secondary to PNA, Non occlusive PE, CHF, Chronic anemia , DM, HTN, COPD, Gastric ulcers. - Plan Plan: Patient in Heparin, Ceftriaxone, Lasix, Insulin, and Pain management. Follow by Pulmonology, ID and Cardio. Will continue to monitor. Nutritional Asmnt/Malnutr-PDOC - Dietary Evaluation Malnutrition Findings (Please click <Entered> for more info): Nutritional Asmnt/Malnutrition Start: 06/21/18 14: 16 Text: Status: Complete Freq: Protocol: Document 06/21/18 14:16 LCHENG (Rec: 06/21/18 14:30 [email or web address]) Nutritional Asmnt/Malnutrition Patient General Information Nutritional Screening High Risk Consult Diagnosis CHF Pertinent Medical Hx/Surgical Hx HTN, asthma/COPD, gastritis, healing ulcers, hemorrhoids Subjective Information Pt seen sitting up in bed having lunch at time of visit, awake and alert. RN was assisting pt to cup food. Per RN, pt consumed 75% of breakfast today. Pt did not provide any food preference. Current Diet Order/ Nutrition Support low dosium, [facility] Pertinent Medications lasix, novolog, pantoprazole Pertinent Labs 06/21 Cr 1.3, glucose 65, POC 80-121 06/20 Na 134, glucose 273 Nutritional Hx/Data Height 1.52 m Height (Calculated Centimeters) 152.4 Current Weight (lbs) 89.811 kg Weight (Calculated Kilograms) 89.8 Weight (Calculated Grams) 63612.3 [place] Body Weight 100 % [place] Body Weight 198 Body Mass Index (BMI) 38.7 Weight Status Obese GI Symptoms GI Symptoms None Last BM none Difficult in: None Skin Integrity/Comment: edema to bilateral cheryl extremities per nurse note skin intact Current %PO Good (75-100%) Estimated Nutritional Goals BEE in Kcals: Adj wt of IBW Calories/Kcals/Kg 25-30 Kcals Calculated 8159-3820 Protein: Adj wt of IBW Protein g/k Protein Calculated 67 Fluid: ml per MD d/t CHF Nutritional Problem 1. Problem Problem altered nutrition related labs Etiology hyperglycemia Signs/Symptoms: glucose 273 Malnutrition Alert Is there a minimum of two criteria No selected? Query Text:Check all the applicable criteria. A minimum of two criteria are recommended for diagnosis of either severe or non-severe malnutrition. Intervention/Recommendation Comments 1. Continue with [facility] low sodium diet as ordered. 2. Monitor PO intake, wt, labs and skin integrity 3. F/U as moderate risk in 3-5 days, 06/24-06/26, PO check 06/23 Expected Outcomes/Goals Expected Outcomes/Goals 1. PO intake to meet at least 75% of nutritional needs. 2. Wt stability, skin to remain intact, labs to approach WNL.
[2018-06-23] MEDS: HYDROmorphone 1 mg/mL 1mL Syr IVP PRN (14:40)
[2018-06-23] MEDS: cefTRIAXone 1 GM in Sodium Chloride 0.9% 50 ML IV SCH (17:09)
[2018-06-23] MEDS: Heparin 25,000 Units In D5W 25,000 UNITS/250 ML BAG IV PRN (20:00)
--- NOTE | 2018-06-23 23:45 | Infectious Disease Prog Note ---
Infectious Disease Subjective - Review of Systems Service Date: 06/23/18 Subjective: Doing the same, no fever. Infectious Disease Objective - Results Result Diagrams: 06/23/18 05:40 06/23/18 05:40 Recent Labs: Laboratory Last Values WBC 16.5 Th/cmm (4.8-10.8) H 06/23/18 05:40 RBC 3.39 Mil/cmm (3.80-5.20) L 06/23/18 05:40 Hgb 8.5 gm/dL (12-16) L 06/23/18 05:40 Hct 26.2 % (41.0-60) L 06/23/18 05:40 MCV 77.3 fl (81-100) L 06/23/18 05:40 MCH 25.0 pg (27.0-31.0) L 06/23/18 05:40 MCHC Differential 32.3 pg (28.0-36.0) 06/23/18 05:40 RDW 19.1 % (11.5-20.0) 06/23/18 05:40 Plt Count 333 Th/cmm (150-400) 06/23/18 05:40 MPV 6.7 fl 06/23/18 05:40 Neutrophils % 79.3 % (40.0-80.0) 06/23/18 05:40 Lymphocytes % 11.4 % (20.0-50.0) L 06/23/18 05:40 Monocytes % 8.2 % (2.0-10.0) 06/23/18 05:40 Eosinophils % 0.4 % (0.0-5.0) 06/23/18 05:40 Basophils % 0.7 % (0.0-2.0) 06/23/18 05:40 PT 9.9 SECONDS (9.5-11.5) 06/20/18 12:04 INR 0.95 (0.5-1.4) 06/20/18 12:04 PTT (Actin FS) 51.7 SECONDS (26.0-38.0) H 06/23/18 20:04 D-Dimer 2610 ng/mL (100-400) H 06/21/18 03:25 Sodium 131 mEq/L (136-145) L 06/23/18 05:40 Potassium 3.8 mEq/L (3.5-5.1) 06/23/18 05:40 Chloride 95 mEq/L (98-107) L 06/23/18 05:40 Carbon Dioxide 31.1 mEq/L (21.0-31.0) H 06/23/18 05:40 Anion Gap 8.7 (7.0-16.0) 06/23/18 05:40 BUN 30 mg/dL (7-25) H 06/23/18 05:40 Creatinine 1.2 mg/dL (0.6-1.2) 06/23/18 05:40 Est GFR ( Amer) TNP 06/23/18 05:40 Est GFR (Non-Af Amer) TNP 06/23/18 05:40 BUN/Creatinine Ratio 25.0 06/23/18 05:40 Glucose 228 mg/dL (70-105) H 06/23/18 05:40 POC Glucose 226 MG/DL (70 - 105) H 06/23/18 17:16 Whole Bld Lactic Acid 1.08 mmol/L (0.60-1.99) 06/23/18 05:40 Calcium 9.2 mg/dL (8.6-10.3) 06/23/18 05:40 Phosphorus 4.2 mg/dL (2.5-5.0) 06/20/18 12:12 Magnesium 2.0 mg/dL (1.9-2.7) 06/20/18 12:12 Total Bilirubin 0.4 mg/dL (0.3-1.0) 06/23/18 05:40 AST 12 U/L (13-39) L 06/23/18 05:40 ALT 8 U/L (7-52) 06/23/18 05:40 Alkaline Phosphatase 70 U/L (34-104) 06/23/18 05:40 Troponin I 0.02 ng/mL (0.01-0.05) 06/20/18 12:04 B-Natriuretic Peptide 425.0 pg/mL (5.0-100.0) H 06/21/18 10:25 Total Protein 6.8 gm/dL (6.0-8.3) 06/23/18 05:40 Albumin 3.3 gm/dL (3.7-5.3) L 06/23/18 05:40 Globulin 3.5 gm/dL 06/23/18 05:40 Albumin/Globulin Ratio 0.9 (1.0-1.8) L 06/23/18 05:40 TSH 2.74 uIU/ml (0.34-5.60) 06/21/18 03:25 Urine Source CLEAN C 06/20/18 14:20 Urine Color YELLOW 06/20/18 14:20 Urine Clarity HAZY (CLEAR) 06/20/18 14:20 Urine pH 6.0 (4.6 - 8.0) 06/20/18 14:20 Ur Specific [place] 1.025 (1.005-1.030) 06/20/18 14:20 Urine Protein 100 mg/dL (NEGATIVE) H 06/20/18 14:20 Urine Glucose (UA) 500 mg/dL (NEGATIVE) H 06/20/18 14:20 Urine Ketones NEGATIVE mg/dL (NEGATIVE) 06/20/18 14:20 Urine Blood MODERATE (NEGATIVE) H 06/20/18 14:20 Urine Nitrate NEGATIVE (NEGATIVE) 06/20/18 14:20 Urine Bilirubin NEGATIVE (NEGATIVE) 06/20/18 14:20 Urine Urobilinogen 0.2 E.U./dL (0.2 - 1.0) 06/20/18 14:20 Ur Leukocyte Esterase NEGATIVE (NEGATIVE) 06/20/18 14:20 Urine RBC 5-10 /hpf (0-5) H 06/20/18 14:20 Urine WBC 0-2 /hpf (0-5) 06/20/18 14:20 Ur Epithelial Cells FEW /lpf (FEW) 06/20/18 14:20 Urine Bacteria 1+ /hpf (NONE SEEN) H 06/20/18 14:20 Fine Granular Casts 0-2 /lpf (NONE SEEN) H 06/20/18 14:20 - Physical Exam Vitals and I&O: Vital Signs Temp 98.6 F 06/23/18 16:00 Pulse 83 06/23/18 23:00 Resp 16 06/23/18 23:00 BP 112/37 06/23/18 23:00 Pulse Ox 96 06/23/18 23:00 Intake & Output 06/23/18 06/23/18 06/24/18 06:59 18:59 06:59 Intake Total 358.816 999.5 74.933 Output Total 280 1250 Balance 78.816 -250.5 74.933 Weight (lbs) 91.535 kg 91.172 kg Intake: Intake, IV Amount 308.816 299.5 74.933 Heparin 25,000 Units In 169.650 149.5 74.933 D5W 25,000 units In 250 ml @ 0 UNITS/HR IV TITR PRN Rx#:[id number] Pantoprazole 80 mg In 139.166 100 Sodium Chloride 0.9% 100 ml @ 10 mls/hr IV Q10H [facility] Rx#:[id number] cefTRIAXone 1 gm In 50 Sodium Chloride 0.9% 50 ml @ 100 mls/hr IV Q24HR [facility] Rx#:[id number] Oral 50 700 Output: Urine 280 1250 Other: # Bowel Movements 0 Weight Source Bedscale Bedscale Active Medications: Current Medications Albuterol/Ipratropium (Duoneb Neb) 3 ml HHN Q6HRT [facility] Stop: 08/21/18 06:59 Last Admin: 06/23/18 19:26 Dose: 3 ml Furosemide (Lasix) 40 mg IVP DAILY [facility] Stop: 08/20/18 08:59 Last Admin: 06/23/18 08:54 Dose: 40 mg Hydromorphone HCl (Dilaudid) 1 mg IVP Q6H PRN PRN Reason: Severe Pain Stop: 08/20/18 08:34 Last Admin: 06/23/18 14:40 Dose: 1 mg Pantoprazole Sodium 80 mg/ (Sodium Chloride) 100 mls @ 10 mls/hr IV Q10H [facility] Stop: 08/19/18 18:59 Last Admin: 06/23/18 17:01 Dose: 10 mls/hr Ceftriaxone Sodium 1 gm/ (Sodium Chloride) 50 mls @ 100 mls/hr IV Q24HR [facility] Stop: 08/20/18 16:59 Last Infusion: 06/23/18 18:29 Dose: Infused Heparin Sodium/Dextrose (Heparin Drip) 25,000 units in 250 mls @ 0 mls/hr IV TITR PRN; Protocol PRN Reason: PROTOCOL Stop: 08/19/18 18:59 Last Admin: 06/23/18 20:00 Dose: 1,200 units/hr, 12 mls/hr Insulin Aspart (Novolog Insulin Sliding Scale) 0 units SUBQ Q6HR [facility]; Protocol Stop: 08/20/18 08:59 Last Admin: 06/23/18 18:13 Dose: 4 units Lisinopril (Zestril) 40 mg PO DAILY [facility] Stop: 08/20/18 08:59 Last Admin: 06/23/18 11:42 Dose: Not Given Metoprolol Tartrate (Lopressor) 25 mg PO DAILY [facility] Stop: 08/20/18 08:59 Last Admin: 06/23/18 08:54 Dose: 25 mg Miscellaneous (Heparin Drip Per Pharmacy) 1 [facility]; Protocol Stop: 08/19/18 16:29 General: no acute distress, well developed, well nourished HEENT: atraumatic, normocephalic, PERRLA, EOMI Neck: supple, no thyromegaly, no lymphadenopathy Cardiovascular: S1S2, regular Lungs: clear to auscultation bilaterally, clear to percussion Abdomen: soft, no tender, no distended, no rebound, no hepatomegaly Extremities: no cyanosis, no clubbing, no edema Neurological: awake, alert, oriented Skin: intact - Procedures Procedures: Procedures Procedure Code Date ELECTROCARDIOGRAM 89.52 01/30/00 ELECTROCARDIOGRAM COMPLETE 99839 01/30/00 EXCISION OF DUODENUM, ENDO, DIAGN [id number] 06/06/18 EXCISION OF STOMACH, ENDO, DIAGN [id number] 06/06/18 INSPECTION OF LOWER INTESTINAL TRACT, ENDO [id number] 06/06/18 LAPAROSCOPIC CHOLECYSTECTOMY 51.23 07/02/03 LAPAROSCOPIC CHOLECYSTECTOMY 81372 07/02/03 TRANSFUSE NONAUT RED BLOOD CELLS IN PERIPH VEIN, PERC 64802L1 06/06/18 Nutritional Asmnt/Malnutr-PDOC - Dietary Evaluation Malnutrition Findings (Please click <Entered> for more info): Nutritional Asmnt/Malnutrition Start: 06/21/18 14: 16 Text: Status: Complete Freq: Protocol: Document 06/21/18 14:16 [email or web address] (Rec: 06/21/18 14:30 [email or web address]) Nutritional Asmnt/Malnutrition Patient General Information Nutritional Screening High Risk Consult Diagnosis CHF Pertinent Medical Hx/Surgical Hx HTN, asthma/COPD, gastritis, healing ulcers, hemorrhoids Subjective Information Pt seen sitting up in bed having lunch at time of visit, awake and alert. RN was assisting pt to cup food. Per RN, pt consumed 75% of breakfast today. Pt did not provide any food preference. Current Diet Order/ Nutrition [facility]ium, [facility] Pertinent Medications lasix, novolog, pantoprazole Pertinent Labs 06/21 Cr 1.3, glucose 65, POC 80-121 06/20 Na 134, glucose 273 Nutritional Hx/Data Height 1.52 m Height (Calculated Centimeters) 152.4 Current Weight (lbs) 89.811 kg Weight (Calculated Kilograms) 89.8 Weight (Calculated Grams) 93941.3 [place] Body Weight 100 % [place] Body Weight 198 Body Mass Index (BMI) 38.7 Weight Status Obese GI Symptoms GI Symptoms None Last BM none Difficult in: None Skin Integrity/Comment: edema to bilateral cheryl extremities per nurse note skin intact Current %PO Good (75-100%) Estimated Nutritional Goals BEE in Kcals: Adj wt of IBW Calories/Kcals/Kg 25-30 Kcals Calculated 3934-7668 Protein: Adj wt of IBW Protein g/k Protein Calculated 67 Fluid: ml per MD d/t CHF Nutritional Problem 1. Problem Problem altered nutrition related labs Etiology hyperglycemia Signs/Symptoms: glucose 273 Malnutrition Alert Is there a minimum of two criteria No selected? Query Text:Check all the applicable criteria. A minimum of two criteria are recommended for diagnosis of either severe or non-severe malnutrition. Intervention/Recommendation Comments 1. Continue with [facility] low sodium diet as ordered. 2. Monitor PO intake, wt, labs and skin integrity 3. F/U as moderate risk in 3-5 days, 06/24-06/26, PO check 06/23 Expected Outcomes/Goals Expected Outcomes/Goals 1. PO intake to meet at least 75% of nutritional needs. 2. Wt stability, skin to remain intact, labs to approach WNL.
--- NOTE | 2018-06-23 23:47 | Infectious Disease Prog Note ---
Infectious Disease Subjective - Review of Systems Service Date: 06/23/18 Subjective: No fever, no chills. receiving heparin drip. Infectious Disease Objective - Results Result Diagrams: 06/23/18 05:40 06/23/18 05:40 Recent Labs: Laboratory Last Values WBC 16.5 Th/cmm (4.8-10.8) H 06/23/18 05:40 RBC 3.39 Mil/cmm (3.80-5.20) L 06/23/18 05:40 Hgb 8.5 gm/dL (12-16) L 06/23/18 05:40 Hct 26.2 % (41.0-60) L 06/23/18 05:40 MCV 77.3 fl (81-100) L 06/23/18 05:40 MCH 25.0 pg (27.0-31.0) L 06/23/18 05:40 MCHC Differential 32.3 pg (28.0-36.0) 06/23/18 05:40 RDW 19.1 % (11.5-20.0) 06/23/18 05:40 Plt Count 333 Th/cmm (150-400) 06/23/18 05:40 MPV 6.7 fl 06/23/18 05:40 Neutrophils % 79.3 % (40.0-80.0) 06/23/18 05:40 Lymphocytes % 11.4 % (20.0-50.0) L 06/23/18 05:40 Monocytes % 8.2 % (2.0-10.0) 06/23/18 05:40 Eosinophils % 0.4 % (0.0-5.0) 06/23/18 05:40 Basophils % 0.7 % (0.0-2.0) 06/23/18 05:40 PT 9.9 SECONDS (9.5-11.5) 06/20/18 12:04 INR 0.95 (0.5-1.4) 06/20/18 12:04 PTT (Actin FS) 51.7 SECONDS (26.0-38.0) H 06/23/18 20:04 D-Dimer 2610 ng/mL (100-400) H 06/21/18 03:25 Sodium 131 mEq/L (136-145) L 06/23/18 05:40 Potassium 3.8 mEq/L (3.5-5.1) 06/23/18 05:40 Chloride 95 mEq/L (98-107) L 06/23/18 05:40 Carbon Dioxide 31.1 mEq/L (21.0-31.0) H 06/23/18 05:40 Anion Gap 8.7 (7.0-16.0) 06/23/18 05:40 BUN 30 mg/dL (7-25) H 06/23/18 05:40 Creatinine 1.2 mg/dL (0.6-1.2) 06/23/18 05:40 Est GFR ( Amer) TNP 06/23/18 05:40 Est GFR (Non-Af Amer) TNP 06/23/18 05:40 BUN/Creatinine Ratio 25.0 06/23/18 05:40 Glucose 228 mg/dL (70-105) H 06/23/18 05:40 POC Glucose 226 MG/DL (70 - 105) H 06/23/18 17:16 Whole Bld Lactic Acid 1.08 mmol/L (0.60-1.99) 06/23/18 05:40 Calcium 9.2 mg/dL (8.6-10.3) 06/23/18 05:40 Phosphorus 4.2 mg/dL (2.5-5.0) 06/20/18 12:12 Magnesium 2.0 mg/dL (1.9-2.7) 06/20/18 12:12 Total Bilirubin 0.4 mg/dL (0.3-1.0) 06/23/18 05:40 AST 12 U/L (13-39) L 06/23/18 05:40 ALT 8 U/L (7-52) 06/23/18 05:40 Alkaline Phosphatase 70 U/L (34-104) 06/23/18 05:40 Troponin I 0.02 ng/mL (0.01-0.05) 06/20/18 12:04 B-Natriuretic Peptide 425.0 pg/mL (5.0-100.0) H 06/21/18 10:25 Total Protein 6.8 gm/dL (6.0-8.3) 06/23/18 05:40 Albumin 3.3 gm/dL (3.7-5.3) L 06/23/18 05:40 Globulin 3.5 gm/dL 06/23/18 05:40 Albumin/Globulin Ratio 0.9 (1.0-1.8) L 06/23/18 05:40 TSH 2.74 uIU/ml (0.34-5.60) 06/21/18 03:25 Urine Source CLEAN C 06/20/18 14:20 Urine Color YELLOW 06/20/18 14:20 Urine Clarity HAZY (CLEAR) 06/20/18 14:20 Urine pH 6.0 (4.6 - 8.0) 06/20/18 14:20 Ur Specific [place] 1.025 (1.005-1.030) 06/20/18 14:20 Urine Protein 100 mg/dL (NEGATIVE) H 06/20/18 14:20 Urine Glucose (UA) 500 mg/dL (NEGATIVE) H 06/20/18 14:20 Urine Ketones NEGATIVE mg/dL (NEGATIVE) 06/20/18 14:20 Urine Blood MODERATE (NEGATIVE) H 06/20/18 14:20 Urine Nitrate NEGATIVE (NEGATIVE) 06/20/18 14:20 Urine Bilirubin NEGATIVE (NEGATIVE) 06/20/18 14:20 Urine Urobilinogen 0.2 E.U./dL (0.2 - 1.0) 06/20/18 14:20 Ur Leukocyte Esterase NEGATIVE (NEGATIVE) 06/20/18 14:20 Urine RBC 5-10 /hpf (0-5) H 06/20/18 14:20 Urine WBC 0-2 /hpf (0-5) 06/20/18 14:20 Ur Epithelial Cells FEW /lpf (FEW) 06/20/18 14:20 Urine Bacteria 1+ /hpf (NONE SEEN) H 06/20/18 14:20 Fine Granular Casts 0-2 /lpf (NONE SEEN) H 06/20/18 14:20 - Physical Exam Vitals and I&O: Vital Signs Temp 98.6 F 06/23/18 16:00 Pulse 83 06/23/18 23:00 Resp 16 06/23/18 23:00 BP 112/37 06/23/18 23:00 Pulse Ox 96 06/23/18 23:00 Intake & Output 06/23/18 06/23/18 06/24/18 06:59 18:59 06:59 Intake Total 358.816 999.5 74.933 Output Total 280 1250 Balance 78.816 -250.5 74.933 Weight (lbs) 91.535 kg 91.172 kg Intake: Intake, IV Amount 308.816 299.5 74.933 Heparin 25,000 Units In 169.650 149.5 74.933 D5W 25,000 units In 250 ml @ 0 UNITS/HR IV TITR PRN Rx#:[id number] Pantoprazole 80 mg In 139.166 100 Sodium Chloride 0.9% 100 ml @ 10 mls/hr IV Q10H [facility] Rx#:[id number] cefTRIAXone 1 gm In 50 Sodium Chloride 0.9% 50 ml @ 100 mls/hr IV Q24HR [facility], [facility]1983 Rx#:[id number] Oral 50 700 Output: Urine 280 1250 Other: # Bowel Movements 0 Weight Source Bedscale Bedscale Active Medications: Current Medications Albuterol/Ipratropium (Duoneb Neb) 3 ml HHN Q6HRT [facility]1983 Stop: 08/21/18 06:59 Last Admin: 06/23/18 19:26 Dose: 3 ml Furosemide (Lasix) 40 mg IVP DAILY [facility] Stop: 08/20/18 08:59 Last Admin: 06/23/18 08:54 Dose: 40 mg Hydromorphone HCl (Dilaudid) 1 mg IVP Q6H PRN PRN Reason: Severe Pain Stop: 08/20/18 08:34 Last Admin: 06/23/18 14:40 Dose: 1 mg Pantoprazole Sodium 80 mg/ (Sodium Chloride) 100 mls @ 10 mls/hr IV Q10H [facility] Stop: 08/19/18 18:59 Last Admin: 06/23/18 17:01 Dose: 10 mls/hr Ceftriaxone Sodium 1 gm/ (Sodium Chloride) 50 mls @ 100 mls/hr IV Q24HR [facility] Stop: 08/20/18 16:59 Last Infusion: 06/23/18 18:29 Dose: Infused Heparin Sodium/Dextrose (Heparin Drip) 25,000 units in 250 mls @ 0 mls/hr IV TITR PRN; Protocol PRN Reason: PROTOCOL Stop: 08/19/18 18:59 Last Admin: 06/23/18 20:00 Dose: 1,200 units/hr, 12 mls/hr Insulin Aspart (Novolog Insulin Sliding Scale) 0 units SUBQ Q6HR [facility]; Protocol Stop: 08/20/18 08:59 Last Admin: 06/23/18 18:13 Dose: 4 units Lisinopril (Zestril) 40 mg PO DAILY [facility] Stop: 08/20/18 08:59 Last Admin: 06/23/18 11:42 Dose: Not Given Metoprolol Tartrate (Lopressor) 25 mg PO DAILY [facility] Stop: 08/20/18 08:59 Last Admin: 06/23/18 08:54 Dose: 25 mg Miscellaneous (Heparin Drip Per Pharmacy) 1 [facility] PRN RAVINDER; Protocol Stop: 08/19/18 16:29 General: no acute distress, well developed, well nourished HEENT: atraumatic, normocephalic, PERRLA, EOMI, moist mucous membrane Neck: supple, no thyromegaly Cardiovascular: S1S2, regular, no systolic murmur Lungs: no clear to auscultation bilaterally, no clear to percussion, no crackles , no wheeze Abdomen: soft, no tender, no distended Extremities: no cyanosis, no clubbing, no edema Neurological: awake, alert, oriented Skin: intact - Procedures Procedures: Procedures Procedure Code Date ELECTROCARDIOGRAM 89.52 01/30/00 ELECTROCARDIOGRAM COMPLETE 02120 01/30/00 EXCISION OF DUODENUM, ENDO, DIAGN [id number] 06/06/18 EXCISION OF STOMACH, ENDO, DIAGN [id number] 06/06/18 INSPECTION OF LOWER INTESTINAL TRACT, ENDO [id number] 06/06/18 LAPAROSCOPIC CHOLECYSTECTOMY 51.23 07/02/03 LAPAROSCOPIC CHOLECYSTECTOMY 05852 07/02/03 TRANSFUSE NONAUT RED BLOOD CELLS IN PERIPH VEIN, PERC 44219C7 06/06/18 Infectious Disease Assmt/Plan - Assessment Assessment: 1. Leukocytosis, most likely reactive. 2. UTI. 3. Pulmonary embolism. 4. COPD exacerbation. 5. Obesity 6. Coronary artery disease. 7. Hypertension. 8. CHF. - Plan Plan: Continue Rocephin Nutritional Asmnt/Malnutr-PDOC - Dietary Evaluation Malnutrition Findings (Please click <Entered> for more info): Nutritional Asmnt/Malnutrition Start: 06/21/18 14: 16 Text: Status: Complete Freq: Protocol: Document 06/21/18 14:16 LCHENG (Rec: 06/21/18 14:30 [email or web address]) Nutritional Asmnt/Malnutrition Patient General Information Nutritional Screening High Risk Consult Diagnosis CHF Pertinent Medical Hx/Surgical Hx HTN, asthma/COPD, gastritis, healing ulcers, hemorrhoids Subjective Information Pt seen sitting up in bed having lunch at time of visit, awake and alert. RN was assisting pt to cup food. Per RN, pt consumed 75% of breakfast today. Pt did not provide any food preference. Current Diet Order/ Nutrition Support [facility]ium, [facility] Pertinent Medications lasix, novolog, pantoprazole Pertinent Labs 06/21 Cr 1.3, glucose 65, POC 80-121 06/20 Na 134, glucose 273 Nutritional Hx/Data Height 1.52 m Height (Calculated Centimeters) 152.4 Current Weight (lbs) 89.811 kg Weight (Calculated Kilograms) 89.8 Weight (Calculated Grams) 79815.3 [place] Body Weight 100 % [place] Body Weight 198 Body Mass Index (BMI) 38.7 Weight Status Obese GI Symptoms GI Symptoms None Last BM none Difficult in: None Skin Integrity/Comment: edema to bilateral cheryl extremities per nurse note skin intact Current %PO Good (75-100%) Estimated Nutritional Goals BEE in Kcals: Adj wt of IBW Calories/Kcals/Kg 25-30 Kcals Calculated 4829-3996 Protein: Adj wt of IBW Protein g/k Protein Calculated 67 Fluid: ml per MD d/t CHF Nutritional Problem 1. Problem Problem altered nutrition related labs Etiology hyperglycemia Signs/Symptoms: glucose 273 Malnutrition Alert Is there a minimum of two criteria No selected? Query Text:Check all the applicable criteria. A minimum of two criteria are recommended for diagnosis of either severe or non-severe malnutrition. Intervention/Recommendation Comments 1. Continue with [facility] low sodium diet as ordered. 2. Monitor PO intake, wt, labs and skin integrity 3. F/U as moderate risk in 3-5 days, 06/24-06/26, PO check 06/23 Expected Outcomes/Goals Expected Outcomes/Goals 1. PO intake to meet at least 75% of nutritional needs. 2. Wt stability, skin to remain intact, labs to approach WNL.
[2018-06-24] MEDS: Albuterol/Ipratropium Neb 3 ML AERS HHN SCH ×4 (00:01→19:31)
[2018-06-24] MEDS: INSULIN ASPART SLIDING SCALE 100 UNITS/ML UNIT SUBQ SCH ×6 (00:08→23:33)
[2018-06-24] MEDS: HYDROmorphone 1 mg/mL 1mL Syr IVP PRN (01:16)
[2018-06-24] MEDS: Pantoprazole 80 MG in Sodium Chloride 0.9% 100 ML IV SCH (02:29)
[2018-06-24 05:22] LABS: % BASOPHILS 0.5 % (0.0-2.0); % EOSINOPHILS 2.4 % (0.0-5.0); % LYMPHOCYTES 10.8 % (20.0-50.0); % MONOCYTES 9.4 % (2.0-10.0); % NEUTROPHILS 76.9 % (40.0-80.0); BASOPHILE ABSOLUTE 0.1 Th/cumm (0-0.2); EOSINOPHILE ABSOLUTE 0.3 Th/cmm (0.1-0.4); HEMATOCRIT 25.5 % (41.0-60); HEMOGLOBIN 8.3 gm/dL (12-16); LYMPHOCYTE ABSOLUTE 1.5 Th/cmm (1.5-3.0); MEAN CELL VOLUME 76.2 fl (81-100); MEAN CORPUSCULAR HEMOGLOBIN 24.8 pg (27.0-31.0); MEAN CORPUSCULAR HGB CONC 32.5 pg (28.0-36.0); MEAN PLATELET VOLUME 7.2 fl; MONOCYTE ABSOLUTE 1.3 Th/cmm (0.3-1.0); NEUTROPHILE ABSOLUTE 10.8 Th/cmm (1.8-8.0); PLATELET COUNT 369 Th/cmm (150-400); RED BLOOD COUNT 3.35 Mil/cmm (3.80-5.20); RED CELL DISTRIBUTION WIDTH 19.3 % (11.5-20.0)
[2018-06-24 05:36] LABS: ALB/GLOB RATIO 0.9 (1.0-1.8); ALBUMIN 3.2 gm/dL (3.7-5.3); ALKALINE PHOSPHATASE 66 U/L (34-104); ANION GAP 10.3 (7.0-16.0); BILIRUBIN,TOTAL 0.4 mg/dL (0.3-1.0); BUN - UREA NITROGEN 27 mg/dL (7-25); CALCIUM SERUM 9.4 mg/dL (8.6-10.3); CARBON DIOXIDE 32.7 mEq/L (21.0-31.0); CHLORIDE 94 mEq/L (98-107); GLUCOSE 178 mg/dL (70-105); SGOT 19 U/L (13-39); SGPT/ALT 9 U/L (7-52); SODIUM SERUM 133 mEq/L (136-145); TOTAL PROTEIN,SERUM 6.7 gm/dL (6.0-8.3)
[2018-06-24] MEDS ORDERED: Probiotic Screen MC PRN (10:45)
--- NOTE | 2018-06-24 12:08 | Infectious Disease Prog Note ---
Infectious Disease Subjective - Review of Systems Service Date: 06/24/18 Subjective: Doing the same, no fever. Infectious Disease Objective - Results Result Diagrams: 06/24/18 04:45 06/24/18 04:45 Recent Labs: Laboratory Last Values WBC 14.0 Th/cmm (4.8-10.8) H 06/24/18 04:45 RBC 3.35 Mil/cmm (3.80-5.20) L 06/24/18 04:45 Hgb 8.3 gm/dL (12-16) L 06/24/18 04:45 Hct 25.5 % (41.0-60) L 06/24/18 04:45 MCV 76.2 fl (81-100) L 06/24/18 04:45 MCH 24.8 pg (27.0-31.0) L 06/24/18 04:45 MCHC Differential 32.5 pg (28.0-36.0) 06/24/18 04:45 RDW 19.3 % (11.5-20.0) 06/24/18 04:45 Plt Count 369 Th/cmm (150-400) 06/24/18 04:45 MPV 7.2 fl 06/24/18 04:45 Neutrophils % 76.9 % (40.0-80.0) 06/24/18 04:45 Lymphocytes % 10.8 % (20.0-50.0) L 06/24/18 04:45 Monocytes % 9.4 % (2.0-10.0) 06/24/18 04:45 Eosinophils % 2.4 % (0.0-5.0) 06/24/18 04:45 Basophils % 0.5 % (0.0-2.0) 06/24/18 04:45 PT 9.9 SECONDS (9.5-11.5) 06/20/18 12:04 INR 0.95 (0.5-1.4) 06/20/18 12:04 PTT (Actin FS) 54.8 SECONDS (26.0-38.0) H 06/24/18 03:00 D-Dimer 1640 ng/mL (100-400) H 06/24/18 04:45 Sodium 133 mEq/L (136-145) L 06/24/18 04:45 Potassium 4.0 mEq/L (3.5-5.1) 06/24/18 04:45 Chloride 94 mEq/L (98-107) L 06/24/18 04:45 Carbon Dioxide 32.7 mEq/L (21.0-31.0) H 06/24/18 04:45 Anion Gap 10.3 (7.0-16.0) 06/24/18 04:45 BUN 27 mg/dL (7-25) H 06/24/18 04:45 Creatinine 1.0 mg/dL (0.6-1.2) 06/24/18 04:45 Est GFR ( Amer) TNP 06/24/18 04:45 Est GFR (Non-Af Amer) TNP 06/24/18 04:45 BUN/Creatinine Ratio 27.0 06/24/18 04:45 Glucose 178 mg/dL (70-105) H 06/24/18 04:45 POC Glucose 343 MG/DL (70 - 105) H 06/24/18 11:54 Whole Bld Lactic Acid 1.29 mmol/L (0.60-1.99) 06/24/18 07:50 Calcium 9.4 mg/dL (8.6-10.3) 06/24/18 04:45 Phosphorus 4.2 mg/dL (2.5-5.0) 06/20/18 12:12 Magnesium 2.0 mg/dL (1.9-2.7) 06/20/18 12:12 Total Bilirubin 0.4 mg/dL (0.3-1.0) 06/24/18 04:45 AST 19 U/L (13-39) 06/24/18 04:45 ALT 9 U/L (7-52) 06/24/18 04:45 Alkaline Phosphatase 66 U/L (34-104) 06/24/18 04:45 Troponin I 0.02 ng/mL (0.01-0.05) 06/20/18 12:04 B-Natriuretic Peptide 247.0 pg/mL (5.0-100.0) H 06/24/18 04:45 Total Protein 6.7 gm/dL (6.0-8.3) 06/24/18 04:45 Albumin 3.2 gm/dL (3.7-5.3) L 06/24/18 04:45 Globulin 3.5 gm/dL 06/24/18 04:45 Albumin/Globulin Ratio 0.9 (1.0-1.8) L 06/24/18 04:45 TSH 2.74 uIU/ml (0.34-5.60) 06/21/18 03:25 Urine Source CLEAN C 06/20/18 14:20 Urine Color YELLOW 06/20/18 14:20 Urine Clarity HAZY (CLEAR) 06/20/18 14:20 Urine pH 6.0 (4.6 - 8.0) 06/20/18 14:20 Ur Specific [place] 1.025 (1.005-1.030) 06/20/18 14:20 Urine Protein 100 mg/dL (NEGATIVE) H 06/20/18 14:20 Urine Glucose (UA) 500 mg/dL (NEGATIVE) H 06/20/18 14:20 Urine Ketones NEGATIVE mg/dL (NEGATIVE) 06/20/18 14:20 Urine Blood MODERATE (NEGATIVE) H 06/20/18 14:20 Urine Nitrate NEGATIVE (NEGATIVE) 06/20/18 14:20 Urine Bilirubin NEGATIVE (NEGATIVE) 06/20/18 14:20 Urine Urobilinogen 0.2 E.U./dL (0.2 - 1.0) 06/20/18 14:20 Ur Leukocyte Esterase NEGATIVE (NEGATIVE) 06/20/18 14:20 Urine RBC 5-10 /hpf (0-5) H 06/20/18 14:20 Urine WBC 0-2 /hpf (0-5) 06/20/18 14:20 Ur Epithelial Cells FEW /lpf (FEW) 06/20/18 14:20 Urine Bacteria 1+ /hpf (NONE SEEN) H 06/20/18 14:20 Fine Granular Casts 0-2 /lpf (NONE SEEN) H 06/20/18 14:20 - Physical Exam Vitals and I&O: Vital Signs Temp 98.2 F 06/24/18 08:00 Pulse 90 06/24/18 10:00 Resp 23 06/24/18 10:00 BP 125/52 06/24/18 10:00 Pulse Ox 99 06/24/18 10:00 Intake & Output 06/23/18 06/24/18 06/24/18 18:59 06:59 18:59 Intake Total 999.5 169.600 100 Output Total 1250 500 Balance -250.5 169.600 -400 Weight (lbs) 91.172 kg 89.721 kg Intake: Intake, IV Amount 299.5 169.600 Heparin 25,000 Units In 149.5 74.933 D5W 25,000 units In 250 ml @ 0 UNITS/HR IV TITR PRN Rx#:[id number] Pantoprazole 80 mg In 100 94.667 Sodium Chloride 0.9% 100 ml @ 10 mls/hr IV Q10H RAVINDER Rx#:[id number] cefTRIAXone 1 gm In 50 Sodium Chloride 0.9% 50 ml @ 100 mls/hr IV Q24HR RAVINDER Rx#:[id number] Oral 700 100 Output: Urine 1250 500 Other: # Bowel Movements 0 0 Weight Source Bedscale Bedscale Active Medications: Current Medications Albuterol/Ipratropium (Duoneb Neb) 3 ml HHN Q6HRT [facility] Stop: 08/21/18 06:59 Last Admin: 06/24/18 06:51 Dose: 3 ml Furosemide (Lasix) 40 mg IVP DAILY RAVINDER Stop: 08/20/18 08:59 Last Admin: 06/24/18 08:30 Dose: 40 mg Hydromorphone HCl (Dilaudid) 1 mg IVP Q6H PRN PRN Reason: Severe Pain Stop: 08/20/18 08:34 Last Admin: 06/24/18 01:16 Dose: 1 mg Pantoprazole Sodium 80 mg/ (Sodium Chloride) 100 mls @ 10 mls/hr IV Q10H [facility]ER Stop: 08/19/18 18:59 Last Admin: 06/24/18 02:29 Dose: 10 mls/hr Ceftriaxone Sodium 1 gm/ (Sodium Chloride) 50 mls @ 100 mls/hr IV Q24HR [facility]ER Stop: 08/20/18 16:59 Last Infusion: 06/23/18 18:29 Dose: Infused Heparin Sodium/Dextrose (Heparin Drip) 25,000 units in 250 mls @ 0 mls/hr IV TITR PRN; Protocol PRN Reason: PROTOCOL Stop: 08/19/18 18:59 Last Admin: 06/23/18 20:00 Dose: 1,200 units/hr, 12 mls/hr Insulin Aspart (Novolog Insulin Sliding Scale) 0 units SUBQ Q6HR RAVINDER; Protocol Stop: 08/20/18 08:59 Last Admin: 06/24/18 07:21 Dose: 2 units Lactobacillus Rhamnosus (Culturelle 15b) 1 each PO DAILY RAVINDER Stop: 08/24/18 08:59 Lisinopril (Zestril) 40 mg PO DAILY RAVINDER Stop: 08/20/18 08:59 Last Admin: 06/24/18 08:30 Dose: Not Given Metoprolol Tartrate (Lopressor) 25 mg PO DAILY R[facility]ER Stop: 08/20/18 08:59 Last Admin: 06/24/18 08:31 Dose: Not Given Miscellaneous (Heparin Drip Per Pharmacy) 1 [facility] PRN RAVINDER; Protocol Stop: 08/19/18 16:29 Miscellaneous (Probiotic Screen) [address] [facility] PRN PRN PRN Reason: PROTOCOL Stop: 08/23/18 10:44 General: no acute distress, well developed, well nourished HEENT: atraumatic, normocephalic, EOMI Neck: supple, no thyromegaly Cardiovascular: S1S2, regular Lungs: clear to auscultation bilaterally, clear to percussion Abdomen: soft, no tender, no distended Extremities: no cyanosis, no clubbing, no edema Neurological: awake, alert Skin: intact - Procedures Procedures: Procedures Procedure Code Date ELECTROCARDIOGRAM 89.52 01/30/00 ELECTROCARDIOGRAM COMPLETE 94738 01/30/00 EXCISION OF DUODENUM, ENDO, DIAGN [id number] 06/06/18 EXCISION OF STOMACH, ENDO, DIAGN [id number] 06/06/18 INSPECTION OF LOWER INTESTINAL TRACT, ENDO [id number] 06/06/18 LAPAROSCOPIC CHOLECYSTECTOMY 51.23 07/02/03 LAPAROSCOPIC CHOLECYSTECTOMY 70939 07/02/03 TRANSFUSE NONAUT RED BLOOD CELLS IN PERIPH VEIN, PERC 79165N3 06/06/18 Infectious Disease Assmt/Plan - Assessment Assessment: 1. Leukocytosis, most likely reactive versus due to UTI. 2. UTI. 3. Pulmonary embolism. 4. COPD exacerbation. 5. Obesity 6. Coronary artery disease. 7. Hypertension. 8. CHF. - Plan Plan: Continue Rocephin. Continue Heparin drip. Nutritional Asmnt/Malnutr-PDOC - Dietary Evaluation Malnutrition Findings (Please click <Entered> for more info): Nutritional Asmnt/Malnutrition Start: 06/21/18 14: 16 Text: Status: Complete Freq: Protocol: Document 06/21/18 14:16 [email or web address] (Rec: 06/21/18 14:30 [email or web address]) Nutritional Asmnt/Malnutrition Patient General Information Nutritional Screening High Risk Consult Diagnosis CHF Pertinent Medical Hx/Surgical Hx HTN, asthma/COPD, gastritis, healing ulcers, hemorrhoids Subjective Information Pt seen sitting up in bed having lunch at time of visit, awake and alert. RN was assisting pt to cup food. Per RN, pt consumed 75% of breakfast today. Pt did not provide any food preference. Current Diet Order/ Nutrition Support low dosium, [facility] Pertinent Medications lasix, novolog, pantoprazole Pertinent Labs 06/21 Cr 1.3, glucose 65, POC 80-121 06/20 Na 134, glucose 273 Nutritional Hx/Data Height 1.52 m Height (Calculated Centimeters) 152.4 Current Weight (lbs) 89.811 kg Weight (Calculated Kilograms) 89.8 Weight (Calculated Grams) [address] [place] Body Weight 100 % [place] Body Weight 198 Body Mass Index (BMI) 38.7 Weight Status Obese GI Symptoms GI Symptoms None Last BM none Difficult in: None Skin Integrity/Comment: edema to bilateral cheryl extremities per nurse note skin intact Current %PO Good (75-100%) Estimated Nutritional Goals BEE in Kcals: Adj wt of IBW Calories/Kcals/Kg 25-30 Kcals Calculated 5804-9937 Protein: Adj wt of IBW Protein g/k Protein Calculated 67 Fluid: ml per MD d/t CHF Nutritional Problem 1. Problem Problem altered nutrition related labs Etiology hyperglycemia Signs/Symptoms: glucose 273 Malnutrition Alert Is there a minimum of two criteria No selected? Query Text:Check all the applicable criteria. A minimum of two criteria are recommended for diagnosis of either severe or non-severe malnutrition. Intervention/Recommendation Comments 1. Continue with [facility] low sodium diet as ordered. 2. Monitor PO intake, wt, labs and skin integrity 3. F/U as moderate risk in 3-5 days, 06/24-06/26, PO check 06/23 Expected Outcomes/Goals Expected Outcomes/Goals 1. PO intake to meet at least 75% of nutritional needs. 2. Wt stability, skin to remain intact, labs to approach WNL.
--- NOTE | 2018-06-24 12:52 | General Progress Note ---
Subjective - Review of Systems Service Date: 06/24/18 Subjective: Patient in awake, alert, calm, in no acute distress,patient refer body pain. Objective - Results Result Diagrams: 06/25/18 04:40 06/25/18 04:40 Recent Labs: Laboratory Last Values WBC 14.0 Th/cmm (4.8-10.8) H 06/24/18 04:45 RBC 3.35 Mil/cmm (3.80-5.20) L 06/24/18 04:45 Hgb 8.3 gm/dL (12-16) L 06/24/18 04:45 Hct 25.5 % (41.0-60) L 06/24/18 04:45 MCV 76.2 fl (81-100) L 06/24/18 04:45 MCH 24.8 pg (27.0-31.0) L 06/24/18 04:45 MCHC Differential 32.5 pg (28.0-36.0) 06/24/18 04:45 RDW 19.3 % (11.5-20.0) 06/24/18 04:45 Plt Count 369 Th/cmm (150-400) 06/24/18 04:45 MPV 7.2 fl 06/24/18 04:45 Neutrophils % 76.9 % (40.0-80.0) 06/24/18 04:45 Lymphocytes % 10.8 % (20.0-50.0) L 06/24/18 04:45 Monocytes % 9.4 % (2.0-10.0) 06/24/18 04:45 Eosinophils % 2.4 % (0.0-5.0) 06/24/18 04:45 Basophils % 0.5 % (0.0-2.0) 06/24/18 04:45 PT 9.9 SECONDS (9.5-11.5) 06/20/18 12:04 INR 0.95 (0.5-1.4) 06/20/18 12:04 PTT (Actin FS) 49.2 SECONDS (26.0-38.0) H 06/24/18 11:36 D-Dimer 1640 ng/mL (100-400) H 06/24/18 04:45 Sodium 133 mEq/L (136-145) L 06/24/18 04:45 Potassium 4.0 mEq/L (3.5-5.1) 06/24/18 04:45 Chloride 94 mEq/L (98-107) L 06/24/18 04:45 Carbon Dioxide 32.7 mEq/L (21.0-31.0) H 06/24/18 04:45 Anion Gap 10.3 (7.0-16.0) 06/24/18 04:45 BUN 27 mg/dL (7-25) H 06/24/18 04:45 Creatinine 1.0 mg/dL (0.6-1.2) 06/24/18 04:45 Est GFR ( Amer) TNP 06/24/18 04:45 Est GFR (Non-Af Amer) TNP 06/24/18 04:45 BUN/Creatinine Ratio 27.0 06/24/18 04:45 Glucose 178 mg/dL (70-105) H 06/24/18 04:45 POC Glucose 343 MG/DL (70 - 105) H 06/24/18 11:54 Whole Bld Lactic Acid 1.29 mmol/L (0.60-1.99) 06/24/18 07:50 Calcium 9.4 mg/dL (8.6-10.3) 06/24/18 04:45 Phosphorus 4.2 mg/dL (2.5-5.0) 06/20/18 12:12 Magnesium 2.0 mg/dL (1.9-2.7) 06/20/18 12:12 Total Bilirubin 0.4 mg/dL (0.3-1.0) 06/24/18 04:45 AST 19 U/L (13-39) 06/24/18 04:45 ALT 9 U/L (7-52) 06/24/18 04:45 Alkaline Phosphatase 66 U/L (34-104) 06/24/18 04:45 Troponin I 0.02 ng/mL (0.01-0.05) 06/20/18 12:04 B-Natriuretic Peptide 247.0 pg/mL (5.0-100.0) H 06/24/18 04:45 Total Protein 6.7 gm/dL (6.0-8.3) 06/24/18 04:45 Albumin 3.2 gm/dL (3.7-5.3) L 06/24/18 04:45 Globulin 3.5 gm/dL 06/24/18 04:45 Albumin/Globulin Ratio 0.9 (1.0-1.8) L 06/24/18 04:45 TSH 2.74 uIU/ml (0.34-5.60) 06/21/18 03:25 Urine Source CLEAN C 06/20/18 14:20 Urine Color YELLOW 06/20/18 14:20 Urine Clarity HAZY (CLEAR) 06/20/18 14:20 Urine pH 6.0 (4.6 - 8.0) 06/20/18 14:20 Ur Specific [place] 1.025 (1.005-1.030) 06/20/18 14:20 Urine Protein 100 mg/dL (NEGATIVE) H 06/20/18 14:20 Urine Glucose (UA) 500 mg/dL (NEGATIVE) H 06/20/18 14:20 Urine Ketones NEGATIVE mg/dL (NEGATIVE) 06/20/18 14:20 Urine Blood MODERATE (NEGATIVE) H 06/20/18 14:20 Urine Nitrate NEGATIVE (NEGATIVE) 06/20/18 14:20 Urine Bilirubin NEGATIVE (NEGATIVE) 06/20/18 14:20 Urine Urobilinogen 0.2 E.U./dL (0.2 - 1.0) 06/20/18 14:20 Ur Leukocyte Esterase NEGATIVE (NEGATIVE) 06/20/18 14:20 Urine RBC 5-10 /hpf (0-5) H 06/20/18 14:20 Urine WBC 0-2 /hpf (0-5) 06/20/18 14:20 Ur Epithelial Cells FEW /lpf (FEW) 06/20/18 14:20 Urine Bacteria 1+ /hpf (NONE SEEN) H 06/20/18 14:20 Fine Granular Casts 0-2 /lpf (NONE SEEN) H 06/20/18 14:20 - Physical Exam Vitals and I&O: Vital Signs Temp 98.2 F 06/24/18 08:00 Pulse 90 06/24/18 10:00 Resp 23 06/24/18 10:00 BP 125/52 06/24/18 10:00 Pulse Ox 99 06/24/18 10:00 Intake & Output 06/23/18 06/24/18 06/24/18 18:59 06:59 18:59 Intake Total 999.5 169.600 100 Output Total 1250 500 Balance -250.5 169.600 -400 Weight (lbs) 91.172 kg 89.721 kg Intake: Intake, IV Amount 299.5 169.600 Heparin 25,000 Units In 149.5 74.933 D5W 25,000 units In 250 ml @ 0 UNITS/HR IV TITR PRN Rx#:[id number] Pantoprazole 80 mg In 100 94.667 Sodium Chloride 0.9% 100 ml @ 10 mls/hr IV Q10H [facility] Rx#:[id number] cefTRIAXone 1 gm In 50 Sodium Chloride 0.9% 50 ml @ 100 mls/hr IV Q24HR [facility] Rx#:[id number] Oral 700 100 Output: Urine 1250 500 Other: # Bowel Movements 0 0 Weight Source Bedscale Bedscale Active Medications: Current Medications Albuterol/Ipratropium (Duoneb Neb) 3 ml HHN Q6HRT [facility] Stop: 08/21/18 06:59 Last Admin: 06/24/18 06:51 Dose: 3 ml Furosemide (Lasix) 40 mg IVP DAILY [facility] Stop: 08/20/18 08:59 Last Admin: 06/24/18 08:30 Dose: 40 mg Hydromorphone HCl (Dilaudid) 1 mg IVP Q6H PRN PRN Reason: Severe Pain Stop: 08/20/18 08:34 Last Admin: 06/24/18 01:16 Dose: 1 mg Pantoprazole Sodium 80 mg/ (Sodium Chloride) 100 mls @ 10 mls/hr IV Q10H [facility] Stop: 08/19/18 18:59 Last Admin: 06/24/18 02:29 Dose: 10 mls/hr Ceftriaxone Sodium 1 gm/ (Sodium Chloride) 50 mls @ 100 mls/hr IV Q24HR [facility] Stop: 08/20/18 16:59 Last Infusion: 06/23/18 18:29 Dose: Infused Heparin Sodium/Dextrose (Heparin Drip) 25,000 units in 250 mls @ 0 mls/hr IV TITR PRN; Protocol PRN Reason: PROTOCOL Stop: 08/19/18 18:59 Last Admin: 06/23/18 20:00 Dose: 1,200 units/hr, 12 mls/hr Insulin Aspart (Novolog Insulin Sliding Scale) 0 units SUBQ Q6HR [facility]; Protocol Stop: 08/20/18 08:59 Last Admin: 06/24/18 12:21 Dose: 8 units Lactobacillus Rhamnosus (Culturelle 15b) 1 each PO DAILY [facility] Stop: 08/24/18 08:59 Lisinopril (Zestril) 40 mg PO DAILY [facility] Stop: 08/20/18 08:59 Last Admin: 06/24/18 08:30 Dose: Not Given Metoprolol Tartrate (Lopressor) 25 mg PO DAILY [facility] Stop: 08/20/18 08:59 Last Admin: 06/24/18 08:31 Dose: Not Given Miscellaneous (Heparin Drip Per Pharmacy) 1 ea PRN [facility]; Protocol Stop: 08/19/18 16:29 Miscellaneous (Probiotic Screen) 1 [facility] PRN PRN PRN Reason: PROTOCOL Stop: 08/23/18 10:44 General: Alert, Cooperative HEENT: Atraumatic Neck: Supple Cardiovascular: Regular rate Lungs: Other (Rude respiration, on nasal O2.) Abdomen: Bowel sounds, Soft Extremities: Tender, Other (Pittin edema1+) Neurological: Other (Non ambulatory at this time.) Skin: Other (Warm and dry) Psych/Mental Status: Mental status NL - Procedures Procedures: Procedures Procedure Code Date ELECTROCARDIOGRAM 89.52 01/30/00 ELECTROCARDIOGRAM COMPLETE 68400 01/30/00 EXCISION OF DUODENUM, ENDO, DIAGN [id number] 06/06/18 EXCISION OF STOMACH, ENDO, DIAGN [id number] 06/06/18 INSPECTION OF LOWER INTESTINAL TRACT, ENDO [id number] 06/06/18 LAPAROSCOPIC CHOLECYSTECTOMY 51.23 07/02/03 LAPAROSCOPIC CHOLECYSTECTOMY 81321 07/02/03 TRANSFUSE NONAUT RED BLOOD CELLS IN PERIPH VEIN, PERC [id number] 06/06/18 Assessment/Plan - Assessment Assessment: Patient is awake, alert, in no acute distress. WBC improving. BNP, and D- dimers improving. PAtient already seen by ID and Dx was possible reactive leukocytosis. Dx: Sepsis secondary to PNA, Non occlusive PE, CHF, Chronic anemia , DM, HTN, COPD, Gastric ulcers. - Plan Plan: Patient in Heparin, Ceftriaxone, Lasix, Insulin, and Pain management. Follow by Pulmonology, ID and Cardio. Will transfer patient to telemetry. Will continue to monitor. Nutritional Asmnt/Malnutr-PDOC - Dietary Evaluation Malnutrition Findings (Please click <Entered> for more info): Nutritional Asmnt/Malnutrition Start: 06/21/18 14: 16 Text: Status: Complete Freq: Protocol: Document 06/21/18 14:16 NORI (Rec: 06/21/18 14:30 NORI [email or web address]) Nutritional Asmnt/Malnutrition Patient General Information Nutritional Screening High Risk Consult Diagnosis CHF Pertinent Medical Hx/Surgical Hx HTN, asthma/COPD, gastritis, healing ulcers, hemorrhoids Subjective Information Pt seen sitting up in bed having lunch at time of visit, awake and alert. RN was assisting pt to cup food. Per RN, pt consumed 75% of breakfast today. Pt did not provide any food preference. Current Diet Order/ Nutrition Support low dosium, CCHO Pertinent Medications lasix, novolog, pantoprazole Pertinent Labs 06/21 Cr 1.3, glucose 65, POC 80-121 06/20 Na 134, glucose 273 Nutritional Hx/Data Height 1.52 m Height (Calculated Centimeters) 152.4 Current Weight (lbs) 89.811 kg Weight (Calculated Kilograms) 89.8 Weight (Calculated Grams) 98266.3 Ione Body Weight 100 % Ione Body Weight 198 Body Mass Index (BMI) 38.7 Weight Status Obese GI Symptoms GI Symptoms None Last BM none Difficult in: None Skin Integrity/Comment: edema to bilateral cheryl extremities per nurse note skin intact Current %PO Good (75-100%) Estimated Nutritional Goals BEE in Kcals: Adj wt of IBW Calories/Kcals/Kg 25-30 Kcals Calculated 9794-2738 Protein: Adj wt of IBW Protein g/k Protein Calculated 67 Fluid: ml per MD d/t CHF Nutritional Problem 1. Problem Problem altered nutrition related labs Etiology hyperglycemia Signs/Symptoms: glucose 273 Malnutrition Alert Is there a minimum of two criteria No selected? Query Text:Check all the applicable criteria. A minimum of two criteria are recommended for diagnosis of either severe or non-severe malnutrition. Intervention/Recommendation Comments 1. [facility] as ordered. 2. Monitor PO intake, wt, labs and skin integrity 3. F/U as moderate risk in 3-5 days, 06/24-06/26, PO check 06/23 Expected Outcomes/Goals Expected Outcomes/Goals 1. PO intake to meet at least 75% of nutritional needs. 2. Wt stability, skin to remain intact, labs to approach WNL.
[2018-06-24] MEDS: cefTRIAXone 1 GM in Sodium Chloride 0.9% 50 ML IV SCH (17:03)
[2018-06-25] MEDS: Albuterol/Ipratropium Neb 3 ML AERS HHN SCH ×4 (01:54→18:41)
[2018-06-25 04:54] LABS: % BASOPHILS 0.2 % (0.0-2.0); % EOSINOPHILS 2.1 % (0.0-5.0); % LYMPHOCYTES 10.1 % (20.0-50.0); % MONOCYTES 8.4 % (2.0-10.0); % NEUTROPHILS 79.2 % (40.0-80.0); EOSINOPHILE ABSOLUTE 0.3 Th/cmm (0.1-0.4); HEMATOCRIT 26.7 % (41.0-60); HEMOGLOBIN 8.7 gm/dL (12-16); LYMPHOCYTE ABSOLUTE 1.6 Th/cmm (1.5-3.0); MEAN CELL VOLUME 76.7 fl (81-100); MEAN CORPUSCULAR HEMOGLOBIN 24.9 pg (27.0-31.0); MEAN CORPUSCULAR HGB CONC 32.5 pg (28.0-36.0); MEAN PLATELET VOLUME 6.4 fl; MONOCYTE ABSOLUTE 1.4 Th/cmm (0.3-1.0); NEUTROPHILE ABSOLUTE 12.9 Th/cmm (1.8-8.0); PLATELET COUNT 429 Th/cmm (150-400); RED BLOOD COUNT 3.48 Mil/cmm (3.80-5.20); RED CELL DISTRIBUTION WIDTH 18.9 % (11.5-20.0)
[2018-06-25 04:56] LABS: WHITE BLOOD COUNT 16.2 Th/cmm (4.8-10.8)
[2018-06-25 05:05] LABS: INR 0.93 (0.5-1.4); PROTHROMBIN TIME (TEST) 9.7 SECONDS (9.5-11.5)
[2018-06-25 05:18] LABS: ALB/GLOB RATIO 0.7 (1.0-1.8); ALBUMIN 3.1 gm/dL (3.7-5.3); ALKALINE PHOSPHATASE 67 U/L (34-104); ANION GAP 9.3 (7.0-16.0); BILIRUBIN,TOTAL 0.5 mg/dL (0.3-1.0); BUN - UREA NITROGEN 22 mg/dL (7-25); CALCIUM SERUM 9.3 mg/dL (8.6-10.3); CARBON DIOXIDE 34.5 mEq/L (21.0-31.0); CHLORIDE 95 mEq/L (98-107); CREATININE - SERUM 0.8 mg/dL (0.6-1.2); GLUCOSE 177 mg/dL (70-105); POTASSIUM SERUM 3.8 mEq/L (3.5-5.1); SGOT 19 U/L (13-39); SGPT/ALT 10 U/L (7-52); SODIUM SERUM 135 mEq/L (136-145); TOTAL PROTEIN,SERUM 7.3 gm/dL (6.0-8.3)
[2018-06-25 05:31] LABS: INR 0.95 (0.5-1.4); PROTHROMBIN TIME (TEST) 9.9 SECONDS (9.5-11.5)
[2018-06-25 05:31] LABS: INR 0.96 (0.5-1.4)
[2018-06-25] MEDS: INSULIN ASPART SLIDING SCALE 100 UNITS/ML UNIT SUBQ SCH ×4 (06:43→23:32)
[2018-06-25] MEDS: Pantoprazole 40 mg EC Tab PO SCH (08:22)
[2018-06-25] MEDS: Lactobacillus Rhamnosus GG 15 Billion CFU CAP.SPRINK PO SCH (08:22)
--- NOTE | 2018-06-25 08:56 | General Progress Note ---
Subjective - Review of Systems Service Date: 06/25/18 Subjective: Patient in awake, alert, calm, in no acute distress,patient refer body pain is improving. Objective - Results Result Diagrams: 06/25/18 04:40 06/25/18 04:40 Recent Labs: Laboratory Last Values WBC 16.2 Th/cmm (4.8-10.8) H 06/25/18 04:40 RBC 3.48 Mil/cmm (3.80-5.20) L 06/25/18 04:40 Hgb 8.7 gm/dL (12-16) L 06/25/18 04:40 Hct 26.7 % (41.0-60) L 06/25/18 04:40 MCV 76.7 fl (81-100) L 06/25/18 04:40 MCH 24.9 pg (27.0-31.0) L 06/25/18 04:40 MCHC Differential 32.5 pg (28.0-36.0) 06/25/18 04:40 RDW 18.9 % (11.5-20.0) 06/25/18 04:40 Plt Count 429 Th/cmm (150-400) H 06/25/18 04:40 MPV 6.4 fl 06/25/18 04:40 Neutrophils % 79.2 % (40.0-80.0) 06/25/18 04:40 Lymphocytes % 10.1 % (20.0-50.0) L 06/25/18 04:40 Monocytes % 8.4 % (2.0-10.0) 06/25/18 04:40 Eosinophils % 2.1 % (0.0-5.0) 06/25/18 04:40 Basophils % 0.2 % (0.0-2.0) 06/25/18 04:40 PT 9.7 SECONDS (9.5-11.5) 06/25/18 04:40 INR 0.93 (0.5-1.4) 06/25/18 04:40 PTT (Actin FS) 49.2 SECONDS (26.0-38.0) H 06/24/18 11:36 D-Dimer 1640 ng/mL (100-400) H 06/24/18 04:45 Sodium 135 mEq/L (136-145) L 06/25/18 04:40 Potassium 3.8 mEq/L (3.5-5.1) 06/25/18 04:40 Chloride 95 mEq/L (98-107) L 06/25/18 04:40 Carbon Dioxide 34.5 mEq/L (21.0-31.0) H 06/25/18 04:40 Anion Gap 9.3 (7.0-16.0) 06/25/18 04:40 BUN 22 mg/dL (7-25) 06/25/18 04:40 Creatinine 0.8 mg/dL (0.6-1.2) 06/25/18 04:40 Est GFR ( Amer) TNP 06/25/18 04:40 Est GFR (Non-Af Amer) TNP 06/25/18 04:40 BUN/Creatinine Ratio 27.5 06/25/18 04:40 Glucose 177 mg/dL (70-105) H 06/25/18 04:40 POC Glucose 181 MG/DL (70 - 105) H 06/25/18 06:12 Whole Bld Lactic Acid 0.76 mmol/L (0.60-1.99) 06/25/18 04:40 Calcium 9.3 mg/dL (8.6-10.3) 06/25/18 04:40 Phosphorus 4.2 mg/dL (2.5-5.0) 06/20/18 12:12 Magnesium 2.0 mg/dL (1.9-2.7) 06/20/18 12:12 Total Bilirubin 0.5 mg/dL (0.3-1.0) 06/25/18 04:40 AST 19 U/L (13-39) 06/25/18 04:40 ALT 10 U/L (7-52) 06/25/18 04:40 Alkaline Phosphatase 67 U/L (34-104) 06/25/18 04:40 Troponin I 0.02 ng/mL (0.01-0.05) 06/20/18 12:04 B-Natriuretic Peptide 247.0 pg/mL (5.0-100.0) H 06/24/18 04:45 Total Protein 7.3 gm/dL (6.0-8.3) 06/25/18 04:40 Albumin 3.1 gm/dL (3.7-5.3) L 06/25/18 04:40 Globulin 4.2 gm/dL 06/25/18 04:40 Albumin/Globulin Ratio 0.7 (1.0-1.8) L 06/25/18 04:40 TSH 2.74 uIU/ml (0.34-5.60) 06/21/18 03:25 Urine Source CLEAN C 06/20/18 14:20 Urine Color YELLOW 06/20/18 14:20 Urine Clarity HAZY (CLEAR) 06/20/18 14:20 Urine pH 6.0 (4.6 - 8.0) 06/20/18 14:20 Ur Specific [place] 1.025 (1.005-1.030) 06/20/18 14:20 Urine Protein 100 mg/dL (NEGATIVE) H 06/20/18 14:20 Urine Glucose (UA) 500 mg/dL (NEGATIVE) H 06/20/18 14:20 Urine Ketones NEGATIVE mg/dL (NEGATIVE) 06/20/18 14:20 Urine Blood MODERATE (NEGATIVE) H 06/20/18 14:20 Urine Nitrate NEGATIVE (NEGATIVE) 06/20/18 14:20 Urine Bilirubin NEGATIVE (NEGATIVE) 06/20/18 14:20 Urine Urobilinogen 0.2 E.U./dL (0.2 - 1.0) 06/20/18 14:20 Ur Leukocyte Esterase NEGATIVE (NEGATIVE) 06/20/18 14:20 Urine RBC 5-10 /hpf (0-5) H 06/20/18 14:20 Urine WBC 0-2 /hpf (0-5) 06/20/18 14:20 Ur Epithelial Cells FEW /lpf (FEW) 06/20/18 14:20 Urine Bacteria 1+ /hpf (NONE SEEN) H 06/20/18 14:20 Fine Granular Casts 0-2 /lpf (NONE SEEN) H 06/20/18 14:20 - Physical Exam Vitals and I&O: Vital Signs Temp 98.4 F 06/25/18 04:00 Pulse 92 06/25/18 08:22 Resp 18 06/25/18 07:01 BP 135/50 06/25/18 08:22 Pulse Ox 98 06/25/18 07:01 Intake & Output 06/24/18 06/25/18 06/25/18 18:59 06:59 18:59 Intake Total 400 Output Total 2049 Balance -1650 Weight (lbs) 88.904 kg Intake: Intake, IV Amount 50 cefTRIAXone 1 gm In 50 Sodium Chloride 0.9% 50 ml @ 100 mls/hr IV Q24HR [facility] Rx#:[id number] Oral 350 Output: Urine 2049 Other: # Bowel Movements 0 Stool Characteristics Soft Brown Weight Source Bedscale Active Medications: Current Medications Albuterol/Ipratropium (Duoneb Neb) 3 ml HHN Q6HRT [facility] Stop: 08/21/18 06:59 Last Admin: 06/25/18 07:00 Dose: 3 ml Furosemide (Lasix) 40 mg IVP DAILY [facility] Stop: 08/20/18 08:59 Last Admin: 06/25/18 08:21 Dose: 40 mg Hydromorphone HCl (Dilaudid) 1 mg IVP Q6H PRN PRN Reason: Severe Pain Stop: 08/20/18 08:34 Last Admin: 06/24/18 01:16 Dose: 1 mg Ceftriaxone Sodium 1 gm/ (Sodium Chloride) 50 mls @ 100 mls/hr IV Q24HR [facility] Stop: 08/20/18 16:59 Last Infusion: 06/24/18 17:35 Dose: Infused Insulin Aspart (Novolog Insulin Sliding Scale) 0 units SUBQ Q6HR [facility]; Protocol Stop: 08/20/18 08:59 Last Admin: 06/25/18 06:43 Dose: 2 units Lactobacillus Rhamnosus (Culturelle 15b) 1 each PO DAILY [facility] Stop: 08/24/18 08:59 Last Admin: 06/25/18 08:22 Dose: 1 each Lisinopril (Zestril) 40 mg PO DAILY [facility] Stop: 08/20/18 08:59 Last Admin: 06/25/18 08:22 Dose: 40 mg Metoprolol Tartrate (Lopressor) 25 mg PO DAILY [facility] Stop: 08/20/18 08:59 Last Admin: 06/25/18 08:22 Dose: 25 mg Miscellaneous (Probiotic Screen) 1 ea [facility] PRN PRN PRN Reason: PROTOCOL Stop: 08/23/18 10:44 Pantoprazole Sodium (Protonix) 40 mg PO DAILY [facility] Stop: 08/24/18 08:59 Last Admin: 06/25/18 08:22 Dose: 40 mg Warfarin Sodium (Coumadin Per Pharmacy) 1 ea PRN PRN; Protocol PRN Reason: RX MONITORING Stop: 08/23/18 13:05 General: Alert, Cooperative HEENT: Atraumatic Neck: Supple Cardiovascular: Regular rate Lungs: Other (Rude respiration, on nasal O2.) Abdomen: Bowel sounds, Soft Extremities: Tender, Other (Pittin edema1+) Neurological: Other (Non ambulatory at this time.) Skin: Other (Warm and dry) Psych/Mental Status: Mental status NL - Procedures Procedures: Procedures Procedure Code Date ELECTROCARDIOGRAM 89.52 01/30/00 ELECTROCARDIOGRAM COMPLETE 45597 01/30/00 EXCISION OF DUODENUM, ENDO, DIAGN [id number] 06/06/18 EXCISION OF STOMACH, ENDO, DIAGN [id number] 06/06/18 INSPECTION OF LOWER INTESTINAL TRACT, ENDO [id number] 06/06/18 LAPAROSCOPIC CHOLECYSTECTOMY 51.23 07/02/03 LAPAROSCOPIC CHOLECYSTECTOMY 15626 07/02/03 TRANSFUSE NONAUT RED BLOOD CELLS IN PERIPH VEIN, PERC 49708Y6 06/06/18 Assessment/Plan - Assessment Assessment: Patient is awake, alert, in no acute distress. WBC increased today, D-dimers improving. PAtient follow by by ID, Cardio and Pulmonology. Dx: Sepsis secondary to PNA, Non occlusive PE, CHF, Chronic anemia, DM, HTN, COPD, Gastric ulcers. - Plan Plan: Patient in Xarelto, Ceftriaxone, Lasix, Insulin, and Pain management. Follow by Pulmonology, ID and Cardio. Will transfer patient to telemetry. Will continue to monitor. Nutritional Asmnt/Malnutr-PDOC - Dietary Evaluation Malnutrition Findings (Please click <Entered> for more info): Nutritional Asmnt/Malnutrition Start: 06/21/18 14: 16 Text: Status: Complete Freq: Protocol: Document 06/21/18 14:16 LCHENG (Rec: 06/21/18 14:30 [email or web address]) Nutritional Asmnt/Malnutrition Patient General Information Nutritional Screening High Risk Consult Diagnosis CHF Pertinent Medical Hx/Surgical Hx HTN, asthma/COPD, gastritis, healing ulcers, hemorrhoids Subjective Information Pt seen sitting up in bed having lunch at time of visit, awake and alert. RN was assisting pt to cup food. Per RN, pt consumed 75% of breakfast today. Pt did not provide any food preference. Current Diet Order/ Nutrition Support low dosium, CCHO Pertinent Medications lasix, novolog, pantoprazole Pertinent Labs 06/21 Cr 1.3, glucose 65, POC 80-121 06/20 Na 134, glucose 273 Nutritional Hx/Data Height 1.52 m Height (Calculated Centimeters) 152.4 Current Weight (lbs) 89.811 kg Weight (Calculated Kilograms) 89.8 Weight (Calculated Grams) 78972.3 [place] Body Weight 100 % [place] Body Weight 198 Body Mass Index (BMI) 38.7 Weight Status Obese GI Symptoms GI Symptoms None Last BM none Difficult in: None Skin Integrity/Comment: edema to bilateral cheryl extremities per nurse note skin intact Current %PO Good (75-100%) Estimated Nutritional Goals BEE in Kcals: Adj wt of IBW Calories/Kcals/Kg 25-30 Kcals Calculated 8018-3438 Protein: Adj wt of IBW Protein g/k Protein Calculated 67 Fluid: ml per MD d/t CHF Nutritional Problem 1. Problem Problem altered nutrition related labs Etiology hyperglycemia Signs/Symptoms: glucose 273 Malnutrition Alert Is there a minimum of two criteria No selected? Query Text:Check all the applicable criteria. A minimum of two criteria are recommended for diagnosis of either severe or non-severe malnutrition. Intervention/Recommendation Comments 1. Continue with [facility] low sodium diet as ordered. 2. Monitor PO intake, wt, labs and skin integrity 3. F/U as moderate risk in 3-5 days, 06/24-06/26, PO check 06/23 Expected Outcomes/Goals Expected Outcomes/Goals 1. PO intake to meet at least 75% of nutritional needs. 2. Wt stability, skin to remain intact, labs to approach WNL.
[2018-06-25 14:00] LABS: INR 1.15 (0.5-1.4); PROTHROMBIN TIME (TEST) 11.9 SECONDS (9.5-11.5)
[2018-06-25] MEDS: cefTRIAXone 1 GM in Sodium Chloride 0.9% 50 ML IV SCH (16:30)
[2018-06-25 16:59] LABS: ALLEN TEST YES; pH 7.51 (7.35-7.45)
[2018-06-25 19:28] LABS: pH 7.54 (7.35-7.45)
[2018-06-25 19:29] LABS: ALLEN TEST Positive
--- NOTE | 2018-06-25 23:35 | Infectious Disease Prog Note ---
Infectious Disease Subjective - Review of Systems Service Date: 06/25/18 Subjective: Doing the same, no fever. Infectious Disease Objective - Results Result Diagrams: 06/25/18 04:40 06/25/18 04:40 Recent Labs: Laboratory Last Values WBC 16.2 Th/cmm (4.8-10.8) H 06/25/18 04:40 RBC 3.48 Mil/cmm (3.80-5.20) L 06/25/18 04:40 Hgb 8.7 gm/dL (12-16) L 06/25/18 04:40 Hct 26.7 % (41.0-60) L 06/25/18 04:40 MCV 76.7 fl (81-100) L 06/25/18 04:40 MCH 24.9 pg (27.0-31.0) L 06/25/18 04:40 MCHC Differential 32.5 pg (28.0-36.0) 06/25/18 04:40 RDW 18.9 % (11.5-20.0) 06/25/18 04:40 Plt Count 429 Th/cmm (150-400) H 06/25/18 04:40 MPV 6.4 fl 06/25/18 04:40 Neutrophils % 79.2 % (40.0-80.0) 06/25/18 04:40 Lymphocytes % 10.1 % (20.0-50.0) L 06/25/18 04:40 Monocytes % 8.4 % (2.0-10.0) 06/25/18 04:40 Eosinophils % 2.1 % (0.0-5.0) 06/25/18 04:40 Basophils % 0.2 % (0.0-2.0) 06/25/18 04:40 PT 11.9 SECONDS (9.5-11.5) H 06/25/18 13:42 INR 1.15 (0.5-1.4) 06/25/18 13:42 PTT (Actin FS) 49.2 SECONDS (26.0-38.0) H 06/24/18 11:36 D-Dimer 1640 ng/mL (100-400) H 06/24/18 04:45 Specimen Source ARTERIAL 06/25/18 17:19 Sample Site Right Radial 06/25/18 17:19 pH 7.54 (7.35-7.45) H 06/25/18 17:19 pCO2 46.0 mmHg (35.0-45.0) H 06/25/18 17:19 pO2 58.0 mmHg (80.0-100.0) L 06/25/18 17:19 HCO3 36.4 mEq/L (20.0-26.0) H 06/25/18 17:19 Base Excess 14.9 mEq/L (-3.0-3.0) H 06/25/18 17:19 O2 Saturation 93.0 % (92.0-100.0) 06/25/18 17:19 Ermias Test Positive 06/25/18 17:19 Vent Rate N/A 06/25/18 17:19 Inspired O2 21 06/25/18 17:19 Tidal Volume N/A 06/25/18 17:19 PEEP N/A 06/25/18 17:19 Pressure (ins/psv/peep) N/A 06/25/18 17:19 Critical Value ORGANIZATION DEVELOPMENT CONSULTANT 06/25/18 17:19 Sodium 135 mEq/L (136-145) L 06/25/18 04:40 Potassium 3.8 mEq/L (3.5-5.1) 06/25/18 04:40 Chloride 95 mEq/L (98-107) L 06/25/18 04:40 Carbon Dioxide 34.5 mEq/L (21.0-31.0) H 06/25/18 04:40 Anion Gap 9.3 (7.0-16.0) 06/25/18 04:40 BUN 22 mg/dL (7-25) 06/25/18 04:40 Creatinine 0.8 mg/dL (0.6-1.2) 06/25/18 04:40 Est GFR ( Amer) TNP 06/25/18 04:40 Est GFR (Non-Af Amer) TNP 06/25/18 04:40 BUN/Creatinine Ratio 27.5 06/25/18 04:40 Glucose 177 mg/dL (70-105) H 06/25/18 04:40 POC Glucose 184 MG/DL (70 - 105) H 06/25/18 23:29 Whole Bld Lactic Acid 0.76 mmol/L (0.60-1.99) 06/25/18 04:40 Calcium 9.3 mg/dL (8.6-10.3) 06/25/18 04:40 Phosphorus 4.2 mg/dL (2.5-5.0) 06/20/18 12:12 Magnesium 2.0 mg/dL (1.9-2.7) 06/20/18 12:12 Total Bilirubin 0.5 mg/dL (0.3-1.0) 06/25/18 04:40 AST 19 U/L (13-39) 06/25/18 04:40 ALT 10 U/L (7-52) 06/25/18 04:40 Alkaline Phosphatase 67 U/L (34-104) 06/25/18 04:40 Troponin I 0.02 ng/mL (0.01-0.05) 06/20/18 12:04 B-Natriuretic Peptide 247.0 pg/mL (5.0-100.0) H 06/24/18 04:45 Total Protein 7.3 gm/dL (6.0-8.3) 06/25/18 04:40 Albumin 3.1 gm/dL (3.7-5.3) L 06/25/18 04:40 Globulin 4.2 gm/dL 06/25/18 04:40 Albumin/Globulin Ratio 0.7 (1.0-1.8) L 06/25/18 04:40 TSH 2.74 uIU/ml (0.34-5.60) 06/21/18 03:25 Urine Source CLEAN C 06/20/18 14:20 Urine Color YELLOW 06/20/18 14:20 Urine Clarity HAZY (CLEAR) 06/20/18 14:20 Urine pH 6.0 (4.6 - 8.0) 06/20/18 14:20 Ur Specific [place] 1.025 (1.005-1.030) 06/20/18 14:20 Urine Protein 100 mg/dL (NEGATIVE) H 06/20/18 14:20 Urine Glucose (UA) 500 mg/dL (NEGATIVE) H 06/20/18 14:20 Urine Ketones NEGATIVE mg/dL (NEGATIVE) 06/20/18 14:20 Urine Blood MODERATE (NEGATIVE) H 06/20/18 14:20 Urine Nitrate NEGATIVE (NEGATIVE) 06/20/18 14:20 Urine Bilirubin NEGATIVE (NEGATIVE) 06/20/18 14:20 Urine Urobilinogen 0.2 E.U./dL (0.2 - 1.0) 06/20/18 14:20 Ur Leukocyte Esterase NEGATIVE (NEGATIVE) 06/20/18 14:20 Urine RBC 5-10 /hpf (0-5) H 06/20/18 14:20 Urine WBC 0-2 /hpf (0-5) 06/20/18 14:20 Ur Epithelial Cells FEW /lpf (FEW) 06/20/18 14:20 Urine Bacteria 1+ /hpf (NONE SEEN) H 06/20/18 14:20 Fine Granular Casts 0-2 /lpf (NONE SEEN) H 06/20/18 14:20 - Physical Exam Vitals and I&O: Vital Signs Temp 96.7 F 06/25/18 20:00 Pulse 86 06/25/18 20:00 Resp 23 06/25/18 22:59 BP 126/62 06/25/18 20:00 Pulse Ox 98 06/25/18 22:59 Intake & Output 06/25/18 06/25/18 06/26/18 06:59 18:59 06:59 Intake Total 400 Output Total 1400 Balance -1000 Weight (lbs) 88.723 kg Intake: Oral 400 Output: Urine 1400 Other: # Bowel Movements 4 Stool Characteristics Soft Soft Soft Brown Brown Weight Source Bedscale Active Medications: Current Medications Albuterol/Ipratropium (Duoneb Neb) 3 ml HHN Q6HRT RAVINDER Stop: 08/21/18 06:59 Last Admin: 06/25/18 18:41 Dose: 3 ml Furosemide (Lasix) 40 mg IVP DAILY RAVINDER Stop: 08/20/18 08:59 Last Admin: 06/25/18 08:21 Dose: 40 mg Hydromorphone HCl (Dilaudid) 1 mg IVP Q6H PRN PRN Reason: Severe Pain Stop: 08/20/18 08:34 Last Admin: 06/24/18 01:16 Dose: 1 mg Ceftriaxone Sodium 1 gm/ (Sodium Chloride) 50 mls @ 100 mls/hr IV Q24HR RAVINDER Stop: 08/20/18 16:59 Last Admin: 06/25/18 16:30 Dose: 100 mls/hr Insulin Aspart (Novolog Insulin Sliding Scale) 0 units SUBQ Q6HR RAVINDER; Protocol Stop: 08/20/18 08:59 Last Admin: 06/25/18 23:32 Dose: 2 units Lactobacillus Rhamnosus (Culturelle 15b) 1 each PO DAILY [facility] Stop: 08/24/18 08:59 Last Admin: 06/25/18 08:22 Dose: 1 each Lisinopril (Zestril) 40 mg PO DAILY [facility] Stop: 08/20/18 08:59 Last Admin: 06/25/18 08:22 Dose: 40 mg Metoprolol Tartrate (Lopressor) 25 mg PO DAILY [facility] Stop: 08/20/18 08:59 Last Admin: 06/25/18 08:22 Dose: 25 mg Miscellaneous (Probiotic Screen) 1 ea MC PRN PRN PRN Reason: PROTOCOL Stop: 08/23/18 10:44 Pantoprazole Sodium (Protonix) 40 mg PO DAILY [facility] Stop: 08/24/18 08:59 Last Admin: 06/25/18 08:22 Dose: 40 mg Rivaroxaban (Xarelto) 15 mg PO BIDWM [facility] Stop: 07/15/18 18:01 Last Admin: 06/25/18 18:47 Dose: 15 mg General: no acute distress, well developed, well nourished HEENT: atraumatic, normocephalic, PERRLA, EOMI Neck: supple, no thyromegaly Cardiovascular: S1S2, regular Lungs: clear to auscultation bilaterally, clear to percussion Abdomen: soft, no tender, no distended, no mass Extremities: no cyanosis, no clubbing, no edema Neurological: awake, alert, oriented Skin: intact - Procedures Procedures: Procedures Procedure Code Date ELECTROCARDIOGRAM 89.52 01/30/00 ELECTROCARDIOGRAM COMPLETE 43121 01/30/00 EXCISION OF DUODENUM, ENDO, DIAGN [id number] 06/06/18 EXCISION OF STOMACH, ENDO, DIAGN [id number] 06/06/18 INSPECTION OF LOWER INTESTINAL TRACT, ENDO [id number] 06/06/18 LAPAROSCOPIC CHOLECYSTECTOMY 51.23 07/02/03 LAPAROSCOPIC CHOLECYSTECTOMY 74216 07/02/03 TRANSFUSE NONAUT RED BLOOD CELLS IN PERIPH VEIN, PERC [id number] 06/06/18 Infectious Disease Assmt/Plan - Assessment Assessment: 1. Leukocytosis, most likely reactive versus due to UTI. 2. UTI. 3. Pulmonary embolism. 4. COPD exacerbation. 5. Obesity 6. Coronary artery disease. 7. Hypertension. 8. CHF. - Plan Plan: Continue Rocephin it can be changed to keflex po to complete 7 days therapy. Nutritional Asmnt/Malnutr-PDOC - Dietary Evaluation Malnutrition Findings (Please click <Entered> for more info): Nutritional Asmnt/Malnutrition Start: 06/21/18 14: 16 Text: Status: Complete Freq: Protocol: Document 06/21/18 14:16 LCHENG (Rec: 06/21/18 14:30 [email or web address] [email or web address]) Nutritional Asmnt/Malnutrition Patient General Information Nutritional Screening High Risk Consult Diagnosis CHF Pertinent Medical Hx/Surgical Hx HTN, asthma/COPD, gastritis, healing ulcers, hemorrhoids Subjective Information Pt seen sitting up in bed having lunch at time of visit, awake and alert. RN was assisting pt to cup food. Per RN, pt consumed 75% of breakfast today. Pt did not provide any food preference. Current Diet Order/ [facility]ium[facility] Pertinent Medications lasix, novolog, pantoprazole Pertinent Labs 06/21 Cr 1.3, glucose 65, POC 80-121 06/20 Na 134, glucose 273 Nutritional Hx/Data Height 1.52 m Height (Calculated Centimeters) 152.4 Current Weight (lbs) 89.811 kg Weight (Calculated Kilograms) 89.8 Weight (Calculated Grams) 80488.3 [place] Body Weight 100 % [place] Body Weight 198 Body Mass Index (BMI) 38.7 Weight Status Obese GI Symptoms GI Symptoms None Last BM none Difficult in: None Skin Integrity/Comment: edema to bilateral cheryl extremities per nurse note skin intact Current %PO Good (75-100%) Estimated Nutritional Goals BEE in Kcals: Adj wt of IBW Calories/Kcals/Kg 25-30 Kcals Calculated 9352-7011 Protein: Adj wt of IBW Protein g/k Protein Calculated 67 Fluid: ml per MD d/t CHF Nutritional Problem 1. Problem Problem altered nutrition related labs Etiology hyperglycemia Signs/Symptoms: glucose 273 Malnutrition Alert Is there a minimum of two criteria No selected? Query Text:Check all the applicable criteria. A minimum of two criteria are recommended for diagnosis of either severe or non-severe malnutrition. Intervention/Recommendation Comments 1. Continue with [facility] low sodium diet as ordered. 2. Monitor PO intake, wt, labs and skin integrity 3. F/U as moderate risk in 3-5 days, 06/24-06/26, PO check 06/23 Expected Outcomes/Goals Expected Outcomes/Goals 1. PO intake to meet at least 75% of nutritional needs. 2. Wt stability, skin to remain intact, labs to approach WNL.
[2018-06-26] MEDS: Albuterol/Ipratropium Neb 3 ML AERS HHN SCH ×4 (01:20→19:37)
[2018-06-26 05:10] LABS: % EOSINOPHILS 4.2 % (0.0-5.0); % LYMPHOCYTES 12.4 % (20.0-50.0); % MONOCYTES 8.6 % (2.0-10.0); % NEUTROPHILS 73.8 % (40.0-80.0); BASOPHILE ABSOLUTE 0.2 Th/cumm (0-0.2); EOSINOPHILE ABSOLUTE 0.7 Th/cmm (0.1-0.4); HEMATOCRIT 27.8 % (41.0-60); HEMOGLOBIN 9.1 gm/dL (12-16); LYMPHOCYTE ABSOLUTE 1.9 Th/cmm (1.5-3.0); MEAN CELL VOLUME 75.5 fl (81-100); MEAN CORPUSCULAR HEMOGLOBIN 24.8 pg (27.0-31.0); MEAN CORPUSCULAR HGB CONC 32.8 pg (28.0-36.0); MEAN PLATELET VOLUME 6.5 fl; MONOCYTE ABSOLUTE 1.4 Th/cmm (0.3-1.0); NEUTROPHILE ABSOLUTE 11.5 Th/cmm (1.8-8.0); PLATELET COUNT 447 Th/cmm (150-400); RED BLOOD COUNT 3.68 Mil/cmm (3.80-5.20); RED CELL DISTRIBUTION WIDTH 18.6 % (11.5-20.0)
[2018-06-26 05:25] LABS: INR 1.04 (0.5-1.4); PROTHROMBIN TIME (TEST) 10.8 SECONDS (9.5-11.5)
[2018-06-26 05:35] LABS: ALB/GLOB RATIO 0.8 (1.0-1.8); ALBUMIN 3.1 gm/dL (3.7-5.3); ALKALINE PHOSPHATASE 66 U/L (34-104); ANION GAP 9.2 (7.0-16.0); BILIRUBIN,TOTAL 0.4 mg/dL (0.3-1.0); BUN - UREA NITROGEN 21 mg/dL (7-25); CALCIUM SERUM 9.4 mg/dL (8.6-10.3); CARBON DIOXIDE 36.2 mEq/L (21.0-31.0); CHLORIDE 94 mEq/L (98-107); CREATININE - SERUM 0.8 mg/dL (0.6-1.2); GLUCOSE 142 mg/dL (70-105); POTASSIUM SERUM 3.4 mEq/L (3.5-5.1); SGOT 17 U/L (13-39); SGPT/ALT 10 U/L (7-52); SODIUM SERUM 136 mEq/L (136-145); TOTAL PROTEIN,SERUM 7.1 gm/dL (6.0-8.3)
[2018-06-26 05:42] LABS: WHITE BLOOD COUNT 15.7 Th/cmm (4.8-10.8)
[2018-06-26] MEDS: INSULIN ASPART SLIDING SCALE 100 UNITS/ML UNIT SUBQ SCH ×4 (05:56→23:58)
[2018-06-26] MEDS: Lactobacillus Rhamnosus GG 15 Billion CFU CAP.SPRINK PO SCH (08:54)
[2018-06-26] MEDS: Pantoprazole 40 mg EC Tab PO SCH (08:54)
--- NOTE | 2018-06-26 09:20 | General Progress Note ---
Subjective - Review of Systems Service Date: 06/26/18 Subjective: Patient in awake, alert, calm, in no acute distress,patient refer felling better. Objective - Results Result Diagrams: 06/26/18 04:50 06/26/18 04:50 Recent Labs: Laboratory Last Values WBC 15.7 Th/cmm (4.8-10.8) H 06/26/18 04:50 RBC 3.68 Mil/cmm (3.80-5.20) L 06/26/18 04:50 Hgb 9.1 gm/dL (12-16) L 06/26/18 04:50 Hct 27.8 % (41.0-60) L 06/26/18 04:50 MCV 75.5 fl (81-100) L 06/26/18 04:50 MCH 24.8 pg (27.0-31.0) L 06/26/18 04:50 MCHC Differential 32.8 pg (28.0-36.0) 06/26/18 04:50 RDW 18.6 % (11.5-20.0) 06/26/18 04:50 Plt Count 447 Th/cmm (150-400) H 06/26/18 04:50 MPV 6.5 fl 06/26/18 04:50 Neutrophils % 73.8 % (40.0-80.0) 06/26/18 04:50 Lymphocytes % 12.4 % (20.0-50.0) L 06/26/18 04:50 Monocytes % 8.6 % (2.0-10.0) 06/26/18 04:50 Eosinophils % 4.2 % (0.0-5.0) 06/26/18 04:50 Basophils % 1.0 % (0.0-2.0) 06/26/18 04:50 PT 10.8 SECONDS (9.5-11.5) 06/26/18 04:50 INR 1.04 (0.5-1.4) 06/26/18 04:50 PTT (Actin FS) 49.2 SECONDS (26.0-38.0) H 06/24/18 11:36 D-Dimer 1640 ng/mL (100-400) H 06/24/18 04:45 Specimen Source ARTERIAL 06/25/18 17:19 Sample Site Right Radial 06/25/18 17:19 pH 7.54 (7.35-7.45) H 06/25/18 17:19 pCO2 46.0 mmHg (35.0-45.0) H 06/25/18 17:19 pO2 58.0 mmHg (80.0-100.0) L 06/25/18 17:19 HCO3 36.4 mEq/L (20.0-26.0) H 06/25/18 17:19 Base Excess 14.9 mEq/L (-3.0-3.0) H 06/25/18 17:19 O2 Saturation 93.0 % (92.0-100.0) 06/25/18 17:19 Ermias Test Positive 06/25/18 17:19 Vent Rate N/A 06/25/18 17:19 Inspired O2 21 06/25/18 17:19 Tidal Volume N/A 06/25/18 17:19 PEEP N/A 06/25/18 17:19 Pressure (ins/psv/peep) N/A 06/25/18 17:19 Critical Value PATTERN CARRIER 06/25/18 17:19 Sodium 136 mEq/L (136-145) 06/26/18 04:50 Potassium 3.4 mEq/L (3.5-5.1) L 06/26/18 04:50 Chloride 94 mEq/L (98-107) L 06/26/18 04:50 Carbon Dioxide 36.2 mEq/L (21.0-31.0) H 06/26/18 04:50 Anion Gap 9.2 (7.0-16.0) 06/26/18 04:50 BUN 21 mg/dL (7-25) 06/26/18 04:50 Creatinine 0.8 mg/dL (0.6-1.2) 06/26/18 04:50 Est GFR ( Amer) TNP 06/26/18 04:50 Est GFR (Non-Af Amer) TNP 06/26/18 04:50 BUN/Creatinine Ratio 26.3 06/26/18 04:50 Glucose 142 mg/dL (70-105) H 06/26/18 04:50 POC Glucose 147 MG/DL (70 - 105) H 06/26/18 05:54 Whole Bld Lactic Acid 0.63 mmol/L (0.60-1.99) 06/26/18 04:50 Calcium 9.4 mg/dL (8.6-10.3) 06/26/18 04:50 Phosphorus 4.2 mg/dL (2.5-5.0) 06/20/18 12:12 Magnesium 2.0 mg/dL (1.9-2.7) 06/20/18 12:12 Total Bilirubin 0.4 mg/dL (0.3-1.0) 06/26/18 04:50 AST 17 U/L (13-39) 06/26/18 04:50 ALT 10 U/L (7-52) 06/26/18 04:50 Alkaline Phosphatase 66 U/L (34-104) 06/26/18 04:50 Troponin I 0.02 ng/mL (0.01-0.05) 06/20/18 12:04 B-Natriuretic Peptide 247.0 pg/mL (5.0-100.0) H 06/24/18 04:45 Total Protein 7.1 gm/dL (6.0-8.3) 06/26/18 04:50 Albumin 3.1 gm/dL (3.7-5.3) L 06/26/18 04:50 Globulin 4.0 gm/dL 06/26/18 04:50 Albumin/Globulin Ratio 0.8 (1.0-1.8) L 06/26/18 04:50 TSH 2.74 uIU/ml (0.34-5.60) 06/21/18 03:25 Urine Source CLEAN C 06/20/18 14:20 Urine Color YELLOW 06/20/18 14:20 Urine Clarity HAZY (CLEAR) 06/20/18 14:20 Urine pH 6.0 (4.6 - 8.0) 06/20/18 14:20 Ur Specific [place] 1.025 (1.005-1.030) 06/20/18 14:20 Urine Protein 100 mg/dL (NEGATIVE) H 06/20/18 14:20 Urine Glucose (UA) 500 mg/dL (NEGATIVE) H 06/20/18 14:20 Urine Ketones NEGATIVE mg/dL (NEGATIVE) 06/20/18 14:20 Urine Blood MODERATE (NEGATIVE) H 06/20/18 14:20 Urine Nitrate NEGATIVE (NEGATIVE) 06/20/18 14:20 Urine Bilirubin NEGATIVE (NEGATIVE) 06/20/18 14:20 Urine Urobilinogen 0.2 E.U./dL (0.2 - 1.0) 06/20/18 14:20 Ur Leukocyte Esterase NEGATIVE (NEGATIVE) 06/20/18 14:20 Urine RBC 5-10 /hpf (0-5) H 06/20/18 14:20 Urine WBC 0-2 /hpf (0-5) 06/20/18 14:20 Ur Epithelial Cells FEW /lpf (FEW) 06/20/18 14:20 Urine Bacteria 1+ /hpf (NONE SEEN) H 06/20/18 14:20 Fine Granular Casts 0-2 /lpf (NONE SEEN) H 06/20/18 14:20 - Physical Exam Vitals and I&O: Vital Signs Temp 96.4 F 06/26/18 07:38 Pulse 79 06/26/18 08:54 Resp 18 06/26/18 07:38 BP 113/77 06/26/18 08:55 Pulse Ox 97 06/26/18 07:38 Intake & Output 06/25/18 06/26/18 06/26/18 18:59 06:59 18:59 Intake Total 400 200 Output Total 1400 700 Balance -1000 -500 Weight (lbs) 88.723 kg 85.729 kg Intake: Oral 400 200 Output: Urine 1400 700 Other: # Bowel Movements 4 1 Stool Characteristics Soft Soft Brown Weight Source Bedscale Bedscale Active Medications: Current Medications Albuterol/Ipratropium (Duoneb Neb) 3 ml HHN Q6HRT RAVINDER Stop: 08/21/18 06:59 Last Admin: 06/26/18 06:56 Dose: 3 ml Furosemide (Lasix) 40 mg IVP DAILY RAVINDER Stop: 08/20/18 08:59 Last Admin: 06/26/18 08:55 Dose: 40 mg Hydromorphone HCl (Dilaudid) 1 mg IVP Q6H PRN PRN Reason: Severe Pain Stop: 08/20/18 08:34 Last Admin: 06/24/18 01:16 Dose: 1 mg Ceftriaxone Sodium 1 gm/ (Sodium Chloride) 50 mls @ 100 mls/hr IV Q24HR RAVINDER Stop: 08/20/18 16:59 Last Admin: 06/25/18 16:30 Dose: 100 mls/hr Insulin Aspart (Novolog Insulin Sliding Scale) 0 units SUBQ Q6HR [facility]; Protocol Stop: 08/20/18 08:59 Last Admin: 06/26/18 05:56 Dose: Not Given Lactobacillus Rhamnosus (Culturelle 15b) 1 each PO DAILY [facility] Stop: 08/24/18 08:59 Last Admin: 06/26/18 08:54 Dose: 1 each Lisinopril (Zestril) 40 mg PO DAILY [facility] Stop: 08/20/18 08:59 Last Admin: 06/26/18 08:54 Dose: 40 mg Metoprolol Tartrate (Lopressor) 25 mg PO DAILY [facility] Stop: 08/20/18 08:59 Last Admin: 06/26/18 08:54 Dose: 25 mg Miscellaneous (Probiotic Screen) 1 ea MC PRN PRN PRN Reason: PROTOCOL Stop: 08/23/18 10:44 Pantoprazole Sodium (Protonix) 40 mg PO DAILY [facility] Stop: 08/24/18 08:59 Last Admin: 06/26/18 08:54 Dose: 40 mg Rivaroxaban (Xarelto) 15 mg PO BIDWM [facility] Stop: 07/15/18 18:01 Last Admin: 06/26/18 08:53 Dose: 15 mg General: Alert, Cooperative HEENT: Atraumatic Neck: Supple Cardiovascular: Regular rate Lungs: Other (Rude respiration, on nasal O2.) Abdomen: Bowel sounds, Soft Extremities: Tender, Other (Pittin edema1+) Neurological: Other (Non ambulatory at this time.) Skin: Other (Warm and dry) Psych/Mental Status: Mental status NL - Procedures Procedures: Procedures Procedure Code Date ELECTROCARDIOGRAM 89.52 01/30/00 ELECTROCARDIOGRAM COMPLETE 62549 01/30/00 EXCISION OF DUODENUM, ENDO, DIAGN [id number] 06/06/18 EXCISION OF STOMACH, ENDO, DIAGN [id number] 06/06/18 INSPECTION OF LOWER INTESTINAL TRACT, ENDO [id number] 06/06/18 LAPAROSCOPIC CHOLECYSTECTOMY 51.23 07/02/03 LAPAROSCOPIC CHOLECYSTECTOMY 05870 07/02/03 TRANSFUSE NONAUT RED BLOOD CELLS IN PERIPH VEIN, PERC [id number] 06/06/18 Assessment/Plan - Assessment Assessment: Patient is awake, alert, in no acute distress. WBC decreased today. PAtient follow by by ID, Cardio and Pulmonology. Patient will be discharge as soon SNF is ready. Dx: Sepsis secondary to PNA, Non occlusive PE, CHF, Chronic anemia , DM, HTN, COPD, Gastric ulcers. - Plan Plan: Patient in Xarelto, Ceftriaxone, Lasix, Insulin, and Pain management. Follow by Pulmonology, ID and Cardio. Will continue to monitor. Nutritional Asmnt/Malnutr-PDOC - Dietary Evaluation Malnutrition Findings (Please click <Entered> for more info): Nutritional Asmnt/Malnutrition Start: 06/21/18 14: 16 Text: Status: Complete Freq: Protocol: Document 06/21/18 14:16 LCHENG (Rec: 06/21/18 14:30 LCHENG [email or web address]) Nutritional Asmnt/Malnutrition Patient General Information Nutritional Screening High Risk Consult Diagnosis CHF Pertinent Medical Hx/Surgical Hx HTN, asthma/COPD, gastritis, healing ulcers, hemorrhoids Subjective Information Pt seen sitting up in bed having lunch at time of visit, awake and alert. RN was assisting pt to cup food. Per RN, pt consumed 75% of breakfast today. Pt did not provide any food preference. Current Diet Order/ Nutrition Support low dosium, [facility] Pertinent Medications lasix, novolog, pantoprazole Pertinent Labs 06/21 Cr 1.3, glucose 65, POC 80-121 06/20 Na 134, glucose 273 Nutritional Hx/Data Height 1.52 m Height (Calculated Centimeters) 152.4 Current Weight (lbs) 89.811 kg Weight (Calculated Kilograms) 89.8 Weight (Calculated Grams) 38633.3 [place] Body Weight 100 % [place] Body Weight 198 Body Mass Index (BMI) 38.7 Weight Status Obese GI Symptoms GI Symptoms None Last BM none Difficult in: None Skin Integrity/Comment: edema to bilateral cheryl extremities per nurse note skin intact Current %PO Good (75-100%) Estimated Nutritional Goals BEE in Kcals: Adj wt of IBW Calories/Kcals/Kg 25-30 Kcals Calculated 7812-8326 Protein: Adj wt of IBW Protein g/k Protein Calculated 67 Fluid: ml per MD d/t CHF Nutritional Problem 1. Problem Problem altered nutrition related labs Etiology hyperglycemia Signs/Symptoms: glucose 273 Malnutrition Alert Is there a minimum of two criteria No selected? Query Text:Check all the applicable criteria. A minimum of two criteria are recommended for diagnosis of either severe or non-severe malnutrition. Intervention/Recommendation Comments 1. Continue with [facility] low sodium diet as ordered. 2. Monitor PO intake, wt, labs and skin integrity 3. F/U as moderate risk in 3-5 days, 06/24-06/26, PO check 06/23 Expected Outcomes/Goals Expected Outcomes/Goals 1. PO intake to meet at least 75% of nutritional needs. 2. Wt stability, skin to remain intact, labs to approach WNL.
--- NOTE | 2018-06-26 09:33 | Diagnostic Imaging Report ---
Exam: Chest x-ray HISTORY: Shortness of breath. Findings: Frontal examination of the chest was reviewed compatible prior study (2018 demonstrates cardiomegaly mild congestion. The costophrenic angles are clear bony thorax intact. The aortic arch calcified. There is evidence for right basilar atelectasis with pleural effusion. IMPRESSION: Right basilar atelectasis, question small effusion. Mild congestive heart failure changes.
[2018-06-26 09:35] LABS: INR 1.07 (0.5-1.4); PROTHROMBIN TIME (TEST) 11.1 SECONDS (9.5-11.5)
[2018-06-26] MEDS: cefTRIAXone 1 GM in Sodium Chloride 0.9% 50 ML IV SCH (17:25)
[2018-06-27] MEDS: Albuterol/Ipratropium Neb 3 ML AERS HHN SCH ×4 (00:12→19:23)
[2018-06-27 05:38] LABS: % BASOPHILS 0.7 % (0.0-2.0); % EOSINOPHILS 4.8 % (0.0-5.0); % MONOCYTES 9.7 % (2.0-10.0); % NEUTROPHILS 68.8 % (40.0-80.0); BASOPHILE ABSOLUTE 0.1 Th/cumm (0-0.2); EOSINOPHILE ABSOLUTE 0.6 Th/cmm (0.1-0.4); HEMATOCRIT 27.3 % (41.0-60); HEMOGLOBIN 8.8 gm/dL (12-16); LYMPHOCYTE ABSOLUTE 2.1 Th/cmm (1.5-3.0); MEAN CELL VOLUME 76.9 fl (81-100); MEAN CORPUSCULAR HEMOGLOBIN 24.7 pg (27.0-31.0); MEAN CORPUSCULAR HGB CONC 32.1 pg (28.0-36.0); MEAN PLATELET VOLUME 6.4 fl; MONOCYTE ABSOLUTE 1.3 Th/cmm (0.3-1.0); NEUTROPHILE ABSOLUTE 9.2 Th/cmm (1.8-8.0); PLATELET COUNT 429 Th/cmm (150-400); RED BLOOD COUNT 3.55 Mil/cmm (3.80-5.20); RED CELL DISTRIBUTION WIDTH 18.7 % (11.5-20.0); WHITE BLOOD COUNT 13.3 Th/cmm (4.8-10.8)
[2018-06-27 06:00] LABS: INR 1.11 (0.5-1.4); PROTHROMBIN TIME (TEST) 11.4 SECONDS (9.5-11.5)
[2018-06-27 06:03] LABS: ALB/GLOB RATIO 0.8 (1.0-1.8); ALKALINE PHOSPHATASE 61 U/L (34-104); ANION GAP 10.4 (7.0-16.0); BILIRUBIN,TOTAL 0.3 mg/dL (0.3-1.0); BUN - UREA NITROGEN 22 mg/dL (7-25); CALCIUM SERUM 9.3 mg/dL (8.6-10.3); CARBON DIOXIDE 34.7 mEq/L (21.0-31.0); CHLORIDE 93 mEq/L (98-107); CREATININE - SERUM 0.8 mg/dL (0.6-1.2); GLUCOSE 148 mg/dL (70-105); POTASSIUM SERUM 3.1 mEq/L (3.5-5.1); SGOT 16 U/L (13-39); SGPT/ALT 9 U/L (7-52); SODIUM SERUM 135 mEq/L (136-145); TOTAL PROTEIN,SERUM 6.9 gm/dL (6.0-8.3)
[2018-06-27] MEDS: INSULIN ASPART SLIDING SCALE 100 UNITS/ML UNIT SUBQ SCH ×3 (06:57→18:21)
[2018-06-27] MEDS: Lactobacillus Rhamnosus GG 15 Billion CFU CAP.SPRINK PO SCH (09:10)
[2018-06-27] MEDS: Pantoprazole 40 mg EC Tab PO SCH (09:10)
--- NOTE | 2018-06-27 11:24 | General Progress Note ---
Subjective - Review of Systems Service Date: 06/27/18 Subjective: Patient in awake, alert, calm, in no acute distress,patient refer felling better , patient is improving. Objective - Results Result Diagrams: 06/27/18 05:30 06/27/18 05:30 Recent Labs: Laboratory Last Values WBC 13.3 Th/cmm (4.8-10.8) H 06/27/18 05:30 RBC 3.55 Mil/cmm (3.80-5.20) L 06/27/18 05:30 Hgb 8.8 gm/dL (12-16) L 06/27/18 05:30 Hct 27.3 % (41.0-60) L 06/27/18 05:30 MCV 76.9 fl (81-100) L 06/27/18 05:30 MCH 24.7 pg (27.0-31.0) L 06/27/18 05:30 MCHC Differential 32.1 pg (28.0-36.0) 06/27/18 05:30 RDW 18.7 % (11.5-20.0) 06/27/18 05:30 Plt Count 429 Th/cmm (150-400) H 06/27/18 05:30 MPV 6.4 fl 06/27/18 05:30 Neutrophils % 68.8 % (40.0-80.0) 06/27/18 05:30 Lymphocytes % 16.0 % (20.0-50.0) L 06/27/18 05:30 Monocytes % 9.7 % (2.0-10.0) 06/27/18 05:30 Eosinophils % 4.8 % (0.0-5.0) 06/27/18 05:30 Basophils % 0.7 % (0.0-2.0) 06/27/18 05:30 PT 11.4 SECONDS (9.5-11.5) 06/27/18 05:30 INR 1.11 (0.5-1.4) 06/27/18 05:30 PTT (Actin FS) 49.2 SECONDS (26.0-38.0) H 06/24/18 11:36 D-Dimer 1640 ng/mL (100-400) H 06/24/18 04:45 Specimen Source ARTERIAL 06/25/18 17:19 Sample Site Right Radial 06/25/18 17:19 pH 7.54 (7.35-7.45) H 06/25/18 17:19 pCO2 46.0 mmHg (35.0-45.0) H 06/25/18 17:19 pO2 58.0 mmHg (80.0-100.0) L 06/25/18 17:19 HCO3 36.4 mEq/L (20.0-26.0) H 06/25/18 17:19 Base Excess 14.9 mEq/L (-3.0-3.0) H 06/25/18 17:19 O2 Saturation 93.0 % (92.0-100.0) 06/25/18 17:19 Ermias Test Positive 06/25/18 17:19 Vent Rate N/A 06/25/18 17:19 Inspired O2 21 06/25/18 17:19 Tidal Volume N/A 06/25/18 17:19 PEEP N/A 06/25/18 17:19 Pressure (ins/psv/peep) N/A 06/25/18 17:19 Critical Value BLENDING TANK TENDER HELPER 06/25/18 17:19 Sodium 135 mEq/L (136-145) L 06/27/18 05:30 Potassium 3.1 mEq/L (3.5-5.1) L 06/27/18 05:30 Chloride 93 mEq/L (98-107) L 06/27/18 05:30 Carbon Dioxide 34.7 mEq/L (21.0-31.0) H 06/27/18 05:30 Anion Gap 10.4 (7.0-16.0) 06/27/18 05:30 BUN 22 mg/dL (7-25) 06/27/18 05:30 Creatinine 0.8 mg/dL (0.6-1.2) 06/27/18 05:30 Est GFR ( Amer) TNP 06/27/18 05:30 Est GFR (Non-Af Amer) TNP 06/27/18 05:30 BUN/Creatinine Ratio 27.5 06/27/18 05:30 Glucose 148 mg/dL (70-105) H 06/27/18 05:30 POC Glucose 140 MG/DL (70 - 105) H 06/27/18 06:52 Whole Bld Lactic Acid 0.63 mmol/L (0.60-1.99) 06/26/18 04:50 Calcium 9.3 mg/dL (8.6-10.3) 06/27/18 05:30 Phosphorus 4.2 mg/dL (2.5-5.0) 06/20/18 12:12 Magnesium 2.0 mg/dL (1.9-2.7) 06/20/18 12:12 Total Bilirubin 0.3 mg/dL (0.3-1.0) 06/27/18 05:30 AST 16 U/L (13-39) 06/27/18 05:30 ALT 9 U/L (7-52) 06/27/18 05:30 Alkaline Phosphatase 61 U/L (34-104) 06/27/18 05:30 Troponin I 0.02 ng/mL (0.01-0.05) 06/20/18 12:04 B-Natriuretic Peptide 247.0 pg/mL (5.0-100.0) H 06/24/18 04:45 Total Protein 6.9 gm/dL (6.0-8.3) 06/27/18 05:30 Albumin 3.0 gm/dL (3.7-5.3) L 06/27/18 05:30 Globulin 3.9 gm/dL 06/27/18 05:30 Albumin/Globulin Ratio 0.8 (1.0-1.8) L 06/27/18 05:30 TSH 2.69 uIU/ml (0.34-5.60) 06/27/18 05:30 Urine Source CLEAN C 06/20/18 14:20 Urine Color YELLOW 06/20/18 14:20 Urine Clarity HAZY (CLEAR) 06/20/18 14:20 Urine pH 6.0 (4.6 - 8.0) 06/20/18 14:20 Ur Specific [place] 1.025 (1.005-1.030) 06/20/18 14:20 Urine Protein 100 mg/dL (NEGATIVE) H 06/20/18 14:20 Urine Glucose (UA) 500 mg/dL (NEGATIVE) H 06/20/18 14:20 Urine Ketones NEGATIVE mg/dL (NEGATIVE) 06/20/18 14:20 Urine Blood MODERATE (NEGATIVE) H 06/20/18 14:20 Urine Nitrate NEGATIVE (NEGATIVE) 06/20/18 14:20 Urine Bilirubin NEGATIVE (NEGATIVE) 06/20/18 14:20 Urine Urobilinogen 0.2 E.U./dL (0.2 - 1.0) 06/20/18 14:20 Ur Leukocyte Esterase NEGATIVE (NEGATIVE) 06/20/18 14:20 Urine RBC 5-10 /hpf (0-5) H 06/20/18 14:20 Urine WBC 0-2 /hpf (0-5) 06/20/18 14:20 Ur Epithelial Cells FEW /lpf (FEW) 06/20/18 14:20 Urine Bacteria 1+ /hpf (NONE SEEN) H 06/20/18 14:20 Fine Granular Casts 0-2 /lpf (NONE SEEN) H 06/20/18 14:20 - Physical Exam Vitals and I&O: Vital Signs Temp 97.3 F 06/27/18 08:02 Pulse 81 06/27/18 09:10 Resp 18 06/27/18 08:02 BP 112/45 06/27/18 09:10 Pulse Ox 99 06/27/18 08:02 Intake & Output 06/26/18 06/27/18 06/27/18 18:59 06:59 18:59 Intake Total 800 50 Output Total 702 550 Balance 98 -500 Weight (lbs) 85.729 kg 85.729 kg Intake: Intake, IV Amount 50 cefTRIAXone 1 gm In 50 Sodium Chloride 0.9% 50 ml @ 100 mls/hr IV Q24HR [facility] Rx#:[id number] Oral 750 50 Output: Urine 700 550 Stool 2 Other: # Bowel Movements 1 Stool Characteristics Soft Soft Brown Brown Weight Source Bedscale Bedscale Active Medications: Current Medications Albuterol/Ipratropium (Duoneb Neb) 3 ml HHN Q6HRT RAVINDER Stop: 08/21/18 06:59 Last Admin: 06/27/18 07:06 Dose: 3 ml Furosemide (Lasix) 40 mg IVP DAILY RAVINDER Stop: 08/20/18 08:59 Last Admin: 06/27/18 09:09 Dose: 40 mg Hydromorphone HCl (Dilaudid) 1 mg IVP Q6H PRN PRN Reason: Severe Pain Stop: 08/20/18 08:34 Last Admin: 06/24/18 01:16 Dose: 1 mg Ceftriaxone Sodium 1 gm/ (Sodium Chloride) 50 mls @ 100 mls/hr IV Q24HR RAVINDER Stop: 08/20/18 16:59 Last Infusion: 06/26/18 18:38 Dose: Infused Potassium Chloride 20 meq/ (Sodium Chloride) 260 mls @ 130 mls/hr IV X1 ONE Stop: 06/27/18 11:59 Last Admin: 06/27/18 09:51 Dose: 130 mls/hr Insulin Aspart (Novolog Insulin Sliding Scale) 0 units SUBQ Q6HR RAVINDER; Protocol Stop: 08/20/18 08:59 Last Admin: 06/27/18 06:57 Dose: Not Given Lactobacillus Rhamnosus (Culturelle 15b) 1 each PO DAILY RAVINDER Stop: 08/24/18 08:59 Last Admin: 06/27/18 09:10 Dose: 1 each Lisinopril (Zestril) 40 mg PO DAILY RAVINDER Stop: 08/20/18 08:59 Last Admin: 06/27/18 09:08 Dose: 40 mg Metoprolol Tartrate (Lopressor) 25 mg PO DAILY RAVINDER Stop: 08/20/18 08:59 Last Admin: 06/27/18 09:10 Dose: 25 mg Miscellaneous (Probiotic Screen) 1 ea MC PRN PRN PRN Reason: PROTOCOL Stop: 08/23/18 10:44 Pantoprazole Sodium (Protonix) 40 mg PO DAILY [facility] Stop: 08/24/18 08:59 Last Admin: 06/27/18 09:10 Dose: 40 mg Rivaroxaban (Xarelto) 15 mg PO BIDWM RAVINDER Stop: 07/15/18 18:01 Last Admin: 06/27/18 09:09 Dose: 15 mg General: Alert, Cooperative HEENT: Atraumatic Neck: Supple Cardiovascular: Regular rate Lungs: Other (Rude respiration, on nasal O2.) Abdomen: Bowel sounds, Soft Extremities: Tender, Other (Pittin edema1+) Neurological: Other (Non ambulatory at this time.) Skin: Other (Warm and dry) Psych/Mental Status: Mental status NL - Procedures Procedures: Procedures Procedure Code Date ELECTROCARDIOGRAM 89.52 01/30/00 ELECTROCARDIOGRAM COMPLETE 89145 01/30/00 EXCISION OF DUODENUM, ENDO, DIAGN [id number] 06/06/18 EXCISION OF STOMACH, ENDO, DIAGN [id number] 06/06/18 INSPECTION OF LOWER INTESTINAL TRACT, ENDO [id number] 06/06/18 LAPAROSCOPIC CHOLECYSTECTOMY 51.23 07/02/03 LAPAROSCOPIC CHOLECYSTECTOMY 78202 07/02/03 TRANSFUSE NONAUT RED BLOOD CELLS IN PERIPH VEIN, PERC [id number] 06/06/18 Assessment/Plan - Assessment Assessment: Patient is awake, alert, in no acute distress. WBC continuing decreasing. PAtient follow by by ID, Cardio and Pulmonology. Patient will be discharge as soon SNF is ready. Dx: Sepsis secondary to PNA, Non occlusive PE, CHF, Chronic anemia, DM, HTN, COPD, Hx of Gastric ulcers. - Plan Plan: Patient in Xarelto, Ceftriaxone, Lasix, Insulin, and Pain management. Follow by Pulmonology, ID and Cardio. She was not DC because insurance did not provided with the equipment patient needs. Will continue to monitor. Nutritional Asmnt/Malnutr-PDOC - Dietary Evaluation Malnutrition Findings (Please click <Entered> for more info): Nutritional Asmnt/Malnutrition Start: 06/21/18 14: 16 Text: Status: Complete Freq: Protocol: Document 06/21/18 14:16 LCHENG (Rec: 06/21/18 14:30 [email or web address]) Nutritional Asmnt/Malnutrition Patient General Information Nutritional Screening High Risk Consult Diagnosis CHF Pertinent Medical Hx/Surgical Hx HTN, asthma/COPD, gastritis, healing ulcers, hemorrhoids Subjective Information Pt seen sitting up in bed having lunch at time of visit, awake and alert. RN was assisting pt to cup food. Per RN, pt consumed 75% of breakfast today. Pt did not provide any food preference. Current Diet Order/ Nutrition Support low dosium, CCHO Pertinent Medications lasix, novolog, pantoprazole Pertinent Labs 06/21 Cr 1.3, glucose 65, POC 80-121 06/20 Na 134, glucose 273 Nutritional Hx/Data Height 1.52 m Height (Calculated Centimeters) 152.4 Current Weight (lbs) 89.811 kg Weight (Calculated Kilograms) 89.8 Weight (Calculated Grams) 04567.3 [place] Body Weight 100 % [place] Body Weight 198 Body Mass Index (BMI) 38.7 Weight Status Obese GI Symptoms GI Symptoms None Last BM none Difficult in: None Skin Integrity/Comment: edema to bilateral cheryl extremities per nurse note skin intact Current %PO Good (75-100%) Estimated Nutritional Goals BEE in Kcals: Adj wt of IBW Calories/Kcals/Kg 25-30 Kcals Calculated 7759-3323 Protein: Adj wt of IBW Protein g/k Protein Calculated 67 Fluid: ml per MD d/t CHF Nutritional Problem 1. Problem Problem altered nutrition related labs Etiology hyperglycemia Signs/Symptoms: glucose 273 Malnutrition Alert Is there a minimum of two criteria No selected? Query Text:Check all the applicable criteria. A minimum of two criteria are recommended for diagnosis of either severe or non-severe malnutrition. Intervention/Recommendation Comments 1. Continue with [facility] low sodium diet as ordered. 2. Monitor PO intake, wt, labs and skin integrity 3. F/U as moderate risk in 3-5 days, 06/24-06/26, PO check 06/23 Expected Outcomes/Goals Expected Outcomes/Goals 1. PO intake to meet at least 75% of nutritional needs. 2. Wt stability, skin to remain intact, labs to approach WNL.
[2018-06-27 14:18] LABS: INR 1.34 (0.5-1.4); PROTHROMBIN TIME (TEST) 13.7 SECONDS (9.5-11.5)
[2018-06-27] MEDS: cefTRIAXone 1 GM in Sodium Chloride 0.9% 50 ML IV SCH (16:14)
[2018-06-27] MEDS: HYDROmorphone 1 mg/mL 1mL Syr IVP PRN (16:15)
[2018-06-28] MEDS: INSULIN ASPART SLIDING SCALE 100 UNITS/ML UNIT SUBQ SCH ×3 (00:26→12:54)
[2018-06-28] MEDS: Albuterol/Ipratropium Neb 3 ML AERS HHN SCH ×3 (00:27→13:40)
[2018-06-28 06:44] LABS: % BASOPHILS 0.1 % (0.0-2.0); % EOSINOPHILS 5.7 % (0.0-5.0); % LYMPHOCYTES 15.9 % (20.0-50.0); % MONOCYTES 9.8 % (2.0-10.0); % NEUTROPHILS 68.5 % (40.0-80.0); EOSINOPHILE ABSOLUTE 0.7 Th/cmm (0.1-0.4); HEMATOCRIT 27.8 % (41.0-60); HEMOGLOBIN 9.1 gm/dL (12-16); LYMPHOCYTE ABSOLUTE 1.9 Th/cmm (1.5-3.0); MEAN CELL VOLUME 76.6 fl (81-100); MEAN CORPUSCULAR HEMOGLOBIN 25.1 pg (27.0-31.0); MEAN CORPUSCULAR HGB CONC 32.8 pg (28.0-36.0); MONOCYTE ABSOLUTE 1.2 Th/cmm (0.3-1.0); NEUTROPHILE ABSOLUTE 8.4 Th/cmm (1.8-8.0); PLATELET COUNT 471 Th/cmm (150-400); RED BLOOD COUNT 3.63 Mil/cmm (3.80-5.20); RED CELL DISTRIBUTION WIDTH 18.9 % (11.5-20.0); WHITE BLOOD COUNT 12.2 Th/cmm (4.8-10.8)
[2018-06-28 06:57] LABS: INR 1.04 (0.5-1.4); PROTHROMBIN TIME (TEST) 10.8 SECONDS (9.5-11.5)
[2018-06-28 07:11] LABS: ALB/GLOB RATIO 0.8 (1.0-1.8); ALBUMIN 3.1 gm/dL (3.7-5.3); ALKALINE PHOSPHATASE 59 U/L (34-104); ANION GAP 10.2 (7.0-16.0); BILIRUBIN,TOTAL 0.3 mg/dL (0.3-1.0); BUN - UREA NITROGEN 21 mg/dL (7-25); CALCIUM SERUM 9.4 mg/dL (8.6-10.3); CARBON DIOXIDE 36.2 mEq/L (21.0-31.0); CHLORIDE 93 mEq/L (98-107); CREATININE - SERUM 0.8 mg/dL (0.6-1.2); GLUCOSE 159 mg/dL (70-105); POTASSIUM SERUM 3.4 mEq/L (3.5-5.1); SGOT 16 U/L (13-39); SGPT/ALT 10 U/L (7-52); SODIUM SERUM 136 mEq/L (136-145)
--- NOTE | 2018-06-28 08:37 | General Progress Note ---
Subjective - Review of Systems Service Date: 06/28/18 Subjective: Patient in awake, alert, calm, in no acute distress,patient refer felling better , patient is improving. Objective - Results Result Diagrams: 06/28/18 05:40 06/28/18 05:40 Recent Labs: Laboratory Last Values WBC 12.2 Th/cmm (4.8-10.8) H 06/28/18 05:40 RBC 3.63 Mil/cmm (3.80-5.20) L 06/28/18 05:40 Hgb 9.1 gm/dL (12-16) L 06/28/18 05:40 Hct 27.8 % (41.0-60) L 06/28/18 05:40 MCV 76.6 fl (81-100) L 06/28/18 05:40 MCH 25.1 pg (27.0-31.0) L 06/28/18 05:40 MCHC Differential 32.8 pg (28.0-36.0) 06/28/18 05:40 RDW 18.9 % (11.5-20.0) 06/28/18 05:40 Plt Count 471 Th/cmm (150-400) H 06/28/18 05:40 MPV 7.0 fl 06/28/18 05:40 Neutrophils % 68.5 % (40.0-80.0) 06/28/18 05:40 Lymphocytes % 15.9 % (20.0-50.0) L 06/28/18 05:40 Monocytes % 9.8 % (2.0-10.0) 06/28/18 05:40 Eosinophils % 5.7 % (0.0-5.0) H 06/28/18 05:40 Basophils % 0.1 % (0.0-2.0) 06/28/18 05:40 PT 10.8 SECONDS (9.5-11.5) 06/28/18 05:40 INR 1.04 (0.5-1.4) 06/28/18 05:40 PTT (Actin FS) 49.2 SECONDS (26.0-38.0) H 06/24/18 11:36 D-Dimer 1480 ng/mL (100-400) H 06/28/18 05:40 Specimen Source ARTERIAL 06/25/18 17:19 Sample Site Right Radial 06/25/18 17:19 pH 7.54 (7.35-7.45) H 06/25/18 17:19 pCO2 46.0 mmHg (35.0-45.0) H 06/25/18 17:19 pO2 58.0 mmHg (80.0-100.0) L 06/25/18 17:19 HCO3 36.4 mEq/L (20.0-26.0) H 06/25/18 17:19 Base Excess 14.9 mEq/L (-3.0-3.0) H 06/25/18 17:19 O2 Saturation 93.0 % (92.0-100.0) 06/25/18 17:19 Ermias Test Positive 06/25/18 17:19 Vent Rate N/A 06/25/18 17:19 Inspired O2 21 06/25/18 17:19 Tidal Volume N/A 06/25/18 17:19 PEEP N/A 06/25/18 17:19 Pressure (ins/psv/peep) N/A 06/25/18 17:19 Critical Value LOADER HELPER 06/25/18 17:19 Sodium 136 mEq/L (136-145) 06/28/18 05:40 Potassium 3.4 mEq/L (3.5-5.1) L 06/28/18 05:40 Chloride 93 mEq/L (98-107) L 06/28/18 05:40 Carbon Dioxide 36.2 mEq/L (21.0-31.0) H 06/28/18 05:40 Anion Gap 10.2 (7.0-16.0) 06/28/18 05:40 BUN 21 mg/dL (7-25) 06/28/18 05:40 Creatinine 0.8 mg/dL (0.6-1.2) 06/28/18 05:40 Est GFR ( Amer) TNP 06/28/18 05:40 Est GFR (Non-Af Amer) TNP 06/28/18 05:40 BUN/Creatinine Ratio 26.3 06/28/18 05:40 Glucose 159 mg/dL (70-105) H 06/28/18 05:40 POC Glucose 160 MG/DL (70 - 105) H 06/28/18 06:07 Whole Bld Lactic Acid 0.63 mmol/L (0.60-1.99) 06/26/18 04:50 Calcium 9.4 mg/dL (8.6-10.3) 06/28/18 05:40 Phosphorus 4.2 mg/dL (2.5-5.0) 06/20/18 12:12 Magnesium 2.0 mg/dL (1.9-2.7) 06/20/18 12:12 Total Bilirubin 0.3 mg/dL (0.3-1.0) 06/28/18 05:40 AST 16 U/L (13-39) 06/28/18 05:40 ALT 10 U/L (7-52) 06/28/18 05:40 Alkaline Phosphatase 59 U/L (34-104) 06/28/18 05:40 Troponin I 0.02 ng/mL (0.01-0.05) 06/20/18 12:04 B-Natriuretic Peptide 419.0 pg/mL (5.0-100.0) H 06/28/18 05:40 Total Protein 7.0 gm/dL (6.0-8.3) 06/28/18 05:40 Albumin 3.1 gm/dL (3.7-5.3) L 06/28/18 05:40 Globulin 3.9 gm/dL 06/28/18 05:40 Albumin/Globulin Ratio 0.8 (1.0-1.8) L 06/28/18 05:40 TSH 2.69 uIU/ml (0.34-5.60) 06/27/18 05:30 Urine Source CLEAN C 06/20/18 14:20 Urine Color YELLOW 06/20/18 14:20 Urine Clarity HAZY (CLEAR) 06/20/18 14:20 Urine pH 6.0 (4.6 - 8.0) 06/20/18 14:20 Ur Specific [place] 1.025 (1.005-1.030) 06/20/18 14:20 Urine Protein 100 mg/dL (NEGATIVE) H 06/20/18 14:20 Urine Glucose (UA) 500 mg/dL (NEGATIVE) H 06/20/18 14:20 Urine Ketones NEGATIVE mg/dL (NEGATIVE) 06/20/18 14:20 Urine Blood MODERATE (NEGATIVE) H 06/20/18 14:20 Urine Nitrate NEGATIVE (NEGATIVE) 06/20/18 14:20 Urine Bilirubin NEGATIVE (NEGATIVE) 06/20/18 14:20 Urine Urobilinogen 0.2 E.U./dL (0.2 - 1.0) 06/20/18 14:20 Ur Leukocyte Esterase NEGATIVE (NEGATIVE) 06/20/18 14:20 Urine RBC 5-10 /hpf (0-5) H 06/20/18 14:20 Urine WBC 0-2 /hpf (0-5) 06/20/18 14:20 Ur Epithelial Cells FEW /lpf (FEW) 06/20/18 14:20 Urine Bacteria 1+ /hpf (NONE SEEN) H 06/20/18 14:20 Fine Granular Casts 0-2 /lpf (NONE SEEN) H 06/20/18 14:20 - Physical Exam Vitals and I&O: Vital Signs Temp 97 F 06/28/18 06:16 Pulse 78 06/28/18 07:05 Resp 18 06/28/18 07:06 BP 124/65 06/28/18 06:16 Pulse Ox 99 06/28/18 07:05 Intake & Output 06/27/18 06/28/18 06/28/18 18:59 06:59 18:59 Intake Total 360 150 Output Total 1100 350 Balance -740 -200 Weight (lbs) 85.729 kg 87.543 kg 87.543 kg Intake: Oral 360 150 Output: Urine 1100 350 Other: # Voids 4 50 # Bowel Movements 3 1 Stool Characteristics Soft Soft Brown Brown Weight Source Bedscale Bedscale Bedscale Active Medications: Current Medications Albuterol/Ipratropium (Duoneb Neb) 3 ml HHN Q6HRT RAVINDER Stop: 08/21/18 06:59 Last Admin: 06/28/18 07:05 Dose: 3 ml Furosemide (Lasix) 40 mg IVP DAILY RAVINDER Stop: 08/20/18 08:59 Last Admin: 06/27/18 09:09 Dose: 40 mg Hydromorphone HCl (Dilaudid) 1 mg IVP Q6H PRN PRN Reason: Severe Pain Stop: 08/20/18 08:34 Last Admin: 06/27/18 16:15 Dose: 1 mg Insulin Aspart (Novolog Insulin Sliding Scale) 0 units SUBQ Q6HR RAVINDER; Protocol Stop: 11/30/18 08:59 Last Admin: 06/28/18 06:56 Dose: 2 units Lactobacillus Rhamnosus (Culturelle 15b) 1 each PO DAILY [facility] Stop: 08/24/18 08:59 Last Admin: 06/27/18 09:10 Dose: 1 each Lisinopril (Zestril) 40 mg PO DAILY [facility] Stop: 08/20/18 08:59 Last Admin: 06/27/18 09:08 Dose: 40 mg Metoprolol Tartrate (Lopressor) 25 mg PO DAILY RAVINDER Stop: 08/20/18 08:59 Last Admin: 06/27/18 09:10 Dose: 25 mg Miscellaneous (Probiotic Screen) 1 ea MC PRN PRN PRN Reason: PROTOCOL Stop: 08/23/18 10:44 Pantoprazole Sodium (Protonix) 40 mg PO DAILY [facility] Stop: 08/24/18 08:59 Last Admin: 06/27/18 09:10 Dose: 40 mg Rivaroxaban (Xarelto) 15 mg PO BIDWM RAVINDER Stop: 07/15/18 18:01 Last Admin: 06/27/18 17:17 Dose: 15 mg Zolpidem Tartrate (Ambien) 5 mg PO HS PRN PRN Reason: Insomnia Stop: 08/26/18 18:43 Last Admin: 06/28/18 00:46 Dose: 5 mg General: Alert, Cooperative HEENT: Atraumatic Neck: Supple Cardiovascular: Regular rate Lungs: Other (Rude respiration, on nasal O2.) Abdomen: Bowel sounds, Soft Extremities: Tender, Other (Pittin edema1+) Neurological: Other (Non ambulatory at this time.) Skin: Other (Warm and dry) Psych/Mental Status: Mental status NL - Procedures Procedures: Procedures Procedure Code Date ELECTROCARDIOGRAM 89.52 01/30/00 ELECTROCARDIOGRAM COMPLETE 74422 01/30/00 EXCISION OF DUODENUM, ENDO, DIAGN [id number] 06/06/18 EXCISION OF STOMACH, ENDO, DIAGN [id number] 06/06/18 INSPECTION OF LOWER INTESTINAL TRACT, ENDO [id number] 06/06/18 LAPAROSCOPIC CHOLECYSTECTOMY 51.23 07/02/03 LAPAROSCOPIC CHOLECYSTECTOMY 10105 07/02/03 TRANSFUSE NONAUT RED BLOOD CELLS IN PERIPH VEIN, PERC [id number] 06/06/18 Assessment/Plan - Assessment Assessment: Patient is awake, alert, in no acute distress. WBC continuing decreasing. PAtient follow by by ID, Cardio and Pulmonology. Patient will be discharge as soon SNF is ready. Dx: Sepsis secondary to PNA, Non occlusive PE, CHF, Chronic anemia, DM, HTN, COPD, Hx of Gastric ulcers. - Plan Plan: Patient in Xarelto, Ceftriaxone, Lasix, Insulin, and Pain management. Follow by Pulmonology, ID and Cardio. Awaitting SNF placement. Will continue to monitor. Nutritional Asmnt/Malnutr-PDOC - Dietary Evaluation Malnutrition Findings (Please click <Entered> for more info): Nutritional Asmnt/Malnutrition Start: 06/21/18 14: 16 Text: Status: Complete Freq: Protocol: Document 06/21/18 14:16 LCHENG (Rec: 06/21/18 14:30 [email or web address]) Nutritional Asmnt/Malnutrition Patient General Information Nutritional Screening High Risk Consult Diagnosis CHF Pertinent Medical Hx/Surgical Hx HTN, asthma/COPD, gastritis, healing ulcers, hemorrhoids Subjective Information Pt seen sitting up in bed having lunch at time of visit, awake and alert. RN was assisting pt to cup food. Per RN, pt consumed 75% of breakfast today. Pt did not provide any food preference. Current Diet Order/ Nutrition Support low dosium, CCHO Pertinent Medications lasix, novolog, pantoprazole Pertinent Labs 06/21 Cr 1.3, glucose 65, POC 80-121 06/20 Na 134, glucose 273 Nutritional Hx/Data Height 1.52 m Height (Calculated Centimeters) 152.4 Current Weight (lbs) 89.811 kg Weight (Calculated Kilograms) 89.8 Weight (Calculated Grams) 80355.3 [place] Body Weight 100 % [place] Body Weight 198 Body Mass Index (BMI) 38.7 Weight Status Obese GI Symptoms GI Symptoms None Last BM none Difficult in: None Skin Integrity/Comment: edema to bilateral cheryl extremities per nurse note skin intact Current %PO Good (75-100%) Estimated Nutritional Goals BEE in Kcals: Adj wt of IBW Calories/Kcals/Kg 25-30 Kcals Calculated 7541-8354 Protein: Adj wt of IBW Protein g/k Protein Calculated 67 Fluid: ml per MD d/t CHF Nutritional Problem 1. Problem Problem altered nutrition related labs Etiology hyperglycemia Signs/Symptoms: glucose 273 Malnutrition Alert Is there a minimum of two criteria No selected? Query Text:Check all the applicable criteria. A minimum of two criteria are recommended for diagnosis of either severe or non-severe malnutrition. Intervention/Recommendation Comments 1. Continue with [facility] low sodium diet as ordered. 2. Monitor PO intake, wt, labs and skin integrity 3. F/U as moderate risk in 3-5 days, 06/24-06/26, PO check 06/23 Expected Outcomes/Goals Expected Outcomes/Goals 1. PO intake to meet at least 75% of nutritional needs. 2. Wt stability, skin to remain intact, labs to approach WNL.
[2018-06-28] MEDS ORDERED: Potassium Chloride 20 mEq ER Tab PO SCH (09:00)
[2018-06-28] MEDS: HYDROmorphone 1 mg/mL 1mL Syr IVP PRN (09:16)
[2018-06-28] MEDS: Pantoprazole 40 mg EC Tab PO SCH (09:18)
[2018-06-28] MEDS: Lactobacillus Rhamnosus GG 15 Billion CFU CAP.SPRINK PO SCH (09:18)
--- NOTE | 2018-06-28 12:47 | Infectious Disease Prog Note ---
Infectious Disease Subjective - Review of Systems Service Date: 06/28/18 Subjective: Doing the same, no fever. Infectious Disease Objective - Results Result Diagrams: 06/28/18 05:40 06/28/18 05:40 Recent Labs: Laboratory Last Values WBC 12.2 Th/cmm (4.8-10.8) H 06/28/18 05:40 RBC 3.63 Mil/cmm (3.80-5.20) L 06/28/18 05:40 Hgb 9.1 gm/dL (12-16) L 06/28/18 05:40 Hct 27.8 % (41.0-60) L 06/28/18 05:40 MCV 76.6 fl (81-100) L 06/28/18 05:40 MCH 25.1 pg (27.0-31.0) L 06/28/18 05:40 MCHC Differential 32.8 pg (28.0-36.0) 06/28/18 05:40 RDW 18.9 % (11.5-20.0) 06/28/18 05:40 Plt Count 471 Th/cmm (150-400) H 06/28/18 05:40 MPV 7.0 fl 06/28/18 05:40 Neutrophils % 68.5 % (40.0-80.0) 06/28/18 05:40 Lymphocytes % 15.9 % (20.0-50.0) L 06/28/18 05:40 Monocytes % 9.8 % (2.0-10.0) 06/28/18 05:40 Eosinophils % 5.7 % (0.0-5.0) H 06/28/18 05:40 Basophils % 0.1 % (0.0-2.0) 06/28/18 05:40 PT 10.8 SECONDS (9.5-11.5) 06/28/18 05:40 INR 1.04 (0.5-1.4) 06/28/18 05:40 PTT (Actin FS) 49.2 SECONDS (26.0-38.0) H 06/24/18 11:36 D-Dimer 1480 ng/mL (100-400) H 06/28/18 05:40 Specimen Source ARTERIAL 06/25/18 17:19 Sample Site Right Radial 06/25/18 17:19 pH 7.54 (7.35-7.45) H 06/25/18 17:19 pCO2 46.0 mmHg (35.0-45.0) H 06/25/18 17:19 pO2 58.0 mmHg (80.0-100.0) L 06/25/18 17:19 HCO3 36.4 mEq/L (20.0-26.0) H 06/25/18 17:19 Base Excess 14.9 mEq/L (-3.0-3.0) H 06/25/18 17:19 O2 Saturation 93.0 % (92.0-100.0) 06/25/18 17:19 Ermias Test Positive 06/25/18 17:19 Vent Rate N/A 06/25/18 17:19 Inspired O2 21 06/25/18 17:19 Tidal Volume N/A 06/25/18 17:19 PEEP N/A 06/25/18 17:19 Pressure (ins/psv/peep) N/A 06/25/18 17:19 Critical Value SUPPLIES PACKER 06/25/18 17:19 Sodium 136 mEq/L (136-145) 06/28/18 05:40 Potassium 3.4 mEq/L (3.5-5.1) L 06/28/18 05:40 Chloride 93 mEq/L (98-107) L 06/28/18 05:40 Carbon Dioxide 36.2 mEq/L (21.0-31.0) H 06/28/18 05:40 Anion Gap 10.2 (7.0-16.0) 06/28/18 05:40 BUN 21 mg/dL (7-25) 06/28/18 05:40 Creatinine 0.8 mg/dL (0.6-1.2) 06/28/18 05:40 Est GFR ( Amer) TNP 06/28/18 05:40 Est GFR (Non-Af Amer) TNP 06/28/18 05:40 BUN/Creatinine Ratio 26.3 06/28/18 05:40 Glucose 159 mg/dL (70-105) H 06/28/18 05:40 POC Glucose 260 MG/DL (70 - 105) H 06/28/18 11:54 Whole Bld Lactic Acid 0.63 mmol/L (0.60-1.99) 06/26/18 04:50 Calcium 9.4 mg/dL (8.6-10.3) 06/28/18 05:40 Phosphorus 4.2 mg/dL (2.5-5.0) 06/20/18 12:12 Magnesium 2.0 mg/dL (1.9-2.7) 06/20/18 12:12 Total Bilirubin 0.3 mg/dL (0.3-1.0) 06/28/18 05:40 AST 16 U/L (13-39) 06/28/18 05:40 ALT 10 U/L (7-52) 06/28/18 05:40 Alkaline Phosphatase 59 U/L (34-104) 06/28/18 05:40 Troponin I 0.02 ng/mL (0.01-0.05) 06/20/18 12:04 B-Natriuretic Peptide 419.0 pg/mL (5.0-100.0) H 06/28/18 05:40 Total Protein 7.0 gm/dL (6.0-8.3) 06/28/18 05:40 Albumin 3.1 gm/dL (3.7-5.3) L 06/28/18 05:40 Globulin 3.9 gm/dL 06/28/18 05:40 Albumin/Globulin Ratio 0.8 (1.0-1.8) L 06/28/18 05:40 TSH 2.69 uIU/ml (0.34-5.60) 06/27/18 05:30 Urine Source CLEAN C 06/20/18 14:20 Urine Color YELLOW 06/20/18 14:20 Urine Clarity HAZY (CLEAR) 06/20/18 14:20 Urine pH 6.0 (4.6 - 8.0) 06/20/18 14:20 Ur Specific [place] 1.025 (1.005-1.030) 06/20/18 14:20 Urine Protein 100 mg/dL (NEGATIVE) H 06/20/18 14:20 Urine Glucose (UA) 500 mg/dL (NEGATIVE) H 06/20/18 14:20 Urine Ketones NEGATIVE mg/dL (NEGATIVE) 06/20/18 14:20 Urine Blood MODERATE (NEGATIVE) H 06/20/18 14:20 Urine Nitrate NEGATIVE (NEGATIVE) 06/20/18 14:20 Urine Bilirubin NEGATIVE (NEGATIVE) 06/20/18 14:20 Urine Urobilinogen 0.2 E.U./dL (0.2 - 1.0) 06/20/18 14:20 Ur Leukocyte Esterase NEGATIVE (NEGATIVE) 06/20/18 14:20 Urine RBC 5-10 /hpf (0-5) H 06/20/18 14:20 Urine WBC 0-2 /hpf (0-5) 06/20/18 14:20 Ur Epithelial Cells FEW /lpf (FEW) 06/20/18 14:20 Urine Bacteria 1+ /hpf (NONE SEEN) H 06/20/18 14:20 Fine Granular Casts 0-2 /lpf (NONE SEEN) H 06/20/18 14:20 - Physical Exam Vitals and I&O: Vital Signs Temp 97.5 F 06/28/18 12:00 Pulse 69 06/28/18 12:00 Resp 19 06/28/18 12:00 BP 100/67 06/28/18 12:00 Pulse Ox 100 06/28/18 12:00 Intake & Output 06/27/18 06/28/18 06/28/18 18:59 06:59 18:59 Intake Total 360 150 Output Total 1100 350 Balance -740 -200 Weight (lbs) 85.729 kg 87.543 kg 87.543 kg Intake: Oral 360 150 Output: Urine 1100 350 Other: # Voids 4 50 # Bowel Movements 3 1 Stool Characteristics Soft Soft Brown Brown Weight Source Bedscale Bedscale Bedscale Active Medications: Current Medications Albuterol/Ipratropium (Duoneb Neb) 3 ml HHN Q6HRT RAVINDER Stop: 08/21/18 06:59 Last Admin: 06/28/18 07:05 Dose: 3 ml Furosemide (Lasix) 40 mg IVP DAILY RAVINDER Stop: 08/20/18 08:59 Last Admin: 06/28/18 09:18 Dose: 40 mg Hydromorphone HCl (Dilaudid) 1 mg IVP Q6H PRN PRN Reason: Severe Pain Stop: 08/20/18 08:34 Last Admin: 06/28/18 09:16 Dose: 1 mg Insulin Aspart (Novolog Insulin Sliding Scale) 0 units SUBQ Q6HR RAVINDER; Protocol Stop: 08/20/18 08:59 Last Admin: 06/28/18 06:56 Dose: 2 units Lactobacillus Rhamnosus (Culturelle 15b) 1 each PO DAILY RAVINDER Stop: 08/24/18 08:59 Last Admin: 06/28/18 09:18 Dose: 1 each Lisinopril (Zestril) 40 mg PO DAILY RAVINDER Stop: 08/20/18 08:59 Last Admin: 06/28/18 09:18 Dose: 40 mg Metoprolol Tartrate (Lopressor) 25 mg PO DAILY RAVINDER Stop: 08/20/18 08:59 Last Admin: 06/28/18 09:18 Dose: 25 mg Miscellaneous (Probiotic Screen) 1 ea MC PRN PRN PRN Reason: PROTOCOL Stop: 08/23/18 10:44 Pantoprazole Sodium (Protonix) 40 mg PO DAILY RAVINDER Stop: 08/24/18 08:59 Last Admin: 06/28/18 09:18 Dose: 40 mg Potassium Chloride (Klor-Con) 20 meq PO DAILY RAVINDER Stop: 08/27/18 08:59 Last Admin: 06/28/18 09:18 Dose: 20 meq Rivaroxaban (Xarelto) 15 mg PO BIDWM RAVINDER Stop: 07/15/18 18:01 Last Admin: 06/28/18 09:27 Dose: 15 mg Zolpidem Tartrate (Ambien) 5 mg PO HS PRN PRN Reason: Insomnia Stop: 08/26/18 18:43 Last Admin: 06/28/18 00:46 Dose: 5 mg General: no acute distress, well developed, well nourished HEENT: atraumatic, normocephalic, PERRLA Neck: supple, no thyromegaly Cardiovascular: S1S2, regular Lungs: clear to auscultation bilaterally, clear to percussion, no crackles Abdomen: soft, bowel sounds, no tender, no distended, no mass, no rebound Extremities: no cyanosis, no clubbing, no edema Neurological: awake, alert, oriented Skin: intact - Procedures Procedures: Procedures Procedure Code Date ELECTROCARDIOGRAM 89.52 01/30/00 ELECTROCARDIOGRAM COMPLETE 33359 01/30/00 EXCISION OF DUODENUM, ENDO, DIAGN [id number] 06/06/18 EXCISION OF STOMACH, ENDO, DIAGN [id number] 06/06/18 INSPECTION OF LOWER INTESTINAL TRACT, ENDO 9UNC9HY 09/16/18 LAPAROSCOPIC CHOLECYSTECTOMY 51.23 07/02/03 LAPAROSCOPIC CHOLECYSTECTOMY 06680 07/02/03 TRANSFUSE NONAUT RED BLOOD CELLS IN PERIPH VEIN, PERC 94951O4 06/06/18 Infectious Disease Assmt/Plan - Assessment Assessment: 1. Leukocytosis, most likely reactive versus due to UTI. treated 2. UTI. 3. Pulmonary embolism. 4. COPD exacerbation. 5. Obesity 6. Coronary artery disease. 7. Hypertension. 8. CHF. - Plan Plan: Off antibitics. I will s/o please call me as needed. Nutritional Asmnt/Malnutr-PDOC - Dietary Evaluation Malnutrition Findings (Please click <Entered> for more info): Nutritional Asmnt/Malnutrition Start: 06/21/18 14: 16 Text: Status: Complete Freq: Protocol: Document 06/21/18 14:16 [email or web address] (Rec: 06/21/18 14:30 [id number]) Nutritional Asmnt/Malnutrition Patient General Information Nutritional Screening High Risk Consult Diagnosis CHF Pertinent Medical Hx/Surgical Hx HTN, asthma/COPD, gastritis, healing ulcers, hemorrhoids Subjective Information Pt seen sitting up in bed having lunch at time of visit, awake and alert. RN was assisting pt to cup food. Per RN, pt consumed 75% of breakfast today. Pt did not provide any food preference. Current Diet Order/ Nutrition Support low dosium, CCHO Pertinent Medications lasix, novolog, pantoprazole Pertinent Labs 06/21 Cr 1.3, glucose 65, POC 80-121 06/20 Na 134, glucose 273 Nutritional Hx/Data Height 1.52 m Height (Calculated Centimeters) 152.4 Current Weight (lbs) 89.811 kg Weight (Calculated Kilograms) 89.8 Weight (Calculated Grams) 24985.3 [place] Body Weight 100 % [place] Body Weight 198 Body Mass Index (BMI) 38.7 Weight Status Obese GI Symptoms GI Symptoms None Last BM none Difficult in: None Skin Integrity/Comment: edema to bilateral cheryl extremities per nurse note skin intact Current %PO Good (75-100%) Estimated Nutritional Goals BEE in Kcals: Adj wt of IBW Calories/Kcals/Kg 25-30 Kcals Calculated 3464-1899 Protein: Adj wt of IBW Protein g/k Protein Calculated 67 Fluid: ml per MD d/t CHF Nutritional Problem 1. Problem Problem altered nutrition related labs Etiology hyperglycemia Signs/Symptoms: glucose 273 Malnutrition Alert Is there a minimum of two criteria No selected? Query Text:Check all the applicable criteria. A minimum of two criteria are recommended for diagnosis of either severe or non-severe malnutrition. Intervention/Recommendation Comments 1. Continue with [facility] low sodium diet as ordered. 2. Monitor PO intake, wt, labs and skin integrity 3. F/U as moderate risk in 3-5 days, 06/24-06/26, PO check 06/23 Expected Outcomes/Goals Expected Outcomes/Goals 1. PO intake to meet at least 75% of nutritional needs. 2. Wt stability, skin to remain intact, labs to approach WNL.
[2018-06-28 14:17] LABS: INR 1.04 (0.5-1.4); PROTHROMBIN TIME (TEST) 10.8 SECONDS (9.5-11.5)
--- NOTE | 2018-06-29 08:33 | Discharge Summary ---
General Discharge Summary - Discharge Summary Date of Admission: 06/20/18 Admitting Diagnosis: Sepsis, PNA, Non oclusive PE, CHF, Anemia, DM, HTN, COPD. Discharge Date: 06/28/18 Discharge Diagnosis: Sepsis, PNA, Pleural effusion, Non oclusive PE, CHF, Chronic anemia, DM, HTN, COPD, Slepp apnea. Laboratory Findings: Laboratory Results - last 24 hr 06/28/18 06/28/18 06/28/18 11:54 14:03 16:42 PT 10.8 INR 1.04 POC Glucose 260 H 164 H Hospital Course: Patient was admitted to ICU, she responded to treatment and improved. SOB improved and Plural effusion decreased. D-dimers, and BNP improved. Treatment: Patient was started in IV NS, Heparin drip later changed for xarelto, IV AB, Lasix and continue with home meds. She was follow by Pulmonary, Cardiology, and ID. Condition at Discharge: Stable Disposition: Discharge/Transfered to SNF Home Medications: Home Medication Medication Instructions Recorded Type Aspirin 81 mg PO DAILY 09/20/17 History Insulin NPH Hum/Reg Insulin Hm 40 unit SQ QDAC 09/20/17 History [Humulin 70/30 Kwikpen] Lisinopril [Zestril*] 40 mg PO DAILY 09/20/17 History Metformin HCl [Glucophage] 1,000 mg PO BID 09/20/17 History Metoprolol Tartrate 25 mg PO DAILY 06/06/18 History Pravastatin Sodium 40 mg PO HS 06/06/18 History Citalopram Hydrobromide 10 mg PO DAILY 06/21/18 History [Citalopram HBr] Albuterol/Ipratropium Neb [Duoneb 3 ml HHN Q6HRT 7 Days #7 aers 06/28/18 Rx Neb] Furosemide [Lasix] 40 mg IVP DAILY #7 vial 06/28/18 Rx Insulin Aspart Sliding Scale See Protocol SUBQ Q6HR 7 Days #7 06/28/18 Rx [NovoLOG INSULIN SLIDING SCALE] unit Lactobacillus Rhamnosus GG 15B 1 each PO DAILY 7 Days #7 06/28/18 Rx [Culturelle 15B] cap.sprink Pantoprazole [Protonix] 40 mg PO DAILY 10 Days #10 ect 06/28/18 Rx Potassium Chloride ER [Klor-Con] 20 meq PO DAILY 10 Days #10 ter 10/08/18 Rx Rivaroxaban [Xarelto] 15 mg PO BIDWM 10 Days #10 tab 06/28/18 Rx Zolpidem Tartrate [Ambien] 5 mg PO HS PRN 7 Days #7 tab 06/28/18 Rx Prescriptions: Albuterol/Ipratropium Neb [Duoneb Neb] 3 ml HHN Q6HRT 7 Days #7 aers Insulin Aspart Sliding Scale [NovoLOG INSULIN SLIDING SCALE] See Protocol SUBQ Q6HR 7 Days #7 unit Furosemide [Lasix] 40 mg IVP DAILY #7 vial Lactobacillus Rhamnosus GG 15B [Culturelle 15B] 1 each PO DAILY 7 Days #7 cap.sprink Pantoprazole [Protonix] 40 mg PO DAILY 10 Days #10 ect Potassium Chloride ER [Klor-Con] 20 meq PO DAILY 10 Days #10 ter Rivaroxaban [Xarelto] 15 mg PO BIDWM 10 Days #10 tab Zolpidem Tartrate [Ambien] 5 mg PO HS PRN 7 Days #7 tab PRN Reason: Insomnia Discharge Diet: 2 Gram Sodium Consults and Follow-Up: RYAN CAMP [Other] not on staff,PCP is [Primary Care Provider] - Consulting Speciality: Other (Pulmonary, Cardiology and PCP.) Instructions: Heart Failure
== END 2018-06-28 18:25 | DRG 871 ==
LOC: ER 11:47 → ICU 15:50 → TELE 06-25 16:08 → MSI 06-25 17:12
PROVIDERS: ADMIT General Practice; ATTEND General Practice
PROC: 5A09357 Assistance with Respiratory Ventilation, Less than 24 Consecutive Hours, Continuous Positive Airway Pressure (ICD-10-PCS; principal; 2018-06-22)
PROC: 5A09357 Assistance with Respiratory Ventilation, Less than 24 Consecutive Hours, Continuous Positive Airway Pressure (ICD-10-PCS; 2018-06-25)
DX: A41.9 Sepsis, unspecified organism (principal); J18.9 Pneumonia, unspecified organism; I26.99 Other pulmonary embolism without acute cor pulmonale; J96.00 Acute respiratory failure, unspecified whether with hypoxia or hypercapnia; I50.33 Acute on chronic diastolic (congestive) heart failure; J44.0 Chronic obstructive pulmonary disease with (acute) lower respiratory infection; J44.1 Chronic obstructive pulmonary disease with (acute) exacerbation; I25.10 Atherosclerotic heart disease of native coronary artery without angina pectoris; E11.9 Type 2 diabetes mellitus without complications; I11.0 Hypertensive heart disease with heart failure; K25.9 Gastric ulcer, unspecified as acute or chronic, without hemorrhage or perforation; D50.9 Iron deficiency anemia, unspecified; I08.3 Combined rheumatic disorders of mitral, aortic and tricuspid valves; E66.9 Obesity, unspecified; Z99.81 Dependence on supplemental oxygen; Z68.37 Body mass index [BMI] 37.0-37.9, adult; Z79.4 Long term (current) use of insulin; Z87.891 Personal history of nicotine dependence
CPT/HCPCS: 36415-UA; 36600-90; 71045-TC; 71275-TC; 80053-TC; 81001-TC; 82803-TC; 82948-90; 83605; 83735-TC; 83880-TC; 84100-TC; 84443-TC; 84484-TC; 85025-TC; 85379-TC; 85610-TC; 85730-TC; 87086-90; 93005; 93970-TC-50; 94660; 94760; 96375; 97530; C9113; J0696; J1170; J1644; J1815; J1940; J2060; J3480; Q9967; X3904; Z7610